=== PATIENT | male | born 1935 | race Caucasian/White ===

== ENCOUNTER → 2017-04-03 | Outpatient (CLI) | payer MEDICARE ==
[2017-04-03 12:55] LABS: CH 28.6; CHCM 31.3; HCT 37.7 % (39.0-53.0); HDW 2.29; Hypochromasia Slight; MCH 29.2 pg (25.0-35.0); MCHC 31.7 g/dL (31.0-37.0); Mean Platelet Volume 8.5; WBC 6.8 k/uL (3.8-10.6)
[2017-04-03 13:05] LABS: Anion Gap 14 mmol/L; Blood Urea Nitrogen 43 mg/dL (9-20); Carbon Dioxide 24 mmol/L (22-30); Chloride 107 mmol/L (98-107); Non-African American GFR(MDRD) 53 (>60 ml/min/1.73 sqM); Potassium 4.6 mmol/L (3.5-5.1); Sodium 145 mmol/L (137-145)
== END | disposition home or self-care (01) ==
LOC: LABPAT 11:51
PROVIDERS: ATTEND Internal Medicine Interventional Cardiology
DX: Z01.812 Encounter for preprocedural laboratory examination (principal); I73.9 Peripheral vascular disease, unspecified
CPT/HCPCS: 80051; 82565; 84520; 85027

== ENCOUNTER 2017-04-04 06:25 | Day surgery (SDC) | payer MEDICARE ==
[2017-04-03 10:47] VITALS: BMI 26.6
[~2017-04-04 06:25] MED LIST: ALPRAZolam 0.25 MG TAB PO PRN; ASPIRIN 325 MG TAB PO ONE; ATORVASTATIN 80 MG TAB PO ONE; NITROGLYCERIN SL TABS 0.4 MG TAB SUBLINGUAL PRN; SODIUM CHLORIDE 0.9% 1,000 ML in EMPTY BAG 1 BAG IV ONE
[2017-04-04 07:20] LABS: Glucose,Whole Blood 115 mg/dL (75-99)
[2017-04-04] MEDS: MIDAZOLAM 2 MG/2 ML VIAL IV ONE ×2 (11:50→11:54)
[2017-04-04] MEDS ORDERED: LIDOCAINE 2% INJ 20 MG/ML IV ONE (11:50)
[2017-04-04] MEDS ORDERED: SODIUM CHLORIDE 0.9% 1,000 ML IV ONE (11:51)
[2017-04-04] MEDS ORDERED: IODIXANOL 320 MG/ML 100 ML INTRAARTER ONE (12:15)
[2017-04-04] MEDS ORDERED: RX INFO: IV CONTRAST WAS GIVEN 1 EACH MISC MISCELLANE PRN (12:23)
[2017-04-04] MEDS ORDERED: SODIUM CHLORIDE 0.9% 1,000 ML IV SCH (12:30)
[2017-04-04 13:18] VITALS: RESP 16; TEMP 97.4
--- NOTE | 2017-04-04 13:19 | IR ---
EXAMINATION TYPE: IR angio abdominal w runoff DATE OF EXAM: 04/04/2017 CLINICAL HISTORY: Peripheral vascular disease TECHNIQUE: Fluoroscopy. COMPARISON: None. FINDINGS: Fluoroscopic guidance was provided during coronary angiogram and abdominal aortic angiogra m with lower extremity runoff procedure performed by Dr. Carrero. A total of 5.6 minutes of fluoroscopi c time was utilized during the procedure and multiple cine images are acquired. Please refer to proce dure note for further details as I was not present nor performed procedure. IMPRESSION: As Above.
[2017-04-04 16:18] VITALS: BP 147/65; PULSE 61
--- NOTE | 2017-04-04 22:43 | CC ---
DATE OF SERVICE: 04/04/2017 PERFORMING PHYSICIAN: Farrukh Carrero M.D., handle lathe operator. PROCEDURES PERFORMED: 1. Selective right and left coronary angiogram. 2. Left heart catheterization. INDICATION: This is a pleasant 82-year-old gentleman who is known to have peripheral arterial disease as well as significant history of smoking. He was experiencing intermittent episodes of chest discomfort consistent with angina. He was brought today to undergo a heart catheterization. APPROACH: Right common femoral artery. COMPLICATIONS: None. LEVEL OF SEDATION: Moderate with sedation length of 26 minutes. PROCEDURE DESCRIPTION: After obtaining informed consent, the patient was brought to the cardiac lab animal technician. The right common femoral artery was cannulated using micropuncture technique. The micropuncture wire passed easily. Then I placed a 6 Romanian sheath in the right common femoral artery. Subsequently I did selective right and left coronary angiogram using JR4 and JL4 catheters. After that I did left heart catheterization using a 6 Romanian pigtail catheter. The procedure was completed without any complication. SELECTIVE CORONARY ANGIOGRAM: 1. The right coronary artery is a medium- to large-caliber vessel and it is a dominant vessel. The RCA is calcified. In the proximal portion it seems to have mild disease only. In the mid portion it appears to have mild disease only as well. Distally it appeared to have a tubular lesion that seems to be in the range of 70% to 80%. It is involving the bifurcation of PDA and PLV branches. 2. The left main is calcified with mild disease only. It bifurcates into the left circumflex and left anterior descending artery. 3. The left circumflex is a medium-caliber vessel and it is a non-dominant vessel. The proximal left circumflex appeared to be angiographically normal and gives rise to a large OM branch which appeared to have mild disease only. The circumflex continues after that as a small-caliber vessel in the AV groove. 4. The LAD is calcified. The proximal LAD appeared to have mild disease only. The mid LAD appeared to have a lesion that seems to be in the range of 50% to 60%. The LAD distally appeared to be angiographically normal. HEMODYNAMICS: The left ventricular end-diastolic pressure was 8 mmHg. There was no significant gradient identified across the aortic valve. CONCLUSION: 1. Severe disease involving the distal right coronary artery. 2. Intermediate disease involving the proximal to mid LAD. POST-PROCEDURE MANAGEMENT: The patient will be scheduled to undergo a stent of the RCA and FFR of the LAD in a separate session in view of the low GFR and maximum contrast used during this procedure.
--- NOTE | 2017-04-04 22:53 | PCN ---
DATE OF PROCEDURE: 04/04/2017 PERFORMING PHYSICIAN: Farrukh Carrero M.D., college director. PROCEDURES PERFORMED: 1. Abdominal aortogram. 2. Bilateral lower extremity runoff. INDICATION: This is a pleasant 82-year-old gentleman who is known to have severe underlying PAD, where he underwent in the past angioplasty of bilateral SFA and stenting of the right iliac. He was experiencing severe bilateral lower extremity discomfort again, worse on the right side and consistent with claudication. He was brought today to undergo an angiogram for better clarification. APPROACH: Right common femoral artery. COMPLICATIONS: None. LEVEL OF SEDATION: Moderate with a sedation length total with heart catheterization of 26 minutes. PROCEDURE DESCRIPTION: After obtaining informed consent, the patient was brought to the cardiac candlemaking laborer. The right common femoral artery was cannulated using micropuncture technique. The micropuncture wire passed easily. Then I placed a 6 Czech sheath in the right common femoral artery. Subsequently and after I performed heart catheterization on this gentleman, I performed an aortogram and bilateral lower extremity runoff using a 6 Czech pigtail catheter which was initially placed at the level of the renal arteries. Then it was pulled into above the bifurcation of the aorta to right and left common iliac arteries. The procedure was completed without any complication. SELECTIVE PERIPHERAL ANGIOGRAM: 1. The aorta appeared to have mild disease only. It is calcified as well. 2. Common iliac arteries. The right common iliac artery stent appeared to be patent. The left common iliac artery appeared to have mild disease only. 3. Internal iliac arteries. The right and left internal iliac arteries are patent. 4. External iliac arteries. The right and left external iliac arteries are angiographically normal. 5. Common femoral arteries. The right and left common femoral arteries appear to have mild disease only. 6. SFA. The right SFA is stented, and in the mid portion there is severe in-stent restenosis. The left SFA appeared to have also 2 focal lesions that appeared to be in the range of 70%. 7. Popliteals. The right and left popliteals are angiographically normal. 8. Aygly-kgh-ngzt. There is 2-vessel runoff below the knee bilaterally with posterior tibia and peroneal. CONCLUSION: 1. Patent stent in the right common iliac artery. 2. Severe bilateral SFA disease. POST-PROCEDURE MANAGEMENT: The patient will be scheduled to undergo a GLASS SCULLION of the right and subsequently the left SFA in 2 separate sessions.
== END 2017-04-04 19:05 | disposition home or self-care (01) ==
LOC: CATHCVL 06:25 → 3OBS 12:17 → CATHCVL 19:05
PROVIDERS: ATTEND Internal Medicine Interventional Cardiology
DX: I70.213 Atherosclerosis of native arteries of extremities with intermittent claudication, bilateral legs (principal); I10 Essential (primary) hypertension; E78.5 Hyperlipidemia, unspecified; R06.09 Other forms of dyspnea; F17.290 Nicotine dependence, other tobacco product, uncomplicated; I65.23 Occlusion and stenosis of bilateral carotid arteries; T82.856A Stenosis of peripheral vascular stent, initial encounter; I25.10 Atherosclerotic heart disease of native coronary artery without angina pectoris; I25.84 Coronary atherosclerosis due to calcified coronary lesion; I70.0 Atherosclerosis of aorta; Y71.3 Surgical instruments, materials and cardiovascular devices (including sutures) associated with adverse incidents; Z79.84 Long term (current) use of oral hypoglycemic drugs; Z79.02 Long term (current) use of antithrombotics/antiplatelets; Z79.82 Long term (current) use of aspirin; Z79.899 Other long term (current) drug therapy
CPT/HCPCS: 93458; 75625; 75716; 99152; 99153; C1894; C1769 ×2; J2001; J2250; Q9967

== ENCOUNTER 2017-04-17 08:59 | Day surgery (SDC) | payer MEDICARE ==
[~2017-04-17 08:59] MED LIST changes: +ALPRAZolam 0.5 MG TAB PO PRN; -ASPIRIN 325 MG TAB PO ONE; +ASPIRIN 325 MG TAB PO STA; -ATORVASTATIN 80 MG TAB PO ONE; +ATORVASTATIN 80 MG TAB PO STA
[2017-04-17 09:25] LABS: Glucose,Whole Blood 121 mg/dL (75-99)
[2017-04-17] MEDS ORDERED: ASPIRIN 81 MG CHEW ONE (09:25)
[2017-04-17] MEDS: MIDAZOLAM 2 MG/2 ML VIAL IV ONE ×2 (10:09→10:34)
[2017-04-17] MEDS ORDERED: MIDAZOLAM 2 MG/2 ML VIAL ONE ×2 (10:17→11:04)
[2017-04-17] MEDS ORDERED: diphenhydrAMINE 50 MG/ML 1 ML VIAL ONE (10:17)
[2017-04-17] MEDS ORDERED: VERAPAMIL 2.5 MG/ML 2 ML AMP ONE (10:19)
[2017-04-17] MEDS ORDERED: LIDOCAINE 2% INJ 20 MG/ML SQ ONE (10:20)
[2017-04-17] MEDS ORDERED: HYDROmorphone 2 MG/ML 1 ML SYRINGE IV ONE (10:21)
[2017-04-17] MEDS ORDERED: HYDROmorphone 2 MG/ML 1 ML SYRINGE ONE (10:21)
[2017-04-17] MEDS ORDERED: VERAPAMIL SYRINGE (5 MG/10 ML) INTRAARTER ONE (10:23)
[2017-04-17] MEDS ORDERED: BIVALIRUDIN 250 MG in SODIUM CHLORIDE 0.9% 50 ML IV ONE (10:24)
[2017-04-17] MEDS ORDERED: BIVALIRUDIN BOLUS 250 MG/50 ML IV ONE (10:24)
[2017-04-17] MEDS: NITROGLYCERIN 1000MCG/10ML SYRINGE INTRAARTER ONE ×3 (10:37→11:24)
[2017-04-17] MEDS ORDERED: ADENOSINE 90 MG in SODIUM CHLORIDE 0.9% 60 ML IVP ONE (11:02)
[2017-04-17] MEDS ORDERED: MIDAZOLAM 2 MG/2 ML VIAL IV ONE (11:06)
[2017-04-17] MEDS ORDERED: CLOPIDOGREL 75 MG TAB ONE (11:08)
[2017-04-17] MEDS ORDERED: IOHEXOL 350 MG/ML 125ML BOTTLE INJ ONE (11:25)
[2017-04-17] MEDS ORDERED: CLOPIDOGREL 75 MG TAB PO ONE (11:25)
[2017-04-17] MEDS ORDERED: IOHEXOL 350 MG/ML 50ML BOTTLE INJ ONE (11:25)
[2017-04-17] MEDS ORDERED: ZOLPIDEM 5 MG TAB PO PRN (11:37)
[2017-04-17] MEDS ORDERED: ATROPINE SULFATE 0.1 MG/ML 10ML SYRINGE IV PRN (11:37)
[2017-04-17] MEDS ORDERED: RX INFO: IV CONTRAST WAS GIVEN 1 EACH MISC MISCELLANE PRN (11:37)
[2017-04-17] MEDS ORDERED: MAG HYDROX/AL HYDROX/SIMETH 30 ML CUP PO PRN (11:37)
[2017-04-17] MEDS ORDERED: NITROGLYCERIN SL TABS 0.4 MG TAB SUBLINGUAL PRN (11:37)
[2017-04-17] MEDS ORDERED: SODIUM CHLORIDE 0.9% 1,000 ML IV SCH (11:45)
--- NOTE | 2017-04-17 12:25 | CC ---
DATE OF SERVICE: 04/17/2017 PERFORMING PHYSICIAN: Farrukh Carrero MD, Tank Tender. PROCEDURE PERFORMED: 1. Successful stenting of the distal right coronary artery using 2.5 x 16 mm Promus Premier drug-eluting stent with good angiographic results. 2. Fractional flow reserve, FFR of the left anterior descending artery. 3. Successful stenting of the proximal left anterior descending artery using 3.0 x 16 mm Promus Premier drug-eluting stent with good angiographic results. INDICATION: This is a pleasant 82-year-old gentleman who was experiencing exertional dyspnea and exertional chest discomfort. He underwent a heart catheterization a couple of weeks ago and that showed severe disease involving the distal right coronary artery and intermediate disease involving the proximal LAD. He was brought today to undergo stenting of the RCA and FFR of the LAD. APPROACH: Right radial artery. COMPLICATIONS: None. LEVEL OF SEDATION: Moderate with a sedation length of 70 minutes. PROCEDURE DESCRIPTION: After obtaining an informed consent, the patient was brought to the Cardiac Claim Investigator. The right radial artery was cannulated using micropuncture technique. The micropuncture wire passed easily, then I placed 6 Austrian sheath in the right radial artery. Subsequently, I gave the patient 2 mg of verapamil IA and 3000 units of heparin IV. After that, I gave the patient 2 mg of verapamil IA, then anticoagulation was initiated using Angiomax. After that, I did take JR4 guiding catheter, and the RCA was engaged. It was wired using a whisper wire and I did advance the wire to the PLV branch of the RCA which was quite bigger than the PDA branch of the RCA. I did balloon angioplasty initially using 2.0 x 15 mm balloon, then I did stent the distal right coronary artery using 2.5 x 16 mm Promus Premier drug-eluting stent, where the stent was positioned under fluoroscopy guidance, then it was deployed under 12 atmospheres for 20 seconds. The following angiogram showed good angiographic results. FFR of the LAD: After zeroing the Doppler wire and equalizing between the Doppler wire and the guiding catheter, which was a JL3.5 guiding catheter, we did an FFR of the LAD using IV adenosine infusion. The FFR came in to be ischemic which was 0.77. At that point, I decided to stent the LAD. PCI of the LAD: I did balloon angioplasty of the proximal LAD using 2.5 x 15 mm balloon. Subsequently, I took 3.0 x 16 mm Promus Premier drug-eluting stent, where the stent was positioned under fluoroscopy guidance and it was deployed under 12 atmospheres for 20 seconds. The following angiogram showed that the mid part of the stent seems to be slightly under-opposed, not well opposed, so I decided to post-dilate, so I took 3.25 x 12 mm NC balloon and I did post dilatation of the stent where the balloon was inflated under 16 atmospheres for 30 seconds. The following angiogram showed excellent angiographic result without perforation and without dissection with excellent flow in the LAD. The procedure was completed without any complication. POSTPROCEDURE MANAGEMENT: 1. Dual antiplatelet therapy. 2. Risk factor modifications. 3. Follow up with the patient.
[2017-04-17 12:44] LABS: Glucose,Whole Blood 110 mg/dL (75-99)
[2017-04-17 14:48] VITALS: BMI 27.1
[2017-04-17] MEDS: LISINOPRIL 20 MG TAB PO SCH (21:05)
[2017-04-18 01:40] VITALS: RESP 18
[2017-04-18 06:14] LABS: Basophils % (A) 0 %; CH 29.4; CHCM 32.1; Eosinophils # (A) 0.1 k/uL (0-0.7); Eosinophils % (A) 2 %; HCT 35.7 % (39.0-53.0); HDW 2.25; HGB 11.5 gm/dL (13.0-17.5); Luc # (Auto) 0.11; Luc % (Auto) 2; Lymphocytes # (A) 1.3 k/uL (1.0-4.8); Lymphocytes % (A) 17 %; MCH 29.5 pg (25.0-35.0); MCHC 32.1 g/dL (31.0-37.0); MCV 91.8 fL (80.0-100.0); Mean Platelet Volume 9.1; Monocytes # (A) 0.4 k/uL (0-1.0); Monocytes % (A) 6 %; Neutrophils # (A) 5.4 k/uL (1.3-7.7); Neutrophils % (A) 74 %; RBC 3.89 m/uL (4.30-5.90); RDW 15.7 % (11.5-15.5); WBC 7.3 k/uL (3.8-10.6)
[2017-04-18 06:30] VITALS: TEMP 97.8
[2017-04-18 06:33] LABS: Glucose,Whole Blood 159 mg/dL (75-99)
[2017-04-18 06:35] LABS: Anion Gap 10 mmol/L; Blood Urea Nitrogen 30 mg/dL (9-20); Calcium 9.2 mg/dL (8.4-10.2); Carbon Dioxide 21 mmol/L (22-30); Chloride 111 mmol/L (98-107); Glucose 101 mg/dL (74-99); Non-African American GFR(MDRD) >60 (>60 ml/min/1.73 sqM); Potassium 4.5 mmol/L (3.5-5.1); Sodium 142 mmol/L (137-145)
[2017-04-18] MEDS: LISINOPRIL 20 MG TAB PO SCH (07:51)
[2017-04-18] MEDS ORDERED: ASPIRIN 81 MG CHEW PO SCH (09:00)
[2017-04-18] MEDS ORDERED: FUROSEMIDE 20 MG TAB PO SCH (09:00)
[2017-04-18] MEDS ORDERED: ATORVASTATIN 10 MG TAB PO SCH (09:00)
[2017-04-18] MEDS ORDERED: CLOPIDOGREL 75 MG TAB PO SCH (09:00)
[2017-04-18 09:46] VITALS: BP 105/53; PULSE 64
[2017-04-18] MEDS ORDERED: MULTIVITAMINS, THERA 1 EACH TAB PO SCH (12:00)
--- NOTE | 2017-04-19 07:02 | DS ---
DATE OF ADMISSION: 04/17/2017 DATE OF DISCHARGE: 04/18/2017 BRIEF HISTORY: This is a pleasant 82-year-old gentleman who was experiencing classical anginal symptoms. He underwent a heart catheterization and that showed severe disease involving the distal right coronary artery and intermediate disease involving the proximal to mid LAD. He was brought today where he underwent successful stenting of the distal right coronary artery with a good angiographic result. Besides that, he underwent fractional flow reserve of the LAD and that came in to be ischemic and the patient underwent successful stenting of the LAD with a good angiographic result and without any complication. The procedure was performed from the right radial artery and he does have good right radial pulse. The patient is going to be discharged home on dual antiplatelet therapy and I will follow up with the patient as an outpatient in the office.
[2017-04-22] MEDS ORDERED: ERGOCALCIFEROL 50,000 UNIT CAP PO SCH (12:00)
== END 2017-04-18 11:16 | disposition home or self-care (01) ==
LOC: CATHCVL 08:59 → 6SEL 14:55 → CATHCVL 04-18 11:16
PROVIDERS: ATTEND Internal Medicine Interventional Cardiology
DX: I25.10 Atherosclerotic heart disease of native coronary artery without angina pectoris (principal); I70.213 Atherosclerosis of native arteries of extremities with intermittent claudication, bilateral legs; I10 Essential (primary) hypertension; E78.5 Hyperlipidemia, unspecified; E11.9 Type 2 diabetes mellitus without complications; Z79.84 Long term (current) use of oral hypoglycemic drugs; Z79.02 Long term (current) use of antithrombotics/antiplatelets; Z79.82 Long term (current) use of aspirin; Z79.899 Other long term (current) drug therapy; F17.210 Nicotine dependence, cigarettes, uncomplicated
CPT/HCPCS: 93571; 80048; 85025; 99152; 99153 ×4; C9600 ×2; C1769 ×4; C1887 ×2; C1725 ×3; C1894 ×2; C1874; J2001; J2250; J1170; J0583; J0153; Q9967 ×2

== ENCOUNTER → 2017-05-19 | Outpatient (CLI) | payer MEDICARE ==
[2017-05-19 11:46] LABS: CH 29.5; CHCM 32.2; HCT 35.3 % (39.0-53.0); HGB 11.7 gm/dL (13.0-17.5); MCH 30.5 pg (25.0-35.0); MCV 92.2 fL (80.0-100.0); Mean Platelet Volume 8.5; RBC 3.83 m/uL (4.30-5.90); RDW 15.3 % (11.5-15.5); WBC 5.7 k/uL (3.8-10.6)
[2017-05-19 11:47] LABS: Anion Gap 12 mmol/L; Blood Urea Nitrogen 39 mg/dL (9-20); Carbon Dioxide 25 mmol/L (22-30); Chloride 107 mmol/L (98-107); Non-African American GFR(MDRD) 58 (>60 ml/min/1.73 sqM); Potassium 4.8 mmol/L (3.5-5.1); Sodium 144 mmol/L (137-145)
== END | disposition home or self-care (01) ==
LOC: LABPAT 11:03
PROVIDERS: ATTEND Internal Medicine Interventional Cardiology
DX: Z01.812 Encounter for preprocedural laboratory examination (principal); I73.9 Peripheral vascular disease, unspecified
CPT/HCPCS: 80051; 82565; 84520; 85027

== ENCOUNTER 2017-05-23 08:21 | Day surgery (SDC) | payer MEDICARE ==
[2017-05-17 11:17] VITALS: BMI 26.9
[~2017-05-23 08:21] MED LIST changes: -ATORVASTATIN 80 MG TAB PO STA; -NITROGLYCERIN SL TABS 0.4 MG TAB SUBLINGUAL PRN
[2017-05-23] MEDS ORDERED: ASPIRIN 81 MG CHEW ONE (08:31)
[2017-05-23 08:52] LABS: Glucose,Whole Blood 115 mg/dL (75-99)
[2017-05-23] MEDS ORDERED: MIDAZOLAM 2 MG/2 ML VIAL IV ONE (10:05)
[2017-05-23] MEDS ORDERED: LIDOCAINE 2% INJ 20 MG/ML SQ ONE (10:16)
[2017-05-23] MEDS ORDERED: HEPARIN SODIUM 1,000 UN/ML (10ML VL) IV ONE (10:18)
[2017-05-23] MEDS: HYDROmorphone 2 MG/ML 1 ML SYRINGE IV ONE ×2 (10:21→11:12)
[2017-05-23] MEDS: NITROGLYCERIN 1000MCG/10ML SYRINGE INTRAARTER ONE ×6 (11:10→12:17)
[2017-05-23] MEDS: niCARdipine Syringe (1,000 mcg/10 mL) INTRAARTER ONE ×3 (11:11→11:39)
[2017-05-23] MEDS ORDERED: SODIUM CHLORIDE 0.9% 1,000 ML IV SCH (13:00)
[2017-05-23] MEDS ORDERED: IODIXANOL 320 MG/ML 100 ML INTRAARTER ONE (13:14)
[2017-05-23] MEDS ORDERED: ATROPINE SULFATE 0.1 MG/ML 10ML SYRINGE ONE (18:07)
[2017-05-23] MEDS ORDERED: ATORVASTATIN 10 MG TAB PO SCH (21:00)
[2017-05-23] MEDS: LISINOPRIL 20 MG TAB PO SCH (21:18)
[2017-05-24 06:53] LABS: Basophils % (A) 0 %; CH 29.7; CHCM 32.3; Eosinophils # (A) 0.1 k/uL (0-0.7); Eosinophils % (A) 2 %; HCT 31.1 % (39.0-53.0); HDW 2.48; HGB 10.2 gm/dL (13.0-17.5); Luc # (Auto) 0.09; Luc % (Auto) 1; Lymphocytes # (A) 0.8 k/uL (1.0-4.8); Lymphocytes % (A) 13 %; MCH 30.1 pg (25.0-35.0); MCHC 32.7 g/dL (31.0-37.0); MCV 92.2 fL (80.0-100.0); Mean Platelet Volume 8.2; Monocytes # (A) 0.4 k/uL (0-1.0); Monocytes % (A) 7 %; Neutrophils # (A) 4.8 k/uL (1.3-7.7); Neutrophils % (A) 77 %; RBC 3.38 m/uL (4.30-5.90); RDW 15.2 % (11.5-15.5); WBC 6.2 k/uL (3.8-10.6); WBC (Perox) 6.52
[2017-05-24 07:04] LABS: Anion Gap 9 mmol/L; Blood Urea Nitrogen 24 mg/dL (9-20); Calcium 8.6 mg/dL (8.4-10.2); Carbon Dioxide 20 mmol/L (22-30); Chloride 113 mmol/L (98-107); Glucose 93 mg/dL (74-99); Non-African American GFR(MDRD) >60 (>60 ml/min/1.73 sqM); Potassium 4.1 mmol/L (3.5-5.1); Sodium 142 mmol/L (137-145)
[2017-05-24 08:28] VITALS: BP 125/44; PULSE 64; RESP 18; TEMP 99.2
[2017-05-24] MEDS: LISINOPRIL 20 MG TAB PO SCH (08:38)
--- NOTE | 2017-05-24 08:42 | MISC ---
DATE OF SERVICE: 05/23/[address] Healy; Mr. Velasquez Baugh underwent successful percutaneous peripheral intervention on the left femoral artery with a good angiographic result and without any complication. I want to thank you for allowing me to participate in his care and please do not hesitate to call with any question or concern. Sincerely, Farrukh TAYLOR
--- NOTE | 2017-05-24 08:50 | IR ---
EXAMINATION TYPE: IR stent intravas non coronary DATE OF EXAM: 05/23/2017 COMPARISON: NONE HISTORY: Peripheral vascular occlusive disease. Fluoroscopy was provided to the referring clinician. See dictated report from cardiology.
[2017-05-24] MEDS ORDERED: ASPIRIN 81 MG CHEW PO SCH (09:00)
[2017-05-24] MEDS ORDERED: CLOPIDOGREL 75 MG TAB PO SCH (09:00)
[2017-05-24] MEDS ORDERED: FUROSEMIDE 20 MG TAB PO SCH (09:00)
[2017-05-24] MEDS ORDERED: MULTIVITAMINS, THERA 1 EACH TAB PO SCH (09:00)
--- NOTE | 2017-05-24 09:29 | PCN ---
DATE OF SERVICE: 05/23/2017 PERCUTANEOUS PERIPHERAL INTERVENTION PERFORMING PHYSICIAN: Farrukh Carrero MD, datastage architect. PROCEDURE PERFORMED: 1. Selective left posterior tibial artery angiogram. 2. Selective left TPT angiogram. 3. Selective left popliteal angiogram. 4. Selective left SFA angiogram. 5. Selective right common iliac artery angiogram. 6. Selective right common femoral artery angiogram. 7. An atherectomy of the left tibioperoneal trunk using the CSI orbital atherectomy. 8. An atherectomy of the left popliteal using the CSI orbital atherectomy device. 9. An atherectomy of the distal and proximal left SFA using the CSI orbital atherectomy device. 10. Successful balloon angioplasty of the left posterior tibial artery. 11. Successful balloon angioplasty of the left tibioperoneal trunk. 12. Successful balloon angioplasty of the left popliteal. 13. Successful balloon angioplasty of the left SFA. 14. Successful stenting of the ostial left SFA using 7.0 x 40 mm Zilver PTX drug coated stent with a good angiographic result. INDICATION: This is a pleasant 82-year-old gentleman who I see for PAD who underwent in the past bilateral SFA and right iliac intervention. He started experiencing bilateral lower extremity discomfort related to intermittent claudication. He underwent a peripheral angiogram a few weeks ago and that showed severe right iliac disease and severe bilateral SFA disease. He was brought today to undergo intervention. APPROACH: Right common femoral artery. COMPLICATIONS: None. LEVEL OF SEDATION: Moderate with a sedation length of ( ) minutes. PROCEDURE DESCRIPTION: After obtaining an informed consent, the patient was brought to the cardiac laboratory inspector. The right common femoral artery was cannulated using micropuncture technique under ultrasound guidance. The micropuncture wire passed easily then I placed a 6-Omani 11 cm in the right common femoral artery. At that point, anticoagulation was initiated using heparin and the patient was given 8000 units of heparin IV. Subsequently I did select the SFA using a 5-Omani rim catheter with 0.035 advantage wire where the advantage wire was advanced to the left popliteal. Subsequently, I did exchange my 11 cm 6-Omani into 55 cm 6-Omani over the advantage wire. The tip of the sheath was positioned in the left common femoral artery. After that I did selective left SFA angiogram, selective left popliteal angiography and selective left below the knee angiogram. I did realize that there was a critical lesion involving the left tibioperoneal trunk and intermediate lesion involving the left posterior tibial artery so I decided to go after these 2 lesions to start with. So I did realize that there was a critical lesion involving the the tibioperoneal trunk and intermediate lesion involving the left posterior tibial artery. At that point, I decided to wire the left posterior tibial artery. I did wire the left posterior tibial artery using an 0.014 advantage wire where the wire was advanced distally. Subsequently, I did exchange my 0.014 wire into 0.014 FiberWire using an 0.014 Quick-Cross catheter. After that, I did atherectomy of the left posterior tibial and left tibioperoneal trunk using the My Visual Brief orbital atherectomy device. Subsequently, I did balloon angioplasty initially using 3.0 balloon of the left tibial peroneal trunk and subsequently using 3.5 AngioSculpt. The following angiogram showed decent angiographic results. There was a tight lesion in the left posterior tibial artery in the proximal portion so I decided to wire that as well. So I did advance 2.5 x 40 mm balloon and I did balloon angioplasty of that lesion where the balloon was inflated under its nominal pressure for 1 minute. The following angiogram showed good angiographic results. After that I did atherectomy of the left popliteal as well as left SFA in the distal and proximal portion. For the left SFA, I did balloon angioplasty using 5.0 semi-compliant balloon and subsequently 6.0 drug coated balloon. The following angiogram for the distal left SFA showed good angiographic results without perforation with a small non-flow limiting dissection, which I left alone. For the ostial left SFA, I did balloon angioplasty using 6.0 balloon where the balloon was inflated under its nominal pressure for 1 minute. The following angiogram showed flow limiting dissection involving the very proximal left SFA right after the bifurcation of the profunda. I decided to stent that segment. So I did deploy 7.0 x 40 mg Zilver PTX drug coated stent where the stent was positioned under fluoroscopy guidance and then it was deployed. I post-dilated the proximal edge of the stent using the 6 mm balloon. The following angiogram showed good angiographic results without perforation and without dissection. After that I did pull my long 55 cm 6-Omani sheath all the way to the right iliac just proximal to the right iliac stent and I did that using the 0.035 advantage wire with the dilator of the sheath. I did selective right common iliac artery angiogram, which showed the patency of the stent and at that point I decided not to intervene on the right iliac artery. Subsequently, I did exchange my 55 cm 6-Omani sheath to 11 cm 6-Omani sheath using the advantage wire then I did selective right common iliac artery angiogram before I finished the procedure. The procedure was completed without any complication. POSTPROCEDURE MANAGEMENT: 1. Dual antiplatelet therapy. 2. Risk factor modifications. 3. Follow up with the patient. CLAUDIA
--- NOTE | 2017-05-26 12:06 | DS ---
BRIEF HISTORY: This is a pleasant 82 year old gentleman who was admitted to the hospital yesterday and underwent successful percutaneous peripheral intervention on the left superficial femoral artery and left popliteal as well as left tibial peroneal shunt. On follow up with him today, he is doing good. He has palpable pulse in the left posterior tibial artery. The right groin which was the access site is soft and nontender and without any bruises. The patient is going to be discharged home on dual antiplatelet therapy and I will follow up with the patient as an outpatient in the office. CLAUDIA
[2017-05-27] MEDS ORDERED: ERGOCALCIFEROL 50,000 UNIT CAP PO SCH (12:00)
== END 2017-05-24 11:50 | disposition home or self-care (01) ==
LOC: CATHCVL 08:21 → 6SEL 12:44 → CATHCVL 05-24 11:50
PROVIDERS: ATTEND Internal Medicine Interventional Cardiology
DX: I70.213 Atherosclerosis of native arteries of extremities with intermittent claudication, bilateral legs (principal); I25.10 Atherosclerotic heart disease of native coronary artery without angina pectoris; I10 Essential (primary) hypertension; F17.290 Nicotine dependence, other tobacco product, uncomplicated; E78.5 Hyperlipidemia, unspecified; E11.9 Type 2 diabetes mellitus without complications; Z79.84 Long term (current) use of oral hypoglycemic drugs; Z79.02 Long term (current) use of antithrombotics/antiplatelets; Z79.82 Long term (current) use of aspirin; Z79.899 Other long term (current) drug therapy
CPT/HCPCS: 37227; 37229; 85347; 80048; 85025; 99152; 99153 ×9; C1894 ×2; C1714; C1769 ×6; C1725 ×4; C1887; C2623 ×2; C1874; J2001; J2250; J1170; Q9967; J1644 ×2

== ENCOUNTER → 2017-06-06 | Outpatient (CLI) | payer MEDICARE ==
[2017-06-06 11:35] LABS: Potassium 4.5 mmol/L (3.5-5.1); Total Bilirubin 0.5 mg/dL (0.2-1.3); Total Protein 7.6 g/dL (6.3-8.2)
== END | disposition home or self-care (01) ==
LOC: LABWHC1 10:37
PROVIDERS: ATTEND Internal Medicine
DX: E55.9 Vitamin D deficiency, unspecified (principal); I10 Essential (primary) hypertension; E88.09 Other disorders of plasma-protein metabolism, not elsewhere classified
CPT/HCPCS: 36415; 80053; 82306

== ENCOUNTER → 2017-06-11 | Outpatient (CLI) | payer MEDICARE ==
[2017-06-11 16:04] LABS: Iron 48 ug/dL (49-181)
[2017-06-11 16:13] LABS: % Iron Saturation 12.2 % (20-50); Total Iron Binding Capacity 393 ug/dL (261-462)
[2017-06-11 17:11] LABS: Vitamin B12 324 pg/mL
== END | disposition home or self-care (01) ==
LOC: LABWHC1 15:28
PROVIDERS: ATTEND Internal Medicine
DX: E55.9 Vitamin D deficiency, unspecified (principal); D64.9 Anemia, unspecified; L02.92 Furuncle, unspecified
CPT/HCPCS: 36415; 82306; 82607; 82728; 82746; 83540; 83550

== ENCOUNTER → 2017-07-13 | Outpatient (CLI) | payer MEDICARE ==
[2017-07-13 16:21] LABS: CH 31.9; HCT 33.3 % (39.0-53.0); HGB 10.7 gm/dL (13.0-17.5); MCH 31.3 pg (25.0-35.0); MCHC 32.1 g/dL (31.0-37.0); Mean Platelet Volume 8.8; RBC 3.42 m/uL (4.30-5.90); RDW 15.4 % (11.5-15.5); WBC 6.2 k/uL (3.8-10.6)
[2017-07-13 16:27] LABS: MCV 97.4 fL (80.0-100.0)
[2017-07-13 16:51] LABS: Anion Gap 11 mmol/L; Blood Urea Nitrogen 37 mg/dL (9-20); Carbon Dioxide 25 mmol/L (22-30); Chloride 107 mmol/L (98-107); Non-African American GFR(MDRD) 53 (>60 ml/min/1.73 sqM); Potassium 4.5 mmol/L (3.5-5.1); Sodium 143 mmol/L (137-145)
== END | disposition home or self-care (01) ==
LOC: LABPAT 15:43
PROVIDERS: ATTEND Internal Medicine Interventional Cardiology
DX: Z01.812 Encounter for preprocedural laboratory examination (principal); I73.9 Peripheral vascular disease, unspecified
CPT/HCPCS: 80051; 82565; 84520; 85027

== ENCOUNTER 2017-07-18 14:22 | Day surgery (SDC) | payer MEDICARE ==
[2017-07-13 14:53] VITALS: BMI 26.6
[~2017-07-18 14:22] MED LIST changes: -ALPRAZolam 0.5 MG TAB PO PRN
[2017-07-18 15:06] LABS: Glucose,Whole Blood 104 mg/dL (75-99)
[2017-07-18] MEDS ORDERED: SODIUM CHLORIDE 0.9% 1,000 ML IV ONE (15:12)
[2017-07-18] MEDS: MIDAZOLAM 2 MG/2 ML VIAL IVP ONE ×2 (16:53→17:04)
[2017-07-18] MEDS ORDERED: LIDOCAINE 2% INJ 20 MG/ML SQ ONE (16:56)
[2017-07-18] MEDS ORDERED: HEPARIN SODIUM 1,000 UN/ML (10ML VL) IV ONE (17:04)
[2017-07-18] MEDS ORDERED: HYDROmorphone 2 MG/ML 1 ML SYRINGE IVP ONE (17:18)
[2017-07-18] MEDS: niCARdipine Syringe (1,000 mcg/10 mL) INTRAARTER ONE ×2 (17:47→17:58)
[2017-07-18] MEDS ORDERED: NITROGLYCERIN 1000MCG/10ML SYRINGE INTRAARTER ONE (17:47)
[2017-07-18] MEDS ORDERED: CLOPIDOGREL 75 MG TAB PO ONE (17:52)
[2017-07-18] MEDS ORDERED: IODIXANOL 320 MG/ML 100 ML INTRAARTER ONE (18:07)
[2017-07-18] MEDS ORDERED: PROTAMINE SULFATE 10 MG/ML 5 ML VIAL IV ONE (18:24)
[2017-07-18] MEDS: SODIUM CHLORIDE 0.9% 1,000 ML IV SCH ×2 (20:09→20:13)
[2017-07-18] MEDS: FERROUS SULFATE 325 MG TAB PO SCH (20:15)
[2017-07-18] MEDS: LISINOPRIL 20 MG TAB PO SCH (20:15)
[2017-07-18 20:18] VITALS: RESP 18
--- NOTE | 2017-07-18 20:55 | PCN ---
PROCEDURE NOTE DATE OF SERVICE: July 18, 2017. PERFORMING PHYSICIAN: Farrukh Carrero MD, dedicated truck driver. PROCEDURE PERFORMED: 1. Selective right olygh-uij-qfaf angiogram. 2. Selective right popliteal angiogram. 3. Selective right SFA angiogram. 4. Selective left common femoral artery angiogram. 5. Atherectomy of right popliteal using the CSI orbital atherectomy device. 6. Successful stenting of the right popliteal using Zilver PTX stent with good angiographic results. 7. Successful balloon angioplasty of the right SFA with a good angiographic result as well. INDICATIONS: This is a pleasant 82-year-old gentleman who is known to have PAD with prior stenting of the right SFA was experiencing severe right leg discomfort. He underwent a peripheral angiogram which showed severe in-stent restenosis involving the right SFA stent as well as severe de Tereza disease involving the right popliteal. He was brought today to undergo an intervention on the right SFA and right popliteal. APPROACH: Left common femoral artery. COMPLICATION: None. LEVEL OF SEDATION: Moderate with sedation length of 81 minutes. PROCEDURE DESCRIPTION: After obtaining informed consent, the patient was brought to the cardiac laborer bituminous paving. The left common femoral artery was cannulated using micropuncture technique, the micropuncture wire passed easily. Then I placed off 11 cm 6-Slovenian sheath in the left common femoral artery. After that anticoagulation was initiated using heparin and the patient was given 10,000 units of heparin IV. Subsequently I did select the right SFA using a 5-Slovenian rim catheter with a 035 advantage wire. After that, I did exchange my 11 cm 6-Slovenian sheath into 70 cm 6-Slovenian sheath using the 035 advantage wire and the tip of the sheath was positioned in the right common femoral artery. Subsequently I did cross the right SFA and right popliteal disease using an 035 advantage wire and then I did exchange my 035 advantage wire into 014 ViperWire preparing for orbital atherectomy. I did atherectomy of the right popliteal using the orbital CSI device. Subsequently I did balloon angioplasty using 5-0 mm balloon with the following angiogram showed what seems to be possible dissection in that area. I decided to cover that with a stent so I did deploy 6.0 mm Zilver PTX stent where the stent was positioned under fluoroscopy guidance and deployed after that. I post dilated the stent using 5 mm balloon. The following angiogram showed good angiographic results. For the in-stent restenosis: I did balloon angioplasty initially using 6 mm regular balloon and then 6 mm AngioSculpt balloon. Following angiogram showed good angiographic results as well, without perforation and without dissection. The procedure was completed without any complication. After that, I did exchange my 70 cm 6-Slovenian sheath into 11 cm 6-Slovenian sheath using the Advantage wire. After that, I did selective left common femoral artery angiogram. The procedure was completed at that point. POSTPROCEDURE MANAGEMENT: 1. Dual anti-platelet therapy. 2. Risk factor modifications. 3. Follow up with the patient. MMODL / IJN: [id number] /
[2017-07-18] MEDS ORDERED: ATORVASTATIN 10 MG TAB PO SCH (21:00)
[2017-07-18 21:16] LABS: Glucose,Whole Blood 122 mg/dL (75-99)
--- NOTE | 2017-07-19 05:45 | IR ---
EXAMINATION TYPE: IR fire prevention captain femoral popliteal DATE OF EXAM: 07/18/2017 CLINICAL HISTORY: Peripheral vascular disease. TECHNIQUE: Fluoroscopy. COMPARISON: None. FINDINGS: Fluoroscopic guidance was provided during lower extremity angiogram procedure performed by Dr. Carrero. A total of 20.1 minutes of fluoroscopic time was utilized during the procedure and 0 spot images are acquired and saved to PACS. IMPRESSION: As Above.
[2017-07-19 07:03] LABS: Basophils % (A) 0 %; CH 31.1; CHCM 32.6; Eosinophils # (A) 0.1 k/uL (0-0.7); Eosinophils % (A) 1 %; HCT 31.1 % (39.0-53.0); HDW 2.49; HGB 10.4 gm/dL (13.0-17.5); Luc % (Auto) 1; Lymphocytes # (A) 0.8 k/uL (1.0-4.8); Lymphocytes % (A) 12 %; MCH 32.2 pg (25.0-35.0); MCHC 33.6 g/dL (31.0-37.0); MCV 95.9 fL (80.0-100.0); Mean Platelet Volume 8.7; Monocytes # (A) 0.6 k/uL (0-1.0); Monocytes % (A) 8 %; Neutrophils # (A) 5.3 k/uL (1.3-7.7); Neutrophils % (A) 77 %; RBC 3.24 m/uL (4.30-5.90); RDW 14.9 % (11.5-15.5); WBC 6.9 k/uL (3.8-10.6); WBC (Perox) 7.19
[2017-07-19 07:12] LABS: Anion Gap 10 mmol/L; Blood Urea Nitrogen 24 mg/dL (9-20); Calcium 8.8 mg/dL (8.4-10.2); Carbon Dioxide 22 mmol/L (22-30); Chloride 109 mmol/L (98-107); Glucose 88 mg/dL (74-99); Non-African American GFR(MDRD) >60 (>60 ml/min/1.73 sqM); Potassium 4.3 mmol/L (3.5-5.1); Sodium 141 mmol/L (137-145)
[2017-07-19 07:50] LABS: Glucose,Whole Blood 193 mg/dL (75-99)
[2017-07-19 08:11] VITALS: BP 141/65; PULSE 60; TEMP 97.2
[2017-07-19] MEDS: LISINOPRIL 20 MG TAB PO SCH (08:12)
[2017-07-19] MEDS: FERROUS SULFATE 325 MG TAB PO SCH (08:12)
--- NOTE | 2017-07-19 08:59 | DS ---
DISCHARGE SUMMARY DATE OF ADMISSION: 07/18/2017 DATE OF DISCHARGE: 07/19/2017 BRIEF HISTORY: This is a pleasant 82-year-old gentleman who was admitted to the hospital yesterday and underwent successful balloon angioplasty of the right superficial femoral artery with a good angiographic result and without any complication. The procedure was performed from the left groin. The procedure was performed without any complication. The patient is going to be discharged home on dual anti-platelet therapy and statin and I will follow up with the patient next week in the office. MMODL / IJN: [id number] /
[2017-07-19] MEDS ORDERED: CLOPIDOGREL 75 MG TAB PO SCH (09:00)
[2017-07-19] MEDS ORDERED: FUROSEMIDE 20 MG TAB PO SCH (09:00)
[2017-07-19] MEDS ORDERED: ASPIRIN 81 MG PO SCH (09:00)
[2017-07-19] MEDS ORDERED: MULTIVITAMINS, THERA 1 EACH TAB PO SCH (12:00)
== END 2017-07-19 11:03 | disposition home or self-care (01) ==
LOC: CATHCVL 14:22 → 6SEL 18:15 → CATHCVL 07-19 11:03
PROVIDERS: ATTEND Internal Medicine Interventional Cardiology
DX: I70.211 Atherosclerosis of native arteries of extremities with intermittent claudication, right leg (principal); T82.856A Stenosis of peripheral vascular stent, initial encounter; I65.21 Occlusion and stenosis of right carotid artery; I25.10 Atherosclerotic heart disease of native coronary artery without angina pectoris; I10 Essential (primary) hypertension; F17.290 Nicotine dependence, other tobacco product, uncomplicated; E78.5 Hyperlipidemia, unspecified; E11.9 Type 2 diabetes mellitus without complications; Z79.84 Long term (current) use of oral hypoglycemic drugs; Z79.02 Long term (current) use of antithrombotics/antiplatelets; Z79.82 Long term (current) use of aspirin; Z79.899 Other long term (current) drug therapy
CPT/HCPCS: 37227; 85347; 80048; 85025; 99152; 99153 ×4; C1894 ×2; C1714; C1769 ×6; C1725 ×3; C1887; C1760; C1874; J2001; J2250; J2720; J1170; Q9967; J1644

== ENCOUNTER → 2017-09-25 | Outpatient (CLI) | payer MEDICARE ==
[2017-09-25 09:52] LABS: CH 30.3; CHCM 31.1; HCT 34.8 % (39.0-53.0); HDW 2.25; HGB 10.9 gm/dL (13.0-17.5); Hypochromasia Slight; MCH 30.8 pg (25.0-35.0); MCHC 31.4 g/dL (31.0-37.0); Mean Platelet Volume 8.8; RBC 3.55 m/uL (4.30-5.90); RDW 14.2 % (11.5-15.5); WBC 6.8 k/uL (3.8-10.6)
[2017-09-25 10:29] LABS: Calcium 9.5 mg/dL (8.4-10.2); Potassium 4.8 mmol/L (3.5-5.1); Total Bilirubin 0.3 mg/dL (0.2-1.3); Total Protein 7.4 g/dL (6.3-8.2)
== END | disposition home or self-care (01) ==
LOC: LABWHC1 08:50
PROVIDERS: ATTEND Internal Medicine
DX: E11.9 Type 2 diabetes mellitus without complications (principal); D64.9 Anemia, unspecified
CPT/HCPCS: 36415; 80053; 83036; 85027

== ENCOUNTER → 2017-12-13 | Outpatient (CLI) | payer MEDICARE ==
[2017-12-13 17:11] LABS: HCT 31.4 % (39.0-53.0); Hypochromasia Slight; MCH 30.7 pg (25.0-35.0); MCHC 31.7 g/dL (31.0-37.0); MCV 96.9 fL (80.0-100.0); Mean Platelet Volume 8.3; Platelet Count 268 k/uL (150-450); RBC 3.24 m/uL (4.30-5.90); RDW 12.3 % (11.5-15.5)
[2017-12-13 18:03] LABS: Albumin 4.4 g/dL (3.5-5.0); Anion Gap 13 mmol/L; Blood Urea Nitrogen 37 mg/dL (9-20); Calcium 9.8 mg/dL (8.4-10.2); Carbon Dioxide 29 mmol/L (22-30); Chloride 104 mmol/L (98-107); Glucose 91 mg/dL (74-99); Phosphorus 4.3 mg/dL (2.5-4.5); Potassium 4.7 mmol/L (3.5-5.1); Sodium 146 mmol/L (137-145)
[2017-12-14 00:53] LABS: Iron Saturation 10.68 (15.00-50.00)
== END | disposition home or self-care (01) ==
LOC: LABWHC1 16:07
PROVIDERS: ATTEND Internal Medicine
DX: N18.3 Chronic kidney disease, stage 3 (moderate) (principal); D63.1 Anemia in chronic kidney disease
CPT/HCPCS: 36415; 80069; 82728; 83540; 83550; 85027

== ENCOUNTER → 2018-04-23 | Outpatient (CLI) | payer MEDICARE ==
[2018-04-23 11:32] LABS: HCT 30.9 % (39.0-53.0); HGB 9.5 gm/dL (13.0-17.5); Hypochromasia Marked; MCH 25.9 pg (25.0-35.0); MCHC 30.7 g/dL (31.0-37.0); MCV 84.1 fL (80.0-100.0); Mean Platelet Volume 8.8; Platelet Count 233 k/uL (150-450); RBC 3.67 m/uL (4.30-5.90); RDW 13.9 % (11.5-15.5); WBC 5.5 k/uL (3.8-10.6)
== END | disposition home or self-care (01) ==
LOC: LABPAT 10:43
PROVIDERS: ATTEND Internal Medicine Interventional Cardiology
DX: Z01.812 Encounter for preprocedural laboratory examination (principal); I73.9 Peripheral vascular disease, unspecified
CPT/HCPCS: 36415; 80051; 82565; 83036; 84520; 85027

== ENCOUNTER 2018-05-01 06:17 | Day surgery (SDC) | payer MEDICARE ==
[2018-04-25 10:47] VITALS: BMI 25.0
[2018-05-01] MEDS ORDERED: ASPIRIN 81 MG ONE (06:53)
[2018-05-01] MEDS ORDERED: SODIUM CHLORIDE 0.9% 1,000 ML IV ONE (09:40)
[2018-05-01] MEDS ORDERED: ASPIRIN 325 MG TAB PO ONE (10:37)
[2018-05-01] MEDS ORDERED: SODIUM CHLORIDE 0.9% 1,000 ML IV SCH (11:00)
--- NOTE | 2018-05-01 11:13 | IR ---
EXAMINATION TYPE: IR angio abdominal w runoff DATE OF EXAM: 05/01/2018 CLINICAL HISTORY: Peripheral vascular disease TECHNIQUE: Fluoroscopy. COMPARISON: None. FINDINGS: Fluoroscopic guidance was provided during abdominal angiogram with lower extremity runoff procedure performed by Dr. Carrero. A total of 1.5 minutes of fluoroscopic time was utilized during the procedure and four cine runs are acquired. Images acquired show access via right groin with subseque nt angiogram and runoff of the bilateral lower extremities. There is stent in the right superficial f emoral artery. Please refer to procedure note for further details as I was not present nor performed procedure. IMPRESSION: As Above.
[2018-05-01 11:39] VITALS: TEMP 98
--- NOTE | 2018-05-01 12:35 | LTR ---
May 01, 2018 Re: Velasquez Baugh. Dear Dr. Healy: Mr. Velasquez Baugh underwent an abdominal aortogram and bilateral lower extremities runoff and he was found to have severe disease involving the right femoral artery. He will be scheduled to undergo balloon angioplasty of the right femoral artery. I want to thank you for allowing me to participate in his care and please do not hesitate to call if you have any question or concern. Sincerely, MD NALINI Saunders / KARLOS: [id number] /
[2018-05-01 13:04] VITALS: RESP 16
--- NOTE | 2018-05-01 13:56 | AN ---
ANGIOGRAPHY REPORT DATE OF SERVICE: May 01, 2018 PERFORMING PHYSICIAN: Farrukh Carrero MD, smt technician. PROCEDURE PERFORMED: 1. An abdominal aortogram. 2. Bilateral lower extremities runoff. INDICATION: This is a pleasant 83-year-old gentleman who is in good functional status and who is known to have peripheral arterial disease and prior angioplasty of both SFA in the past was experiencing severe right leg intermittent claudication interfering with his daily activities. No evidence of critical limb ischemia with evidence of critical limb ischemia in term of resting pain. Because of that, an abdominal aortogram and bilateral lower extremity runoff was recommended. APPROACH: Right common femoral artery. COMPLICATION: None. LEVEL OF SEDATION: Moderate with sedation length of the 13 minutes. PROCEDURE DESCRIPTION: After obtaining an informed consent, the patient was brought to cardiac optical laboratory manager. The right common femoral artery was cannulated using micropuncture technique and a micropuncture wire passed easily and a 5-Latvian sheath in the right common femoral artery. After that, I did an abdominal aortogram and bilateral lower extremity runoff using 5-Latvian pigtail catheter which was initially placed at the level of the renal arteries and it was pulled back above the bifurcation of the aorta to right and left common iliac arteries. The procedure was completed without any complication. PERIPHERAL ANGIOGRAM: 1. The aorta is angiographically normal and seems to be calcified. 2. Common iliac arteries: The right common iliac artery is stented and the stent is patent and the left common iliac artery is angiographically normal. 3. Internal iliac arteries: The right and left internal iliac arteries are patent. 4. External iliac arteries: The right and left external iliac arteries are patent. 5. Profunda: The right and left profunda are patent. 6. The SFA: The right SFA is stented, a long segment. There is multiple area of disease up to about 90% in the midportion. The left SFA is stented as well with an area of disease in the proximal SFA appeared to be in the range of 60-70%, which seems to be in-stent as well. 7. Popliteal. The right and left popliteal appeared to have mild to moderate diffuse disease. 8. Below the knee: There are 2 vessel runoff below the knee bilaterally with PT and peroneal. CONCLUSION: 1. Patent stent in the right common iliac artery. 2. 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 3. Moderate to severe in-stent restenosis of the left SFA. 4. Two vessel runoff below the knee bilaterally with PT and peroneal. POSTPROCEDURE MANAGEMENT: 1. Maximize medical treatment at this point. 2. GLOBAL VP CREATIVE [employer] MARKETING of the right SFA as an outpatient. MMODL / IJN: [id number] /
[2018-05-01 16:08] VITALS: BP 141/72; PULSE 51
[2018-05-02 03:39] LABS: Glucose,Whole Blood 117 mg/dL (75-99)
== END 2018-05-01 16:15 | disposition home or self-care (01) ==
LOC: CATHCVL 06:17
PROVIDERS: ATTEND Internal Medicine Interventional Cardiology
DX: I70.234 Atherosclerosis of native arteries of right leg with ulceration of heel and midfoot (principal); I70.202 Unspecified atherosclerosis of native arteries of extremities, left leg; T82.856A Stenosis of peripheral vascular stent, initial encounter; E11.51 Type 2 diabetes mellitus with diabetic peripheral angiopathy without gangrene; E11.621 Type 2 diabetes mellitus with foot ulcer; L97.419 Non-pressure chronic ulcer of right heel and midfoot with unspecified severity; I25.10 Atherosclerotic heart disease of native coronary artery without angina pectoris; I77.9 Disorder of arteries and arterioles, unspecified; I10 Essential (primary) hypertension; E78.5 Hyperlipidemia, unspecified; F17.210 Nicotine dependence, cigarettes, uncomplicated; F17.290 Nicotine dependence, other tobacco product, uncomplicated; Z95.820 Peripheral vascular angioplasty status with implants and grafts; Z95.5 Presence of coronary angioplasty implant and graft; Z79.84 Long term (current) use of oral hypoglycemic drugs; Z79.02 Long term (current) use of antithrombotics/antiplatelets; Z79.82 Long term (current) use of aspirin; Z79.899 Other long term (current) drug therapy
CPT/HCPCS: 36200; 75625; 75716; C1894; C1769 ×4

== ENCOUNTER → 2018-05-27 | Outpatient (CLI) | payer MEDICARE ==
[2018-05-27 13:28] LABS: Anisocytosis Slight; HCT 29.9 % (39.0-53.0); HGB 9.3 gm/dL (13.0-17.5); Hypochromasia Marked; MCH 25.7 pg (25.0-35.0); MCHC 31.2 g/dL (31.0-37.0); MCV 82.3 fL (80.0-100.0); Mean Platelet Volume 8.2; Platelet Count 243 k/uL (150-450); RBC 3.63 m/uL (4.30-5.90); RDW 16.1 % (11.5-15.5)
[2018-05-27 13:54] LABS: Potassium 4.7 mmol/L (3.5-5.1)
== END | disposition home or self-care (01) ==
LOC: LABPAT 12:27
PROVIDERS: ATTEND Internal Medicine Interventional Cardiology
DX: Z01.812 Encounter for preprocedural laboratory examination (principal); I73.9 Peripheral vascular disease, unspecified
CPT/HCPCS: 36415; 80051; 82565; 84520; 85027

== ENCOUNTER → 2018-05-27 | Outpatient (CLI) | payer MEDICARE ==
[2018-05-27 19:40] LABS: Iron Saturation 13.6 (15.00-50.00)
== END | disposition home or self-care (01) ==
LOC: LABWHC1 12:30
PROVIDERS: ATTEND Internal Medicine
DX: D50.9 Iron deficiency anemia, unspecified (principal)
CPT/HCPCS: 36415; 82728; 83540; 83550

== ENCOUNTER 2018-05-29 10:21 | Day surgery (SDC) | payer MEDICARE ==
[2018-05-23 10:42] VITALS: BMI 25.8
[2018-05-29] MEDS ORDERED: SODIUM CHLORIDE 0.9% 1,000 ML in EMPTY BAG 1 BAG IV ONE (10:24)
[2018-05-29] MEDS ORDERED: ASPIRIN 81 MG ONE (11:22)
[2018-05-29 11:49] LABS: Glucose,Whole Blood 111 mg/dL (75-99)
[2018-05-29 12:24] LABS: Anisocytosis Slight; Basophils % (A) 0 %; Eosinophils # (A) 0.1 k/uL (0-0.7); Eosinophils % (A) 2 %; HCT 30.9 % (39.0-53.0); HGB 9.5 gm/dL (13.0-17.5); Hypochromasia Moderate; Lymphocytes % (A) 19 %; MCH 25.2 pg (25.0-35.0); MCHC 30.7 g/dL (31.0-37.0); Mean Platelet Volume 9.1; Monocytes # (A) 0.3 k/uL (0-1.0); Monocytes % (A) 7 %; Neutrophils # (A) 3.7 k/uL (1.3-7.7); Neutrophils % (A) 71 %; Platelet Count 211 k/uL (150-450); RBC 3.76 m/uL (4.30-5.90); RDW 17.4 % (11.5-15.5); WBC 5.3 k/uL (3.8-10.6)
[2018-05-29] MEDS: MIDAZOLAM 2 MG/2 ML VIAL IVP ONE ×2 (13:05→13:59)
[2018-05-29] MEDS ORDERED: LIDOCAINE 1% (PF) 10MG/ML VIAL SQ ONE ×2 (13:05→13:06)
[2018-05-29] MEDS: fentaNYL (PF) 50 MCG/ML 2 ML AMP IVP ONE ×2 (13:41→14:02)
[2018-05-29] MEDS ORDERED: IOPAMIDOL-250 100ML BTL INTRAARTER ONE (14:51)
[2018-05-29] MEDS ORDERED: IRON INFUSION IV SCH (15:00)
[2018-05-29] MEDS ORDERED: SODIUM CHLORIDE 0.9% 1,000 ML IV SCH (15:00)
[2018-05-29] MEDS ORDERED: CLOPIDOGREL 75 MG TAB PO ONE (15:02)
--- NOTE | 2018-05-29 15:45 | IR ---
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 Fluoroscopy was provided to the referring clinician. See dictated report from cardiology.
--- NOTE | 2018-05-29 16:32 | LTR ---
May 29, [address] Healy: Mr. Velasquez Baugh underwent successful balloon angioplasty of the right femoral artery with good angiographic results and without any complication. Thank you for allowing us to participate in his care and please do not hesitate to call if you have any question or concern. MMBRANDONL / IJN: [id number] /
--- NOTE | 2018-05-29 17:28 | AN ---
ANGIOGRAPHY REPORT DATE OF SERVICE: May 29, 2018 PERFORMING PHYSICIAN: Farrukh Carrero MD, manager risk management. PROCEDURE PERFORMED: 1. Selective right [id number] angiogram. 2. Selective right SFA and popliteal angiogram. 3. Balloon angioplasty of the right SFA and right popliteal using the AngioSculpt balloon. 4. Successful balloon angioplasty of the right SFA and right popliteal using 6 mm drug- coated balloon with good angiographic results. 5. An atherectomy of the right SFA and right popliteal as well. 6. Selective left common femoral artery angiogram. INDICATION: This is a pleasant 83-year-old gentleman with known history of peripheral arterial disease and prior angioplasty of the right and left lower extremities, was experiencing right leg intermittent claudication and underwent a peripheral angiogram which showed severe and critical in-stent restenosis of the right SFA. Because of that, he was brought today to undergo an intervention on the right SFA. APPROACH: Left common femoral artery. COMPLICATION: None. LEVEL OF SEDATION: Moderate sedation length of 1 hour and 48 minutes. PROCEDURE DESCRIPTION: After obtaining an informed consent, the patient was brought to the cardiac supervisor labor gang. The left common femoral artery was cannulated using micropuncture technique, the micropuncture wire passed easily then I placed initially an 11 cm 6-Uruguayan sheath in the left common femoral artery. After that I did select the right SFA using an 035 Glidewire with the backup support of 035 rim catheter. After that, I did exchange my my 6-Uruguayan 11 cm sheath into 70 cm 7-Uruguayan sheath using an Amplatzer wire. The tip of the sheath was positioned at the at the level of the right common femoral artery. After that I did wire the right SFA and right popliteal using a hydro XT wire. Then I did selective right [id number] angiogram, right SFA and popliteal angiogram as well. I did start anticoagulation using heparin. The patient was given 8000 units of heparin IV with continuous monitoring of the ACT throughout the procedure. Subsequently I did do an atherectomy of the right SFA and right popliteal using the TurboHawk device and I was able to extract significant amount of plaque from the artery. After that, I did balloon angioplasty of the right popliteal and right SFA using a 6 mm AngioSculpt balloon. After that, I did drug coated balloon where I did use 6 mm balloon, 6 mm x 150, 6 mm x 150, and 6 mm x 20 mm balloon. The following angiogram showed good angiographic results with reduction of stenosis from 80% to 0%. The procedure was completed without any complication. After that I did exchange my 70 cm 7-Uruguayan sheath into 11 cm 7-Uruguayan sheath using the Amplatzer wire. The procedure was completed without any complication. POSTPROCEDURE MANAGEMENT: 1. Dual anti-platelet therapy. 2. Risk factor modifications. 3. Follow up with the patient. MMSHELDON / MARANDAN: [id number] /
[2018-05-29 17:33] LABS: Glucose,Whole Blood 98 mg/dL (75-99)
[2018-05-29 20:38] LABS: Glucose,Whole Blood 122 mg/dL (75-99)
[2018-05-30 06:22] LABS: Anisocytosis Slight; Basophils % (A) 0 %; Eosinophils # (A) 0.1 k/uL (0-0.7); Eosinophils % (A) 2 %; HCT 30.8 % (39.0-53.0); HGB 9.6 gm/dL (13.0-17.5); Hypochromasia Marked; Lymphocytes # (A) 1.1 k/uL (1.0-4.8); Lymphocytes % (A) 14 %; MCH 26.2 pg (25.0-35.0); MCHC 31.3 g/dL (31.0-37.0); MCV 83.7 fL (80.0-100.0); Mean Platelet Volume 8.3; Monocytes # (A) 0.5 k/uL (0-1.0); Monocytes % (A) 6 %; Neutrophils # (A) 6.2 k/uL (1.3-7.7); Neutrophils % (A) 77 %; Platelet Count 220 k/uL (150-450); RBC 3.68 m/uL (4.30-5.90); RDW 17.6 % (11.5-15.5)
[2018-05-30 06:23] LABS: Glucose,Whole Blood 111 mg/dL (75-99)
[2018-05-30 06:54] LABS: Potassium 4.8 mmol/L (3.5-5.1)
[2018-05-30] MEDS ORDERED: FUROSEMIDE 20 MG TAB PO SCH (09:00)
[2018-05-30] MEDS ORDERED: LISINOPRIL 20 MG TAB PO SCH (09:00)
[2018-05-30] MEDS ORDERED: ASPIRIN 81 MG PO SCH (09:00)
[2018-05-30] MEDS ORDERED: ATORVASTATIN 10 MG TAB PO SCH (09:00)
[2018-05-30] MEDS ORDERED: MULTIVITAMINS, THERA 1 EACH TAB PO SCH (09:00)
[2018-05-30] MEDS ORDERED: CLOPIDOGREL 75 MG TAB PO SCH (09:00)
[2018-05-30 09:08] VITALS: BP 150/68; PULSE 68; RESP 18; TEMP 97.1
--- NOTE | 2018-05-30 09:27 | DS ---
DISCHARGE SUMMARY ADMISSION DATE: 05/29/2018 DISCHARGE DATE: 05/30/2018 BRIEF HISTORY: This is a pleasant 83-year-old gentleman who was experiencing right leg intermittent claudication and he underwent in the past successful angioplasty of the right superficial femoral artery. He underwent a peripheral angiogram a few weeks ago and that showed critical in-stent restenosis involving the right SFA. He was admitted to the hospital yesterday and underwent successful angioplasty of the right SFA using a drug coated balloon with good angiographic results and without any complication. The procedure was performed from the left groin which is soft and nontender and without any bruises. The patient is going to be discharged home on dual anti-platelet therapy and statin and I will follow up with the patient in the office in a week. MMBRANDONL / MARANDAN: [id number] /
== END 2018-05-30 09:24 | disposition home or self-care (01) ==
LOC: CATHCVL 10:21 → 6SEL 14:52 → CATHCVL 05-30 09:24
PROVIDERS: ATTEND Internal Medicine Interventional Cardiology
DX: T82.856A Stenosis of peripheral vascular stent, initial encounter (principal); I70.234 Atherosclerosis of native arteries of right leg with ulceration of heel and midfoot; I70.212 Atherosclerosis of native arteries of extremities with intermittent claudication, left leg; E11.621 Type 2 diabetes mellitus with foot ulcer; E11.51 Type 2 diabetes mellitus with diabetic peripheral angiopathy without gangrene; L97.419 Non-pressure chronic ulcer of right heel and midfoot with unspecified severity; I25.10 Atherosclerotic heart disease of native coronary artery without angina pectoris; I10 Essential (primary) hypertension; E78.5 Hyperlipidemia, unspecified; I77.9 Disorder of arteries and arterioles, unspecified; F17.290 Nicotine dependence, other tobacco product, uncomplicated; Z95.5 Presence of coronary angioplasty implant and graft; Z79.84 Long term (current) use of oral hypoglycemic drugs; Z79.02 Long term (current) use of antithrombotics/antiplatelets; Z79.82 Long term (current) use of aspirin; Z79.899 Other long term (current) drug therapy
CPT/HCPCS: 37225; 85347; 80048; 85025 ×2; C1894 ×2; C1769 ×3; C1725; C1887; C1714; C2623 ×2; J2250; J3010; J2001; J1644; Q9966

== ENCOUNTER → 2018-07-26 | Outpatient (CLI) | payer MEDICARE ==
[2018-07-26 12:10] LABS: Anisocytosis Slight; HCT 29.6 % (39.0-53.0); HGB 9.2 gm/dL (13.0-17.5); Hypochromasia Marked; MCH 26.8 pg (25.0-35.0); MCHC 31.1 g/dL (31.0-37.0); MCV 86.4 fL (80.0-100.0); Platelet Count 226 k/uL (150-450); RBC 3.43 m/uL (4.30-5.90); RDW 17.3 % (11.5-15.5); WBC 5.5 k/uL (3.8-10.6)
[2018-07-26 13:25] LABS: Albumin 4.2 g/dL (3.5-5.0); Calcium 9.1 mg/dL (8.4-10.2); Potassium 4.8 mmol/L (3.5-5.1); Total Bilirubin 0.3 mg/dL (0.2-1.3); Total Protein 7.3 g/dL (6.3-8.2)
[2018-07-26 20:01] LABS: Iron Saturation 6.55 (15.00-50.00)
== END | disposition home or self-care (01) ==
LOC: LABWHC1 11:21
PROVIDERS: ATTEND Internal Medicine
DX: E11.9 Type 2 diabetes mellitus without complications (principal); I10 Essential (primary) hypertension; D50.9 Iron deficiency anemia, unspecified
CPT/HCPCS: 36415; 80053; 82043; 82570; 82728; 83540; 83550; 85027

== ENCOUNTER → 2018-10-08 | Outpatient (CLI) | payer MEDICARE ==
[2018-10-08 18:55] LABS: Albumin 4.7 g/dL (3.80-4.90); Albumin/Globulin Ratio 1.88 (1.20-2.10); Anion Gap 9.5 mmol/L (4.00-12.00); Calcium 9.4 mg/dL (8.7-10.3); Carbon Dioxide 24.5 mmol/L (21.6-31.8); Globulin 2.5 g/dL (2.1-3.7); Potassium 4.6 mmol/L (3.5-5.5); Total Bilirubin 0.3 mg/dL (0.3-1.2); Total Protein 7.2 g/dL (6.2-8.2)
== END | disposition home or self-care (01) ==
LOC: LABWHC1 13:11
PROVIDERS: ATTEND Internal Medicine
DX: E11.9 Type 2 diabetes mellitus without complications (principal)
CPT/HCPCS: 36415; 80053; 83036

== ENCOUNTER → 2018-11-07 | Outpatient (CLI) | payer MEDICARE ==
[2018-11-07 14:02] LABS: Anisocytosis Slight; Basophils % (A) 0 %; Eosinophils # (A) 0.1 k/uL (0-0.7); Eosinophils % (A) 1 %; HCT 34.3 % (39.0-53.0); HGB 11.1 gm/dL (13.0-17.5); Hypochromasia Slight; Lymphocytes # (A) 1.1 k/uL (1.0-4.8); Lymphocytes % (A) 14 %; MCH 29.6 pg (25.0-35.0); MCHC 32.5 g/dL (31.0-37.0); MCV 91.2 fL (80.0-100.0); Mean Platelet Volume 8.3; Monocytes # (A) 0.4 k/uL (0-1.0); Monocytes % (A) 5 %; Neutrophils # (A) 6.4 k/uL (1.3-7.7); Neutrophils % (A) 79 %; Platelet Count 231 k/uL (150-450); RBC 3.76 m/uL (4.30-5.90); RDW 16.9 % (11.5-15.5); WBC 8.2 k/uL (3.8-10.6)
[2018-11-07 18:40] LABS: Iron Saturation 16.41 (15.00-50.00)
== END | disposition home or self-care (01) ==
LOC: LABWHC1 13:24
PROVIDERS: ATTEND Internal Medicine
DX: D50.9 Iron deficiency anemia, unspecified (principal)
CPT/HCPCS: 36415; 82728; 83540; 83550; 85025

== ENCOUNTER → 2019-02-04 | Outpatient (CLI) | payer MEDICARE ==
[2019-02-04 17:24] LABS: HCT 31.5 % (39.0-53.0); HGB 9.8 gm/dL (13.0-17.5); Hypochromasia Moderate; MCH 28.8 pg (25.0-35.0); MCHC 31.2 g/dL (31.0-37.0); MCV 92.4 fL (80.0-100.0); Mean Platelet Volume 8.6; Platelet Count 254 k/uL (150-450); RBC 3.41 m/uL (4.30-5.90); RDW 13.4 % (11.5-15.5); WBC 7.5 k/uL (3.8-10.6)
--- NOTE | 2019-02-04 17:25 | XR ---
EXAMINATION TYPE: XR chest 2V DATE OF EXAM: 02/04/2019 COMPARISON: 11/13/2012 HISTORY: Dyspnea TECHNIQUE: Frontal and lateral views of the chest are obtained. FINDINGS: Heart and mediastinum are normal. Lungs are clear. Diaphragm is normal. Bony thorax appear s intact. There is minor spurring in the thoracic spine. IMPRESSION: Normal chest. No change.
[2019-02-05 01:52] LABS: Albumin 4.8 g/dL (3.80-4.90); Anion Gap 11.5 mmol/L (4.00-12.00); Calcium 9.4 mg/dL (8.7-10.3); Carbon Dioxide 23.5 mmol/L (21.6-31.8); Globulin 2.4 g/dL (1.6-3.3); Potassium 4.3 mmol/L (3.5-5.5); Total Bilirubin 0.2 mg/dL (0.2-1.2); Total Protein 7.2 g/dL (6.2-8.2)
[2019-02-05 02:43] LABS: Iron Saturation 5.94 (15.00-50.00)
== END | disposition home or self-care (01) ==
LOC: LABWHC1 15:51
PROVIDERS: ATTEND Internal Medicine
DX: R06.00 Dyspnea, unspecified (principal); D50.9 Iron deficiency anemia, unspecified; I10 Essential (primary) hypertension
CPT/HCPCS: 36415; 71046; 80053; 82728; 83540; 83550; 85027

== ENCOUNTER → 2019-08-20 | Outpatient (CLI) | payer MEDICARE ==
[2019-08-21 01:49] LABS: Hemoglobin A1C 5.8 % (4.0-6.0)
== END | disposition home or self-care (01) ==
LOC: LABWHC1 15:49
PROVIDERS: ATTEND Internal Medicine
DX: E11.9 Type 2 diabetes mellitus without complications (principal)
CPT/HCPCS: 36415; 83036

== ENCOUNTER → 2019-09-24 | Outpatient (CLI) | payer MEDICARE ==
[2019-09-24 13:39] LABS: HCT 33.5 % (39.0-53.0); HGB 10.7 gm/dL (13.0-17.5); Hypochromasia Slight; MCH 33.1 pg (25.0-35.0); MCV 103.3 fL (80.0-100.0); Macrocytosis Slight; Mean Platelet Volume 8.4; Platelet Count 230 k/uL (150-450); RBC 3.24 m/uL (4.30-5.90); RDW 12.3 % (11.5-15.5); WBC 7.9 k/uL (3.8-10.6)
[2019-09-24 20:20] LABS: African American GFR (CKD) 44.9 (60.0-200.0); Albumin 4.6 g/dL (3.80-4.90); Globulin 2.3 g/dL (1.6-3.3); Non-African American GFR(CKD) 38.7 (60.0-200.0); Potassium 4.8 mmol/L (3.5-5.5); Total Bilirubin 0.3 mg/dL (0.2-1.2); Total Protein 6.9 g/dL (6.2-8.2)
== END | disposition home or self-care (01) ==
LOC: LABWHC1 12:51
PROVIDERS: ATTEND Internal Medicine
DX: I10 Essential (primary) hypertension (principal)
CPT/HCPCS: 36415; 80053; 85027

== ENCOUNTER 2019-11-21 17:55 | Inpatient (IN) | payer MEDICARE ==
--- NOTE | 2019-11-21 18:59 | ED ---
General Adult HPI - General Chief complaint: Recheck/Abnormal Lab/Rx Stated complaint: blood transfusion Time Seen by Provider: 11/21/19 18:26 Source: patient Mode of arrival: ambulatory Limitations: no limitations - History of Present Illness Initial comments: 84-year-old male patient with past medical history significant for renal failure, iron deficiency anemia presents to the emergency department today for evaluation of low hemoglobin. Patient had some blood work done by his physician yesterday, was called today and informed that his hemoglobin was 6.5. Patient states that he has been feeling more tired and weak than usual. States he does have shortness of breath which is not unusual for him. Patient denies any obvious signs of bleeding, hematochezia, melena, or hematemesis. Denies any hematuria. Patient does take a baby aspirin but denies any other use of anticoagulants or antiplatelet medications. Patient states he does have a hi story of low iron but has never had to have blood transfusion before. He denies any abdominal pain, nausea, or vomiting. Denies any dizziness. Patient denies any recent rash, fever, chills, chest pain, abdominal pain, nausea, vomiting, diarrhea, constipation, back pain, numbness, tingling, dysuria, urinary urgency, urinary frequency, headache, visual changes, or any other complaints. - Related Data Home Medications Medication Instructions Recorded Confirmed Atorvastatin [Lipitor] 10 mg PO DAILY 10/23/16 11/21/19 Multivitamins, Thera [Multivitamin 1 tab PO DAILY 10/23/16 11/21/19 (formulary)] Aspirin [Adult Low Dose Aspirin EC] 81 mg PO DAILY 11/30/16 11/21/19 Furosemide [Lasix] 20 mg PO DAILY 04/03/17 11/21/19 metFORMIN HCL [Glucophage] 500 mg PO DAILY 08/31/17 11/21/19 Lisinopril [Prinivil] 20 mg PO DAILY 04/25/18 11/21/19 Cilostazol [Pletal] 100 mg PO BID 11/21/19 11/21/19 Allergies Allergy/AdvReac Type Severity Reaction Status Date / Time No Known Allergies Allergy Verified 11/21/19 20:15 Review of Systems ROS Statement: Those systems with pertinent positive or pertinent negative responses have been documented in the HPI. ROS Other: All systems not noted in ROS Statement are negative. Past Medical History Past Medical History: Cancer, Diabetes Mellitus, Hypertension, Vascular Disorder Additional Past Medical History / Comment(s): Poor circulation demetrius Legs, Hx of Bladder Cancer. hx migraines, "low iron"-getting iron infusion x 3, hx bladder cancer History of Any Multi-Drug Resistant Organisms: None Reported Past Surgical History: Appendectomy, Heart Catheterization With Stent, Tonsillectomy Additional Past Surgical History / Comment(s): demetrius cataracts, left carotid end arterectomy, stents demetrius legs, aortogram 05/01/18, Past Anesthesia/Blood Transfusion Reactions: No Reported Reaction Additional Past Anesthesia/Blood Transfusion Reaction / Comment(s): no hx blood transfusion Date of Last Stent Placement:: 04/17/17 Past Psychological History: No Psychological Hx Reported Smoking Status: Current every day smoker Past Alcohol Use History: Rare Past Drug Use History: None Reported - Past Family History Mother Family Medical History: No Reported History Father Family Medical History: Diabetes Mellitus Sister(s) Family Medical History: Cancer General Exam Limitations: no limitations General appearance: alert, in no apparent distress, other (This is a well- developed, well-nourished elderly male patient in no acute distress. Vital signs upon presentation are temperature 97.5F, pulse 56, respirations 20, blood pressure 125/50, pulse ox 96% on room air) Eye exam: Present: normal appearance, PERRL, EOMI. Absent: scleral icterus, conjunctival injection, periorbital swelling ENT exam: Present: normal exam, normal oropharynx, mucous membranes moist Respiratory exam: Present: normal lung sounds bilaterally. Absent: respiratory distress, wheezes, rales, rhonchi, stridor Cardiovascular Exam: Present: regular rate, normal rhythm, normal heart sounds. Absent: systolic murmur, diastolic murmur, rubs, gallop, clicks GI/Abdominal exam: Present: soft, normal bowel sounds. Absent: distended, tenderness, guarding, rebound, rigid Rectal exam: Present: normal inspection, hemorrhoids Neurological exam: Present: alert, oriented X3, CN II-XII intact Psychiatric exam: Present: normal affect, normal mood Skin exam: Present: warm, dry, intact, normal color. Absent: rash Course Vital Signs 11/21/19 17:56 Temperature 97.5 F L Pulse Rate 56 L Respiratory 20 Rate Blood Pressure 125/50 O2 Sat by Pulse 96 Oximetry EKG Findings - EKG Comments: EKG Findings:: EKG obtained at 1917 shows sinus rhythm with premature supraventricular complexes. Incomplete right bundle branch block. Ventricular rate is 85,. Interval 1:30, QRS duration 96, QT 374, QTC 445. No evidence of ST elevation or depression. Medical Decision Making - Medical Decision Making 84-year-old male patient presents to the emergency department today for evaluation of low hemoglobin. Physical examination is relatively unremarkable. Patient is a pill pale without conjunctival. Labs reviewed and did reveal a hemoglobin of 6.4, hematocrit 19.9. BUN and creatinine are altered at 67 and 2.18, this does appear to be chronic for the patient. BUN is slightly worse than usual. Occult blood was positive. There is no hematochezia or melena noted. I did discuss signs and results with the patient. Given the positive occult blood and low hemoglobin will admit for further evaluation by GI specialty. We'll give one unit of packed red blood cells. He'll be admitted to Dr. Mcgrath. Patient is agreeable with this plan. - Lab Data Result diagrams: 11/21/19 18:44 11/21/19 18:44 Lab Results 11/21/19 11/21/19 11/21/19 Range/Units 18:44 18:44 18:44 WBC 6.9 (3.8-10.6) k/uL RBC 2.13 L (4.30-5.90) m/uL Hgb 6.4 L* (13.0-17.5) gm/dL Hct 19.9 L* (39.0-53.0) % MCV 93.4 (80.0-100.0) fL MCH 30.0 (25.0-35.0) pg MCHC 32.1 (31.0-37.0) g/dL RDW 13.0 (11.5-15.5) % Plt Count 251 (150-450) k/uL Neutrophils % 78 % Lymphocytes % 14 % Monocytes % 6 % Eosinophils % 1 % Basophils % 0 % Neutrophils # 5.3 (1.3-7.7) k/uL Lymphocytes # 0.9 L (1.0-4.8) k/uL Monocytes # 0.4 (0-1.0) k/uL Eosinophils # 0.1 (0-0.7) k/uL Basophils # 0.0 (0-0.2) k/uL Hypochromasia Moderate PT 10.4 (9.0-12.0) sec INR 1.0 (<1.2) APTT 22.0 (22.0-30.0) sec Sodium 142 (137-145) mmol/L Potassium 4.6 (3.5-5.1) mmol/L Chloride 110 H (98-107) mmol/L Carbon Dioxide 21 L (22-30) mmol/L Anion Gap 11 mmol/L BUN 67 H (9-20) mg/dL Creatinine 2.18 H (0.66-1.25) mg/dL Est GFR (CKD-EPI)AfAm 31 (>60 ml/min/1.73 sqM) Est GFR (CKD-EPI)NonAf 27 (>60 ml/min/1.73 sqM) Glucose 143 H (74-99) mg/dL Calcium 8.9 (8.4-10.2) mg/dL Total Bilirubin 0.2 (0.2-1.3) mg/dL AST 21 (17-59) U/L ALT 17 (4-49) U/L Alkaline Phosphatase 53 (38-126) U/L Total Protein 7.3 (6.3-8.2) g/dL Albumin 4.3 (3.5-5.0) g/dL Stool Occult Blood (Negative) Blood Type Blood Type Confirm Blood Type Recheck Bld Type Recheck Status Antibody Screen Crossmatch Spec Expiration Date 11/21/19 11/21/19 11/21/19 Range/Units 18:44 18:52 19:03 WBC (3.8-10.6) k/uL RBC (4.30-5.90) m/uL Hgb (13.0-17.5) gm/dL Hct (39.0-53.0) % MCV (80.0-100.0) fL MCH (25.0-35.0) pg MCHC (31.0-37.0) g/dL RDW (11.5-15.5) % Plt Count (150-450) k/uL Neutrophils % % Lymphocytes % % Monocytes % % Eosinophils % % Basophils % % Neutrophils # (1.3-7.7) k/uL Lymphocytes # (1.0-4.8) k/uL Monocytes # (0-1.0) k/uL Eosinophils # (0-0.7) k/uL Basophils # (0-0.2) k/uL Hypochromasia PT (9.0-12.0) sec INR (<1.2) APTT (22.0-30.0) sec Sodium (137-145) mmol/L Potassium (3.5-5.1) mmol/L Chloride (98-107) mmol/L Carbon Dioxide (22-30) mmol/L Anion Gap mmol/L BUN (9-20) mg/dL Creatinine (0.66-1.25) mg/dL Est GFR (CKD-EPI)AfAm (>60 ml/min/1.73 sqM) Est GFR (CKD-EPI)NonAf (>60 ml/min/1.73 sqM) Glucose (74-99) mg/dL Calcium (8.4-10.2) mg/dL Total Bilirubin (0.2-1.3) mg/dL AST (17-59) U/L ALT (4-49) U/L Alkaline Phosphatase (38-126) U/L Total Protein (6.3-8.2) g/dL Albumin (3.5-5.0) g/dL Stool Occult Blood Positive (Negative) Blood Type A Positive Blood Type Confirm A Positive Blood Type Recheck No Previous Record Bld Type Recheck Status CABO Indicated Antibody Screen NEGATIVE Crossmatch See Detail Spec Expiration Date 11/24/2019 - 2344 Disposition Clinical Impression: Anemia, GI bleed Disposition: ADMITTED IP TO THIS [facility] Condition: Serious Decision to Admit Reason: Admit from EC Decision Date: 11/21/19 Decision Time: 20:03
[2019-11-21 19:20] LABS: Albumin 4.3 g/dL (3.5-5.0); Calcium 8.9 mg/dL (8.4-10.2); Potassium 4.6 mmol/L (3.5-5.1); Total Bilirubin 0.2 mg/dL (0.2-1.3); Total Protein 7.3 g/dL (6.3-8.2)
[2019-11-21 19:21] LABS: Basophils % (A) 0 %; Eosinophils # (A) 0.1 k/uL (0-0.7); Eosinophils % (A) 1 %; Hypochromasia Moderate; Lymphocytes # (A) 0.9 k/uL (1.0-4.8); Lymphocytes % (A) 14 %; MCHC 32.1 g/dL (31.0-37.0); MCV 93.4 fL (80.0-100.0); Mean Platelet Volume 9.8; Monocytes # (A) 0.4 k/uL (0-1.0); Monocytes % (A) 6 %; Neutrophils # (A) 5.3 k/uL (1.3-7.7); Neutrophils % (A) 78 %; Platelet Count 251 k/uL (150-450); RBC 2.13 m/uL (4.30-5.90); WBC 6.9 k/uL (3.8-10.6)
[2019-11-21 19:23] LABS: Prothrombin Time 10.4 sec (9.0-12.0)
[2019-11-21 19:24] LABS: HCT 19.9 % (39.0-53.0); HGB 6.4 gm/dL (13.0-17.5)
[2019-11-21] MEDS ORDERED: ONDANSETRON 4 MG/2 ML VIAL IVP PRN (20:00)
[2019-11-21] MEDS ORDERED: NALOXONE 0.4 MG/ML 1 ML VIAL IV PRN (20:00)
[2019-11-21] MEDS ORDERED: ACETAMINOPHEN TAB 325 MG TAB PO PRN (20:00)
[2019-11-21] MEDS ORDERED: PANTOPRAZOLE 40 MG/10 ML VIAL IVP STA (20:02)
[2019-11-21] MEDS: PANTOPRAZOLE 40 MG/10 ML VIAL IVP SCH (22:00)
[2019-11-21 22:22] LABS: Glucose,Whole Blood 100 mg/dL (75-99)
[2019-11-22 06:22] LABS: Glucose,Whole Blood 98 mg/dL (75-99)
[2019-11-22 06:29] LABS: Basophils % (A) 0 %; Eosinophils # (A) 0.1 k/uL (0-0.7); Eosinophils % (A) 2 %; HCT 22.5 % (39.0-53.0); HGB 7.1 gm/dL (13.0-17.5); Hypochromasia Moderate; Lymphocytes % (A) 20 %; MCH 29.3 pg (25.0-35.0); MCHC 31.6 g/dL (31.0-37.0); MCV 92.9 fL (80.0-100.0); Monocytes # (A) 0.4 k/uL (0-1.0); Monocytes % (A) 7 %; Neutrophils # (A) 3.5 k/uL (1.3-7.7); Neutrophils % (A) 69 %; Platelet Count 223 k/uL (150-450); RBC 2.42 m/uL (4.30-5.90); RDW 14.3 % (11.5-15.5); WBC 5.1 k/uL (3.8-10.6)
[2019-11-22] MEDS: PANTOPRAZOLE 40 MG/10 ML VIAL IVP SCH ×2 (10:11→20:04)
[2019-11-22 11:47] LABS: Glucose,Whole Blood 103 mg/dL (75-99)
[2019-11-22] MEDS ORDERED: SODIUM FERRIC GLUCONAT-SUCROSE 125 MG in SODIUM CHLORIDE 0.9% 100 ML IVPB ONE (15:00)
[2019-11-22 16:51] LABS: Glucose,Whole Blood 141 mg/dL (75-99)
--- NOTE | 2019-11-22 17:31 | P.HPIM ---
History of Present Illness H&P Date: 11/22/19 Chief Complaint: Low hemoglobin, weakness This is an 84-year-old male patient of Dr. Healy with past medical history of hypertension, hyperlipidemia, diabetes mellitus type 2, coronary artery disease status post stent, left carotid endarterectomy, peripheral vascul ar disease with bilateral stents, bladder cancer, tobacco use and dependence using a pipe for 60 years. Patient gives history that he has followed with Dr. Irene in the past was undergoing iron infusions about every 4-5 months but lab work was stable and he did not require any recently. Patient was contacted by Dr. Eaton and told his hemoglobin was 6.5 and was told to come in the hospital for transfusion. Patient presented to [facility] emergency center and found to have a hemoglobin of 6.4, BUN 67 creatinine 2.18. Repeat hemoglobin is 7.1 after 1 unit of packed RBCs. Patient has had a previous EGD and colonoscopy with Dr. Up in 2017. Patient was admitted to the cardiac stepdown unit. He is anxious to be discharged home. Consult in place with Dr. Koo and Dr. Irene. Review of Systems Constitutional: Reports fatigue, Reports weakness, Denies chills, Denies fever, Denies poor appetite Eyes: denies blurred vision, denies pain Ears, nose, mouth and throat: Denies vertigo Cardiovascular: Denies chest pain, Denies dyspnea on exertion, Denies shortness of breath, Denies syncope Respiratory: Denies cough, Denies dyspnea, Denies excessive sputum, Denies hemoptysis, Denies home oxygen, Denies respiratory infections Gastrointestinal: Denies abdominal pain, Denies diarrhea, Denies loss of appetite, Denies nausea, Denies vomiting Genitourinary: Denies dysuria, Denies urinary frequency, Denies urinary retention Musculoskeletal: Denies myalgias Integumentary: Denies pruritus, Denies rash, Denies wounds Neurological: Denies change in mentation, Denies change in speech, Denies confusion, Denies numbness, Denies weakness Psychiatric: Denies anxiety, Denies depression Endocrine: Denies fatigue, Denies weight change Past Medical History Past Medical History: Cancer, Diabetes Mellitus, Hypertension, Vascular Disorder Additional Past Medical History / Comment(s): Poor circulation demetrius Legs, Hx of Bladder Cancer. hx migraines, "low iron"-getting iron infusion x 3, hx bladder cancer History of Any Multi-Drug Resistant Organisms: None Reported Past Surgical History: Appendectomy, Heart Catheterization With Stent, Tonsillectomy Additional Past Surgical History / Comment(s): demetrius cataracts, left carotid enda rterectomy, stents demetrius legs, aortogram 05/01/18, Past Anesthesia/Blood Transfusion Reactions: No Reported Reaction Additional Past Anesthesia/Blood Transfusion Reaction / Comment(s): no hx blood transfusion Date of Last Stent Placement:: 04/17/17 Past Psychological History: No Psychological Hx Reported Smoking Status: Current every day smoker Past Alcohol Use History: Rare Additional Past Alcohol Use History / Comment(s): smokes pipe for past 60 yrs. Patient denies any marijuana use, illicit drug use. He drinks alcohol very rarely. He lives at home with his . Patient is very independent. Past Drug Use History: None Reported Additional Drug Use History / Comment(s): . - Past Family History Mother Family Medical History: No Reported History Additional Family Medical History / Comment(s): Mother at age 92 from old age. Father Family Medical History: Diabetes Mellitus Additional Family Medical History / Comment(s): Father at age 60 from [place] locations from diabetes. Sister(s) Family Medical History: Cancer Additional Family Medical History / Comment(s): Patient has a total of 6 sisters. He denies any family members with anemia. Patient has 1 brother that has passed from alcohol related conditions. Patient has 2 sons and 1 daughter with no major medical problems. Medications and Allergies Home Medications Medication Instructions Recorded Confirmed Type Atorvastatin [Lipitor] 10 mg PO DAILY 10/23/16 11/21/19 History Multivitamins, Thera [Multivitamin 1 tab PO DAILY 10/23/16 11/21/19 History (formulary)] Aspirin [Adult Low Dose Aspirin EC] 81 mg PO DAILY 11/30/16 11/21/19 History Furosemide [Lasix] 20 mg PO DAILY 04/03/17 11/21/19 History metFORMIN HCL [Glucophage] 500 mg PO DAILY 08/31/17 11/21/19 History Lisinopril [Prinivil] 20 mg PO DAILY 04/25/18 11/21/19 History Cilostazol [Pletal] 100 mg PO BID 11/21/19 11/21/19 History Allergies Allergy/AdvReac Type Severity Reaction Status Date / Time No Known Allergies Allergy Verified 11/21/19 20:15 Physical Exam Vitals: Vital Signs Temp Pulse Pulse Resp BP BP Pulse Ox 11/22/19 09:30 98.5 F 79 16 148/66 100 11/22/19 03:15 97.8 F 70 16 118/53 100 11/22/19 00:10 98.3 F 78 18 107/53 99 11/21/19 23:10 98.4 F 79 18 137/65 100 11/21/19 22:02 98.1 F 80 20 137/59 100 11/21/19 21:32 98.1 F 83 20 128/58 100 11/21/19 21:22 98.4 F 82 16 129/61 100 11/21/19 20:47 98 F 61 17 130/55 98 11/21/19 17:56 97.5 F L 56 L 20 125/50 96 Intake and Output 11/21/19 11/22/19 11/22/19 22:59 06:59 14:59 Intake Total 0 550 Balance 0 550 Intake: Oral 240 Blood Product 0 310 Rc As-1 Unit 0 310 [id number] Other: Voiding Method Toilet Toilet # Voids 1 2 # Bowel Movements 1 Weight 71.668 kg 71.2 kg Gen: This is an 84-year-old male. Patient is sitting up in bed appears to be comfortable in no acute distress. HEENT: Head is atraumatic, normocephalic. Pupils equal, round. Sclerae is anicteric. NECK: Supple. No JVD. No lymphadenopathy. No thyromegaly. LUNGS: Clear to auscultation. No wheezes or rhonchi. No intercostal retractions. HEART: Regular rate and rhythm. No murmur. ABDOMEN: Soft. Bowel sounds are present. No masses. No tenderness. EXTREMITIES: No pedal edema. No calf tenderness. NEUROLOGICAL: Patient is awake, alert and oriented x3. Cranial nerves 2 through 12 are grossly intact. Results CBC & Chem 7: 11/22/19 05:59 11/21/19 18:44 Labs: Abnormal Lab Results - Last 24 Hours (Table) 11/21/19 11/21/19 11/21/19 Range/Units 18:44 18:44 18:44 RBC 2.13 L (4.30-5.90) m/uL Hgb 6.4 L* (13.0-17.5) gm/dL Hct 19.9 L* (39.0-53.0) % Lymphocytes # 0.9 L (1.0-4.8) k/uL Chloride 110 H (98-107) mmol/L Carbon Dioxide 21 L (22-30) mmol/L BUN 67 H (9-20) mg/dL Creatinine 2.18 H (0.66-1.25) mg/dL Glucose 143 H (74-99) mg/dL POC Glucose (mg/dL) (75-99) mg/dL Crossmatch See Detail 11/21/19 11/22/19 11/22/19 Range/Units 22:20 05:59 11:44 RBC 2.42 L (4.30-5.90) m/uL Hgb 7.1 L (13.0-17.5) gm/dL Hct 22.5 L (39.0-53.0) % Lymphocytes # (1.0-4.8) k/uL Chloride (98-107) mmol/L Carbon Dioxide (22-30) mmol/L BUN (9-20) mg/dL Creatinine (0.66-1.25) mg/dL Glucose (74-99) mg/dL POC Glucose (mg/dL) 100 H 103 H (75-99) mg/dL Crossmatch Thrombosis Risk Factor Assmnt - DVT/VTE Prophylaxis DVT/VTE Prophylaxis: Mechanical Prophylaxis ordered - Choose All That Apply Each Factor Represents 1 point: Medical pt on bed rest Each Risk Factor Represents 3 Points: Age 75 years or older Thrombosis Risk Factor Assessment Total Risk Factor Score: 4 Thrombosis Risk Factor Assessment Level: Moderate Risk Assessment and Plan Plan: 1. Acute on chronic symptomatic anemia with component of acute blood loss. Patient is status post transfusion 1 unit packed RBCs. Ferrlecit 1 dose will be ordered. Consult in place with GI and oncology. Patient has been resumed on a regular diet. Stool for occult blood was positive. 2. Severe symptomatic anemia. Transfusion completed. Repeat CBC. Pletal and aspirin on hold. 3. Acute kidney injury. Hold lisinopril, Lasix and metformin. Repeat BMP in the morning. Next field 4. Diabetes mellitus type 2. Hold metformin. NovoLog scale before meals and at bedtime. 5. Hypertension. Hold lisinopril and Lasix. Blood pressure is currently stable. 6. Hyperlipidemia. Continue atorvastatin 10 mg daily. 7. Peripheral vascular disease. Hold Pletal 100 mg twice daily due to possible acute blood loss. 8. History of bladder cancer, stable. 9. Tobacco use and dependence. 10. GI prophylaxis. Protonix 40 mg IV twice daily 11. DVT prophylaxis. SCDs and KISHAN huntley. Patient will be admitted to the hospital for a minimum of 2 night stay. Discharge plan: return home Impression and plan of care have been directed as dictated by the signing physician. Maritza Jett nurse practitioner acting as scribe for signing physician.
[2019-11-22] MEDS: INSULIN ASPART (NovoLOG) 100 UNIT/ML VIAL SQ SCH ×2 (19:10→20:31)
--- NOTE | 2019-11-22 19:28 | P.CONS ---
History of Present Illness - Reason for Consult Consult date: 11/22/19 Anemia Requesting physician: Malena Hernandez - Chief Complaint Low hemoglobin - History of Present Illness 7-year-old male with a medical history significant for hypertension, hyperlipidemia, peripheral vascular disease, coronary artery disease, diabetes mellitus, prior history of bladder cancer, tobacco abuse and chronic anemia presented to the hospital due to findings of anemia which was worsened on outpatient lab draw. The patient had labs performed which were significant for a hemoglobin of 6.5 and was told to present to the hospital for further evaluation. Patient does have known history of iron deficiency anemia and has required iron infusions in the past. Per his recollection the last iron infusion was sometime last year. He has been feeling somewhat weak and tired. He does however denies any signs or symptoms of GI bleeding. No blood in the stool, black tarry stool or change in bowel habits. No pain in the abdomen reported. The patient has undergone evaluation with EGD and colonoscopy for iron deficiency anemia in the past with evaluation in August 2017 significant for erosive gastritis and diverticulosis. Hemoglobin on presentation 6.4 down from baseline of approximately 9-10 and subsequently found to be 7.1 with normocytic indices. WBC 5.1, platelet count 223,000, creatinine 2.18, INR 1.0, total bilirubin 0.2, alkaline phosphatase 53, AST 21 and ALT 17. Stool testing with fecal occult blood test was positive. Review of Systems REVIEW OF SYSTEMS: CONSTITUTIONAL: Denies any fevers, chills, weight change but he does report fatigue and weakness. CARDIOVASCULAR: Denies any chest pain, palpitations high or low blood pressures RESPIRATORY: Denies any hemoptysis or cough but otherwise reporting some shortness of breath.. GENITOURINARY: No dysuria or hematuria. MUSCULOSKELETAL: No weakness reported. SKIN: Denies any new rashes or lesions, jaundice or pallor. PSYCHIATRIC: Denies any depression or anxiety. NEUROLOGY: Denies headache, denies any new focal deficits. EARS/NOSE/THROAT: No recent hearing change, congestion, nasal discharge or sore throat. EYES: No pain in eyes, discharge or change in vision. GASTROINTESTINAL: As per HPI. Past Medical History Past Medical History: Cancer, Diabetes Mellitus, Hypertension, Vascular Disorder Additional Past Medical History / Comment(s): Poor circulation demetrius Legs, Hx of Bladder Cancer. hx migraines, "low iron"-getting iron infusion x 3, hx bladder cancer History of Any Multi-Drug Resistant Organisms: None Reported Past Surgical History: Appendectomy, Heart Catheterization With Stent, Tonsillec justice Additional Past Surgical History / Comment(s): demetrius cataracts, left carotid endarterectomy, stents demetrius legs, aortogram 05/01/18, Past Anesthesia/Blood Transfusion Reactions: No Reported Reaction Additional Past Anesthesia/Blood Transfusion Reaction / Comm: no hx blood transfusion Date of Last Stent Placement:: 04/17/17 Past Psychological History: No Psychological Hx Reported Smoking Status: Current every day smoker Past Alcohol Use History: Rare Additional Past Alcohol Use History / Comment(s): smokes pipe for past 60 yrs Past Drug Use History: None Reported Additional Drug Use History / Comment(s): . - Past Family History Mother Family Medical History: No Reported History Father Family Medical History: Diabetes Mellitus Sister(s) Family Medical History: Cancer Medications and Allergies Home Medications Medication Instructions Recorded Confirmed Type Atorvastatin [Lipitor] 10 mg PO DAILY 10/23/16 11/21/19 History Multivitamins, Thera [Multivitamin 1 tab PO DAILY 10/23/16 11/21/19 History (formulary)] Aspirin [Adult Low Dose Aspirin EC] 81 mg PO DAILY 11/30/16 11/21/19 History Furosemide [Lasix] 20 mg PO DAILY 04/03/17 11/21/19 History metFORMIN HCL [Glucophage] 500 mg PO DAILY 08/31/17 11/21/19 History Lisinopril [Prinivil] 20 mg PO DAILY 04/25/18 11/21/19 History Cilostazol [Pletal] 100 mg PO BID 11/21/19 11/21/19 History Allergies Allergy/AdvReac Type Severity Reaction Status Date / Time No Known Allergies Allergy Verified 11/21/19 20:15 Physical Exam Vitals: Vital Signs Temp Pulse Pulse Resp BP BP Pulse Ox 11/22/19 09:30 98.5 F 79 16 148/66 100 11/22/19 03:15 97.8 F 70 16 118/53 100 11/22/19 00:10 98.3 F 78 18 107/53 99 11/21/19 23:10 98.4 F 79 18 137/65 100 11/21/19 22:02 98.1 F 80 20 137/59 100 11/21/19 21:32 98.1 F 83 20 128/58 100 11/21/19 21:22 98.4 F 82 16 129/61 100 11/21/19 20:47 98 F 61 17 130/55 98 11/21/19 17:56 97.5 F L 56 L 20 125/50 96 Intake and Output 11/21/19 11/22/19 11/22/19 22:59 06:59 14:59 Intake Total 0 550 Balance 0 550 Intake: Oral 240 Blood Product 0 310 Rc As-1 Unit 0 310 [id number] Other: Voiding Method Toilet Toilet # Voids 1 2 # Bowel Movements 1 Weight 71.668 kg 71.2 kg On physical examination, patient appears comfortable in no apparent distress. HEAD: Normocephalic, atraumatic. EYES: No scleral icterus. No conjunctival injection. MOUTH: No lesions, tongue midline. NECK: Trachea midline, no gross abnormalities. CHEST: Decreased air entry in all lung servin with no wheezing appreciated. HEART: Normal S2 appreciated with no murmurs appreciated. ABDOMEN: Soft, nontender to palpation. Bowel sounds are positive. No organomegaly. No guarding or rigidity. EXTREMITIES: No pedal edema. SKIN: No rashes, no jaundice. NEUROLOGIC: Alert and oriented x3. No focal deficits. Results CBC & Chem 7: 11/22/19 05:59 11/21/19 18:44 Labs: Abnormal Lab Results - Last 24 Hours (Table) 11/21/19 11/21/19 11/21/19 Range/Units 18:44 18:44 18:44 RBC 2.13 L (4.30-5.90) m/uL Hgb 6.4 L* (13.0-17.5) gm/dL Hct 19.9 L* (39.0-53.0) % Lymphocytes # 0.9 L (1.0-4.8) k/uL Chloride 110 H (98-107) mmol/L Carbon Dioxide 21 L (22-30) mmol/L BUN 67 H (9-20) mg/dL Creatinine 2.18 H (0.66-1.25) mg/dL Glucose 143 H (74-99) mg/dL POC Glucose (mg/dL) (75-99) mg/dL Crossmatch See Detail 11/21/19 11/22/19 11/22/19 Range/Units 22:20 05:59 11:44 RBC 2.42 L (4.30-5.90) m/uL Hgb 7.1 L (13.0-17.5) gm/dL Hct 22.5 L (39.0-53.0) % Lymphocytes # (1.0-4.8) k/uL Chloride (98-107) mmol/L Carbon Dioxide (22-30) mmol/L BUN (9-20) mg/dL Creatinine (0.66-1.25) mg/dL Glucose (74-99) mg/dL POC Glucose (mg/dL) 100 H 103 H (75-99) mg/dL Crossmatch Assessment and Plan (1) Normocytic normochromic anemia Narrative/Plan: 84-year-old male with multiple medical comorbidities who presented to the hospital for evaluation of outpatient laboratory draw significant for a hemoglobin of 6.5. Hemoglobin on presentation 6.4 with normocytic normochromic indices. He has had a history of iron deficiency anemia in the past requiring prior transfusions, reports that this was done early in 2019 and he has not required any confusions recently. He denies any signs or symptoms of GI bleeding with no hematochezia, hematemesis, coffee-ground emesis or melena reported. He had stool testing with fecal occult blood test which was positive on presentation. He has undergone EGD and colonoscopy for similar complaints in 2017 with findings of erosive gastritis and diverticulosis. Current Visit: Yes Status: Acute Code(s): D64.9 - ANEMIA, UNSPECIFIED SNOMED Code(s): 71967045 Plan: Supportive care Continue Protonix 40 mg twice daily Continue regular diet and nothing by mouth after midnight Plan for EGD tomorrow for further evaluation Hematology service consulted Iron studies, folate, vitamin B12, reticulocyte count and protein electrophoresis ordered Reports from prior endoscopic evaluation reviewed Thank you for allowing us to participate be in the care of the patient we will continue to follow
[2019-11-22 20:17] LABS: Glucose,Whole Blood 124 mg/dL (75-99)
[2019-11-23 04:52] VITALS: RESP 16
[2019-11-23 06:07] LABS: Glucose,Whole Blood 101 mg/dL (75-99)
[2019-11-23] MEDS: INSULIN ASPART (NovoLOG) 100 UNIT/ML VIAL SQ SCH ×2 (06:09→12:35)
[2019-11-23 06:35] LABS: HCT 23.4 % (39.0-53.0); HGB 7.3 gm/dL (13.0-17.5); Hypochromasia Marked; MCH 29.1 pg (25.0-35.0); MCHC 31.2 g/dL (31.0-37.0); MCV 93.2 fL (80.0-100.0); Mean Platelet Volume 8.9; Platelet Count 233 k/uL (150-450); RBC 2.51 m/uL (4.30-5.90); RDW 13.8 % (11.5-15.5); Reticulocyte % 2.3 % (0.5-2.0); WBC 6.1 k/uL (3.8-10.6)
[2019-11-23 06:42] LABS: African American GFR (CKD) 46 (>60 ml/min/1.73 sqM); Anion Gap 7 mmol/L; Blood Urea Nitrogen 45 mg/dL (9-20); Calcium 8.9 mg/dL (8.4-10.2); Carbon Dioxide 22 mmol/L (22-30); Chloride 114 mmol/L (98-107); Glucose 87 mg/dL (74-99); Non-African American GFR(CKD) 40 (>60 ml/min/1.73 sqM); Potassium 4.7 mmol/L (3.5-5.1); Sodium 143 mmol/L (137-145)
[2019-11-23] MEDS: PANTOPRAZOLE 40 MG/10 ML VIAL IVP SCH (08:14)
[2019-11-23] MEDS ORDERED: ATORVASTATIN 10 MG TAB PO SCH (09:00)
[2019-11-23] MEDS ORDERED: MULTIVITAMINS, THERA 1 EACH TAB PO SCH (09:00)
[2019-11-23] MEDS ORDERED: FUROSEMIDE 20 MG TAB PO SCH (09:00)
--- NOTE | 2019-11-23 11:08 | P.DS ---
Providers Date of admission: 11/21/19 20:25 Attending physician: Vicki Mcgrath Consults: 11/21/19 20:01 Consult Physician Routine Consulting Provider: Junaid Koo Consult Reason/Comments: GI Bleed Do you want consulting provider notified?: Yes 11/22/19 15:36 Consult Physician Routine Consulting Provider: Braydon Irene Consult Reason/Comments: chronic anemia Do you want consulting provider notified?: Yes Primary care physician: [facility] Course: This is 84 years old male with history of iron and efficiency anemia who presented to the hospital with low hemoglobin area patient was scheduled to follow-up with oncology and hematology outpatient but failed to follow-up and his hemoglobin was critically low at the time of the admission patient received blood transfusion and was evaluated by GI who recommended EGD during the hospital stay. A shunt felt stable on the day of the discharge recommendation was to discharge home and have patient's follow-up outpatient with GI specialist and also with rn documentation specialist. Blood in stool was negative and aspirin was continued for risk factors modification. Patient advised to follow-up with hematology oncology regarding continuation of aspirin and follow-up with primary care physician in one to 2 days. Patient was discharged in stable condition and plan of discharge was discussed with nursing staff at the bedside Patient Condition at Discharge: Serious Plan - Discharge Summary Discharge Rx Participant: Yes New Discharge Prescriptions: No Action Multivitamins, Thera [Multivitamin (formulary)] 1 tab PO DAILY Atorvastatin [Lipitor] 10 mg PO DAILY Aspirin [Adult Low Dose Aspirin EC] 81 mg PO DAILY Furosemide [Lasix] 20 mg PO DAILY metFORMIN HCL [Glucophage] 500 mg PO DAILY Lisinopril [Prinivil] 20 mg PO DAILY Cilostazol [Pletal] 100 mg PO BID Discharge Medication List Atorvastatin [Lipitor] 10 mg PO DAILY 10/23/16 [History] Multivitamins, Thera [Multivitamin (formulary)] 1 tab PO DAILY 10/23/16 [History] Aspirin [Adult Low Dose Aspirin EC] 81 mg PO DAILY 11/30/16 [History] Furosemide [Lasix] 20 mg PO DAILY 04/03/17 [History] metFORMIN HCL [Glucophage] 500 mg PO DAILY 08/31/17 [History] Lisinopril [Prinivil] 20 mg PO DAILY 04/25/18 [History] Cilostazol [Pletal] 100 mg PO BID 11/21/19 [History] Follow up Appointment(s)/Referral(s): Markie Healy MD [Primary Care Provider] - 1-2 days
[2019-11-23 12:34] LABS: Glucose,Whole Blood 103 mg/dL (75-99)
[2019-11-23] MEDS ORDERED: LIDOCAINE 1% INJ 10MG/ML (20 ML MDV) ONE (13:29)
[2019-11-23] MEDS ORDERED: PROPOFOL 10 MG/ML 20 ML VIAL IV ONE (13:29)
[2019-11-23] MEDS ORDERED: LACTATED RINGERS 1,000 ML IV ONE ×2 (13:31)
--- NOTE | 2019-11-23 13:51 | P.PCN ---
Date of Procedure: 11/23/19 Description of Procedure: BRIEF HISTORY: 7-year-old male with a medical history significant for hypertension, hyperlipidemia, peripheral vascular disease, coronary artery disease, diabetes mellitus, prior history of bladder cancer, tobacco abuse and chronic anemia presented to the hospital due to findings of anemia which was worsened on outpatient lab draw. The patient had labs performed which were significant for a hemoglobin of 6.5 and was told to present to the hospital for further evaluation. Patient does have known history of iron deficiency anemia and has required iron infusions in the past. Per his recollection the last iron infusion was sometime last year. He has been feeling somewhat weak and tired. He does however denies any signs or symptoms of GI bleeding. No blood in the stool, black tarry stool or change in bowel habits. No pain in the abdomen reported. The patient has undergone evaluation with EGD and colonoscopy for iron deficiency anemia in the past with evaluation in August 2017 significant for erosive gastritis and diverticulosis. Hemoglobin on presentation 6.4 down from baseline of approximately 9-10 and subsequently found to be 7.1 with normocytic indices. PROCEDURE PERFORMED: Esophagogastroduodenoscopy with biopsy. PREOPERATIVE DIAGNOSIS: Anemia. ESTIMATED BLOOD LOSS: Minimal. IV sedation per anesthesia. PROCEDURE: After informed consent was obtained, the patient was brought into the endoscopy unit. IV sedation was administered by Anesthesia under continuous monitoring. Initially the Olympus GIF-190 video endoscope was inserted into the mouth. Esophagus intubated without any difficulty. It was gradually advanced into the stomach and duodenum and carefully examined. The bulb and the second part of the duodenum appeared normal, except for some mild scattered erythema suggestive of mild duodenitis which was biopsied. The scope at this time was withdrawn to the stomach, adequately insufflated with air, and upon careful examination, mucosa of the antrum, body, cardia and the fundus appeared normal, except for some mild scattered erythema in the antrum and body suggestive of mild gastritis which was biopsied. The scope was then withdrawn into the esophagus. The GE junction was located at 42 cm from the incisors. The esophagus appeared normal. There were no erosions or ulcerations seen and the patient tolerated the procedure well. IMPRESSION: 1. Gastritis antrum and body, biopsied. 2. Mild Duodenitis, biopsied. RECOMMENDATIONS: The findings of this examination were discussed with the patient. Okay for regular diet. Would pathology from biopsies. Continue current medical management. Okay for discharge when otherwise medically stable.
[2019-11-23 14:19] VITALS: BP 135/59; PULSE 72; TEMP 98.2
--- NOTE | 2019-11-23 16:07 | CONS ---
CONSULTATION DATE OF SERVICE: November 23, 2019. REASON FOR CONSULTATION: Anemia. CHIEF COMPLAINT: Tired at weakness and weak. HISTORY OF PRESENT ILLNESS: The patient is a very pleasant 84 years old gentleman, well known to our practice. He has been under the care of Dr. Irene for iron deficiency anemia. The patient presented to his primary care physician because he has been feeling weak and tired and he had CBC done in the outpatient setting and was found to have a hemoglobin of 6.5, and so he was referred to the emergency department and ended up being admitted to the hospital. His hemoglobin in the ER was 6.4 g/dL. He received transfusion with 1 unit of packed red blood cells and his hemoglobin has improved and he was seen by Gastroenterology and the patient did have evaluation with EGD and colonoscopy for iron deficiency anemia in the past. In August of 2017, he was found to have erosive gastritis, at that time and diverticulosis and the plan was to repeat his EGD later today. As stated, he has been seeing Dr. Irene since March of 2019 and he did receive IV Feraheme in April. Two 2 doses of IV Feraheme in April of 2016. At that time, his hemoglobin improved after transfusion. At this point in time, the patient denies any melena, hematochezia, hematuria, hemoptysis, hematemesis or epistaxis. His appetite is fair. No recent weight loss, but as stated he is fatigue and tired, and he has exertional dyspnea, but this has improved after he received his blood transfusion. PAST MEDICAL HISTORY: His past medical history is significant for hypertension, hyperlipidemia, diabetes mellitus, coronary artery disease, cardiac stent placement, left carotid endarterectomy, peripheral vascular disease with bilateral stent placement, lower extremity, he had a history of bladder cancer in the past. FAMILY HISTORY: No pertinent family history findings in regard to hematologic or oncologic disorder other than his sister had cancer. SOCIAL HISTORY: He is a smoker. He started in 1998. No alcohol abuse or substance abuse. REVIEW OF SYSTEMS: As stated above in history of present illness. Otherwise negative. HOME MEDICATION: Include Glucophage 500 mg daily. Multivitamin once a day. Prinivil 20 mg daily. Lasix 20 mg daily. Pletal 100 mg b.i.d., aspirin 81 mg daily, Lipitor 10 mg daily. PHYSICAL EXAMINATION: He is alert, oriented x3. He does not appear to be in distress at this point in time. His vital signs are temperature 98.3, afebrile, pulse 77, respirations 16, blood pressure 145/57. HEENT: Normocephalic, atraumatic. No obvious scleral icterus. NECK: Supple. No jugular venous distention. CHEST equal expansion bilaterally. LUNGS: Scattered wheezes. HEART is regular rate and rhythm. ABDOMEN: Soft. No tenderness or organomegaly or masses. EXTREMITIES reveal trace edema. SKIN few bruises on upper extremities. MUSCULOSKELETAL: Moving all extremities appropriately. No percussion tenderness spine or sternum. LYMPHATICS: No peripherally enlarged cervical or supraclavicular nodes. LABORATORY DATA: WBC of 6.21, hemoglobin 7.3, hematocrit 23.4, platelets are 233. Sodium 143, potassium 4.7, chloride 114, CO2 is 22, BUN 45, creatinine 1.57. IMPRESSION: Worsening anemia, likely iron deficiency. However, there is no recent iron studies done. Also, the patient has renal dysfunction and this is likely contributing to his anemia as well. RECOMMENDATION: I agree with the EGD today in view of his history of erosive gastritis. If there is no active sign of bleeding, the patient wanted to go home. I believe it is all right from Hematology/Oncology standpoint, he may be discharged home. I highly recommend that he will follow up with Dr. Irene in 1 week upon discharge for further additional workup for his anemia and may be on parenteral iron supplement as well. The above was discussed in detail with the patient. I have answered all his questions to his satisfaction. Thank you very much for asking me to participate in the care of this nice gentleman. MMODL / IJN: [id number] /
[2019-11-23 16:41] LABS: Glucose,Whole Blood 89 mg/dL (75-99)
[2019-11-24 10:56] LABS: Protein, Total 5.7 g/dL (6.2-8.2)
[2019-11-24 11:11] LABS: % Iron Saturation 101.81 (15.00-50.00); Folate, Serum >24.0 ng/mL; Iron 337 ug/dL (65-175); Total Iron Binding Capacity 331 ug/dL (228-460)
[2019-11-25 12:47] LABS: Albumin 3.25 g/dL (3.80-4.90); Gamma Globulin 0.76 g/dL (0.70-1.50)
--- NOTE | 2019-12-01 06:38 | CDI ---
Documentation Clarification Form Date: 12/01/19 From: Estelle Olmos Phone: If you have a question about this query, please contact Kim Wong, Animal Hospital Clerk at [phone] between 8am and 5pm. Admit Date: 11/21/19 Discharge Date: 11/23/19 Patient Name: Velasquez Baugh Visit Number: [id number] ATTENTION: The Clinical Documentation Specialists (CDI) and [facility] Coding Staff appreciate your assistance in clarifying documentation. Please respond to the clarification below the line at the bottom and electronically sign. The CDI & [facility] Coding staff will review the response and follow-up if needed. Please note: Queries are made part of the Legal Health Record. If you have any questions, please contact the author of this message via ITS. Dear Dr. Malena Hernandez, Conflicting documentation has been found in the medical record: Per H&P (Dr Hernandez) - Acute on chronic symptomatic anemia with component of acute blood loss. Per Consult (Dr Dumont) - Worsening anemia, likely iron deficiency. Per DS (Dr Hernandez)- Blood in stool was negative. Stool Occult Blood - positive History/Risk Factors: DRAKE, DM, hyperlipidemia, CAD, HTN, smokes pipe Clinical Indicators: HGB-6.4, HCT 19.9 Treatment: EGD & I unit RBC's In your opinion, what is the most clinically appropriate diagnosis for this patient? Iron deficiency anemia Acute blood loss anemia Other explanation of clinical findings Unable to determine (no explanation for clinical findings) Acute on chronic symptomatic anemia with component of acute blood loss AND ANEMIA OF CHRONIC DISEASE. MTDD
--- NOTE | 2019-12-01 06:59 | CDI ---
Documentation Clarification Form Date: 12/01/19 From: Estelle Olmos Phone: If you have a question about this query, please contact Kim Wong, Candy Separator Hard at [phone] between 8am and 5pm. Admit Date: 11/21/19 Discharge Date: 11/23/19 Patient Name: Velasquez Baugh Visit Number: [id number] ATTENTION: The Clinical Documentation Specialists (CDI) and [facility] Coding Staff appreciate your assistance in clarifying documentation. Please respond to the clarification below the line at the bottom and electronically sign. The CDI & [facility] Coding staff will review the response and follow-up if needed. Please note: Queries are made part of the Legal Health Record. If you have any questions, please contact the author of this message via ITS. Dear Dr. Malena Hernandez, Renal failure was documented in the ED Note and renal dysfunction was documented in Dr Dumont consult. Per H&P - acute kidney injury, hold Lisinopril, Lasix and Meformin. Repeat BMP in the morning. History/Risk Factors: anemia, gastritis & duodentitis, DM, hyperlipidemia, CAD, HTN, smokes pipe Clinical Indicators: HGB 6.4 & HCT 19.9 BUN: 67, 45 Cr: 2.18, 1.57 GFR: 27, 40 Treatment: 1 unit of RBC's Consults: Hematology & GI IVF - Sodioum Ferric Gluconat-Sucrose 125 mg, Sodium Chloridide 0.9% 100 ml IVPB once Other- Protonix 40 mg IVP BID In order to capture the severity of condition, please clarify if the condition signifies: Acute renal failure, Please specify etiology (if known): Tubular Necrosis Acute kidney injury Acute on chronic renal failure CKD Stage 1 GFR >90 CKD Stage 2 GFR 60-89 CKD Stage 3 GFR 30-59 CKD Stage 4 GFR 15-29 CKD Stage 5 GFR <15 Chronic renal failure/Chronic Kidney disease (CKD) please stage (if known): CKD Stage 1 GFR >90 CKD Stage 2 GFR 60-89 CKD Stage 3 GFR 30-59 CKD Stage 4 GFR 15-29 CKD Stage 5 GFR <15 ESRD Other, please specify Unable to determine CKD 3 MTDD
--- NOTE | 2019-12-01 07:16 | CDI ---
Documentation Clarification Form Date: 12/01/19 From: Estelle Olmos Phone: If you have a question about this query, please contact Kim Wong, [employer] Man at [phone] between 8am and 5pm. Admit Date: 11/21/19 Discharge Date: 11/23/19 Patient Name: Velasquez Baugh Visit Number: [id number] ATTENTION: The Clinical Documentation Specialists (CDI) and [facility] Coding Staff appreciate your assistance in clarifying documentation. Please respond to the clarification below the line at the bottom and electronically sign. The CDI & [facility] Coding staff will review the response and follow-up if needed. Please note: Queries are made part of the Legal Health Record. If you have any questions, please contact the author of this message via ITS. Dear Dr. Malena Hernandez, No active GI bleed was seen but the patient but he had positive stool occult blood.is documented in the H&P.. Patient history/risk factors: Anemia, DM, hyperlipidemia, CAD, HTN, smokes pipe Clinical Indicators: Stool Occult Blood - positive EGD/colonoscopy performed and findings: gastritis antrum and body and mild duodenitis Labs: HGB-6.4, HCT 19.9 Vital Signs: T-97.5, P-56, R-20, BP-125/50, O2 Sat-96 Treatment: EGD & I unit RBC's Medication: Protonix Consults: GI & Hematology In your professional opinion, can you please clarify the underlying cause of GI bleed if known? Gastritis with bleeding Gastritis without bleeding Duodenitis with bleeding Duodenitis without bleeding Other, please specify Unable to determine GASTRITIS WITHOUT BLEEDING MTDD
== END 2019-11-23 18:53 | disposition home or self-care (01) | DRG 812 ==
LOC: EC 17:55 → 3SCARD 20:25
PROVIDERS: ADMIT Family Medicine; ATTEND Family Medicine
PROC: 30233N1 Transfusion of Nonautologous Red Blood Cells into Peripheral Vein, Percutaneous Approach (ICD-10-PCS; 2019-11-21)
PROC: 0DB78ZX Excision of Stomach, Pylorus, Via Natural or Artificial Opening Endoscopic, Diagnostic (ICD-10-PCS; principal; 2019-11-23 11:45)
PROC: 0DB98ZX Excision of Duodenum, Via Natural or Artificial Opening Endoscopic, Diagnostic (ICD-10-PCS; principal; 2019-11-23 11:45)
DX: D62 Acute posthemorrhagic anemia (principal); N17.9 Acute kidney failure, unspecified; E11.51 Type 2 diabetes mellitus with diabetic peripheral angiopathy without gangrene; E11.22 Type 2 diabetes mellitus with diabetic chronic kidney disease; D63.1 Anemia in chronic kidney disease; N18.3 Chronic kidney disease, stage 3 (moderate); K29.70 Gastritis, unspecified, without bleeding; K29.80 Duodenitis without bleeding; I12.9 Hypertensive chronic kidney disease with stage 1 through stage 4 chronic kidney disease, or unspecified chronic kidney disease; K57.90 Diverticulosis of intestine, part unspecified, without perforation or abscess without bleeding; E78.5 Hyperlipidemia, unspecified; I25.10 Atherosclerotic heart disease of native coronary artery without angina pectoris; F17.290 Nicotine dependence, other tobacco product, uncomplicated; Z71.6 Tobacco abuse counseling; Z79.02 Long term (current) use of antithrombotics/antiplatelets; Z79.82 Long term (current) use of aspirin; Z79.84 Long term (current) use of oral hypoglycemic drugs; Z79.899 Other long term (current) drug therapy; Z85.51 Personal history of malignant neoplasm of bladder; Z95.5 Presence of coronary angioplasty implant and graft; Z95.828 Presence of other vascular implants and grafts; Z86.79 Personal history of other diseases of the circulatory system; Z86.69 Personal history of other diseases of the nervous system and sense organs; Z98.890 Other specified postprocedural states; Z98.42 Cataract extraction status, left eye; Z98.41 Cataract extraction status, right eye; Z83.3 Family history of diabetes mellitus; Z80.9 Family history of malignant neoplasm, unspecified; Z81.1 Family history of alcohol abuse and dependence
CPT/HCPCS: 36415; 43239; 80048; 80053; 82272; 82607; 82728; 82746; 83036; 83540; 83550; 84165; 84466; 85025; 85027; 85045; 85610; 85730; 86850; 86900; 86901; 86920; 88305; 88342; 93005; 99285

== ENCOUNTER 2020-02-06 13:34 | Inpatient (IN) | payer MEDICARE ==
--- NOTE | 2020-02-06 14:19 | ED ---
General Adult HPI - General Chief complaint: Shortness of Breath Stated complaint: SOB Time Seen by Provider: 02/06/20 14:00 Source: patient, EMS, RN notes reviewed, old records reviewed Mode of arrival: EMS Limitations: no limitations - History of Present Illness Initial comments: 84-year-old male presents for evaluation of dyspnea. Patient has history of COPD, he is a current height smoker. He states he's had minimal cough with sputum which is baseline, unchanged. He's developed dyspnea over the past 48 hours. Denies fever. Denies sore throat. Denies chest pain. Denies lower extremity pain or swelling. No known contact with rotavirus. - Related Data Home Medications Medication Instructions Recorded Confirmed Atorvastatin [Lipitor] 10 mg PO DAILY 10/23/16 11/21/19 Multivitamins, Thera [Multivitamin 1 tab PO DAILY 10/23/16 11/21/19 (formulary)] Aspirin [Adult Low Dose Aspirin EC] 81 mg PO DAILY 11/30/16 11/21/19 Furosemide [Lasix] 20 mg PO DAILY 04/03/17 11/21/19 metFORMIN HCL [Glucophage] 500 mg PO DAILY 08/31/17 11/21/19 Lisinopril [Prinivil] 20 mg PO DAILY 04/25/18 11/21/19 Cilostazol [Pletal] 100 mg PO BID 11/21/19 11/21/19 Allergies Allergy/AdvReac Type Severity Reaction Status Date / Time No Known Allergies Allergy Verified 02/06/20 13:43 Review of Systems ROS Statement: Those systems with pertinent positive or pertinent negative responses have been documented in the HPI. ROS Other: All systems not noted in ROS Statement are negative. Past Medical History Past Medical History: Cancer, Diabetes Mellitus, Hypertension, Vascular Disorder Additional Past Medical History / Comment(s): Poor circulation demetrius Legs, Hx of Bladder Cancer. hx migraines, "low iron"-getting iron infusion x 3, hx bladder cancer History of Any Multi-Drug Resistant Organisms: None Reported Past Surgical History: Appendectomy, Heart Catheterization With Stent, Tonsillec justice Additional Past Surgical History / Comment(s): demetrius cataracts, left carotid endarterectomy, stents demetrius legs, aortogram 05/01/18, Past Anesthesia/Blood Transfusion Reactions: No Reported Reaction Additional Past Anesthesia/Blood Transfusion Reaction / Comment(s): no hx blood transfusion Date of Last Stent Placement:: 04/17/17 Past Psychological History: No Psychological Hx Reported Smoking Status: Current every day smoker Past Alcohol Use History: Rare Past Drug Use History: None Reported - Past Family History Mother Family Medical History: No Reported History Additional Family Medical History / Comment(s): Mother at age 92 from old age. Father Family Medical History: Diabetes Mellitus Additional Family Medical History / Comment(s): Father at age 60 from [place] locations from diabetes. Sister(s) Family Medical History: Cancer Additional Family Medical History / Comment(s): Patient has a total of 6 sisters. He denies any family members with anemia. Patient has 1 brother that has passed from alcohol related conditions. Patient has 2 sons and 1 daughter with no major medical problems. General Exam Limitations: no limitations General appearance: alert, in no apparent distress Head exam: Present: atraumatic, normocephalic Eye exam: Present: normal appearance, PERRL ENT exam: Present: normal exam Neck exam: Present: normal inspection Respiratory exam: Present: respiratory distress (Mild tachypnea), decreased breath sounds. Absent: wheezes Cardiovascular Exam: Present: normal rhythm, tachycardia GI/Abdominal exam: Present: soft, distended. Absent: tenderness, guarding Extremities exam: Present: normal inspection, normal capillary refill. Absent: pedal edema, calf tenderness Neurological exam: Present: alert, oriented X3, CN II-XII intact. Absent: motor sensory deficit Psychiatric exam: Present: normal affect, normal mood Skin exam: Present: warm, dry, intact. Absent: cyanosis, diaphoretic Course Vital Signs 02/06/20 02/06/20 13:35 15:43 Temperature 98.3 F 98.7 F Pulse Rate 103 H 90 Respiratory 30 H 18 Rate Blood Pressure 138/72 146/67 O2 Sat by Pulse 100 99 Oximetry EKG Findings - EKG Comments: EKG Findings:: EKG: Sinus tachycardia with PVC, incomplete right bundle, rate of 108, IL interval 1:30, QRS duration 94, QTC 458, no ST segment elevation. Medical Decision Making - Medical Decision Making 84-year-old male with progressive dyspnea over 2 days. No fever. No worsening cough. White blood cell count mildly elevated 11.7, hemoglobin 9.9, creatinine is 1.6 which is baseline for this patient. He has a large left pleural effusion on x-ray. He is treated with both Lasix and IV antibiotics. He will be admitted with pulmonology on consult. Discussed case with Dr. Reyes who will admit. - Lab Data Result diagrams: 02/06/20 15:01 02/06/20 15:01 Lab Results 02/06/20 02/06/20 02/06/20 Range/Units 14:39 15:01 15:01 WBC 11.7 H (3.8-10.6) k/uL RBC 3.31 L (4.30-5.90) m/uL Hgb 9.9 L (13.0-17.5) gm/dL Hct 31.7 L (39.0-53.0) % MCV 95.8 (80.0-100.0) fL MCH 30.0 (25.0-35.0) pg MCHC 31.3 (31.0-37.0) g/dL RDW 14.7 (11.5-15.5) % Plt Count 300 (150-450) k/uL Neutrophils % 90 % Lymphocytes % 5 % Monocytes % 5 % Eosinophils % 0 % Basophils % 0 % Neutrophils # 10.5 H (1.3-7.7) k/uL Lymphocytes # 0.6 L (1.0-4.8) k/uL Monocytes # 0.5 (0-1.0) k/uL Eosinophils # 0.0 (0-0.7) k/uL Basophils # 0.0 (0-0.2) k/uL PT 11.2 (9.0-12.0) sec INR 1.1 (<1.2) APTT 24.6 (22.0-30.0) sec Sodium (137-145) mmol/L Potassium (3.5-5.1) mmol/L Chloride (98-107) mmol/L Carbon Dioxide (22-30) mmol/L Anion Gap mmol/L BUN (9-20) mg/dL Creatinine (0.66-1.25) mg/dL Est GFR (CKD-EPI)AfAm (>60 ml/min/1.73 sqM) Est GFR (CKD-EPI)NonAf (>60 ml/min/1.73 sqM) Glucose (74-99) mg/dL Plasma Lactic Acid Oumar (0.7-2.0) mmol/L Calcium (8.4-10.2) mg/dL Magnesium (1.6-2.3) mg/dL Total Bilirubin (0.2-1.3) mg/dL AST (17-59) U/L ALT (4-49) U/L Alkaline Phosphatase (38-126) U/L Troponin I (0.000-0.034) ng/mL NT-Pro-B Natriuret Pep pg/mL Total Protein (6.3-8.2) g/dL Albumin (3.5-5.0) g/dL Influenza Type A RNA Not Detected (Not Detectd) Influenza Type B (PCR) Not Detected (Not Detectd) 02/06/20 02/06/20 02/06/20 Range/Units 15:01 15:01 15:01 WBC (3.8-10.6) k/uL RBC (4.30-5.90) m/uL Hgb (13.0-17.5) gm/dL Hct (39.0-53.0) % MCV (80.0-100.0) fL MCH (25.0-35.0) pg MCHC (31.0-37.0) g/dL RDW (11.5-15.5) % Plt Count (150-450) k/uL Neutrophils % % Lymphocytes % % Monocytes % % Eosinophils % % Basophils % % Neutrophils # (1.3-7.7) k/uL Lymphocytes # (1.0-4.8) k/uL Monocytes # (0-1.0) k/uL Eosinophils # (0-0.7) k/uL Basophils # (0-0.2) k/uL PT (9.0-12.0) sec INR (<1.2) APTT (22.0-30.0) sec Sodium 140 (137-145) mmol/L Potassium 5.0 (3.5-5.1) mmol/L Chloride 106 (98-107) mmol/L Carbon Dioxide 22 (22-30) mmol/L Anion Gap 12 mmol/L BUN 57 H (9-20) mg/dL Creatinine 1.60 H (0.66-1.25) mg/dL Est GFR (CKD-EPI)AfAm 45 (>60 ml/min/1.73 sqM) Est GFR (CKD-EPI)NonAf 39 (>60 ml/min/1.73 sqM) Glucose 132 H (74-99) mg/dL Plasma Lactic Acid Oumar 1.3 (0.7-2.0) mmol/L Calcium 9.1 (8.4-10.2) mg/dL Magnesium 2.5 H (1.6-2.3) mg/dL Total Bilirubin 0.3 (0.2-1.3) mg/dL AST 35 (17-59) U/L ALT 39 (4-49) U/L Alkaline Phosphatase 77 (38-126) U/L Troponin I <0.012 (0.000-0.034) ng/mL NT-Pro-B Natriuret Pep pg/mL Total Protein 7.3 (6.3-8.2) g/dL Albumin 3.6 (3.5-5.0) g/dL Influenza Type A RNA (Not Detectd) Influenza Type B (PCR) (Not Detectd) 02/06/20 Range/Units 15:01 WBC (3.8-10.6) k/uL RBC (4.30-5.90) m/uL Hgb (13.0-17.5) gm/dL Hct (39.0-53.0) % MCV (80.0-100.0) fL MCH (25.0-35.0) pg MCHC (31.0-37.0) g/dL RDW (11.5-15.5) % Plt Count (150-450) k/uL Neutrophils % % Lymphocytes % % Monocytes % % Eosinophils % % Basophils % % Neutrophils # (1.3-7.7) k/uL Lymphocytes # (1.0-4.8) k/uL Monocytes # (0-1.0) k/uL Eosinophils # (0-0.7) k/uL Basophils # (0-0.2) k/uL PT (9.0-12.0) sec INR (<1.2) APTT (22.0-30.0) sec Sodium (137-145) mmol/L Potassium (3.5-5.1) mmol/L Chloride (98-107) mmol/L Carbon Dioxide (22-30) mmol/L Anion Gap mmol/L BUN (9-20) mg/dL Creatinine (0.66-1.25) mg/dL Est GFR (CKD-EPI)AfAm (>60 ml/min/1.73 sqM) Est GFR (CKD-EPI)NonAf (>60 ml/min/1.73 sqM) Glucose (74-99) mg/dL Plasma Lactic Acid Oumar (0.7-2.0) mmol/L Calcium (8.4-10.2) mg/dL Magnesium (1.6-2.3) mg/dL Total Bilirubin (0.2-1.3) mg/dL AST (17-59) U/L ALT (4-49) U/L Alkaline Phosphatase (38-126) U/L Troponin I (0.000-0.034) ng/mL NT-Pro-B Natriuret Pep 179 pg/mL Total Protein (6.3-8.2) g/dL Albumin (3.5-5.0) g/dL Influenza Type A RNA (Not Detectd) Influenza Type B (PCR) (Not Detectd) Disposition Clinical Impression: Community acquired pneumonia, Pleural effusion Disposition: ADMITTED IP TO THIS [facility] Condition: Stable Is patient prescribed a controlled substance at d/c from ED?: No Referrals: Markie Healy MD [Primary Care Provider] - 1-2 days Time of Disposition: 16:07 Decision to Admit Reason: Admit from EC Decision Date: 02/06/20 Decision Time: 16:07
[2020-02-06] MEDS ORDERED: cefTRIAXone IN SWFI 1,000 MG/10 ML SYRINGE IVP STA (15:04)
[2020-02-06] MEDS ORDERED: AZITHROMYCIN 500 MG in SODIUM CHLORIDE 0.9% 250 ML IVPB STA (15:04)
[2020-02-06 15:20] LABS: Basophils % (A) 0 %; Eosinophils % (A) 0 %; HCT 31.7 % (39.0-53.0); HGB 9.9 gm/dL (13.0-17.5); Lymphocytes # (A) 0.6 k/uL (1.0-4.8); Lymphocytes % (A) 5 %; MCHC 31.3 g/dL (31.0-37.0); MCV 95.8 fL (80.0-100.0); Mean Platelet Volume 9.5; Monocytes # (A) 0.5 k/uL (0-1.0); Monocytes % (A) 5 %; Neutrophils # (A) 10.5 k/uL (1.3-7.7); Neutrophils % (A) 90 %; Platelet Count 300 k/uL (150-450); RBC 3.31 m/uL (4.30-5.90); RDW 14.7 % (11.5-15.5); WBC 11.7 k/uL (3.8-10.6)
[2020-02-06 15:31] LABS: Albumin 3.6 g/dL (3.5-5.0); Calcium 9.1 mg/dL (8.4-10.2); Magnesium 2.5 mg/dL (1.6-2.3); Total Bilirubin 0.3 mg/dL (0.2-1.3); Total Protein 7.3 g/dL (6.3-8.2)
--- NOTE | 2020-02-06 15:34 | XR ---
EXAMINATION TYPE: XR chest 2V DATE OF EXAM: 02/06/2020 COMPARISON: 02/04/2019 INDICATION: Difficulty breathing TECHNIQUE: Frontal and lateral views of the chest are obtained. FINDINGS: The heart size is indistinct. The pulmonary vasculature is normal. There is a moderate left pleural effusion. Some mild compressive atelectasis may be adjacent. No pneu mothorax is evident. IMPRESSION: 1. Moderate left pleural effusion.
[2020-02-06] MEDS ORDERED: FUROSEMIDE 10 MG/ML 4 ML VIAL IV STA (15:37)
[2020-02-06 15:43] LABS: INR 1.1 (<1.2); Partial Thromboplastin Time 24.6 sec (22.0-30.0); Prothrombin Time 11.2 sec (9.0-12.0)
[2020-02-06] MEDS ORDERED: PNEUMONIA PROTOCOL UTILIZED 1 EACH MISC PO PRN (16:04)
--- NOTE | 2020-02-06 17:51 | XR ---
EXAMINATION TYPE: XR chest 1V portable DATE OF EXAM: 02/06/2020 Comparison: 02/06/2020, earlier today Clinical History: 84-year-old male with pleural effusion Findings: Leftward margin obscured by adjacent pleural parenchymal opacity. There is a moderate left pleural ef fusion with adjacent left basilar opacity. Pulmonary vasculature within normal limits. Impression: Moderate left pleural effusion with adjacent atelectasis and/or consolidation. Effusion decreased fro m earlier today. No appreciable pneumothorax.
--- NOTE | 2020-02-06 19:06 | CT ---
EXAMINATION TYPE: CT chest wo con DATE OF EXAM: 02/06/2020 COMPARISON: Radiograph same day HISTORY: 84-year-old male Pleural effusion. Patient is status post thoracentesis today TECHNIQUE: Contiguous axial scanning of the chest without IV contrast. Coronal and sagittal reconstru ctions performed. CT DLP: 365.3 mGycm Automated exposure control for dose reduction was used. FINDINGS: Heart upper limits of normal in size without pericardial effusion. Extensive three-vessel coronary ar ilana calcifications are present. Mild atherosclerotic aortic calcifications with conventional arch vessel branching anatomy. Ectatic u pper descending thoracic aorta and 3.4 cm. Scattered nonenlarged mediastinal lymph nodes. A mildly enlarged lower right paratracheal lymph node measures 1.2 cm. There is no pneumothorax. Mild emphysematous changes scattered throughout. 1 cm right middle lobe pulmonary nodule, axial image 34 warrants follow-up. 3 mm left upper lobe pulmonary nodule, axial image 11. Residual [id number] left pleural effusion. There is patchy and confluent consolidation superio r segment left lower lobe and to lesser extent within the basilar left lower lobe. Groundglass infiltrate inferior lingula and some adjacent volume loss and consolidation inferior ling konstantin. A 2.9 x 1.6 cm area of actual calcification in the region of the gallbladder fossa. Mild diffuse thic kening of the left adrenal gland without discrete nodularity. 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 IMPRESSION: 1. SMALL TO MODERATE LEFT PLEURAL EFFUSION REMAINS. NO PNEUMOTHORAX. 2. PATCHY AND CONFLUENT AIRSPACE DISEASE SUPERIOR SEGMENT LEFT LOWER LOBE AND TO A LESSER EXTENT WITH IN THE BASILAR LEFT LOWER LOBE AND INFERIOR LINGULA. FINDINGS SUSPICIOUS FOR PNEUMONIA. 3. THREE MONTH FOLLOW-UP CT RECOMMENDED TO REASSESS A 1 CM RIGHT MIDDLE LOBE PULMONARY NODULE AND TO ALSO ASSESS FOR APPROPRIATE CLEARING FOLLOWING TREATMENT. 4. CAD WITH EXTENSIVE THREE-VESSEL CORONARY ARTERY CALCIFICATIONS.
[2020-02-06 19:43] LABS: Color,BF Pink
[2020-02-06 19:44] LABS: Appearance,BF Hazy
[2020-02-06 19:45] LABS: Nucleated Cells, Body Fluid 40 /uL; RBC, Body Fluid 2395 /uL
[2020-02-06 20:10] LABS: Mononuclear WBC,Body Fluid 30 %; Polynuclear WBC,Body Fluid 70 %; Total Cells Counted,Body Fluid 100
[2020-02-06] MEDS: ACETAMINOPHEN TAB 500 MG TAB PO PRN (22:19)
--- NOTE | 2020-02-06 22:36 | P.PCN ---
Date of Procedure: 02/06/20 Preoperative Diagnosis: left pleural effusion Postoperative Diagnosis: same Procedure(s) Performed: thoracentesis Anesthesia: local Surgeon: Beto Conway Estimated Blood Loss (ml): 0 Pathology: other Condition: stable Disposition: floor Operative Findings: OPERATIVE REPORT THORACENTESIS: PREOPERATIVE DIAGNOSIS: Left-sided pleural effusion. POSTOPERATIVE DIAGNOSIS: Left-sided pleural effusion. PROCEDURE DESCRIPTION: A time-out was completed verifying correct patient, procedure, site, positioning and implant (s) or special equipment if applicable. Ultrasound was not used and appropriate fluid pocket was identified and marked. Patient was positioned, prepped and draped in usual sterile fashion. Lidocaine was used to anesthetize the area. A thoracentesis catheter was introduced into the pleural space and fluid was removed. Blood loss was none. A chest x-ray was ordered to evaluate for pneumothorax. Total Fluid Removed: 1.5 liters Color of Fluid: Dark turbid yellowish pleural effusion. No complications. No pneumothorax on follow-up chest x-ray.
[2020-02-06 23:32] LABS: Total Protein, Body Fluid 4200 mg/dL
[2020-02-06 23:45] LABS: Glucose, BF Source Pleural Fluid; Glucose, Body Fluid 109 mg/dL; LDH, Body Fluid Source Pleural Fluid
[2020-02-07] MEDS ORDERED: PANTOPRAZOLE 40 MG TABLET PO SCH (07:30)
[2020-02-07 07:40] VITALS: RESP 16
[2020-02-07 07:58] LABS: Basophils % (A) 0 %; Eosinophils % (A) 0 %; HCT 28.2 % (39.0-53.0); HGB 8.9 gm/dL (13.0-17.5); Lymphocytes # (A) 0.7 k/uL (1.0-4.8); Lymphocytes % (A) 6 %; MCHC 31.4 g/dL (31.0-37.0); MCV 95.7 fL (80.0-100.0); Mean Platelet Volume 9.1; Monocytes # (A) 0.8 k/uL (0-1.0); Monocytes % (A) 7 %; Neutrophils # (A) 9.3 k/uL (1.3-7.7); Neutrophils % (A) 85 %; Platelet Count 285 k/uL (150-450); RBC 2.95 m/uL (4.30-5.90); RDW 14.7 % (11.5-15.5); WBC 10.9 k/uL (3.8-10.6)
[2020-02-07 08:06] LABS: Albumin 3.1 g/dL (3.5-5.0); Calcium 8.7 mg/dL (8.4-10.2); Potassium 4.4 mmol/L (3.5-5.1); Total Bilirubin 0.4 mg/dL (0.2-1.3); Total Protein 6.5 g/dL (6.3-8.2)
[2020-02-07] MEDS ORDERED: FUROSEMIDE 20 MG TAB PO SCH (09:00)
[2020-02-07] MEDS ORDERED: MULTIVITAMINS, THERA 1 EACH TAB PO SCH (09:00)
[2020-02-07] MEDS ORDERED: LISINOPRIL 20 MG TAB PO SCH (09:00)
[2020-02-07] MEDS ORDERED: ASPIRIN 81 MG PO SCH (09:00)
[2020-02-07] MEDS ORDERED: metFORMIN 500 MG TAB PO SCH (09:00)
[2020-02-07] MEDS ORDERED: AZITHROMYCIN 500 MG TAB PO SCH (09:00)
[2020-02-07] MEDS ORDERED: ATORVASTATIN 10 MG TAB PO SCH (09:00)
[2020-02-07] MEDS: ACETAMINOPHEN TAB 500 MG TAB PO PRN (10:53)
--- NOTE | 2020-02-07 11:21 | P.HPIM ---
History of Present Illness H&P Date: 02/07/20 Chief Complaint: Shortness of breath This is an 84-year-old male patient of Dr. Healy with past medical history of hypertension, hyperlipidemia, diabetes mellitus type 2, coronary artery disease status post stent, left carotid endarterectomy, peripheral vascular disease with bilateral stents, bladder cancer, chronic anemia, tobacco use and dependence using a pipe for 60 years. Patient complains of shortness of breath going on for couple of days. He denies any fever or chills. He denies any sick contacts. He denies any lower extremity edema. He denies sputum production. No abdominal pain. There was concern for dark brown or black stools. Patient presented afebrile, vital signs stable. EKG was a sinus tachycardia with PVCs, incomplete right bundle branch block, no ST elevation. W BC 11.7, hemoglobin 9.9, electrolytes within normal limits, BUN 57 creatinine 1.6, blood sugar 132. Influenza testing was negative and coronavirus in progress. Troponin negative. Lactic acid 1.3. ProBNP 179. Chest x-ray revealed moderate left pleural effusion. CAT scan of the chest showed small to moderate left pleural effusion remains. No pneumothorax. Patchy and confluent airspace disease superior segment left lower lobe into the lesser extent within the basilar left lower lobe and inferior lingula. Findings suspicious for pneumonia. Three-month follow-up recommended to assess the one centimeter right middle lobe pulmonary nodule. CAD with extensive 3 vessel coronary artery calcifications. Repeat chest x-ray shows moderate left pleural effusion with adjacent atelectasis and consolidation. Effusion decreased from earlier today. No appreciative pneumothorax. PT evaluation will be added as patient is concerned about weakness. He normally uses a cane for ambulation. Review of Systems Constitutional: Reports fatigue, Reports weakness, Denies chills, Denies fever, Denies poor appetite Eyes: denies blurred vision, denies pain Ears, nose, mouth and throat: Denies vertigo Cardiovascular: Denies chest pain, reports dyspnea on exertion, reports shortness of breath, Denies syncope Respiratory: Denies cough, reports dyspnea, Denies excessive sputum, Denies hemoptysis, Denies home oxygen, Denies respiratory infections Gastrointestinal: Denies abdominal pain, Denies diarrhea, Denies loss of appetite, Denies nausea, Denies vomiting Genitourinary: Denies dysuria, Denies urinary frequency, Denies urinary retention Musculoskeletal: Denies myalgias Integumentary: Denies pruritus, Denies rash, Denies wounds Neurological: Denies change in mentation, Denies change in speech, Denies confusion, Denies numbness, Denies weakness Psychiatric: Denies anxiety, Denies depression Endocrine: Denies fatigue, Denies weight change Past Medical History Past Medical History: Diabetes Mellitus, Hypertension, Vascular Disorder Additional Past Medical History / Comment(s): Coronary artery disease, carotid artery stenosis, previous cardiac catheterization and coronary stenting, peripheral vascular disease with lower extremity vascular stenting, , chronic iron deficiency anemia, hypertension, hyperlipidemia, diabetes mellitus type 2 History of Any Multi-Drug Resistant Organisms: None Reported Past Surgical History: Appendectomy, Heart Catheterization With Stent, Tonsillectomy Additional Past Surgical History / Comment(s): demetrius cataracts, left carotid endarterectomy, stents demetrius legs, aortogram 05/01/18, Past Anesthesia/Blood Transfusion Reactions: No Reported Reaction Additional Past Anesthesia/Blood Transfusion Reaction / Comment(s): no hx blood transfusion Date of Last Stent Placement:: 04/17/17 Past Psychological History: No Psychological Hx Reported Smoking Status: Current every day smoker Past Alcohol Use History: Rare Additional Past Alcohol Use History / Comment(s): smokes pipe for past 60 yrs. Patient denies any marijuana use, illicit drug use. He drinks alcohol very rarely. He lives at home with his . Patient is very independent. Past Drug Use History: None Reported Additional Drug Use History / Comment(s): . - Past Family History Mother Family Medical History: No Reported History Additional Family Medical History / Comment(s): Mother at age 92 from old age. Father Family Medical History: Diabetes Mellitus Additional Family Medical History / Comment(s): Father at age 60 from [place] locations from diabetes. Sister(s) Family Medical History: Cancer Additional Family Medical History / Comment(s): Patient has a total of 6 sisters. He denies any family members with anemia. Patient has 1 brother that has passed from alcohol related conditions. Patient has 2 sons and 1 daughter with no major medical problems. Medications and Allergies Home Medications Medication Instructions Recorded Confirmed Type Atorvastatin [Lipitor] 10 mg PO DAILY 10/23/16 02/06/20 History Multivitamins, Thera [Multivitamin 1 tab PO DAILY 10/23/16 02/06/20 History (formulary)] Aspirin [Adult Low Dose Aspirin EC] 81 mg PO DAILY 11/30/16 02/06/20 History Furosemide [Lasix] 20 mg PO DAILY 04/03/17 02/06/20 History metFORMIN HCL [Glucophage] 500 mg PO DAILY 08/31/17 02/06/20 History Lisinopril [Prinivil] 20 mg PO DAILY 04/25/18 02/06/20 History Acetaminophen [Tylenol] 500 mg PO Q4-6H PRN 02/06/20 02/06/20 History Allergies Allergy/AdvReac Type Severity Reaction Status Date / Time No Known Allergies Allergy Verified 02/06/20 16:26 Physical Exam Vitals: Vital Signs Temp Pulse Pulse Resp BP BP Pulse Ox 02/07/20 07:20 98.5 F 90 16 105/61 95 02/07/20 03:58 18 02/07/20 00:51 18 02/07/20 00:10 99.5 F 77 113/63 97 02/06/20 19:54 18 02/06/20 19:30 99.2 F 100 146/68 99 02/06/20 17:00 98.2 F 96 18 145/71 100 02/06/20 15:43 98.7 F 90 22 146/67 99 02/06/20 13:35 98.3 F 103 H 30 H 138/72 100 Intake and Output 02/06/20 02/07/20 02/07/20 22:59 06:59 14:59 Other: Voiding Method Toilet Toilet # Voids 1 1 # Bowel Movements 1 1 Weight 68.039 kg Gen: This is an 84-year-old male. Patient is sitting up in bed appears to be comfortable in no acute distress. HEENT: Head is atraumatic, normocephalic. Pupils equal, round. Sclerae is anicteric. NECK: Supple. No JVD. No lymphadenopathy. No thyromegaly. LUNGS: Diminished in the bases. No wheezes or rhonchi. No intercostal retractions. HEART: Regular rate and rhythm. No murmur. ABDOMEN: Soft. Bowel sounds are present. No masses. No tenderness. EXTREMITIES: No pedal edema. No calf tenderness. NEUROLOGICAL: Patient is awake, alert and oriented x3. Cranial nerves 2 through 12 are grossly intact. Results CBC & Chem 7: 02/07/20 07:34 02/07/20 07:34 Labs: Abnormal Lab Results - Last 24 Hours (Table) 02/06/20 02/06/20 02/07/20 Range/Units 15:01 15:01 07:34 WBC 11.7 H 10.9 H (3.8-10.6) k/uL RBC 3.31 L 2.95 L (4.30-5.90) m/uL Hgb 9.9 L 8.9 L (13.0-17.5) gm/dL Hct 31.7 L 28.2 L (39.0-53.0) % Neutrophils # 10.5 H 9.3 H (1.3-7.7) k/uL Lymphocytes # 0.6 L 0.7 L (1.0-4.8) k/uL Chloride (98-107) mmol/L BUN 57 H (9-20) mg/dL Creatinine 1.60 H (0.66-1.25) mg/dL Glucose 132 H (74-99) mg/dL Magnesium 2.5 H (1.6-2.3) mg/dL Albumin (3.5-5.0) g/dL 02/07/20 Range/Units 07:34 WBC (3.8-10.6) k/uL RBC (4.30-5.90) m/uL Hgb (13.0-17.5) gm/dL Hct (39.0-53.0) % Neutrophils # (1.3-7.7) k/uL Lymphocytes # (1.0-4.8) k/uL Chloride 108 H (98-107) mmol/L BUN 54 H (9-20) mg/dL Creatinine 1.46 H (0.66-1.25) mg/dL Glucose 132 H (74-99) mg/dL Magnesium (1.6-2.3) mg/dL Albumin 3.1 L (3.5-5.0) g/dL Microbiology - Last 24 Hours (Table) 02/06/20 17:08 Gram Stain - Preliminary Pleural Fluid Body Fluid Culture - Preliminary 02/06/20 17:08 Anaerobic Culture - Preliminary Pleural Fluid 02/06/20 17:08 Fungal Culture - Preliminary Pleural Fluid 02/06/20 17:08 Acid Fast Bacilli Culture - Preliminary Pleural Fluid Thrombosis Risk Factor Assmnt - DVT/VTE Prophylaxis DVT/VTE Prophylaxis: Mechanical Prophylaxis ordered - Choose All That Apply Each Risk Factor Represents 3 Points: Age 75 years or older Thrombosis Risk Factor Assessment Total Risk Factor Score: 3 Thrombosis Risk Factor Assessment Level: Moderate Risk Assessment and Plan Plan: 1. Difficulty breathing secondary to left-sided pleural effusion status post thoracentesis for 1.5 L and possible pneumonia, rule out COVID-19. Continue azithromycin and ceftriaxone. Consult with pulmonary medicine appreciated. Continue droplet isolation. Pleural fluid culture and cytology in progress. 2. Dark stools with drop in hemoglobin. Patient has chronic anemia. Await stool for occult blood. 3. Acute kidney injury with chronic kidney disease stage III. Repeat BMP in the morning. 4. Diabetes mellitus type 2. Metformin 500 mg daily and NovoLog scale before meals and at bedtime. 5. Hypertension continue lisinopril 20 mg daily, Lasix 20 mg daily. 6. Hyperlipidemia. Continue atorvastatin 10 mg daily. 7. Peripheral vascular disease. continue aspirin 81 mg daily, atorvastatin 10 mg daily 8. History of bladder cancer, stable. 9. Tobacco use and dependence. 10. GI prophylaxis. Protonix 40 mg daily 11. DVT prophylaxis. SCDs and KISHAN hose. Patient will be admitted to the hospital for a minimum of 2 night stay. Discharge plan: return home most likely. PT will be added. Impression and plan of care have been directed as dictated by the signing physician. Maritza Jett nurse practitioner acting as scribe for signing komali
[2020-02-07] MEDS: INSULIN ASPART (NovoLOG) 100 UNIT/ML VIAL SQ SCH ×2 (13:15→18:38)
--- NOTE | 2020-02-07 13:15 | P.CNPUL ---
History of Present Illness Consult date: 02/06/20 Reason for consult: pleural effusion History of present illness: 84-year-old male presents for evaluation of dyspnea. Patient has history of [place] PD, he is a current height smoker. He states he's had minimal cough with sputum which is baseline, unchanged. He's developed dyspnea over the past 48 hours. Denies fever. Denies sore throat. Denies chest pain. Denies lower extremity pain or swelling. The patient came into the emergency department. The patient was found to have a large left-sided pleural effusion. The white cell count was 11.7 with a hemoglobin of 9.9. The creatinine was at 1.6 and the patient has likely chronic kidney insufficiency with diminished GFR of around 39. The patient's influenza screen was negative for influenza A and B. ProBNP level is not elevated. Troponin was negative. The patient apparently was quite short of breath in the emergency department and he was using excessive muscle breathing. He did stabilize somewhat at a time of arrival to his floor and the patient is currently on 3 L of oxygen by nasal cannula with a pulse of 99%. The coagulation profile is within normal limits. The patient's primary care physician is Dr. Toledo. He does have history of hypertension and hyperlipidemia and diabetes mellitus type 2. He also has coronary artery disease and has undergone previous cardiac catheterization and stenting and the patient has undergone a previous left carotid endarterectomy. His noted. Vascular disease and has several stents in his lower extremities. His history also includes history of bladder cancer and previous history of smoking a pipe for on 60 years. He has history of chronic iron deficiency anemia requiring IV iron infusions through hematology oncology. Note that during his previous admission for generalized weakness, he had a hemoglobin of 7.1 and this was in November 2019 and the patient was given a unit of packed RBC. Review of Systems Constitutional: Reports fatigue, Reports weakness, Denies chills, Denies fever, Denies poor appetite Eyes: denies blurred vision, denies pain Ears, nose, mouth and throat: Denies vertigo Cardiovascular: Denies chest pain, Denies dyspnea on exertion, Denies shortness of breath, Denies syncope Respiratory: Denies cough, dyspnea, Denies excessive sputum, Denies hemoptysis, Denies home oxygen, Denies respiratory infections Gastrointestinal: Denies abdominal pain, Denies diarrhea, Denies loss of appetite, Denies nausea, Denies vomiting Genitourinary: Denies dysuria, Denies urinary frequency, Denies urinary retention Musculoskeletal: Denies myalgias Integumentary: Denies pruritus, Denies rash, Denies wounds Neurological: Denies change in mentation, Denies change in speech, Denies confusion, Denies numbness, Denies weakness Psychiatric: Denies anxiety, Denies depression Endocrine: Denies fatigue, Denies weight change Past Medical History Past Medical History: Cancer, Diabetes Mellitus, Hypertension, Vascular Disorder Additional Past Medical History / Comment(s): Coronary artery disease, carotid artery stenosis, previous cardiac catheterization and coronary stenting, peripheral vascular disease with lower extremity vascular stenting, bladder cancer, chronic iron deficiency anemia, hypertension, hyperlipidemia, diabetes mellitus type 2 History of Any Multi-Drug Resistant Organisms: None Reported Past Surgical History: Appendectomy, Heart Catheterization With Stent, Tonsillectomy Additional Past Surgical History / Comment(s): demetrius cataracts, left carotid endarterectomy, stents demetrius legs, aortogram 05/01/18, Past Anesthesia/Blood Transfusion Reactions: No Reported Reaction Additional Past Anesthesia/Blood Transfusion Reaction / Comment(s): no hx blood transfusion Date of Last Stent Placement:: 04/17/17 Past Psychological History: No Psychological Hx Reported Smoking Status: Current every day smoker Past Alcohol Use History: Rare Past Drug Use History: None Reported - Past Family History Mother Family Medical History: No Reported History Additional Family Medical History / Comment(s): Mother at age 92 from old age. Father Family Medical History: Diabetes Mellitus Additional Family Medical History / Comment(s): Father at age 60 from [place] locations from diabetes. Sister(s) Family Medical History: Cancer Additional Family Medical History / Comment(s): Patient has a total of 6 sisters. He denies any family members with anemia. Patient has 1 brother that has passed from alcohol related conditions. Patient has 2 sons and 1 daughter with no major medical problems. Medications and Allergies Home Medications Medication Instructions Recorded Confirmed Type Atorvastatin [Lipitor] 10 mg PO DAILY 10/23/16 02/06/20 History Multivitamins, Thera [Multivitamin 1 tab PO DAILY 10/23/16 02/06/20 History (formulary)] Aspirin [Adult Low Dose Aspirin EC] 81 mg PO DAILY 11/30/16 02/06/20 History Furosemide [Lasix] 20 mg PO DAILY 04/03/17 02/06/20 History metFORMIN HCL [Glucophage] 500 mg PO DAILY 08/31/17 02/06/20 History Lisinopril [Prinivil] 20 mg PO DAILY 04/25/18 02/06/20 History Acetaminophen [Tylenol] 500 mg PO Q4-6H PRN 02/06/20 02/06/20 History Allergies Allergy/AdvReac Type Severity Reaction Status Date / Time No Known Allergies Allergy Verified 02/06/20 16:26 Physical Exam Vitals: Vital Signs Temp Pulse Resp BP Pulse Ox 02/06/20 15:43 98.7 F 90 22 146/67 99 02/06/20 13:35 98.3 F 103 H 30 H 138/72 100 Intake and Output 02/06/20 02/06/20 02/06/20 06:59 14:59 22:59 Other: Weight 68.039 kg Gen: This is an 84-year-old male. Patient is sitting up in bed appears to be comfortable in no acute distress. HEENT: Head is atraumatic, normocephalic. Pupils equal, round. Sclerae is anicteric. NECK: Supple. No JVD. No lymphadenopathy. No thyromegaly. LUNGS: Clear to auscultation. No wheezes or rhonchi. No intercostal retractions. Diminished breath on the left lung base along with dullness to percussion HEART: Regular rate and rhythm. No murmur. ABDOMEN: Soft. Bowel sounds are present. No masses. No tenderness. EXTREMITIES: No pedal edema. No calf tenderness. NEUROLOGICAL: Patient is awake, alert and oriented x3. Cranial nerves 2 through 12 are grossly intact. Examination of the skin revealed no evidence of significant rashes, suspicious appearing nevi or other concerning lesions. Results - Laboratory Findings CBC and BMP: 02/06/20 15:01 02/06/20 15:01 PT/INR, D-dimer PT 11.2 sec (9.0-12.0) 02/06/20 15:01 INR 1.1 (<1.2) 02/06/20 15:01 Abnormal lab findings: Abnormal Labs 02/06/20 02/06/20 15:01 15:01 WBC 11.7 H RBC 3.31 L Hgb 9.9 L Hct 31.7 L Neutrophils # 10.5 H Lymphocytes # 0.6 L BUN 57 H Creatinine 1.60 H Glucose 132 H Magnesium 2.5 H - Diagnostic Findings Chest x-ray: image reviewed Assessment and Plan Plan: 1 left-sided pleural effusion likely of a new onset 2 shortness of breath secondary to above. The patient also has an underlying history of COPD with chronic [id number] smoking history 3 coronary artery disease with previous coronary intervention and stenting 4 peripheral vascular disease 5 carotid artery stenosis with a previous endarterectomy on the left 6 chronic kidney disease with a GFR of 39 consistent with chronic stage III kidney failure 7 chronic anemia of an iron deficiency type 8 history of bladder cancer 9 hypertension 10 hyperlipidemia 11 diabetes mellitus type 2 Plan Proceed with a diagnostic and therapeutic thoracentesis on the left CAT scan of the chest is to follow following the thoracentesis at the chest x- ray shows pleural effusion and volume loss in obviously malignancy the constellation Keep oxygen at 3 L Empiric antibiotic coverage We'll follow
--- NOTE | 2020-02-07 13:31 | P.PN ---
Subjective Progress Note Date: 02/07/20 Principal diagnosis: Shortness of breath secondary to left sided pleural effusion 84-year-old male presents for evaluation of dyspnea. Patient has history of COPD, he is a current height smoker. He states he's had minimal cough with sputum which is baseline, unchanged. He's developed dyspnea over the past 48 hours. Denies fever. Denies sore throat. Denies chest pain. Denies lower extremity pain or swelling. The patient came into the emergency department. The patient was found to have a large left-sided pleural effusion. The white cell count was 11.7 with a hemoglobin of 9.9. The creatinine was at 1.6 and the patient has likely chronic kidney insufficiency with diminished GFR of around 39. The patient's influenza screen was negative for influenza A and B. ProBNP level is not elevated. Troponin was negative. The patient apparently was quite short of breath in the emergency department and he was using excessive muscle breathing. He did stabilize somewhat at a time of arrival to his floor and the patient is currently on 3 L of oxygen by nasal cannula with a pulse of 99%. The coagulation profile is within normal limits. The patient's primary care p hysician is Dr. Toledo. He does have history of hypertension and hyperlipidemia and diabetes mellitus type 2. He also has coronary artery disease and has undergone previous cardiac catheterization and stenting and the patient has undergone a previous left carotid endarterectomy. His noted. Vascular disease and has several stents in his lower extremities. His history also includes history of bladder cancer and previous history of smoking a pipe for on 60 years. He has history of chronic iron deficiency anemia requiring IV iron infusions through hematology oncology. Note that during his previous admission for generalized weakness, he had a hemoglobin of 7.1 and this was in November 2019 and the patient was given a unit of packed RBC. The patient is seen today 02/07/2020 in follow-up on the regular medical floor. He is currently sitting up in bed. Awake and alert in no acute distress. He denies any worsening shortness of breath, cough or congestion. He is maintaining good O2 saturations in the 90s on 2 L/m per nasal cannula. Afebrile. Hemodynamically stable. He did undergo a left-sided thoracentesis yesterday with 2.5 L of exudative fluid removed. Total protein 4.2. LDH 320. Cultures and cytology pending. White count 10.9. Hemoglobin 8.9. Lymphocytes 0.7. Sodium 141. Potassium 4.1. Creatinine 1.46. He is continued on ceftriaxone and azithromycin. Objective - Vital Signs Vital signs: Vital Signs Temp 98 F 02/07/20 11:40 Pulse 73 02/07/20 11:40 Resp 16 02/07/20 11:40 BP 111/63 02/07/20 11:40 Pulse Ox 98 02/07/20 11:40 Intake & Output 02/06/20 02/07/20 02/07/20 18:59 06:59 18:59 Weight 68.039 kg 68.039 kg Other: Voiding Method Toilet # Voids 1 # Bowel Movements 1 - Exam Gen: This is a very pleasant 84-year-old male patient. 2 L/m per nasal cannula. Patient is sitting up in bed appears to be comfortable in no acute distress. HEENT: Head is atraumatic, normocephalic. Pupils equal, round. Sclerae is anicteric. NECK: Supple. No JVD. No lymphadenopathy. No thyromegaly. LUNGS: Clear to auscultation. No wheezes or rhonchi. No intercostal retractions. Diminished breath on the left lung base along with dullness to percussion HEART: Regular rate and rhythm. No murmur. ABDOMEN: Soft. Bowel sounds are present. No masses. No tenderness. EXTREMITIES: No pedal edema. No calf tenderness. NEUROLOGICAL: Patient is awake, alert and oriented x3. Cranial nerves 2 through 12 are grossly intact. Examination of the skin revealed no evidence of significant rashes, suspicious appearing nevi or other concerning lesions. - Labs CBC & Chem 7: 02/07/20 07:34 02/07/20 07:34 Labs: Abnormal Lab Results - Last 24 Hours (Table) 02/06/20 02/06/20 02/07/20 Range/Units 15:01 15:01 07:34 WBC 11.7 H 10.9 H (3.8-10.6) k/uL RBC 3.31 L 2.95 L (4.30-5.90) m/uL Hgb 9.9 L 8.9 L (13.0-17.5) gm/dL Hct 31.7 L 28.2 L (39.0-53.0) % Neutrophils # 10.5 H 9.3 H (1.3-7.7) k/uL Lymphocytes # 0.6 L 0.7 L (1.0-4.8) k/uL Chloride (98-107) mmol/L BUN 57 H (9-20) mg/dL Creatinine 1.60 H (0.66-1.25) mg/dL Glucose 132 H (74-99) mg/dL Magnesium 2.5 H (1.6-2.3) mg/dL Albumin (3.5-5.0) g/dL 02/07/20 Range/Units 07:34 WBC (3.8-10.6) k/uL RBC (4.30-5.90) m/uL Hgb (13.0-17.5) gm/dL Hct (39.0-53.0) % Neutrophils # (1.3-7.7) k/uL Lymphocytes # (1.0-4.8) k/uL Chloride 108 H (98-107) mmol/L BUN 54 H (9-20) mg/dL Creatinine 1.46 H (0.66-1.25) mg/dL Glucose 132 H (74-99) mg/dL Magnesium (1.6-2.3) mg/dL Albumin 3.1 L (3.5-5.0) g/dL Microbiology - Last 24 Hours (Table) 02/06/20 17:08 Gram Stain - Preliminary Pleural Fluid Body Fluid Culture - Preliminary 02/06/20 17:08 Anaerobic Culture - Preliminary Pleural Fluid 02/06/20 17:08 Fungal Culture - Preliminary Pleural Fluid 02/06/20 17:08 Acid Fast Bacilli Culture - Preliminary Pleural Fluid Assessment and Plan Assessment: 1 left-sided pleural effusion likely of a new onset 2 shortness of breath secondary to above. The patient also has an underlying history of COPD with chronic [id number] smoking history 3 coronary artery disease with previous coronary intervention and stenting 4 peripheral vascular disease 5 carotid artery stenosis with a previous endarterectomy on the left 6 chronic kidney disease with a GFR of 39 consistent with chronic stage III kidney failure 7 chronic anemia of an iron deficiency type 8 history of bladder cancer 9 hypertension 10 hyperlipidemia 11 diabetes mellitus type 2 Plan The patient was seen and evaluated by Dr. Conway Currently stable from the pulmonary standpoint Cleared for discharge Complete course of oral antibiotics Computed tomography scan of the chest reviewed Malignancy not ruled out Follow-up closely in the outpatient setting in our office Educated regarding the importance of complete smoking cessation I, the cosigning physician, performed a history & physical examination of the patient. Lungs sounds diminished in the left lung base. Maintaining good O2 saturations in the 90s on 2 L/m per nasal cannula. I discussed the assessment and plan of care with my nurse practitioner, Jacquie Lynch. I attest to the above note as dictated by her.
[2020-02-07 16:10] VITALS: BP 88/54; PULSE 93; TEMP 98.4
[2020-02-07 23:05] LABS: % Iron Saturation 6.88 (15.00-50.00)
[2020-02-08] MEDS ORDERED: LISINOPRIL 10 MG TAB PO SCH (09:00)
--- NOTE | 2020-02-11 10:44 | CDI ---
Documentation Clarification Form Date: 02/11/2020 10:04:31 AM From: Zee Bautista RN, CCDS Admit Date: 02/06/2020 04:04:00 PM Patient Name: Velasquez Baugh Visit Number: [id number] Discharge Date: 02/07/2020 07:22:00 PM ATTENTION: The Clinical Documentation Specialists (CDI) and [facility] Coding Staff appreciate your assistance in clarifying documentation. Please respond to the clarification below the line at the bottom and electronically sign. The CDI & [facility] [employer] Coding staff will review the response and follow-up if needed. Please note: Queries are made part of the Legal Health Record. If you have any questions, please contact the author of this message via ITS. Dr. Ed Reyes Possible Pneumonia was documented in your H&P on 02/06 and included in the discharge instruction packet. Please clarify if the pneumonia has been ruled in or ruled at the time of discharge. History/Risk Factors: COPD, Diabetes Mellitus, Hypertension Clinical Indicators: 84-year-old male with shortness of breath, cough, developed dyspnea. 02/05 @ 13:35 Vital signs: 138/72 103 30 98.3 100% 3/L 02/05 WBC/Left shift: 11.7 Cheat X-ray: 4/ moderate left pleural effusion, CXR 02/05@ 17:48 moderate left pleural effusion with adjacent atelectasis and or consolidation CT scan Chest: small to moderate left pleural effusion remains, No pneumothorax. Patchy and confluent airspace disease superior segment left lower lobe and to a lesser extent within the basilar left lower lobe and inferior lingual. Findings suspicious for pneumonia. Lung/Breathing assessments (02/06 per pulmonary assessment) clear to auscultation. No wheezes or rhonchi. No intercostal retractions. Diminished breath on the left lung base along with dullness to percussion. Treatment: 02/06 Left thoracentesis Monitor O2 sats keep oxygen at 3/L Rocephin 1 gm I"V Q 24 hrs Zithromycin 500 mg IV once than 500 mg PO Daily Lasix 40 IV x1 than 20 mg PO Daily In order to capture the severity of condition, please clarify if the condition signifies and you are treating for: Pneumonia ruled in (specify type if known) Pneumonia ruled out Other, please specify Unable to determine (Last Revision: February 2018) LEFT LOWER LOBE PNEUMONIA WITH PARAPNEUMONIC EFFUSION MTDD
--- NOTE | 2020-02-19 11:37 | CDI ---
Documentation Clarification Form Date: 02/19/2020 11:16:53 AM From: Janel Betts Phone: If you have a question about this query, please contact Kim Wong Clinical Training Specialist at [phone] between 8am and 5pm. Admit Date: 02/06/2020 04:04:00 PM Patient Name: Velasquez Baugh Visit Number: [id number] Discharge Date: 02/07/2020 07:22:00 PM ATTENTION: The Clinical Documentation Specialists (CDI) and [facility] Coding Staff appreciate your assistance in clarifying documentation. Please respond to the clarification below the line at the bottom and electronically sign. The CDI & [facility] Coding staff will review the response and follow-up if needed. Please note: Queries are made part of the Legal Health Record. If you have any questions, please contact the author of this message via ITS. Dr. Ed Reyes Patient's path report from thoracentesis iis documenting LEFT PLEURAL FLUID THORACENTESIS: Metastatic pulmonary adenocarcinoma moderately differentiated in a background of reactive mesothelial cells and scattered mixed inflammatory cell. Consistent with adenocarcinoma of pulmonary origin. Please clarify malignancy, acuity, site, laterality, behavior Patient history/risk factors: pneumonia, pleural effusions, COPD smoker SOB labored breathing Clinical Indicators: Positive path report Vital Signs: 98.3 F, 103 bpm 30 138/72 100% NC3 Treatment: thoracentesis In your professional opinion, can you please specify the acuity, laterality and neoplastic behavior, if known? Acuity Current Malignancy Personal History of Malignancy Other, please specify ____ Unable to determine Laterality Right Left Bilateral Other, please specify ____ Unable to determine Behavior Malignant, primary site Malignant, secondary site Benign In situ Of uncertain behavior Other, please specify Unable to determine metastatic left pulmonary adenocarcinoma with left malignant effusion. MTDD
== END 2020-02-07 19:22 | disposition home or self-care (01) | DRG 180 ==
LOC: EC 13:34 → 4SSUR 16:04
PROVIDERS: ADMIT Internal Medicine; ATTEND Internal Medicine
PROC: 0W9B3ZZ Drainage of Left Pleural Cavity, Percutaneous Approach (ICD-10-PCS; principal; 2020-02-06)
DX: C34.90 Malignant neoplasm of unspecified part of unspecified bronchus or lung (principal); J18.9 Pneumonia, unspecified organism; J96.11 Chronic respiratory failure with hypoxia; J98.11 Atelectasis; J44.0 Chronic obstructive pulmonary disease with (acute) lower respiratory infection; N17.9 Acute kidney failure, unspecified; J91.0 Malignant pleural effusion; I65.29 Occlusion and stenosis of unspecified carotid artery; D50.9 Iron deficiency anemia, unspecified; E11.22 Type 2 diabetes mellitus with diabetic chronic kidney disease; E11.51 Type 2 diabetes mellitus with diabetic peripheral angiopathy without gangrene; E78.5 Hyperlipidemia, unspecified; F17.210 Nicotine dependence, cigarettes, uncomplicated; I12.9 Hypertensive chronic kidney disease with stage 1 through stage 4 chronic kidney disease, or unspecified chronic kidney disease; I25.10 Atherosclerotic heart disease of native coronary artery without angina pectoris; I45.10 Unspecified right bundle-branch block; Z20.828 Contact with and (suspected) exposure to other viral communicable diseases; N18.3 Chronic kidney disease, stage 3 (moderate); Z79.82 Long term (current) use of aspirin; Z03.89 Encounter for observation for other suspected diseases and conditions ruled out; Z79.84 Long term (current) use of oral hypoglycemic drugs; Z79.899 Other long term (current) drug therapy; Z83.3 Family history of diabetes mellitus; Z85.51 Personal history of malignant neoplasm of bladder; Z95.5 Presence of coronary angioplasty implant and graft
CPT/HCPCS: 36415; 71045; 71046; 71250; 80053; 82272; 82945; 83540; 83550; 83605; 83615; 83735; 83880; 84157; 84484; 85025; 85610; 85730; 87040; 87070; 87075; 87102; 87116; 87205; 87206; 87252; 87496; 87498; 87502; 87529; 87634; 87635; 87798; 88108; 88305; 88341; 88342; 89050; 93005; 96365; 96375; 99285

== ENCOUNTER 2020-02-09 11:05 | Inpatient (IN) | payer MEDICARE ==
[2020-02-09 11:40] LABS: Glucose,Whole Blood 111 mg/dL (75-99)
[2020-02-09 12:01] LABS: Basophils % (A) 0 %; Eosinophils % (A) 0 %; HCT 24.4 % (39.0-53.0); HGB 7.8 gm/dL (13.0-17.5); Hypochromasia Slight; Lymphocytes # (A) 0.6 k/uL (1.0-4.8); Lymphocytes % (A) 4 %; MCH 30.1 pg (25.0-35.0); MCHC 31.9 g/dL (31.0-37.0); MCV 94.3 fL (80.0-100.0); Mean Platelet Volume 9.6; Monocytes # (A) 0.8 k/uL (0-1.0); Monocytes % (A) 6 %; Neutrophils # (A) 12.4 k/uL (1.3-7.7); Neutrophils % (A) 88 %; Platelet Count 294 k/uL (150-450); RBC 2.59 m/uL (4.30-5.90); RDW 14.7 % (11.5-15.5)
[2020-02-09 12:05] LABS: INR 1.1 (<1.2); Partial Thromboplastin Time 22.8 sec (22.0-30.0); Prothrombin Time 11.7 sec (9.0-12.0)
[2020-02-09 12:13] LABS: Calcium 8.8 mg/dL (8.4-10.2); Potassium 5.4 mmol/L (3.5-5.1); Total Bilirubin 0.2 mg/dL (0.2-1.3); Total Protein 6.3 g/dL (6.3-8.2)
[2020-02-09 12:16] LABS: Creatine Kinase 74 U/L (55-170)
--- NOTE | 2020-02-09 12:27 | CT ---
EXAMINATION TYPE: CT brain wo con DATE OF EXAM: 02/09/2020 COMPARISON: None HISTORY: 84-year-old male with suspected CVA TECHNIQUE: Examination was done in axial plane without intravenous contrast. Coronal and sagittal r econstructions performed. CT DLP: None provided Automated exposure control for dose reduction was used. FINDINGS: Mild generalized supratentorial volume loss. There is cortical hypodensity within the left parieto-oc cipital junction and posterior left parietal lobe, axial image 38 and 44. No evidence for acute intracranial hemorrhage, mass, mass effect, midline shift, or extra-axial fluid collection. There is mild prominence to the ventricular system secondary to central cerebral volume loss. Moderate mucosal thickening left ethmoid air cells. Mastoid air cells are well pneumatized. IMPRESSION: 1. At least a couple areas of focal cortical hypodensity left parietooccipital junction and posterior left parietal lobe compatible with acute infarcts. Given the degree of hypodensity, suspect greater than 6 hours in duration. Clinically correlate. 2. No midline shift or acute intracranial hemorrhage.
[2020-02-09 12:29] LABS: Creatine Kinase MB 2.6 ng/mL (0.0-2.4); Troponin I <0.012 ng/mL (0.000-0.034)
--- NOTE | 2020-02-09 13:00 | XR ---
EXAMINATION TYPE: XR chest 2V DATE OF EXAM: 02/09/2020 COMPARISON: 02/06/2020 HISTORY: 84-year-old male neurologic deficits, suspected acute stroke TECHNIQUE: AP and lateral views FINDINGS: Heart mildly enlarged. Increasing moderate to large left pleural effusion with underlying opacity. Ri ght lung and pleural space appear clear. IMPRESSION: Increasing moderate to large left pleural effusion with adjacent atelectasis and/or consolidation.
--- NOTE | 2020-02-09 13:15 | CT ---
EXAMINATION TYPE: CT angio head neck DATE OF EXAM: 02/09/2020 COMPARISON: Correlation CT brain same date HISTORY: 84-year-old male Neuro deficit, acute, stroke suspected TECHNIQUE: Contiguous axial scanning of the head and neck performed with IV Contrast, patient inje cted with 65 ml mL of Isovue 370. Coronal/sagittal MIP reconstructions performed. 3-D reconstructions generated on a dedicated workstation. CT DLP: 1606.1 mGycm Automated exposure control for dose reduction was used. FINDINGS: Neck: Extensive consolidation and pleural effusion left hemithorax. Underlying thyroid nodules measuring up to 1.5 cm on the right kidney further evaluated with thyroid ultrasound. [id number] atherosclerotic arch calcifications with conventional branching anatomy. Scattered m oar-ac-adiwbepc apical scarring calcifications throughout. There appears to be a severe stenosis at the origin of the right vertebral artery. The vessel reconst itutes at the C5-C6 level. Remainder of the bilateral vertebral arteries appear patent. Moderate atherosclerotic plaque at the right carotid bulb. Mild, less than 40% narrowing proximal rig ht carotid bulb. Otherwise, the remainder of the right common and internal carotid arteries are paten t. Moderate to severe atherosclerotic calcifications left carotid bifurcation with a moderate to severe atherosclerotic narrowing at the carotid bulb with just under 70% stenosis. The remainder of the left internal carotid artery appears patent. Brain: There are vertebral and basilar arteries are patent. Remainder of the posterior circulation appears p atent. There is variable mild to moderate atelectatic narrowing within the bilateral carotid siphons, more s o on the left. Some skull base artifacts cause some limitation in assessment, particularly along the clinoid segment of the left ICA, referred to axial image 226 of series 6071. The supraclinoid portion of the left ICA appears to opacify appropriately. No aneurysmal change is identified. IMPRESSION: BRAIN: 1. MILD TO MODERATE ATHEROSCLEROTIC NARROWING THROUGHOUT THE BILATERAL CAROTID SIPHONS, MORE SO ON TH E LEFT. 2. THE LEFT CLINOID SEGMENT IN PARTICULAR HAS SOME ARTIFACT THROUGH IT LIMITING ASSESSMENT FOR FOCAL OCCLUSION. THE SUPRACLINOID PORTION OF THE LEFT ICA OPACIFIES APPROPRIATELY ARGUING AGAINST FOCAL THR OMBUS. FURTHER CLINICAL CORRELATION RECOMMENDED. CONSIDER ADDITIONAL EVALUATION WITH MRA IF INDICATED . 2. OTHERWISE, NO LARGE VESSEL INTRACRANIAL ARTERIAL OCCLUSION OR ANEURYSMAL CHANGES SEEN. NECK: 1. MODERATE TO SEVERE ATHEROSCLEROTIC NARROWING LEFT CAROTID BULB WITH JUST UNDER 70% STENOSIS. 2. SUBTOTAL OCCLUSION VERSUS COMPLETE OCCLUSION AND RECONSTITUTION OF THE V2 SEGMENT RIGHT VERTEBRAL ARTERY AT THE C5-C6 LEVEL. 3. INCREASING MODERATE LEFT PLEURAL EFFUSION AND UNDERLYING CONSOLIDATION. 4. THYROID NODULES MEASURING UP TO 1.5 CM CAN BE FURTHER EVALUATED WITH NONEMERGENT FOLLOW-UP THYROID ULTRASOUND.
--- NOTE | 2020-02-09 13:27 | ED ---
Neuro HPI - General Chief Complaint: Neuro Symptoms/Deficit Stated Complaint: neuro deficit Time Seen by Provider: 02/09/20 11:12 Source: patient Mode of arrival: EMS Limitations: no limitations - History of Present Illness Is the patient presenting with stroke symptoms?: Yes Initial Comments: The patient is an 84-year-old male with past medical history of hypertension and hyperlipidemia who presents to the emergency room with reported weakness of his right upper extremity. Patient reports that his symptoms started around 5 PM last night. He lives alone. States that he went to bed hoping that his symptoms would go away. He woke this morning and his son came to visit. His son noted that he was weak in his right upper Jevity called EMS. EMS stated that his symptoms improved during transfer. 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 They denied any speech difficulties or lower extremity weakness. The patient denies a previous history of CVA. The patient is otherwise a poor historian and cannot provide much medical history. Review his chart demonstrates that he was recently admitted for GI bleed. No history of stroke identified. There are no alleviating, precipitating or modifying factors - Related Data Home Medications: Home Medications Medication Instructions Recorded Confirmed Multivitamins, Thera [Multivitamin 1 tab PO DAILY 10/23/16 02/09/20 (formulary)] Furosemide [Lasix] 20 mg PO BID 04/03/17 02/09/20 metFORMIN HCL [Glucophage] 500 mg PO DAILY 08/31/17 02/09/20 Acetaminophen [Tylenol] 500 mg PO Q4H PRN 02/06/20 02/09/20 Previous Rx's Medication Instructions Recorded Atorvastatin [Lipitor] 40 mg PO DAILY tab 02/13/20 INSULIN ASPART (NovoLOG) [NovoLOG 0 unit SQ ACHS vial 02/13/20 (formulary)] Sennosides-Docusate Sodium 2 each PO DAILY tab 02/13/20 [Senokot-S] Allergies/Adverse Reactions: Allergies Allergy/AdvReac Type Severity Reaction Status Date / Time No Known Allergies Allergy Verified 02/09/20 11:51 Review of Systems ROS Statement: Those systems with pertinent positive or pertinent negative responses have been documented in the HPI. ROS Other: All systems not noted in ROS Statement are negative. General Exam Limitations: no limitations General appearance: alert, in no apparent distress Head exam: Present: atraumatic, normocephalic, normal inspection Eye exam: Present: normal appearance, PERRL, EOMI. Absent: scleral icterus, conjunctival injection, periorbital swelling ENT exam: Present: normal exam, mucous membranes moist Respiratory exam: Present: normal lung sounds bilaterally. Absent: respiratory distress, wheezes, rales, rhonchi, stridor Cardiovascular Exam: Present: regular rate, normal rhythm, normal heart sounds. Absent: systolic murmur, diastolic murmur, rubs, gallop, clicks GI/Abdominal exam: Present: soft, normal bowel sounds. Absent: distended, tenderness, guarding, rebound, rigid Neurological exam: Present: alert, oriented X3, other (right upper extremity drift initially which worsens to significant strength loss. LUE and Bilateral lower extremities continue to have 5/5 muscle strength. No facial droop. No difficulties with speech) Psychiatric exam: Present: normal affect, normal mood Stroke MDM - Lab Data Result diagrams: 02/14/20 05:32 02/14/20 05:32 Lab Results 02/09/20 02/09/20 02/09/20 Range/Units 11:32 11:32 11:32 WBC 14.0 H (3.8-10.6) k/uL RBC 2.59 L (4.30-5.90) m/uL Hgb 7.8 L (13.0-17.5) gm/dL Hct 24.4 L (39.0-53.0) % MCV 94.3 (80.0-100.0) fL MCH 30.1 (25.0-35.0) pg MCHC 31.9 (31.0-37.0) g/dL RDW 14.7 (11.5-15.5) % Plt Count 294 (150-450) k/uL Neutrophils % 88 % Lymphocytes % 4 % Monocytes % 6 % Eosinophils % 0 % Basophils % 0 % Neutrophils # 12.4 H (1.3-7.7) k/uL Lymphocytes # 0.6 L (1.0-4.8) k/uL Monocytes # 0.8 (0-1.0) k/uL Eosinophils # 0.0 (0-0.7) k/uL Basophils # 0.0 (0-0.2) k/uL Hypochromasia Slight PT (9.0-12.0) sec INR (<1.2) APTT (22.0-30.0) sec Sodium 140 (137-145) mmol/L Potassium 5.4 H (3.5-5.1) mmol/L Chloride 108 H (98-107) mmol/L Carbon Dioxide 23 (22-30) mmol/L Anion Gap 9 mmol/L BUN 77 H (9-20) mg/dL Creatinine 1.88 H (0.66-1.25) mg/dL Est GFR (CKD-EPI)AfAm 37 (>60 ml/min/1.73 sqM) Est GFR (CKD-EPI)NonAf 32 (>60 ml/min/1.73 sqM) Glucose 138 H (74-99) mg/dL POC Glucose (mg/dL) (75-99) mg/dL POC Glu [employer] ID Estimated Ave Glu mg/dL Hemoglobin A1c (4.0-6.0) % Calcium 8.8 (8.4-10.2) mg/dL Total Bilirubin 0.2 (0.2-1.3) mg/dL AST 33 (17-59) U/L ALT 45 (4-49) U/L Alkaline Phosphatase 68 (38-126) U/L Total Creatine Kinase 74 (55-170) U/L CK-MB (CK-2) 2.6 H (0.0-2.4) ng/mL CK-MB (CK-2) Rel Index 3.5 Troponin I <0.012 (0.000-0.034) ng/mL Total Protein 6.3 (6.3-8.2) g/dL Albumin 3.0 L (3.5-5.0) g/dL Triglycerides (<150) mg/dL Cholesterol (<200) mg/dL LDL Cholesterol, Calc (0-99) mg/dL HDL Cholesterol (40-60) mg/dL 02/09/20 02/09/20 02/09/20 Range/Units 11:32 11:32 11:32 WBC (3.8-10.6) k/uL RBC (4.30-5.90) m/uL Hgb (13.0-17.5) gm/dL Hct (39.0-53.0) % MCV (80.0-100.0) fL MCH (25.0-35.0) pg MCHC (31.0-37.0) g/dL RDW (11.5-15.5) % Plt Count (150-450) k/uL Neutrophils % % Lymphocytes % % Monocytes % % Eosinophils % % Basophils % % Neutrophils # (1.3-7.7) k/uL Lymphocytes # (1.0-4.8) k/uL Monocytes # (0-1.0) k/uL Eosinophils # (0-0.7) k/uL Basophils # (0-0.2) k/uL Hypochromasia PT 11.7 (9.0-12.0) sec INR 1.1 (<1.2) APTT 22.8 (22.0-30.0) sec Sodium (137-145) mmol/L Potassium (3.5-5.1) mmol/L Chloride (98-107) mmol/L Carbon Dioxide (22-30) mmol/L Anion Gap mmol/L BUN (9-20) mg/dL Creatinine (0.66-1.25) mg/dL Est GFR (CKD-EPI)AfAm (>60 ml/min/1.73 sqM) Est GFR (CKD-EPI)NonAf (>60 ml/min/1.73 sqM) Glucose (74-99) mg/dL POC Glucose (mg/dL) (75-99) mg/dL POC Glu [employer] ID Estimated [address] Glu mg/dL 128 Hemoglobin A1c 6.1 H (4.0-6.0) % Calcium (8.4-10.2) mg/dL Total Bilirubin (0.2-1.3) mg/dL AST (17-59) U/L ALT (4-49) U/L Alkaline Phosphatase (38-126) U/L Total Creatine Kinase (55-170) U/L CK-MB (CK-2) (0.0-2.4) ng/mL CK-MB (CK-2) Rel Index Troponin I (0.000-0.034) ng/mL Total Protein (6.3-8.2) g/dL Albumin (3.5-5.0) g/dL Triglycerides 106 (<150) mg/dL Cholesterol 100 (<200) mg/dL LDL Cholesterol, Calc 52 (0-99) mg/dL HDL Cholesterol 27 L (40-60) mg/dL 02/09/20 Range/Units 11:39 WBC (3.8-10.6) k/uL RBC (4.30-5.90) m/uL Hgb (13.0-17.5) gm/dL Hct (39.0-53.0) % MCV (80.0-100.0) fL MCH (25.0-35.0) pg MCHC (31.0-37.0) g/dL RDW (11.5-15.5) % Plt Count (150-450) k/uL Neutrophils % % Lymphocytes % % Monocytes % % Eosinophils % % Basophils % % Neutrophils # (1.3-7.7) k/uL Lymphocytes # (1.0-4.8) k/uL Monocytes # (0-1.0) k/uL Eosinophils # (0-0.7) k/uL Basophils # (0-0.2) k/uL Hypochromasia PT (9.0-12.0) sec INR (<1.2) APTT (22.0-30.0) sec Sodium (137-145) mmol/L Potassium (3.5-5.1) mmol/L Chloride (98-107) mmol/L Carbon Dioxide (22-30) mmol/L Anion Gap mmol/L BUN (9-20) mg/dL Creatinine (0.66-1.25) mg/dL Est GFR (CKD-EPI)AfAm (>60 ml/min/1.73 sqM) Est GFR (CKD-EPI)NonAf (>60 ml/min/1.73 sqM) Glucose (74-99) mg/dL POC Glucose (mg/dL) 111 H (75-99) mg/dL POC Glu Gran[employer]isher ID Shelley [address] Glu mg/dL Hemoglobin A1c (4.0-6.0) % Calcium (8.4-10.2) mg/dL Total Bilirubin (0.2-1.3) mg/dL AST (17-59) U/L ALT (4-49) U/L Alkaline Phosphatase (38-126) U/L Total Creatine Kinase (55-170) U/L CK-MB (CK-2) (0.0-2.4) ng/mL CK-MB (CK-2) Rel Index Troponin I (0.000-0.034) ng/mL Total Protein (6.3-8.2) g/dL Albumin (3.5-5.0) g/dL Triglycerides (<150) mg/dL Cholesterol (<200) mg/dL LDL Cholesterol, Calc (0-99) mg/dL HDL Cholesterol (40-60) mg/dL - Medical Decision Making Upon arrival the patient was placed into room 1. A thorough history and physical exam was performed. NIH is performed by the nurse and they did give him a 1 for some drift in his right upper extremity. I evaluated the patient shortly afterwards and I did note that the patient had significant weakness in the right upper extremity and therefore provided the patient with a score of 3. Because the symptoms are within the past 24 hours I did activate a code stroke. I discussed the case with Dr. Bell at 1150. He does review the CT of the patient's brain which she does demonstrate signs of possible subacute infarct. He does recommend CTAs. The patient is sent back for CT angios of his head once we do have his kidney function.Lab studies demonstrated white blood count of 14. Potassium 5.4. Creatinine elevated at 1.8. Patient does look like he has chronic kidney disease. Troponin is negative. CT of the patient's brain demonstrates a few areas of focal cortical hypodensity left parietal-occipital junction and posterior left parietal lobe compatible with acute infarcts given the degree of hypodensity suspect greater than 6 hours in duration. No midline shift or acute intracranial hemorrhage chest x-ray demonstrates increasing moderate to large left pleural effusion with adjacent atelectasis and/or consolidation. CT angiography demonstrates mild to moderate atherosclerotic narrowing throughout the bilateral carotids siphons. The left clinoid segment in particular has some artifact through is limiting assessment for focal occlusion the supraclinoid portion of the left ICA opacifies appropriately. Otherwise no large vessel intracranial arterial occlusion or aneurysmal changes. Moderate to severe at this chronic narrowing of the left carotid bulb which is under 70% stenosis. Subtotal occlusion versus complete occlusion and reconsti tution of the V2 segment right vertebral artery at the C5-C6 level. I discussed the results once again with Dr. Bell at 1211. If the patient is outside of the TPA window he will not be given TPA. The patient was given a full dose aspirin. He'll be admitted to the floor. Discussed case with Dr. Schneider who accepted admission for the patient. I will consult neurology. Patient wasn't transferre d to the floor in stable condition 02/09/20 11:17 EKG demonstrates a sinus rhythm with short MD interval. Rate of 96. MD interval 108. QRS 94. QTC of 437. No acute ST segment elevations or depre ssions concerning for ischemic changes Past Medical History Past Medical History: Cancer, Diabetes Mellitus, Hypertension, Vascular Disorder Additional Past Medical History / Comment(s): Coronary artery disease, carotid artery stenosis, previous cardiac catheterization and coronary stenting, peripheral vascular disease with lower extremity vascular stenting, bladder cancer, chronic iron deficiency anemia, hypertension, hyperlipidemia, diabetes mellitus type 2 History of Any Multi-Drug Resistant Organisms: None Reported Past Surgical History: Appendectomy, Heart Catheterization With Stent, Tonsillectomy Additional Past Surgical History / Comment(s): demetrius cataracts, left carotid endarterectomy, stents demetrius legs, aortogram 05/01/18, Past Anesthesia/Blood Transfusion Reactions: No Reported Reaction Additional Past Anesthesia/Blood Transfusion Reaction / Comment(s): no hx blood transfusion Date of Last Stent Placement:: 04/17/17 Past Psychological History: No Psychological Hx Reported Smoking Status: Current every day smoker Past Alcohol Use History: Rare Past Drug Use History: None Reported - Past Family History Mother Family Medical History: No Reported History Additional Family Medical History / Comment(s): Mother at age 92 from old age. Father Family Medical History: Diabetes Mellitus Additional Family Medical History / Comment(s): Father at age 60 from [place] locations from diabetes. Sister(s) Family Medical History: Cancer Additional Family Medical History / Comment(s): Patient has a total of 6 sisters. He denies any family members with anemia. Patient has 1 brother that has passed from alcohol related conditions. Patient has 2 sons and 1 daughter with no major medical problems. Course Vital Signs 02/09/20 02/09/20 02/09/20 11:11 11:19 11:34 Temperature 99 F Pulse Rate 93 92 Respiratory 18 18 Rate Blood Pressure 125/51 107/54 O2 Sat by Pulse 95 100 Oximetry 02/09/20 02/09/20 02/09/20 12:31 13:31 14:31 Temperature Pulse Rate 85 90 89 Respiratory 18 18 18 Rate Blood Pressure 106/55 110/73 118/57 O2 Sat by Pulse 100 94 L 94 L Oximetry Critical Care Time Critical Care Time: Yes (30 minutes) Disposition Clinical Impression: Cerebrovascular accident (CVA), Right arm weakness, Normocytic normochromic anemia Disposition: ADMITTED IP TO THIS HOSP Condition: Good Is patient prescribed a controlled substance at d/c from ED?: No Decision to Admit Reason: Admit from EC Decision Date: 02/09/20 Decision Time: 14:30
[2020-02-09] MEDS ORDERED: ASPIRIN 325 MG TAB PO STA (14:45)
[2020-02-09] MEDS ORDERED: NALOXONE 0.4 MG/ML 1 ML VIAL IV PRN (14:47)
[2020-02-09 16:51] LABS: Glucose,Whole Blood 71 mg/dL (75-99)
[2020-02-09] MEDS: ATORVASTATIN 40 MG TAB PO SCH (17:45)
[2020-02-09 20:31] LABS: Glucose,Whole Blood 165 mg/dL (75-99)
[2020-02-09] MEDS ORDERED: CLOPIDOGREL 75 MG TAB PO STA (21:45)
--- NOTE | 2020-02-09 21:49 | P.CNNES ---
History of Present Illness Consult date: 02/09/20 Requesting physician: Lili Gresham Reason for Consult: Acute CVA History of Present Illness: Patient is a 84-year-old male with history of hypertension, hyperlipidemia came to the hospital today at 11:05 AM with weakness of his right upper extremity. Symptoms started around 5 PM last night. He went to bed hoping symptoms will go away. He woke up this morning and his son came to visit. His son noted that he was weak in the right upper extremity. He called EMS. EMS noted that his symptoms right upper extremity improved during transfer. No speech difficulties or lower extremity weakness. No previous history of CVA. When he arrived to the ER, his NIH stroke scale was 1. Patient underwent CT head showed at least a couple areas of focal cortical hypodensity left parieto-occipital junction and posterior left parietal and compatible with acute infarcts. Given the degree of hypodensity, suspect greater than 6 hours in duration. No midline shift. Chest x-ray showed increasing moderate to large left pleural effusion with adjacent atelectasis and/or consolidation. EKG showed sinus rhythm with short SC. Incomplete right bundle-branch block. CTA of head showed [id number] atherosclerotic narrowing throughout the bilateral carotid siphons more so on the left. The left clinoid segment in part icular has some artifact throughout, limiting assessment for focal occlusion. The supraclinoid portion of the left ICA opacifies appropriately arguing against focal thrombus. Further clinical correlation recommended. Consider MRA if indicated. Otherwise no large vessel intracranial arterial occlusion or aneurysmal changes were seen. CTA of the neck showed moderate to severe atherosclerotic narrowing left carotid bulb with just under 70% stenosis. Subtotal occlusion vs complete occlusion and reconstitution of the V2 segment right vertebral artery at the C5 6 level. Increasing moderate left pleural effusion and underlying consolidation. According to the ED report, the case was discussed with vascular neurology Dr. Moncada, who felt patient was not a candidate for TPA. Patient was given aspirin and admitted. Patient's blood test shows WBC 14.0 hemoglobin 7.8 platelets 294. PT/PTT n ormal. Sodium 140 potassium 5.4, BUN 77, creatinine 1.88. Hemoglobin A1c 5.6 on 11/20/2019. B12 358. Folate normal. Liver panel normal. Coronavirus PCR negative on 02/06/2020. Influenza screen negative. Patient does take aspirin 81 mg daily and Lipitor 10 mg daily. Also on metformin, lisinopril and Lasix. Patient has history of diabetes, hypertension, smoked cigarettes about a pack per day for 30-40 years, quit 5 years ago. Review of Systems Patient states he is short of breath, but denies any chest pain, cough or fever. All other review of systems unremarkable. Past Medical History Past Medical History: Cancer, Diabetes Mellitus, Hypertension, Vascular Disorder Additional Past Medical History / Comment(s): Coronary artery disease, carotid artery stenosis, previous cardiac catheterization and coronary stenting, peripheral vascular disease with lower extremity vascular stenting, bladder cancer, chronic iron deficiency anemia, hypertension, hyperlipidemia, diabetes mellitus type 2 History of Any Multi-Drug Resistant Organisms: None Reported Past Surgical History: Appendectomy, Heart Catheterization With Stent, Tonsillectomy Additional Past Surgical History / Comment(s): demetrius cataracts, left carotid endarterectomy, stents demetrius legs, aortogram 05/01/18, Past Anesthesia/Blood Transfusion Reactions: No Reported Reaction Additional Past Anesthesia/Blood Transfusion Reaction / Comment(s): no hx blood transfusion Date of Last Stent Placement:: 04/17/17 Past Psychological History: No Psychological Hx Reported Smoking Status: Current every day smoker Past Alcohol Use History: Rare Past Drug Use History: None Reported - Past Family History Mother Family Medical History: No Reported History Additional Family Medical History / Comment(s): Mother at age 92 from old age. Father Family Medical History: Diabetes Mellitus Additional Family Medical History / Comment(s): Father at age 60 from [place] locations from diabetes. Sister(s) Family Medical History: Cancer Additional Family Medical History / Comment(s): Patient has a total of 6 sisters. He denies any family members with anemia. Patient has 1 brother that has passed from alcohol related conditions. Patient has 2 sons and 1 daughter with no major medical problems. Medications and Allergies Home Medications Medication Instructions Recorded Confirmed Type Atorvastatin [Lipitor] 10 mg PO DAILY 10/23/16 02/09/20 History Multivitamins, Thera [Multivitamin 1 tab PO DAILY 10/23/16 02/09/20 History (formulary)] Aspirin [Adult Low Dose Aspirin EC] 81 mg PO DAILY 11/30/16 02/09/20 History Furosemide [Lasix] 20 mg PO BID 04/03/17 02/09/20 History metFORMIN HCL [Glucophage] 500 mg PO DAILY 08/31/17 02/09/20 History Lisinopril [Prinivil] 20 mg PO DAILY 04/25/18 02/09/20 History Acetaminophen [Tylenol] 500 mg PO Q4H PRN 02/06/20 02/09/20 History Allergies Allergy/AdvReac Type Severity Reaction Status Date / Time No Known Allergies Allergy Verified 02/09/20 11:51 Physical Examination - Vital Signs Vital Signs: Vital Signs Temp Pulse Pulse Resp BP BP Pulse Ox 02/09/20 17:00 72 116/56 97 02/09/20 16:33 98.7 F 89 18 130/61 91 L 02/09/20 14:31 89 18 118/57 94 L 02/09/20 13:31 90 18 110/73 94 L 02/09/20 12:31 85 18 106/55 100 02/09/20 11:34 92 18 107/54 100 02/09/20 11:19 93 18 95 02/09/20 11:11 99 F 125/51 Intake and Output 02/09/20 02/09/20 02/09/20 06:59 14:59 22:59 Intake Total 240 Output Total 150 Balance 90 Intake: Oral 240 Output: Urine 150 Other: Weight 72.575 kg 72.575 kg On examination patient is an elderly male, in no acute distress. He is laying comfortably in the bed. His speech is very mildly dysarthric but no aphasia. Patient can name and repeat well. He knows his name. Patient knows that it is February and the year is and that he is in [facility]. He could not tell name of the building he is in. Patient has very slow mentation, and prolonged latency to answer questions. On cranial exam showed pupils are round and reactive to light. Visual servin are full on confrontation with no neglect. Face is symmetric, and tongue protrudes the midline. On muscle strength testing patient is moderately weak in the right upper limb. The strength is normal in the left upper limb as well as bilateral lower limbs. Sensations to touch is equal with no neglect on double simultaneous stimulation. Patient could not be checked for ataxia in the right upper limb. No ataxia in the left upper limb. Tone is decreased in the right arm. Bulk of muscles normal. No obvious bruit, S1 and S2 audible. Peripheral pulses present Results - Laboratory Findings CBC and BMP: 02/09/20 11:32 02/09/20 11:32 Abnormal Lab Findings: Abnormal Labs 02/09/20 02/09/20 02/09/20 11:32 11:32 11:32 WBC 14.0 H RBC 2.59 L Hgb 7.8 L Hct 24.4 L Neutrophils # 12.4 H Lymphocytes # 0.6 L Potassium 5.4 H Chloride 108 H BUN 77 H Creatinine 1.88 H Glucose 138 H POC Glucose (mg/dL) CK-MB (CK-2) 2.6 H Albumin 3.0 L 02/09/20 02/09/20 11:39 16:49 WBC RBC Hgb Hct Neutrophils # Lymphocytes # Potassium Chloride BUN Creatinine Glucose POC Glucose (mg/dL) 111 H 71 L CK-MB (CK-2) Albumin Assessment and Plan Assessment: * Acute ischemic CVA, somewhat in watershed territory between the left MCA/OWEN, MCA/MANAGER [employer] RELATIONS. 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 * Anemia * Acute on chronic renal insufficiency. Plan: * Patient to be started on dual antiplatelet medication. * We will check 2-D echo to rule out any embolic source. * MRI and MRA of the brain. * Patient has probable symptomatic left ICA stenosis. Suggest vascular surgical consultation. * Fasting a.m. lipid panel in a.m. Hemoglobin A1c. * PT, OT. * DVT prophylaxis.
[2020-02-09] MEDS: FAMOTIDINE 20 MG TAB PO SCH (23:20)
[2020-02-10 02:31] LABS: Cholesterol 100 mg/dL (<200); HDL Cholesterol 27 mg/dL (40-60); LDL Cholesterol,Calculated 52 mg/dL (0-99); Triglycerides 106 mg/dL (<150)
[2020-02-10 03:50] LABS: Hemoglobin A1C 6.1 % (4.0-6.0)
[2020-02-10 06:00] LABS: Glucose,Whole Blood 75 mg/dL (75-99)
--- NOTE | 2020-02-10 08:43 | ECHOF ---
Referral Reason:Acute CVA MEASUREMENTS -------- HEIGHT: 170.2 cm WEIGHT: 74.4 kg BP: 114/57 IVSd: 1.1 cm (0.6 - 1.1) LVIDd: 3.3 cm (3.9 - 5.3) LVPWd: 1.3 cm (0.6 - 1.1) IVSs: 1.4 cm LVIDs: 2.1 cm LVPWs: 1.5 cm Ao Diam: 3.3 cm (2.0 - 3.7) AV Cusp: 1.5 cm (1.5 - 2.6) LA Diam: 3.0 cm (2.7 - 3.8) MV EXCURSION: 17.007 mm (> 18.000) MV EF SLOPE: 52 mm/s (70 - 150) EPSS: 0.6 cm MV E Jeff: 0.46 m/s MV DecT: 191 ms MV A Jeff: 1.03 m/s MV E/A Ratio: 0.45 RAP: 5.00 mmHg RVSP: 12.51 mmHg FINDINGS -------- Sinus rhythm. Resting tachycardia (HR>100bpm). This was a technically difficult study with suboptimal views. The left ventricular size is normal. There is mild concentric left ventricular hypertrophy. Overa ll left ventricular systolic function is normal with, an EF between 55 - 60 %. The RV was not well visualized. The left atrium was not well visualized. The right atrium was not well visualized. Lumason used The aortic valve was not well visualized. The mitral valve leaflets are mildly thickened. There is trace mitral regurgitation. The tricuspid valve appears structurally normal. Trace tricuspid regurgitation present. Right tyra tricular systolic pressure is normal at < 35 mmHg. There is no pulmonic regurgitation present. The aortic root size is normal. IVC Not well visulized. There is no pericardial effusion. CONCLUSIONS -------- 1. There is mild concentric left ventricular hypertrophy. 2. Overall left ventricular systolic function is normal with, an EF between 55 - 60 %. 3. Lumason used 4. The mitral valve leaflets are mildly thickened. 5. There is trace mitral regurgitation. 6. Trace tricuspid regurgitation present. MACHINE STAPLER: Mariana Martinez RDCS
--- NOTE | 2020-02-10 09:05 | US ---
EXAMINATION TYPE: US carotid duplex BILAT DATE OF EXAM: 02/10/2020 COMPARISON: NONE CLINICAL HISTORY: 84-year-old male CVA TECHNIQUE: Carotid duplex ultrasound examination. Indirect Doppler criteria was utilized. FINDINGS: Grades 1 Thru 6 Home Teacher notes: Exam limitations due to patient moving. EXAM MEASUREMENTS: RIGHT: Peak Systolic Velocity (PSV) cm/sec ----- Right CCA: 50.7 ----- Right ICA: 159.4 ----- Right ECA: 143.6 ICA/CCA ratio: 3.1 RIGHT: End Diastole cm/sec ----- Right CCA: 0 ----- Right ICA: 53.0 ----- Right ECA: 23.4 LEFT: Peak Systolic Velocity (PSV) cm/sec ----- Left CCA: 54.8 ----- Left ICA: 59.2 ----- Left ECA: 194.9 ICA/CCA ratio: 1.1 LEFT: End Diastole cm/sec ----- Left CCA: 13.1 ----- Left ICA: 15.3 ----- Left ECA: 27.6 VERTEBRALS (direction of flow): Right Vertebral: Antegrade Left Vertebral: Antegrade Rhythm: Normal No significant stenosis seen IMPRESSION: Measurements suggest a moderate (50-69%) stenosis of the proximal right ICA. Criteria for Assigning % of Stenosis / Diameter reduction (Estimation based on the indirect measurements of the internal carotid artery velocities (ICA PSV). 1. Normal (no stenosis)=ICA PSV < 125 cm/s: ratio < 2.0: ICA EDV<40 cm/s. 2. Less than 50% stenosis=ICA PSV < 125 cm/s: ratio < 2.0: ICA EDV<40 cm/s. 3. 50 to 69% stenosis=ICA PSV of 125 to 230 cm/s: ration 2.0 ? 4.0: ICA EDV 40-100 cm/s. 4. Greater than 70% stenosis to near occlusion= ICA PSV > 230 cm/s: ratio > 4.0: ICA EDV > 100 cm/s. 5. Near occlusion= ICA PSV velocities may be low or undetectable: variable ratio and ICA EDV. 6. Total occlusion=unable to detect flow.
[2020-02-10] MEDS: FAMOTIDINE 20 MG TAB PO SCH ×2 (09:09→21:31)
[2020-02-10] MEDS: ATORVASTATIN 40 MG TAB PO SCH (09:09)
[2020-02-10 10:51] LABS: Glucose,Whole Blood 194 mg/dL (75-99)
[2020-02-10] MEDS ORDERED: CLOPIDOGREL 75 MG TAB PO SCH (11:45)
[2020-02-10] MEDS: SENNOSIDES-DOCUSATE SODIUM 1 EACH TAB PO SCH (12:25)
[2020-02-10] MEDS: ACETAMINOPHEN TAB 325 MG TAB PO PRN ×2 (12:25→18:16)
[2020-02-10] MEDS: ASPIRIN 81 MG PO SCH (12:25)
[2020-02-10] MEDS: INSULIN ASPART (NovoLOG) 100 UNIT/ML VIAL SQ SCH ×3 (12:26→21:31)
--- NOTE | 2020-02-10 12:53 | P.HPIM ---
History of Present Illness H&P Date: 02/10/20 Chief Complaint: Right upper extremity weakness This is an 84-year-old male patient of Dr. Healy with past medical history of hypertension, hyperlipidemia, diabetes mellitus type 2, coronary artery disease status post stent, left carotid endarterectomy, peripheral vascular disease with bilateral stents, bladder cancer, chronic anemia, tobacco use and dependence using a pipe for 60 years. Patient was recently hospitalized on February 05 for left-sided pleural effusion status post thoracentesis for 1.5 L of fluid by Dr. Conway. Patient was also started on home oxygen for chronic hypoxic respiratory failure. Patient had sudden onset of right upper extremity weakness that it started on the evening of February 07. He went to to bed hoping that the symptoms would go away but woke in the morning and his son was over to visit. Patient's son noted that he had the right upper extremity weakness and called EMS. Patient did have some improvement of his symptoms during transport. He did not have any speech difficulties and no lower extremity weakness. Patient came into [facility] emergency center for evaluation. WBC 14.0 hemoglobin 7.8 platelets 294. PT/PTT normal. Sodium 140 potassium 5.4, BUN 77, creatinine 1.88. Hemoglobin A1c 5.6 on 11/20/2019. B12 358. Folate normal. Liver panel normal. Coronavirus PCR negative on 02/06/2020. I nfluenza screen negative. Triglycerides 106, cholesterol 100, LDL 52, HDL 27. His initial NIH stroke scale was 1. EKG was a sinus rhythm with incomplete right bundle branch block. According to the ED report, the case was discussed with vascular neurology Dr. Moncada, who felt patient was not a candidate for TPA. Patient was given aspirin and admitted to the cardiac stepdown unit and consults requested with neurology and vascular surgery. CAT scan of the brain that revealed couple areas of focal cortical hypodensity left parietal occipital junction and posterior left parietal compatible with acute infarcts. No midline shift. Chest x-ray showed increasing moderate to large pleural effusion on the left with adjacent atelectasis and/or consolidation. CTA of the head revealed [id number] atherosclerotic narrowing throughout the bilateral carotid siphons more so on the left. The left clinoid segment in particular has some artifact throughout, limiting assessment for focal occlusion. The supraclinoid portion of the left ICA opacifies appropriately arguing against focal thrombus. Further clinical correlation recommended. Consider MRA if indicated. Otherwise no large vessel intracranial arterial occlusion or aneurysmal changes were seen. CTA of the neck showed moderate to severe atherosclerotic narrowing left carotid bulb with just under 70% stenosis. Subtotal occlusion vs complete occlusion and reconstitution of the V2 segment right vertebral artery at the C5 6 level. Echocardiogram reveals EF of 55-60%, trace mitral regurgitation, trace tricuspid regurgitation. Carotid ultrasound reveals moderate 50-69% stenosis of the proximal right ICA. Review of Systems Constitutional: Reports weakness, Denies anorexia, Denies chills, Denies fatigue, Denies fever, Denies lethargy, Denies malaise, Denies weight loss Eyes: denies blurred vision, denies pain, denies loss of vision Ears, nose, mouth and throat: Denies dysphagia, Denies headache, Denies nasal congestion, Denies nasal discharge, Denies sore throat, Denies vertigo Cardiovascular: Reports irregular heart beat, Denies chest pain, Denies decreased exercise tolerance, Denies dyspnea on exertion, Denies edema, Denies leg edema, Denies shortness of breath, Denies syncope Respiratory: Denies cough, Denies cough with sputum, Denies dyspnea, Denies hemoptysis, Denies home oxygen, Denies respiratory infections Gastrointestinal: Denies abdominal pain, Denies diarrhea, Denies loss of appetite, Denies nausea, Denies vomiting Genitourinary: Denies dysuria, Denies urinary retention Musculoskeletal: Reports muscle weakness, Denies frequent falls, Denies gait d ysfunction, Denies myalgias Integumentary: Denies pruritus, Denies rash, Denies wounds Neurological: Reports weakness, Denies change in mentation, Denies change in speech, Denies confusion, Denies gait dysfunction, Denies numbness, Denies paresthesias, Denies vertigo Psychiatric: Denies anxiety, Denies depression Endocrine: Denies fatigue, Denies weight change Past Medical History Past Medical History: Cancer, Diabetes Mellitus, Hypertension, Vascular Disorder Additional Past Medical History / Comment(s): Coronary artery disease, carotid artery stenosis, previous cardiac catheterization and coronary stenting, peripheral vascular disease with lower extremity vascular stenting, bladder cancer, chronic iron deficiency anemia, hypertension, hyperlipidemia, diabetes mellitus type 2 History of Any Multi-Drug Resistant Organisms: None Reported Past Surgical History: Appendectomy, Heart Catheterization With Stent, Tonsillectomy Additional Past Surgical History / Comment(s): demetrius cataracts, left carotid endarterectomy, stents demetrius legs, aortogram 05/01/18, Past Anesthesia/Blood Transfusion Reactions: No Reported Reaction Additional Past Anesthesia/Blood Transfusion Reaction / Comment(s): no hx blood transfusion Date of Last Stent Placement:: 04/17/17 Past Psychological History: No Psychological Hx Reported Smoking Status: Current every day smoker Past Alcohol Use History: Rare Additional Past Alcohol Use History / Comment(s): smokes pipe for past 60 yrs. Patient denies any marijuana use, illicit drug use. He drinks alcohol very rarely. He lives at home with his . Patient is very independent. Past Drug Use History: None Reported - Past Family History Mother Family Medical History: No Reported History Additional Family Medical History / Comment(s): Mother at age 92 from old age. Father Family Medical History: Diabetes Mellitus Additional Family Medical History / Comment(s): Father at age 60 from complications from diabetes. Sister(s) Family Medical History: Cancer Additional Family Medical History / Comment(s): Patient has a total of 6 sisters. He denies any family members with anemia. Patient has 1 brother that has passed from alcohol related conditions. Patient has 2 sons and 1 daughter with no major medical problems. Medications and Allergies Home Medications Medication Instructions Recorded Confirmed Type Atorvastatin [Lipitor] 10 mg PO DAILY 10/23/16 02/09/20 History Multivitamins, Thera [Multivitamin 1 tab PO DAILY 10/23/16 02/09/20 History (formulary)] Aspirin [Adult Low Dose Aspirin EC] 81 mg PO DAILY 11/30/16 02/09/20 History Furosemide [Lasix] 20 mg PO BID 04/03/17 02/09/20 History metFORMIN HCL [Glucophage] 500 mg PO DAILY 08/31/17 02/09/20 History Lisinopril [Prinivil] 20 mg PO DAILY 04/25/18 02/09/20 History Acetaminophen [Tylenol] 500 mg PO Q4H PRN 02/06/20 02/09/20 History Allergies Allergy/AdvReac Type Severity Reaction Status Date / Time No Known Allergies Allergy Verified 02/09/20 11:51 Physical Exam Vitals: Vital Signs Temp Pulse Pulse Resp BP BP Pulse Ox 02/10/20 03:22 97.9 F 84 18 114/54 97 02/10/20 00:00 97.6 F 86 16 110/53 97 02/09/20 20:00 98.1 F 78 18 116/56 96 02/09/20 17:00 72 116/56 97 02/09/20 16:33 98.7 F 89 18 130/61 91 L 02/09/20 14:31 89 18 118/57 94 L 02/09/20 13:31 90 18 110/73 94 L 02/09/20 12:31 85 18 106/55 100 02/09/20 11:34 92 18 107/54 100 02/09/20 11:19 93 18 95 02/09/20 11:11 99 F 125/51 Intake and Output 02/09/20 02/10/20 02/10/20 22:59 06:59 14:59 Intake Total 240 Output Total 150 300 Balance 90 -300 Intake: Oral 240 Output: Urine 150 300 Other: # Voids 1 Weight 72.575 kg 74.5 kg Gen: This is an 84-year-old male. Patient is sitting up in bed appears to be comfortable in no acute distress. HEENT: Head is atraumatic, normocephalic. Pupils equal, round. Sclerae is anicteric. NECK: Supple. No JVD. No lymphadenopathy. No thyromegaly. No carotid bruit. LUNGS: Diminished in the bases. No wheezes or rhonchi. No intercostal retractions. HEART: Regular rate and rhythm. No murmur. ABDOMEN: Soft. Bowel sounds are present. No masses. No tenderness. EXTREMITIES: No pedal edema. No calf tenderness. NEUROLOGICAL: Patient is awake, alert and oriented x3. Cranial nerves 2 through 12 are grossly intact. No aphasia. Weakness in the right upper extremity 1/5. Bilateral lower extremity strength 5/5. Tongue deviation to the right. Results CBC & Chem 7: 02/09/20 11:32 02/09/20 11:32 Labs: Abnormal Lab Results - Last 24 Hours (Table) 02/09/20 02/09/20 02/09/20 Range/Units 11:32 11:32 11:32 WBC 14.0 H (3.8-10.6) k/uL RBC 2.59 L (4.30-5.90) m/uL Hgb 7.8 L (13.0-17.5) gm/dL Hct 24.4 L (39.0-53.0) % Neutrophils # 12.4 H (1.3-7.7) k/uL Lymphocytes # 0.6 L (1.0-4.8) k/uL Potassium 5.4 H (3.5-5.1) mmol/L Chloride 108 H (98-107) mmol/L BUN 77 H (9-20) mg/dL Creatinine 1.88 H (0.66-1.25) mg/dL Glucose 138 H (74-99) mg/dL POC Glucose (mg/dL) (75-99) mg/dL Hemoglobin A1c (4.0-6.0) % CK-MB (CK-2) 2.6 H (0.0-2.4) ng/mL Albumin 3.0 L (3.5-5.0) g/dL HDL Cholesterol (40-60) mg/dL 02/09/20 02/09/20 02/09/20 Range/Units 11:32 11:32 11:39 WBC (3.8-10.6) k/uL RBC (4.30-5.90) m/uL Hgb (13.0-17.5) gm/dL Hct (39.0-53.0) % Neutrophils # (1.3-7.7) k/uL Lymphocytes # (1.0-4.8) k/uL Potassium (3.5-5.1) mmol/L Chloride (98-107) mmol/L BUN (9-20) mg/dL Creatinine (0.66-1.25) mg/dL Glucose (74-99) mg/dL POC Glucose (mg/dL) 111 H (75-99) mg/dL Hemoglobin A1c 6.1 H (4.0-6.0) % CK-MB (CK-2) (0.0-2.4) ng/mL Albumin (3.5-5.0) g/dL HDL Cholesterol 27 L (40-60) mg/dL 02/09/20 02/09/20 Range/Units 16:49 20:30 WBC (3.8-10.6) k/uL RBC (4.30-5.90) m/uL Hgb (13.0-17.5) gm/dL Hct (39.0-53.0) % Neutrophils # (1.3-7.7) k/uL Lymphocytes # (1.0-4.8) k/uL Potassium (3.5-5.1) mmol/L Chloride (98-107) mmol/L BUN (9-20) mg/dL Creatinine (0.66-1.25) mg/dL Glucose (74-99) mg/dL POC Glucose (mg/dL) 71 L 165 H (75-99) mg/dL Hemoglobin A1c (4.0-6.0) % CK-MB (CK-2) (0.0-2.4) ng/mL Albumin (3.5-5.0) g/dL HDL Cholesterol (40-60) mg/dL Thrombosis Risk Factor Assmnt - DVT/VTE Prophylaxis DVT/VTE Prophylaxis: Pharmacologic Prophylaxis ordered - Choose All That Apply Any of the Below Risk Factors Present?: Yes Other Risk Factors: Yes Each Risk Factor Represents 2 Points: Malignancy Each Risk Factor Represents 3 Points: Age 75 years or older Other congenital or acquired thrombophilia - If yes, enter type in comment: No Each Risk Factor Represents 5 Points: Stroke (< 1 month) Thrombosis Risk Factor Assessment Total Risk Factor Score: 10 Thrombosis Risk Factor Assessment Level: High Risk Assessment and Plan Plan: 1. Acute ischemic stroke left MCA/OWEN and MCA [employer]. Consult with neurology appreciated. MRI and MRA of the brain, PT OT. Atorvastatin 40 mg daily. Pat ient started on Plavix 75 mg daily and aspirin 81 mg daily. 2. Left internal carotid artery stenosis just under 70%--CTA and ultrasound and consistent. Consult with vascular surgery. 3. 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 4. Left-sided pleural effusion recurrence status post thoracentesis for 1.5 L on February 05. 5. Acute kidney injury with chronic kidney disease stage III. 6. Dark stools with drop in hemoglobin. Patient has chronic anemia. Stool for occult blood from February 06 is positive. Patient had EGD in November. Plan to start dual antiplatelet medicine. Patient may require iron infusion. 7. Diabetes mellitus type 2. Hemoglobin A1c 6.1. Hold Metformin 500 mg daily and start NovoLog scale before meals and at bedtime. 8. Hypertension. Hold lisinopril 20 mg daily, Lasix 20 mg daily. 9. Hyperlipidemia. Continue atorvastatin 40 mg daily. 10. Peripheral vascular disease. Continue atorvastatin. 11. History of bladder cancer, stable. 12. Tobacco use and dependence. 13. GI prophylaxis. Pepcid daily 14. DVT prophylaxis. Patient will be admitted to the hospital for a minimum of 2 night stay. Discharge plan: return home most likely. PT and OT will be added. Impression and plan of care have been directed as dictated by the signing physician. Maritza Jett nurse practitioner acting as scribe for signing physician.
--- NOTE | 2020-02-10 13:07 | US ---
EXAMINATION TYPE: US chest DATE OF EXAM: 02/10/2020 COMPARISON: x-ray 02/09/2020 CLINICAL HISTORY: pleural effusion. Very difficult and limited exam due to patient's inability to sit up in bed. Had help from aide and still could not get patient off of his back. TECHNIQUE: Targeted ultrasound of the posterior lower bilateral hemithoraces EXAM MEASUREMENTS: Left Pleural Effusion pocket size: 13.4 cm Left skin surface to fluid distance: 2.9 cm Left side marked for possible thoracentesis outside the dept. Pulmonologists are able to review the images in the patient?s EMR. IMPRESSIONS: As above
--- NOTE | 2020-02-10 13:31 | P.PN ---
Subjective Progress Note Date: 02/10/20 Patient is laying comfortably in the bed. He complains of pain, but not able to tell exactly where the pain is. He states it is "here", although he is pointing in front in the air. Sometimes he states it's and abdomen, then pelvis, then chest, then left arm, not exactly clear, although somewhere on the left side. States his right arm is better. Objective - Vital Signs Vital signs: Vital Signs Temp 98.2 F 02/10/20 08:00 Pulse 102 H 02/10/20 08:00 Resp 20 02/10/20 08:00 BP 139/63 02/10/20 08:00 Pulse Ox 96 02/10/20 08:00 Intake & Output 02/09/20 02/10/20 02/10/20 18:59 06:59 18:59 Intake Total 240 Output Total 150 300 Balance 90 -300 Weight 72.575 kg 74.5 kg Intake: Oral 240 Output: Urine 150 300 Other: # Voids 1 - Exam On examination patient is an elderly male, laying comfortably in the bed. Speech and language functions appears clear. No aphasia. Cranial nerves are normal. Visual servin are full. Face is symmetric. Patient is right arm weakness. Deltoid is 3+, biceps 4-, user support analyst is very weak. Strength appears normal in the legs. Sensations are equal with no neglect. - Labs CBC & Chem 7: 02/09/20 11:32 02/09/20 11:32 Labs: Abnormal Lab Results - Last 24 Hours (Table) 02/09/20 02/09/20 02/09/20 Range/Units 11:32 11:32 16:49 POC Glucose (mg/dL) 71 L (75-99) mg/dL Hemoglobin A1c 6.1 H (4.0-6.0) % HDL Cholesterol 27 L (40-60) mg/dL 02/09/20 02/10/20 Range/Units 20:30 10:47 POC Glucose (mg/dL) 165 H 194 H (75-99) mg/dL Hemoglobin A1c (4.0-6.0) % HDL Cholesterol (40-60) mg/dL Assessment and Plan Assessment: * Acute ischemic CVA, somewhat in watershed territory between the left MCA/OWEN, MCA/[employer]. 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 * Anemia * History of recent occult blood positive in the stools. * Acute on chronic renal insufficiency. Plan: * Continue dual antiplatelet medication, Plavix 75 mg and aspirin 81 mg. Closely watch for any GI bleed. Patient has history of positive occult blood in the stools, and is in a minute. If any signs of bleed, stop Plavix. * 2-D echo showed mild concentric LVH, EF 55-60% mitral valve leaflets are mildly thickened. Trace MR. No obvious embolic source. * Await MRI and MRA of the brain. * Patient underwent carotid Doppler, which reported as 50-69% stenosis of the proximal right ICA. Point to note is the CTA showed slightly less than 70% stenosis in the left ICA siphon. I spoke to the radiologist, who states that CTA is a better study and should be more relied on. The can technician did see some blockage on the left side but did not appear significant on the ultrasound. The radiologist stated that there was no significant stenosis of the right ICA. * Patient has probable symptomatic left ICA stenosis. Await vascular surgical consultation official report. Patient may need a cerebral angiogram * Fasting a.m. lipid panel showed cholesterol 100, LDL 52, HDL 27 and triglycerides 106. Hemoglobin A1c 6.1. * PT, OT. * Patient on Pepcid 20 mg twice a day for gastric ulcer prophylaxis. * DVT prophylaxis. * Discussed with internal medicine and vascular surgery.
--- NOTE | 2020-02-10 14:16 | P.GSCN ---
History of Present Illness Consult date: 02/10/20 Reason for Consult: Left moderate to severe ICA stenosis, acute CVA History of present illness: This is a new vascular surgical consult for left ICA stenosis, with acute CVA. The patient is a 84-year-old male with history of hypertension, hyperlipidemia, diabetes, chronic anemia, pleural effusion, GI bleed, every day smoker, and peripheral arterial disease who had symptoms of acute right upper extremity weakness that started 2 days ago, with no prior history of a CVA. The patient states Sunday night he went to bed with some right upper extremity weakness, thought that it would get better in the morning. Patient however had increased right upper extremity weakness and called EMS. The patient denied any right lower extremity weakness, left-sided weakness, visual changes, or slurred speech. Today he still is experiencing right upper extremity weakness, continues to deny any right lower extremity weakness, left-sided weakness, difficulty swallowing, change in vision, or slurred speech. He does complain of chest discomfort, was recently admitted for a pleural effusion with recent Ct demonstrating a left pleural effusion. CT brain impression showed a couple areas of focal cortical hypodensity left parietal occipital junction and posterior left parietal lobe compatible with acute infarct. Given the degree of hypodensity, suspect greater than 6 hours in duration. No midline shift or acute intracranial hemorrhage. CT angiogram brain with mild to moderate arthrosclerotic narrowing throughout the bilateral carotid siphons more in the left, no large vessel intracranial arterial occlusion or aneurysmal changes seen. CT of neck shows moderate to severe arthrosclerotic narrowing of the left carotid bulb with just under 70% stenosis. Subtotal occlusion versus complete occlusion and reconstitution of the V2 segment right vertebral artery at the C5- C6 level, increasing moderate left pleural effusion and underlying consolidation. Thyroid nodules measuring up to 1.5 cm. Bilateral carotid ultrasound completed today showing right ICA velocity 159.4 with the ratio of 3.1, left ICA 59.2, ratio 1.1, with an overall impression suggesting a moderate 50-69% stenosis of the proximal right ICA. Neurology ordered an MRI and MRA, which have not been completed. Review of Systems A 10 point review of systems completed and all pertinent positives and negatives stated in the HPI. Past Medical History Past Medical History: Cancer, Diabetes Mellitus, Hypertension, Vascular Disorder Additional Past Medical History / Comment(s): Coronary artery disease, carotid artery stenosis, previous cardiac catheterization and coronary stenting, peripheral vascular disease with lower extremity vascular stenting, bladder cancer, chronic iron deficiency anemia, hypertension, hyperlipidemia, diabetes mellitus type 2 History of Any Multi-Drug Resistant Organisms: None Reported Past Surgical History: Appendectomy, Heart Catheterization With Stent, Tonsillectomy Additional Past Surgical History / Comment(s): demetrius cataracts, left carotid endarterectomy, stents demetrius legs, aortogram 05/01/18, Past Anesthesia/Blood Transfusion Reactions: No Reported Reaction Additional Past Anesthesia/Blood Transfusion Reaction / Comm: no hx blood transfusion Date of Last Stent Placement:: 04/17/17 Past Psychological History: No Psychological Hx Reported Smoking Status: Current every day smoker Past Alcohol Use History: Rare Additional Past Alcohol Use History / Comment(s): smokes pipe for past 60 yrs. Patient denies any marijuana use, illicit drug use. He drinks alcohol very rarely. He lives at home with his . Patient is very independent. Past Drug Use History: None Reported - Past Family History Mother Family Medical History: No Reported History Additional Family Medical History / Comment(s): Mother at age 92 from old age. Father Family Medical History: Diabetes Mellitus Additional Family Medical History / Comment(s): Father at age 60 from complications from diabetes. Sister(s) Family Medical History: Cancer Additional Family Medical History / Comment(s): Patient has a total of 6 sisters. He denies any family members with anemia. Patient has 1 brother that has passed from alcohol related conditions. Patient has 2 sons and 1 daughter with no major medical problems. Medications and Allergies Home Medications Medication Instructions Recorded Confirmed Type Atorvastatin [Lipitor] 10 mg PO DAILY 10/23/16 02/09/20 History Multivitamins, Thera [Multivitamin 1 tab PO DAILY 10/23/16 02/09/20 History (formulary)] Aspirin [Adult Low Dose Aspirin EC] 81 mg PO DAILY 11/30/16 02/09/20 History Furosemide [Lasix] 20 mg PO BID 04/03/17 02/09/20 History metFORMIN HCL [Glucophage] 500 mg PO DAILY 08/31/17 02/09/20 History Lisinopril [Prinivil] 20 mg PO DAILY 04/25/18 02/09/20 History Acetaminophen [Tylenol] 500 mg PO Q4H PRN 02/06/20 02/09/20 History Allergies Allergy/AdvReac Type Severity Reaction Status Date / Time No Known Allergies Allergy Verified 02/09/20 11:51 Surgical - Exam Vital Signs Temp BP 99 F 125/51 02/09/20 11:11 02/09/20 11:11 General appearance: The patient is alert, oriented, in no acute distress. HET: Head is normocephalic and atraumatic. Pupils are equal and reactive. Neck: Supple without lymphadenopathy. Trachea midline. No audible carotid bruit bilaterally. Heart: S1 S2. Regular rate and rhythm. Lungs: Diminished, No crackles or wheezes are heard. Extremities: Normal skin color and turgor. No cyanosis, rash, ulceration, clubbing, or edema. Radial and pedal pulses are 2/4 bilaterally. Neurological: Flaccid right upper extremity, strength 2/5, unable to grasp hand. Left upper extremity strength 5/5, bilateral lower extremity strength 5/5. Patient answers questions appropriately, however slow to respond. Facial symmetry, tongue midline, fluent speech. Results - Labs 02/09/20 11:32 02/09/20 11:32 Abnormal Lab Results - Last 24 Hours (Table) 02/09/20 02/09/20 02/09/20 Range/Units 11:32 11:32 11:32 WBC 14.0 H (3.8-10.6) k/uL RBC 2.59 L (4.30-5.90) m/uL Hgb 7.8 L (13.0-17.5) gm/dL Hct 24.4 L (39.0-53.0) % Neutrophils # 12.4 H (1.3-7.7) k/uL Lymphocytes # 0.6 L (1.0-4.8) k/uL Potassium 5.4 H (3.5-5.1) mmol/L Chloride 108 H (98-107) mmol/L BUN 77 H (9-20) mg/dL Creatinine 1.88 H (0.66-1.25) mg/dL Glucose 138 H (74-99) mg/dL POC Glucose (mg/dL) (75-99) mg/dL Hemoglobin A1c (4.0-6.0) % CK-MB (CK-2) 2.6 H (0.0-2.4) ng/mL Albumin 3.0 L (3.5-5.0) g/dL HDL Cholesterol (40-60) mg/dL 02/09/20 02/09/20 02/09/20 Range/Units 11:32 11:32 11:39 WBC (3.8-10.6) k/uL RBC (4.30-5.90) m/uL Hgb (13.0-17.5) gm/dL Hct (39.0-53.0) % Neutrophils # (1.3-7.7) k/uL Lymphocytes # (1.0-4.8) k/uL Potassium (3.5-5.1) mmol/L Chloride (98-107) mmol/L BUN (9-20) mg/dL Creatinine (0.66-1.25) mg/dL Glucose (74-99) mg/dL POC Glucose (mg/dL) 111 H (75-99) mg/dL Hemoglobin A1c 6.1 H (4.0-6.0) % CK-MB (CK-2) (0.0-2.4) ng/mL Albumin (3.5-5.0) g/dL HDL Cholesterol 27 L (40-60) mg/dL 02/09/20 02/09/20 Range/Units 16:49 20:30 WBC (3.8-10.6) k/uL RBC (4.30-5.90) m/uL Hgb (13.0-17.5) gm/dL Hct (39.0-53.0) % Neutrophils # (1.3-7.7) k/uL Lymphocytes # (1.0-4.8) k/uL Potassium (3.5-5.1) mmol/L Chloride (98-107) mmol/L BUN (9-20) mg/dL Creatinine (0.66-1.25) mg/dL Glucose (74-99) mg/dL POC Glucose (mg/dL) 71 L 165 H (75-99) mg/dL Hemoglobin A1c (4.0-6.0) % CK-MB (CK-2) (0.0-2.4) ng/mL Albumin (3.5-5.0) g/dL HDL Cholesterol (40-60) mg/dL Diabetes panel 02/09/20 02/09/20 02/09/20 Range/Units 11:32 11:32 11:32 Sodium 140 (137-145) mmol/L Potassium 5.4 H (3.5-5.1) mmol/L Chloride 108 H (98-107) mmol/L Carbon Dioxide 23 (22-30) mmol/L BUN 77 H (9-20) mg/dL Creatinine 1.88 H (0.66-1.25) mg/dL Glucose 138 H (74-99) mg/dL Hemoglobin A1c 6.1 H (4.0-6.0) % Calcium 8.8 (8.4-10.2) mg/dL AST 33 (17-59) U/L ALT 45 (4-49) U/L Alkaline Phosphatase 68 (38-126) U/L Total Protein 6.3 (6.3-8.2) g/dL Albumin 3.0 L (3.5-5.0) g/dL Triglycerides 106 (<150) mg/dL HDL Cholesterol 27 L (40-60) mg/dL Calcium panel 02/09/20 Range/Units 11:32 Calcium 8.8 (8.4-10.2) mg/dL Albumin 3.0 L (3.5-5.0) g/dL Pituitary panel 02/09/20 Range/Units 11:32 Sodium 140 (137-145) mmol/L Potassium 5.4 H (3.5-5.1) mmol/L Chloride 108 H (98-107) mmol/L Carbon Dioxide 23 (22-30) mmol/L BUN 77 H (9-20) mg/dL Creatinine 1.88 H (0.66-1.25) mg/dL Glucose 138 H (74-99) mg/dL Calcium 8.8 (8.4-10.2) mg/dL Adrenal panel 02/09/20 Range/Units 11:32 Sodium 140 (137-145) mmol/L Potassium 5.4 H (3.5-5.1) mmol/L Chloride 108 H (98-107) mmol/L Carbon Dioxide 23 (22-30) mmol/L BUN 77 H (9-20) mg/dL Creatinine 1.88 H (0.66-1.25) mg/dL Glucose 138 H (74-99) mg/dL Calcium 8.8 (8.4-10.2) mg/dL Total Bilirubin 0.2 (0.2-1.3) mg/dL AST 33 (17-59) U/L ALT 45 (4-49) U/L Alkaline Phosphatase 68 (38-126) U/L Total Protein 6.3 (6.3-8.2) g/dL Albumin 3.0 L (3.5-5.0) g/dL Assessment and Plan Assessment: 1. Left internal carotid stenosis just under 70% discordant between carotid ultrasound suggesting moderate 50-69% stenosis of the proximal right ICA 2. Acute ischemic stroke left MCA/OWEN and MCA [employer]. 3. 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 Recurrent Left-sided pleural effusion 5. Chronic anemia 6. Hypertension 7. Type 2 diabetes mellitus 8. Hyperlipidemia 9. Peripheral vascular disease 10. Tobacco dependence Plan: CT angiogram and carotid ultrasound with discordant findings, will likely need cerebral angiogram. Acute ischemic stroke, neurology on consult and started Plavix 75 mg and aspirin 81 mg daily. MRI and MRA of the brain ordered. Recurrent left-sided pleural effusion, pulmonology consulted. Continue with atorvastain 40 mg daily. Recommend tobacco cessation. Further recommendations to follow based on findings on MRI/MRA of the brain. Thank you for this consultation and allowing us to take part in the plan of care of this patient during his hospital stay. The above dictated assessment and findings were discussed with Dr. Cabezas. The impression and plan of care have been directed as dictated.
--- NOTE | 2020-02-10 15:23 | MR ---
EXAMINATION TYPE: MR brain wo con DATE OF EXAM: 02/10/2020 3:13 PM COMPARISON: NONE HISTORY: Acute CVA FINDINGS: The ventricles, basal cisterns and sulci overlying the cerebral convexities are moderately enlarged. There is evidence of mild periventricular white matter ischemic demyelination. Remote deep white matter insults are also noted. On diffusion weighted imaging there are numerous focal areas of increased signal noted within the lef t frontal, parietal, parietal occipital and temporal regions compatible with acute ischemic embolic p rocess. No evidence for right-sided effusion abnormality. There is no evidence for midline shift or mass effect. Acute intracranial hemorrhage or extra-axial collection is not evident. The paranasal sinuses and mastoid air cells are well-aerated. IMPRESSION: On diffusion weighted imaging there are numerous focal areas of increased signal noted within the lef t frontal, parietal, parietal occipital and temporal regions compatible with acute ischemic embolic p rocess.
--- NOTE | 2020-02-10 15:26 | MR ---
EXAMINATION TYPE: MR angio head wo con DATE OF EXAM: 02/10/2020 3:14 PM COMPARISON: NONE HISTORY: Acute CVA symptoms Three-dimensional [id number] intracranial MRA was performed with multiple intensity projection im ages submitted and source data reviewed at the workstation. The vertebrobasilar system as well as intracranial portions of the internal carotid arteries and thei r major tributaries are patent. There is high-grade stenosis noted to involve the intracranial portio n of the left ICA at its cavernous component. I do not see evidence for sizable aneurysm or vascular malformation. IMPRESSION: There is high-grade stenosis noted to involve the intracranial portion of the left ICA at its caverno us component.
--- NOTE | 2020-02-10 16:35 | P.CNPUL ---
History of Present Illness Consult date: 02/10/20 Chief complaint: Right-sided weakness, left pleural effusion History of present illness: 84-year-old white male patient of Dr. Mcgrath, who was recently seen by us in consultation during his previous admission on 02/06/2020 for shortness of breath and new onset of left-sided pleural effusion. Medical history includes COPD with chronic [id number] smoking history, CAD with previous intervention and stenting, peripheral vascular disease, carotid artery stenosis with previous left endarterectomy, right kidney disease stage III at baseline, chronic anemia, history of bladder cancer, hypertension, hyperlipidemia, diabetes mellitus type 2. Patient underwent left sided thoracentesis by Dr. Conway on 02/06/2020 with removal of 1.5 L of dark yellowish pleural effusion, and pleural fluid analysis revealed exudative fluid, pleural fluid cytology is still pending, blood fluid cultures were negative. Patient was discharged home on all 02/06. On 02/09/2020 patient had acute onset of right upper extremity weakness at 1105, his symptoms started around 5 PM on 02/08/2020. Brain CT without contrast showed at least a couple areas of focal cortical hypodensity in the left parieto-occipital junction and posterior left parietal lobe compatible with acute infarcts, and it was suspected that the duration was greater than 6 hours judging by the degree of hypodensity. No midline shift or acute intracranial hemorrhage was noted. Echocardiogram showed preserved EF of 55-60% trace mitral regurg and trace tricuspid regurg. Carotid Doppler ultrasound showed a moderate 50-69% stenosis of the proximal right ICA. From pulmonary perspective patient denies any worsening dyspnea, chest x-ray showed increasing moderate to large left pleural effusion with adjacent atelectasis and/or consolidation. And we were consulted in regards to left-sided pleural effusion. Ultrasound the chest was completed showing 13.4 cm fluid pocket on the left, but clinically patient appears to be in no acute respiratory distress, he is currently on 4 L of oxygen with a pulse ox of 96-100%. Review of Systems All systems: negative Constitutional: Denies chills, Denies fever Eyes: denies blurred vision, denies pain Ears, nose, mouth and throat: Denies headache, Denies sore throat Cardiovascular: Denies chest pain, Denies shortness of breath Respiratory: Denies cough Gastrointestinal: Denies abdominal pain, Denies diarrhea, Denies nausea, Denies vomiting Musculoskeletal: Denies myalgias Integumentary: Denies pruritus, Denies rash Neurological: Denies numbness, Denies weakness Psychiatric: Denies anxiety, Denies depression Endocrine: Denies fatigue, Denies weight change Past Medical History Past Medical History: Cancer, Diabetes Mellitus, Hypertension, Vascular Disorder Additional Past Medical History / Comment(s): Coronary artery disease, carotid artery stenosis, previous cardiac catheterization and coronary stenting, peripheral vascular disease with lower extremity vascular stenting, bladder cancer, chronic iron deficiency anemia, hypertension, hyperlipidemia, diabetes mellitus type 2 History of Any Multi-Drug Resistant Organisms: None Reported Past Surgical History: Appendectomy, Heart Catheterization With Stent, Tonsillectomy Additional Past Surgical History / Comment(s): demetrius cataracts, left carotid endarterectomy, stents demetrius legs, aortogram 05/01/18, Past Anesthesia/Blood Transfusion Reactions: No Reported Reaction Additional Past Anesthesia/Blood Transfusion Reaction / Comment(s): no hx blood transfusion Date of Last Stent Placement:: 04/17/17 Past Psychological History: No Psychological Hx Reported Smoking Status: Current every day smoker Past Alcohol Use History: Rare Additional Past Alcohol Use History / Comment(s): smokes pipe for past 60 yrs. Patient denies any marijuana use, illicit drug use. He drinks alcohol very rarely. He lives at home with his . Patient is very independent. Past Drug Use History: None Reported - Past Family History Mother Family Medical History: No Reported History Additional Family Medical History / Comment(s): Mother at age 92 from old age. Father Family Medical History: Diabetes Mellitus Additional Family Medical History / Comment(s): Father at age 60 from complications from diabetes. Sister(s) Family Medical History: Cancer Additional Family Medical History / Comment(s): Patient has a total of 6 sisters. He denies any family members with anemia. Patient has 1 brother that has passed from alcohol related conditions. Patient has 2 sons and 1 daughter with no major medical problems. Medications and Allergies Home Medications Medication Instructions Recorded Confirmed Type Atorvastatin [Lipitor] 10 mg PO DAILY 10/23/16 02/09/20 History Multivitamins, Thera [Multivitamin 1 tab PO DAILY 10/23/16 02/09/20 History (formulary)] Aspirin [Adult Low Dose Aspirin EC] 81 mg PO DAILY 11/30/16 02/09/20 History Furosemide [Lasix] 20 mg PO BID 04/03/17 02/09/20 History metFORMIN HCL [Glucophage] 500 mg PO DAILY 08/31/17 02/09/20 History Lisinopril [Prinivil] 20 mg PO DAILY 04/25/18 02/09/20 History Acetaminophen [Tylenol] 500 mg PO Q4H PRN 02/06/20 02/09/20 History Allergies Allergy/AdvReac Type Severity Reaction Status Date / Time No Known Allergies Allergy Verified 02/09/20 11:51 Physical Exam Vitals: Vital Signs Temp Pulse Pulse Resp BP BP Pulse Ox 02/10/20 12:00 99 20 112/57 100 02/10/20 08:00 98.2 F 102 H 20 139/63 96 02/10/20 03:22 97.9 F 84 18 114/54 97 02/10/20 00:00 97.6 F 86 16 110/53 97 02/09/20 20:00 98.1 F 78 18 116/56 96 02/09/20 17:00 72 116/56 97 02/09/20 16:33 98.7 F 89 18 130/61 91 L Intake and Output 02/10/20 02/10/20 02/10/20 06:59 14:59 22:59 Output Total 300 Balance -300 Output: Urine 300 Other: # Voids 1 3 Weight 74.5 kg 74.5 kg GENERAL EXAM: Alert, pleasant, 84-year-old white male, alert and oriented 3, currently on 4 L of oxygen with a pulse ox of 96-100%, with right upper ex tremity weakness, no obvious facial asymmetry, no garbled speech, comfortable in no apparent distress. HEAD: Normocephalic/atraumatic. EYES: Normal reaction of pupils, equal size. Conjunctiva pink, sclera white. NOSE: Clear with pink turbinates. THROAT: No erythema or exudates. NECK: No masses, no JVD, no thyroid enlargement, no adenopathy. CHEST: No chest wall deformity. Symmetrical expansion. LUNGS: with no crackles, wheeze, rhonchi or dullness. Diminished breath sounds at the left base CVS: Regular rate and rhythm, normal S1 and S2, no gallops, no murmurs, no rubs ABDOMEN: Soft, nontender. No hepatosplenomegaly, normal bowel sounds, no guarding or rigidity. EXTREMITIES: No clubbing, no edema, no cyanosis, 2+ pulses and upper and lower extremities. MUSCULOSKELETAL: Muscle strength and tone normal. SPINE: No scoliosis or deformity SKIN: No rashes CENTRAL NERVOUS SYSTEM: Alert and oriented -3. Right upper arm weakness PSYCHIATRIC: Alert and oriented -3. Appropriate affect. Intact judgment and insight. Results - Laboratory Findings CBC and BMP: 02/09/20 11:32 02/09/20 11:32 PT/INR, D-dimer PT 11.7 sec (9.0-12.0) 02/09/20 11:32 INR 1.1 (<1.2) 02/09/20 11:32 Abnormal lab findings: Abnormal Labs 02/09/20 02/09/20 02/09/20 11:32 11:32 11:32 WBC 14.0 H RBC 2.59 L Hgb 7.8 L Hct 24.4 L Neutrophils # 12.4 H Lymphocytes # 0.6 L Potassium 5.4 H Chloride 108 H BUN 77 H Creatinine 1.88 H Glucose 138 H POC Glucose (mg/dL) Hemoglobin A1c CK-MB (CK-2) 2.6 H Albumin 3.0 L HDL Cholesterol 02/09/20 02/09/20 02/09/20 11:32 11:32 11:39 WBC RBC Hgb Hct Neutrophils # Lymphocytes # Potassium Chloride BUN Creatinine Glucose POC Glucose (mg/dL) 111 H Hemoglobin A1c 6.1 H CK-MB (CK-2) Albumin HDL Cholesterol 27 L 02/09/20 02/09/20 02/10/20 16:49 20:30 10:47 WBC RBC Hgb Hct Neutrophils # Lymphocytes # Potassium Chloride BUN Creatinine Glucose POC Glucose (mg/dL) 71 L 165 H 194 H Hemoglobin A1c CK-MB (CK-2) Albumin HDL Cholesterol - Diagnostic Findings Chest x-ray: report reviewed, image reviewed Additional studies: Ultrasound of the left chest, echocardiogram, brain CT, carotid Doppler ultrasound Assessment and Plan Plan: Assessment: #1. Moderately sized left pleural effusion, with a recent history of left-sided thoracentesis on 02/06/2020 with removal of 1.5 L of pleural fluid cytology is pending, cultures are negative thus far, and fluid was exudative in nature #2. Acute ischemic CVA on 02/09/2020, and patient presented with right upper extremity weakness, initial brain CT showed areas of focal cortical hypodensity in the left parietal occipital junction and posterior left parietal lobe compatible with acute infarct. Brain MRI showed numerous focal areas of increased signal within the left frontal, parietal, parietal occipital and temp oral regions compatible with acute ischemic embolic process #3. Left ICA stenosis of 50-69% #4. Chronic anemia, with recent history of a blood positive in stools #5. History of COPD #6. History of tobacco dependence, currently in remission, carries [id number] smoking history #7. Coronary artery disease with previous history of coronary intervention and stenting #8. Peripheral vascular disease #9. Carotid artery stenosis with previous history of endarterectomy on the left #10. History of chronic kidney disease stage III at baseline #11. History of bladder cancer #12. Hypertension #13. Hyperlipidemia #14. Diabetes mellitus type 2 Plan: Continue management of acute ischemic CVA per neurology. Patient appears to be in no acute distress from pulmonary perspective, chest x-ray and ultrasound have been reviewed, patient was seen and examined and evaluated by Dr. Schneider. We will proceed with the left-sided thoracentesis tomorrow. Fluid cytology from previous left-sided thoracentesis done on 02/06/2020 has been exudative in nature, rule out infection versus malignant process. Cultures have been negative, patient has been afebrile. Obtain consent for left-sided thoracentesis tomorrow. I performed a history & physical examination of the patient and discussed their management with my nurse practitioner, Christine Landry. I reviewed the nurse practitioner's note and agree with the documented findings and plan of care. Lung sounds are positive for diminished breath sounds. The findings and the impression was discussed with the patient. I attest to the documentation by the nurse practitioner. Time with Patient: Greater than 30
[2020-02-10 17:13] LABS: Glucose,Whole Blood 175 mg/dL (75-99)
[2020-02-10 20:01] LABS: Glucose,Whole Blood 301 mg/dL (75-99)
[2020-02-11 00:29] LABS: Basophils % (A) 0 %; Eosinophils # (A) 0.1 k/uL (0-0.7); Eosinophils % (A) 1 %; Hypochromasia Slight; Lymphocytes # (A) 0.9 k/uL (1.0-4.8); Lymphocytes % (A) 5 %; MCH 30.3 pg (25.0-35.0); MCHC 31.9 g/dL (31.0-37.0); MCV 94.8 fL (80.0-100.0); Mean Platelet Volume 9.1; Monocytes # (A) 1.2 k/uL (0-1.0); Monocytes % (A) 7 %; Neutrophils # (A) 14.7 k/uL (1.3-7.7); Neutrophils % (A) 86 %; Platelet Count 278 k/uL (150-450); RBC 2.11 m/uL (4.30-5.90); WBC 17.1 k/uL (3.8-10.6)
[2020-02-11 00:54] LABS: HGB 6.4 gm/dL (13.0-17.5)
[2020-02-11 05:39] LABS: Calcium 8.8 mg/dL (8.4-10.2); Potassium 5.8 mmol/L (3.5-5.1)
[2020-02-11 06:11] LABS: Glucose,Whole Blood 137 mg/dL (75-99)
[2020-02-11] MEDS: INSULIN ASPART (NovoLOG) 100 UNIT/ML VIAL SQ SCH ×3 (06:18→17:23)
[2020-02-11] MEDS: ATORVASTATIN 40 MG TAB PO SCH (08:03)
[2020-02-11] MEDS: SENNOSIDES-DOCUSATE SODIUM 1 EACH TAB PO SCH (08:03)
[2020-02-11] MEDS: FAMOTIDINE 20 MG TAB PO SCH (08:04)
[2020-02-11] MEDS: ASPIRIN 81 MG PO SCH (08:04)
[2020-02-11] MEDS: MULTIVITAMINS, THERA 1 EACH TAB PO SCH (08:04)
[2020-02-11] MEDS: SODIUM CHLORIDE 0.9% 1,000 ML IV SCH (10:51)
[2020-02-11 11:05] LABS: Appearance,Urine Cloudy (Clear); Bacteria,Urine Rare /hpf; Bilirubin,Urine Negative (Negative); Blood,Urine Moderate (Negative); Color,Urine Yellow; Glucose,Urine (UA) Negative (Negative); Hyaline Casts,Urine 38 /lpf (0-2); Ketones,Urine Negative (Negative); Leukocyte Esterase,Urine Trace (Negative); Mucus,Urine Rare /hpf; Nitrite,Urine Negative (Negative); Protein,Urine Trace (Negative); RBC,Urine 19 /hpf (0-5); Specific Gravity,Urine 1.025 (1.001-1.035); Squamous Epithelial Cell,Urine <1 /hpf (0-4); Urobilinogen,Urine <2.0 mg/dL (<2.0); WBC,Urine 5 /hpf (0-5)
--- NOTE | 2020-02-11 11:25 | XR ---
EXAMINATION TYPE: XR chest 1V portable DATE OF EXAM: 02/11/2020 HISTORY: Status post thoracentesis COMPARISON: 02/09/2020 TECHNIQUE: Single view of the chest is submitted. FINDINGS: No evidence for left-sided pneumothorax. Improved aeration left lower lobe although persistent opacit y persists. The heart is stable. Hilar and mediastinal structures are within normal limits. Degenerative changes are seen of the dorsal spine. IMPRESSION: 1. No evidence for pneumothorax.
[2020-02-11 11:30] LABS: Glucose,Whole Blood 174 mg/dL (75-99)
--- NOTE | 2020-02-11 12:45 | PCN ---
PROCEDURE NOTE OPERATIVE REPORT: Left-sided thoracentesis. PREOPERATIVE DIAGNOSIS: Left pleural effusion. POSTOPERATIVE DIAGNOSIS: Left hemothorax. PROCEDURE: The patient was placed in a sitting upright position, the area below the left scapula was prepared in a sterile fashion and drapes were applied. At the level of the 8th intercostal space and tip of the scapula, the area was locally anesthetized with lidocaine and that it is 2 mL of 1% lidocaine. Then, a 26-gauge needle was inserted at the same site, advanced into the pleural space until fluid was obtained, and clearly the fluid was grossly bloody. Then a small tiny incision was made, and a standard thoracentesis catheter and needle were inserted at the same site into the pleural space, and I was able to drain just over 800 mL of grossly bloody pleural effusion from the left pleural space. Fluid was sent for different diagnostic studies. Procedure was well tolerated, and postoperative chest x-ray showed significant expansion and improvement in the left-sided pleural effusion. MMODL / IJN: [id number] /
--- NOTE | 2020-02-11 12:58 | P.PN ---
Subjective Progress Note Date: 02/11/20 The patient was seen and examined lying in bed with 2L oxygen per NC. He does not appear to be in any acute distress. The patient continues to have right sided weakness. He denies any changes through the night. Continues to report some chest discomfort. Patient has left pleural effusion, thoracentesis ordered for today. Patient had a drop in hemoglobin to 6.5, 1 unit of RBCs ordered. Objective - Vital Signs Vital signs: Vital Signs Temp 97.6 F 02/11/20 08:00 Pulse 63 02/11/20 08:00 Resp 20 02/11/20 08:00 BP 119/63 02/11/20 08:00 Pulse Ox 95 02/11/20 08:00 Intake & Output 02/10/20 02/11/20 02/11/20 18:59 06:59 18:59 Intake Total 240 0 310 Output Total 125 Balance 240 -125 310 Weight 74.5 kg 75.4 kg Intake: Oral 240 Blood Product 0 310 Rc As-1 Unit 0 310 [id number] Output: Urine 125 Other: Voiding Method Urinal Urinal # Voids 3 3 - Exam General appearance: The patient is alert, seems somewhat confused,in no acute distress. HET: Head is normocephalic and atraumatic. Neck: Supple without lymphadenopathy. Trachea midline. Heart: S1 S2. Regular rate and rhythm. Lungs: Diminished bilaterally. No crackles or wheezes are heard. Abdomen: Soft, nontender, nondistended with bowel sounds. No peritoneal signs. No palpable organomegaly or masses. Extremities: Normal skin color and turgor. No cyanosis, rash, ulceration, clubbing, or edema. Neurological: Alert, somewhat confused. Speech is fluent. Right upper extremity weakness. - Labs CBC & Chem 7: 02/11/20 00:12 02/11/20 05:02 Labs: Abnormal Lab Results - Last 24 Hours (Table) 02/10/20 02/10/20 02/10/20 Range/Units 10:47 16:52 20:00 WBC (3.8-10.6) k/uL RBC (4.30-5.90) m/uL Hgb (13.0-17.5) gm/dL Hct (39.0-53.0) % Neutrophils # (1.3-7.7) k/uL Lymphocytes # (1.0-4.8) k/uL Monocytes # (0-1.0) k/uL Potassium (3.5-5.1) mmol/L Chloride (98-107) mmol/L Carbon Dioxide (22-30) mmol/L BUN (9-20) mg/dL Creatinine (0.66-1.25) mg/dL Glucose (74-99) mg/dL POC Glucose (mg/dL) 194 H 175 H 301 H (75-99) mg/dL Crossmatch 02/11/20 02/11/20 02/11/20 Range/Units 00:12 01:57 05:02 WBC 17.1 H (3.8-10.6) k/uL RBC 2.11 L (4.30-5.90) m/uL Hgb 6.4 L* (13.0-17.5) gm/dL Hct 20.0 L (39.0-53.0) % Neutrophils # 14.7 H (1.3-7.7) k/uL Lymphocytes # 0.9 L (1.0-4.8) k/uL Monocytes # 1.2 H (0-1.0) k/uL Potassium 5.8 H (3.5-5.1) mmol/L Chloride 110 H (98-107) mmol/L Carbon Dioxide 17 L (22-30) mmol/L BUN 91 H (9-20) mg/dL Creatinine 2.41 H (0.66-1.25) mg/dL Glucose 131 H (74-99) mg/dL POC Glucose (mg/dL) (75-99) mg/dL Crossmatch See Detail 02/11/20 Range/Units 06:10 WBC (3.8-10.6) k/uL RBC (4.30-5.90) m/uL Hgb (13.0-17.5) gm/dL Hct (39.0-53.0) % Neutrophils # (1.3-7.7) k/uL Lymphocytes # (1.0-4.8) k/uL Monocytes # (0-1.0) k/uL Potassium (3.5-5.1) mmol/L Chloride (98-107) mmol/L Carbon Dioxide (22-30) mmol/L BUN (9-20) mg/dL Creatinine (0.66-1.25) mg/dL Glucose (74-99) mg/dL POC Glucose (mg/dL) 137 H (75-99) mg/dL Crossmatch Assessment and Plan Assessment: 1. Left internal carotid stenosis just under 70% discordant between carotid ultrasound suggesting moderate 50-69% stenosis of the proximal right ICA 2. Acute ischemic stroke left MCA/OWEN and MCA [employer]. 3. 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 Recurrent Left-sided pleural effusion 5. Chronic anemia 6. Hypertension 7. Type 2 diabetes mellitus 8. Hyperlipidemia 9. Peripheral vascular disease 10. Tobacco dependence Plan: At this time it is likely that the patient would not tolerate any vascular surgical interventions. Continue with medical management. Continue with recommendations per neurology. Patient to follow-up with Dr. Cabezas after discharge. Further recommendations to follow. The above dictated assessment and findings were discussed with Dr. Cabezas. The impression and plan of care have been directed as dictated.
[2020-02-11 13:07] LABS: HCT 24.2 % (39.0-53.0); HGB 7.5 gm/dL (13.0-17.5); Hypochromasia Moderate; MCH 29.4 pg (25.0-35.0); MCV 94.9 fL (80.0-100.0); Mean Platelet Volume 9.6; Platelet Count 270 k/uL (150-450); RBC 2.55 m/uL (4.30-5.90); RDW 15.9 % (11.5-15.5); WBC 22.7 k/uL (3.8-10.6)
--- NOTE | 2020-02-11 13:40 | P.PN ---
Subjective Progress Note Date: 02/11/20 This is an 84-year-old male patient of Dr. Healy with past medical history of hypertension, hyperlipidemia, diabetes mellitus type 2, coronary artery disease status post stent, left carotid endarterectomy, peripheral vascular disease with bilateral stents, bladder cancer, chronic anemia, tobacco use and dependence using a pipe for 60 years. Patient was recently hospitalized on February 05 for left-sided pleural effusion status post thoracentesis for 1.5 L of fluid by Dr. Conway. Patient was also started on home oxygen for chronic hypoxic respiratory failure. Patient had sudden onset of right upper extremity weakness that it started on the evening of February 07. He went to to bed hoping th at the symptoms would go away but woke in the morning and his son was over to visit. Patient's son noted that he had the right upper extremity weakness and called EMS. Patient did have some improvement of his symptoms during transport. He did not have any speech difficulties and no lower extremity weakness. Patient came into [facility] emergency center for evaluation. WBC 14.0 hemoglobin 7.8 platelets 294. PT/PTT normal. Sodium 140 potassium 5.4, BUN 77, creatinine 1.88. Hemoglobin A1c 5.6 on 11/20/2019. B12 358. Folate normal. Liver panel normal. Coronavirus PCR negative on 02/06/2020. Influenza screen negative. Triglycerides 106, cholesterol 100, LDL 52, HDL 27. His initial NIH stroke scale was 1. EKG was a sinus rhythm with incomplete right bundle branch block. According to the ED report, the case was discussed with vascular neurology Dr. Moncada, who felt patient was not a candidate for TPA. Patient was given aspirin and admitted to the cardiac stepdown unit and consults requested with neurology and vascular surgery. CAT scan of the brain that revealed couple areas of focal cortical hypodensity left parietal occipital junction and posterior left parietal compatible with acute infarcts. No midline shift. Chest x-ray showed increasing moderate to large pleural effusion on the left with adjacent atelectasis and/or consol idation. CTA of the head revealed [id number] atherosclerotic narrowing throughout the bilateral carotid siphons more so on the left. The left clinoid segment in particular has some artifact throughout, limiting assessment for focal occlusion. The supraclinoid portion of the left ICA opacifies appropriately arguing against focal thrombus. Further clinical correlation recommended. Consider MRA if indicated. Otherwise no large vessel intracranial arterial occ lusion or aneurysmal changes were seen. CTA of the neck showed moderate to severe atherosclerotic narrowing left carotid bulb with just under 70% stenosis. Subtotal occlusion vs complete occlusion and reconstitution of the V2 segment right vertebral artery at the C5 6 level. Echocardiogram reveals EF of 55-60%, trace mitral regurgitation, trace tricuspid regurgitation. Carotid ultrasound reveals moderate 50-69% stenosis of the proximal right ICA. 01/10: MRA of the head revealed high-grade stenosis involving the intracranial portion of the left ICA at its cavernous component. MRI of the brain revealed numerous focal areas of increased signal noted within the left frontal, parietal lobe, parietal occipital and temporal regions compatible with acute ischemic e mbolic process. Case was discussed yesterday with neurology and vascular surgery. Patient was started on baby aspirin and Plavix. Due to history of gastritis/esophagitis, Pepcid increased to twice daily. Patient was seen by Dr. Cabezas. At this time no clear for surgical intervention is planned and patient will follow-up with Dr. Cabezas as an outpatient. Ultrasound of the chest revealed a left pleural effusion pocket size 13.4 cm and marked for possible thoracentesis. Dr. Hall performed thoracentesis today with removal of 1.1 L of bloody fluid. 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 GI consult has been added and Plavix and aspirin discontinued. Patient also had an increase in white count to 17.1, BUN 91, creatinine 2.41, potassium 5.8. Consult will be added for Dr. Machuca for acute kidney injury. UA and culture added. Patient has been incontinent of urine. Patient is noted to have increasing weakness to the right lower extremity. Discharge plan is to [facility] or [facility]. Objective - Vital Signs Vital signs: Vital Signs Temp 97.6 F 02/11/20 08:00 Pulse 63 02/11/20 08:00 Resp 20 02/11/20 08:00 BP 119/63 02/11/20 08:00 Pulse Ox 95 02/11/20 08:00 Intake & Output 02/10/20 02/11/20 02/11/20 18:59 06:59 18:59 Intake Total 240 0 310 Output Total 125 Balance 240 -125 310 Weight 74.5 kg 75.4 kg Intake: Oral 240 Blood Product 0 310 Rc As-1 Unit 0 310 [id number] Output: Urine 125 Other: Voiding Method Urinal Urinal # Voids 3 3 - Exam Review of Systems Constitutional: Reports weakness, Denies anorexia, Denies chills, Denies fatigue, Denies fever, Denies lethargy, Denies malaise, Denies weight loss Eyes: denies blurred vision, denies pain, denies loss of vision Ears, nose, mouth and throat: Denies dysphagia, Denies headache, Denies nasal congestion, Denies nasal discharge, Denies sore throat, Denies vertigo Cardiovascular: Reports irregular heart beat, Denies chest pain, Denies decreased exercise tolerance, Denies dyspnea on exertion, Denies edema, Denies leg edema, Denies shortness of breath, Denies syncope Respiratory: Denies cough, Denies cough with sputum, Denies dyspnea, Denies hemoptysis, Denies home oxygen, Denies respiratory infections Gastrointestinal: Denies abdominal pain, Denies diarrhea, Denies loss of appetite, Denies nausea, Denies vomiting, reports rectal bleeding Genitourinary: Denies dysuria, Denies urinary retention Musculoskeletal: Reports muscle weakness, Denies frequent falls, Denies gait dysfunction, Denies myalgias Integumentary: Denies pruritus, Denies rash, Denies wounds Neurological: Reports weakness right upper and lower extremities, Denies change in mentation, Denies change in speech, Denies confusion, Denies gait dysfunction, Denies numbness, Denies paresthesias, Denies vertigo Psychiatric: Denies anxiety, Denies depression Endocrine: Denies fatigue, Denies weight change Physical Examination Gen: This is an 84-year-old male. Patient is sitting up in bed appears to be comfortable in no acute distress. HEENT: Head is atraumatic, normocephalic. Pupils equal, round. Sclerae is anicteric. NECK: Supple. No JVD. No lymphadenopathy. No thyromegaly. No carotid bruit. LUNGS: Diminished in the bases. No wheezes or rhonchi. No intercostal retractions. HEART: Regular rate and rhythm. No murmur. ABDOMEN: Soft. Bowel sounds are present. No masses. No tenderness. EXTREMITIES: No pedal edema. No calf tenderness. NEUROLOGICAL: Patient is awake, alert and oriented x3. Cranial nerves 2 through 12 are grossly intact. No aphasia. Weakness in the right upper extremity 1/5. Right lower extremity strength 1/5. - Labs CBC & Chem 7: 02/11/20 12:50 02/11/20 05:02 Labs: Abnormal Lab Results - Last 24 Hours (Table) 02/10/20 02/10/20 02/10/20 Range/Units 10:47 16:52 20:00 WBC (3.8-10.6) k/uL RBC (4.30-5.90) m/uL Hgb (13.0-17.5) gm/dL Hct (39.0-53.0) % Neutrophils # (1.3-7.7) k/uL Lymphocytes # (1.0-4.8) k/uL Monocytes # (0-1.0) k/uL Potassium (3.5-5.1) mmol/L Chloride (98-107) mmol/L Carbon Dioxide (22-30) mmol/L BUN (9-20) mg/dL Creatinine (0.66-1.25) mg/dL Glucose (74-99) mg/dL POC Glucose (mg/dL) 194 H 175 H 301 H (75-99) mg/dL Crossmatch 02/11/20 02/11/20 02/11/20 Range/Units 00:12 01:57 05:02 WBC 17.1 H (3.8-10.6) k/uL RBC 2.11 L (4.30-5.90) m/uL Hgb 6.4 L* (13.0-17.5) gm/dL Hct 20.0 L (39.0-53.0) % Neutrophils # 14.7 H (1.3-7.7) k/uL Lymphocytes # 0.9 L (1.0-4.8) k/uL Monocytes # 1.2 H (0-1.0) k/uL Potassium 5.8 H (3.5-5.1) mmol/L Chloride 110 H (98-107) mmol/L Carbon Dioxide 17 L (22-30) mmol/L BUN 91 H (9-20) mg/dL Creatinine 2.41 H (0.66-1.25) mg/dL Glucose 131 H (74-99) mg/dL POC Glucose (mg/dL) (75-99) mg/dL Crossmatch See Detail 02/11/20 Range/Units 06:10 WBC (3.8-10.6) k/uL RBC (4.30-5.90) m/uL Hgb (13.0-17.5) gm/dL Hct (39.0-53.0) % Neutrophils # (1.3-7.7) k/uL Lymphocytes # (1.0-4.8) k/uL Monocytes # (0-1.0) k/uL Potassium (3.5-5.1) mmol/L Chloride (98-107) mmol/L Carbon Dioxide (22-30) mmol/L BUN (9-20) mg/dL Creatinine (0.66-1.25) mg/dL Glucose (74-99) mg/dL POC Glucose (mg/dL) 137 H (75-99) mg/dL Crossmatch Assessment and Plan Plan: 1. Acute ischemic stroke left MCA/OWEN and MCA [employer]AD [employer]ER. Consult with neurology appreciated. MRI and MRA of the brain as above. Continue PT OT. Atorvastatin 40 mg daily. Plavix and aspirin placed on hold. 2. Left internal carotid artery stenosis just under 70%--CTA and ultrasound and consistent. Consult with vascular surgery. 3. 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 4. Left-sided pleural effusion recurrence status post thoracentesis for 1.5 L on February 05. Consult with Dr. Hall appreciated. Status post thoracentesis with bloody return.. 5. Acute kidney injury with chronic kidney disease stage III. Start IV fluids at 75 mL per hour. Consult with Dr. Machuca. 6. Rectal bleeding with acute blood loss anemia from GI source and also thoracentesis. Patient has chronic anemia as well. Stool for occult blood from February 06 is positive. Patient had EGD in November. Hold Plavix and aspirin. Transfuse 1 unit of packed RBCs and monitor hemoglobin every 6 hours. Consult with GI. 7. Diabetes mellitus type 2. Hemoglobin A1c 6.1. Hold Metformin 500 mg daily and start NovoLog scale before meals and at bedtime. 8. Hypertension. Hold lisinopril 20 mg daily, Lasix 20 mg daily. 9. Hyperlipidemia. Continue atorvastatin 40 mg daily. 10. Peripheral vascular disease. Continue atorvastatin. 11. History of bladder cancer, stable. 12. Tobacco use and dependence. 13. GI prophylaxis. Pepcid daily 14. DVT prophylaxis. Discharge plan: [facility] or [facility]. Impression and plan of care have been directed as dictated by the signing physician. Maritza Jett nurse practitioner acting as scribe for signing physician.
--- NOTE | 2020-02-11 13:49 | P.PN ---
Subjective Progress Note Date: 02/11/20 Principal diagnosis: Right-sided weakness, left pleural effusion 84-year-old white male patient of Dr. Mcgrath, who was recently seen by us in consultation during his previous admission on 02/06/2020 for shortness of breath and new onset of left-sided pleural effusion. Medical history includes COPD with chronic [id number] smoking history, CAD with previous intervention and st enting, peripheral vascular disease, carotid artery stenosis with previous left endarterectomy, right kidney disease stage III at baseline, chronic anemia, history of bladder cancer, hypertension, hyperlipidemia, diabetes mellitus type 2. Patient underwent left sided thoracentesis by Dr. Conway on 02/06/2020 with removal of 1.5 L of dark yellowish pleural effusion, and pleural fluid analysis revealed exudative fluid, pleural fluid cytology is still pending, blood fluid cultures were negative. Patient was discharged home on all 02/07/2020. On 02/09/2020 patient had acute onset of right upper extremity weakness at 1105, his symptoms started around 5 PM on 02/08/2020. Brain CT without contrast showed at least a couple areas of focal cortical hypodensity in the left parieto-occipital junction and posterior left parietal lobe compatible with acute infarcts, and it was suspected that the duration was greater than 6 hours judging by the degree of hypodensity. No midline shift or acute intracranial hemorrhage was noted. Echocardiogram showed preserved EF of 55-60% trace mitral regurg and trace tricuspid regurg. Carotid Doppler ultrasound showed a moderate 50-69% stenosis of the proximal right ICA. From pulmonary perspective patient denies any worsening dyspnea, chest x-ray showed increasing moderate to large left pleural effusion with adjacent atelectasis and/or consolidation. And we were consulted in regards to left-sided pleural effusion. Ultrasound the chest was completed showing 13.4 cm fluid pocket on the left, but clinically patient appears to be in no acute respiratory distress, he is currently on 4 L of oxygen with a pulse ox of 96-100%. On 02/11/2020 the patient was seen and examined at his bedside and follow up with Dr. Hall. The patient's right upper extremity remains flaccid and a MRI of the brain was completed yesterday which showed numerous focal areas of increase in signal noted within the left frontal, parietal, parietal occipital and temporal regions compatible with acute ischemic embolic process. He also underwent a MRA of the head which demonstrated a high-grade stenosis noted to involve the intracranial portion of the left ICA at its cavernous component. Currently denies any complaints of pain or shortness of breath, his oxygen saturations are 96% on 2 L nasal cannula. An ultrasound of his chest was completed yesterday which demonstrated a large left pleural effusion pocket measuring 13.4 cm. Due to this large left pleural effusion Dr. Hall performed a left sided thoracentesis today with just over 800 mL of grossly bloody pleural effusion drained. Objective - Vital Signs Vital signs: Vital Signs Temp 97.6 F 02/11/20 08:00 Pulse 103 H 02/11/20 12:20 Resp 20 02/11/20 12:20 BP 116/56 02/11/20 12:20 Pulse Ox 96 02/11/20 12:20 Intake & Output 02/10/20 02/11/20 02/11/20 18:59 06:59 18:59 Intake Total 240 0 310 Output Total 125 Balance 240 -125 310 Weight 74.5 kg 75.4 kg Intake: Oral 240 Blood Product 0 310 Rc As-1 Unit 0 310 [id number] Output: Urine 125 Other: Voiding Method Urinal Urinal # Voids 3 3 - Constitutional Constitutional Comment(s): An 84-year-old gentleman who is alert, oriented 3. Oxygen saturations are 95% on 2 L nasal cannula. Right upper extremity is flaccid. No obvious facial asymmetry. General appearance: Present: cooperative, no acute distress - EENT Eyes: Present: PERRLA, normal appearance. Absent: scleral icterus ENT: Present: hearing grossly normal. Absent: thrush - Neck Details: Neck is supple. Neck: Absent: lymphadenopathy, stridor - Respiratory Details: Lung sounds are diminished to his left lower lobe. No wheezes, rhonchi or crackles. Respirations are symmetrical and nonlabored. - Cardiovascular Details: Regular rhythm and rate. S1 and S2 present, negative for S3, gallop or murmur. Remote telemetry showing normal sinus rhythm heart rate 78. - Gastrointestinal Gastrointestinal Comment(s): Abdomen is soft, nontender and nondistended. Active bowel sounds present all 4 abdominal quadrants. No guarding or rigidity. General gastrointestinal: Absent: organomegaly - Integumentary Integumentary Comment(s): Skin is warm and dry. No clubbing or cyanosis is present. Integumentary: Absent: rash - Neurologic Neurologic Comment(s): Right upper extremity weakness. - Musculoskeletal Musculoskeletal: Present: right sided weakness (Right upper extremity) - Psychiatric Psychiatric: Present: A&O x's 3, intact judgment & insight - Allied health notes Allied health notes reviewed: nursing - Labs CBC & Chem 7: 02/11/20 12:50 02/11/20 05:02 Labs: Abnormal Lab Results - Last 24 Hours (Table) 02/10/20 02/10/20 02/11/20 Range/Units 16:52 20:00 00:12 WBC 17.1 H (3.8-10.6) k/uL RBC 2.11 L (4.30-5.90) m/uL Hgb 6.4 L* (13.0-17.5) gm/dL Hct 20.0 L (39.0-53.0) % RDW (11.5-15.5) % Neutrophils # 14.7 H (1.3-7.7) k/uL Lymphocytes # 0.9 L (1.0-4.8) k/uL Monocytes # 1.2 H (0-1.0) k/uL Potassium (3.5-5.1) mmol/L Chloride (98-107) mmol/L Carbon Dioxide (22-30) mmol/L BUN (9-20) mg/dL Creatinine (0.66-1.25) mg/dL Glucose (74-99) mg/dL POC Glucose (mg/dL) 175 H 301 H (75-99) mg/dL Urine Protein (Negative) Urine Blood (Negative) Ur Leukocyte Esterase (Negative) Urine RBC (0-5) /hpf Urine Bacteria (None) /hpf Hyaline Casts (0-2) /lpf Urine Mucus (None) /hpf Crossmatch 02/11/20 02/11/20 02/11/20 Range/Units 01:57 05:02 06:10 WBC (3.8-10.6) k/uL RBC (4.30-5.90) m/uL Hgb (13.0-17.5) gm/dL Hct (39.0-53.0) % RDW (11.5-15.5) % Neutrophils # (1.3-7.7) k/uL Lymphocytes # (1.0-4.8) k/uL Monocytes # (0-1.0) k/uL Potassium 5.8 H (3.5-5.1) mmol/L Chloride 110 H (98-107) mmol/L Carbon Dioxide 17 L (22-30) mmol/L BUN 91 H (9-20) mg/dL Creatinine 2.41 H (0.66-1.25) mg/dL Glucose 131 H (74-99) mg/dL POC Glucose (mg/dL) 137 H (75-99) mg/dL Urine Protein (Negative) Urine Blood (Negative) Ur Leukocyte Esterase (Negative) Urine RBC (0-5) /hpf Urine Bacteria (None) /hpf Hyaline Casts (0-2) /lpf Urine Mucus (None) /hpf Crossmatch See Detail 02/11/20 02/11/20 02/11/20 Range/Units 10:09 11:29 12:50 WBC 22.7 H (3.8-10.6) k/uL RBC 2.55 L (4.30-5.90) m/uL Hgb 7.5 L (13.0-17.5) gm/dL Hct 24.2 L (39.0-53.0) % RDW 15.9 H (11.5-15.5) % Neutrophils # (1.3-7.7) k/uL Lymphocytes # (1.0-4.8) k/uL Monocytes # (0-1.0) k/uL Potassium (3.5-5.1) mmol/L Chloride (98-107) mmol/L Carbon Dioxide (22-30) mmol/L BUN (9-20) mg/dL Creatinine (0.66-1.25) mg/dL Glucose (74-99) mg/dL POC Glucose (mg/dL) 174 H (75-99) mg/dL Urine Protein Trace H (Negative) Urine Blood Moderate H (Negative) Ur Leukocyte Esterase Trace H (Negative) Urine RBC 19 H (0-5) /hpf Urine Bacteria Rare H (None) /hpf Hyaline Casts 38 H (0-2) /lpf Urine Mucus Rare H (None) /hpf Crossmatch Assessment and Plan Assessment: 1. Moderately sized left pleural effusion, with a recent history of left-sided thoracentesis on 02/06/2020 with removal of 1.5 L of pleural fluid cytology is pending, cultures are negative thus far, and fluid was exudative in nature 2. Acute ischemic CVA on 02/09/2020, and patient presented with right upper extremity weakness, initial brain CT showed areas of focal cortical hypodensity in the left parietal occipital junction and posterior left parietal lobe compatible with acute infarct. Brain MRI showed numerous focal areas of increased signal within the left frontal, parietal, parietal occipital and temporal regions compatible with acute ischemic embolic process 3. Left ICA stenosis of 50-69% 4. Chronic anemia, with recent history of a blood positive in stools 5. History of COPD 6. History of tobacco dependence, currently in remission, carries [id number] smoking history 7. Coronary artery disease with previous history of coronary intervention and stenting 8. Peripheral vascular disease 9. Carotid artery stenosis with previous history of endarterectomy on the left 10. History of chronic kidney disease stage III at baseline 11. History of bladder cancer 12. Hypertension 13. Hyperlipidemia 14. Diabetes mellitus type 2 Plan: 1. The patient was seen and examined at his bedside on the cardiac stepdown unit with Dr. Hall. 2. Send pleural fluid for cytology, cell count with differential, culture, LDH, protein and glucose. Pleural fluid from 02/09/2020 remains pending as well. 3. Transfuse 1 unit of PRBCs today for hemoglobin of 6.4. 4. Repeat CBC and BMP in the morning 02/12/2020. 5. Chest x-ray in the a.m., reevaluate pleural effusion. 6. Wean oxygen as tolerated to maintain oxygen saturations greater than or equal to 92%. 7. Neurology recommendations per Dr. Alonzo 8. More recommendations to follow based on patient's clinical course. The patient was seen and examined with Dr. Hall, the plan and assessment were discussed. Time with Patient: Greater than 30
[2020-02-11 14:50] LABS: Color,BF Red
[2020-02-11 14:51] LABS: Appearance,BF Bloody; Nucleated Cells, Body Fluid 2000 /uL; RBC, Body Fluid 695500 /uL
[2020-02-11 14:52] LABS: Mononuclear WBC,Body Fluid 4 %; Polynuclear WBC,Body Fluid 96 %; Total Cells Counted,Body Fluid 100
[2020-02-11 16:40] LABS: Total Protein, Body Fluid 4900 mg/dL
[2020-02-11 16:41] LABS: Glucose, BF Source Pleural Fluid; Glucose, Body Fluid 37 mg/dL; LDH, Body Fluid Source Pleural Fluid
[2020-02-11 16:59] LABS: Glucose,Whole Blood 113 mg/dL (75-99)
--- NOTE | 2020-02-11 17:14 | P.CONS ---
History of Present Illness - Reason for Consult Consult date: 02/11/20 Anemia, dark stools Requesting physician: Vicki Mcgrath - Chief Complaint Right-sided weakness - History of Present Illness 84-year-old male with multiple medical comorbidities including COPD, coronary artery disease, peripheral vascular disease, diabetes mellitus, chronic kidney disease, chronic anemia, history of bladder cancer, hypertension, hyperlipidemia and prior pleural effusion who presents to the hospital with findings of right- sided weakness currently being treated for a CVA. The patient has a long- standing history of chronic anemia which is been evaluated in the past with EGD and colonoscopy in 12/2016 significant for gastritis, diverticulosis and hemor rhoids. Patient had EGD repeated on 11/23/2019 again significant only for gastritis. Patient is on home iron therapy. I'll current presentation he is being treated for symptoms of right-sided weakness and CVA. Patient also had a left pleural effusion which was treated with thoracentesis with 800 mL of bloody fluid removed. There was concern over possible bloody bowel movement yesterday after the patient was started on Plavix and aspirin for his CVA. Normal bowel movement this morning however the patient had a dark bowel movement this afternoon. Patient's hemoglobin 6.4 today for which he receive transfusion. Review of Systems ROS unobtainable: due to mental status Past Medical History Past Medical History: Cancer, Diabetes Mellitus, Hypertension, Vascular Disorder Additional Past Medical History / Comment(s): Coronary artery disease, carotid artery stenosis, previous cardiac catheterization and coronary stenting, peripheral vascular disease with lower extremity vascular stenting, bladder cancer, chronic iron deficiency anemia, hypertension, hyperlipidemia, diabetes mellitus type 2 History of Any Multi-Drug Resistant Organisms: None Reported Past Surgical History: Appendectomy, Heart Catheterization With Stent, Tonsi llectomy Additional Past Surgical History / Comment(s): demetrius cataracts, left carotid endarterectomy, stents demetrius legs, aortogram 05/01/18, Past Anesthesia/Blood Transfusion Reactions: No Reported Reaction Additional Past Anesthesia/Blood Transfusion Reaction / Comm: no hx blood transfusion Date of Last Stent Placement:: 04/17/17 Past Psychological History: No Psychological Hx Reported Smoking Status: Current every day smoker Past Alcohol Use History: Rare Additional Past Alcohol Use History / Comment(s): smokes pipe for past 60 yrs. Patient denies any marijuana use, illicit drug use. He drinks alcohol very rarely. He lives at home with his . Patient is very independent. Past Drug Use History: None Reported - Past Family History Mother Family Medical History: No Reported History Additional Family Medical History / Comment(s): Mother at age 92 from old age. Father Family Medical History: Diabetes Mellitus Additional Family Medical History / Comment(s): Father at age 60 from complications from diabetes. Sister(s) Family Medical History: Cancer Additional Family Medical History / Comment(s): Patient has a total of 6 sisters. He denies any family members with anemia. Patient has 1 brother that has passed from alcohol related conditions. Patient has 2 sons and 1 daughter with no major medical problems. Medications and Allergies Home Medications Medication Instructions Recorded Confirmed Type Atorvastatin [Lipitor] 10 mg PO DAILY 10/23/16 02/09/20 History Multivitamins, Thera [Multivitamin 1 tab PO DAILY 10/23/16 02/09/20 History (formulary)] Aspirin [Adult Low Dose Aspirin EC] 81 mg PO DAILY 11/30/16 02/09/20 History Furosemide [Lasix] 20 mg PO BID 04/03/17 02/09/20 History metFORMIN HCL [Glucophage] 500 mg PO DAILY 08/31/17 02/09/20 History Lisinopril [Prinivil] 20 mg PO DAILY 04/25/18 02/09/20 History Acetaminophen [Tylenol] 500 mg PO Q4H PRN 02/06/20 02/09/20 History Allergies Allergy/AdvReac Type Severity Reaction Status Date / Time No Known Allergies Allergy Verified 02/09/20 11:51 Physical Exam Vitals: Vital Signs Temp Pulse Pulse Resp BP BP Pulse Ox 02/11/20 15:35 98.6 F 100 20 135/61 94 L 02/11/20 12:20 103 H 20 116/56 96 02/11/20 12:00 103 H 02/11/20 08:00 97.6 F 100 20 119/63 95 02/11/20 07:54 97.6 F 63 20 119/63 02/11/20 05:52 98.1 F 70 18 103/58 95 02/11/20 05:22 98.1 F 96 19 94/51 96 02/11/20 05:12 98.1 F 72 18 99/57 93 L 02/11/20 04:00 97.4 F L 65 17 94/50 92 L 02/11/20 00:00 98.4 F 100 20 97/52 100 02/10/20 20:00 97.9 F 72 20 116/53 95 Intake and Output 02/11/20 02/11/20 02/11/20 06:59 14:59 22:59 Intake Total 0 310 Balance 0 310 Intake: Blood Product 0 310 Rc As-1 Unit 0 310 [id number] Other: Voiding Method Urinal Indwelling Catheter Indwelling Catheter # Voids 3 Weight 75.4 kg On physical examination, patient appears comfortable in no apparent distress. HEAD: Normocephalic, atraumatic. EYES: No scleral icterus. No conjunctival injection. MOUTH: No lesions, tongue midline. NECK: Trachea midline, no gross abnormalities. CHEST: Decreased air entry in all lung servin. HEART: S1-S2 appreciated. ABDOMEN: Soft, obese. Bowel sounds are positive. No organomegaly. No guarding or rigidity. EXTREMITIES: No pedal edema. SKIN: No rashes, no jaundice. NEUROLOGIC: Alert and interactive, patient has right-sided weakness in the upper and lower extremities. Results CBC & Chem 7: 02/11/20 12:50 02/11/20 05:02 Labs: Abnormal Lab Results - Last 24 Hours (Table) 02/10/20 02/10/20 02/11/20 Range/Units 16:52 20:00 00:12 WBC 17.1 H (3.8-10.6) k/uL RBC 2.11 L (4.30-5.90) m/uL Hgb 6.4 L* (13.0-17.5) gm/dL Hct 20.0 L (39.0-53.0) % RDW (11.5-15.5) % Neutrophils # 14.7 H (1.3-7.7) k/uL Lymphocytes # 0.9 L (1.0-4.8) k/uL Monocytes # 1.2 H (0-1.0) k/uL Potassium (3.5-5.1) mmol/L Chloride (98-107) mmol/L Carbon Dioxide (22-30) mmol/L BUN (9-20) mg/dL Creatinine (0.66-1.25) mg/dL Glucose (74-99) mg/dL POC Glucose (mg/dL) 175 H 301 H (75-99) mg/dL Urine Protein (Negative) Urine Blood (Negative) Ur Leukocyte Esterase (Negative) Urine RBC (0-5) /hpf Urine Bacteria (None) /hpf Hyaline Casts (0-2) /lpf Urine Mucus (None) /hpf Crossmatch 02/11/20 02/11/20 02/11/20 Range/Units 01:57 05:02 06:10 WBC (3.8-10.6) k/uL RBC (4.30-5.90) m/uL Hgb (13.0-17.5) gm/dL Hct (39.0-53.0) % RDW (11.5-15.5) % Neutrophils # (1.3-7.7) k/uL Lymphocytes # (1.0-4.8) k/uL Monocytes # (0-1.0) k/uL Potassium 5.8 H (3.5-5.1) mmol/L Chloride 110 H (98-107) mmol/L Carbon Dioxide 17 L (22-30) mmol/L BUN 91 H (9-20) mg/dL Creatinine 2.41 H (0.66-1.25) mg/dL Glucose 131 H (74-99) mg/dL POC Glucose (mg/dL) 137 H (75-99) mg/dL Urine Protein (Negative) Urine Blood (Negative) Ur Leukocyte Esterase (Negative) Urine RBC (0-5) /hpf Urine Bacteria (None) /hpf Hyaline Casts (0-2) /lpf Urine Mucus (None) /hpf Crossmatch See Detail 02/11/20 02/11/20 02/11/20 Range/Units 10:09 11:29 12:50 WBC 22.7 H (3.8-10.6) k/uL RBC 2.55 L (4.30-5.90) m/uL Hgb 7.5 L (13.0-17.5) gm/dL Hct 24.2 L (39.0-53.0) % RDW 15.9 H (11.5-15.5) % Neutrophils # (1.3-7.7) k/uL Lymphocytes # (1.0-4.8) k/uL Monocytes # (0-1.0) k/uL Potassium (3.5-5.1) mmol/L Chloride (98-107) mmol/L Carbon Dioxide (22-30) mmol/L BUN (9-20) mg/dL Creatinine (0.66-1.25) mg/dL Glucose (74-99) mg/dL POC Glucose (mg/dL) 174 H (75-99) mg/dL Urine Protein Trace H (Negative) Urine Blood Moderate H (Negative) Ur Leukocyte Esterase Trace H (Negative) Urine RBC 19 H (0-5) /hpf Urine Bacteria Rare H (None) /hpf Hyaline Casts 38 H (0-2) /lpf Urine Mucus Rare H (None) /hpf Crossmatch 02/11/20 Range/Units 16:58 WBC (3.8-10.6) k/uL RBC (4.30-5.90) m/uL Hgb (13.0-17.5) gm/dL Hct (39.0-53.0) % RDW (11.5-15.5) % Neutrophils # (1.3-7.7) k/uL Lymphocytes # (1.0-4.8) k/uL Monocytes # (0-1.0) k/uL Potassium (3.5-5.1) mmol/L Chloride (98-107) mmol/L Carbon Dioxide (22-30) mmol/L BUN (9-20) mg/dL Creatinine (0.66-1.25) mg/dL Glucose (74-99) mg/dL POC Glucose (mg/dL) 113 H (75-99) mg/dL Urine Protein (Negative) Urine Blood (Negative) Ur Leukocyte Esterase (Negative) Urine RBC (0-5) /hpf Urine Bacteria (None) /hpf Hyaline Casts (0-2) /lpf Urine Mucus (None) /hpf Crossmatch Microbiology - Last 24 Hours (Table) 02/11/20 10:53 Body Fluid Culture - Preliminary Pleural Fluid 02/11/20 10:53 Acid Fast Bacilli Culture - Preliminary Pleural Fluid 02/11/20 10:53 Fungal Culture - Preliminary Pleural Fluid Assessment and Plan (1) Normocytic normochromic anemia Narrative/Plan: 84-year-old male with multiple medical comorbidities including chronic normocytic normochromic anemia likely multifactorial secondary to anemia of chronic disease, nutritional deficiencies, cannot rule out a component of bleeding from small bowel angiodysplasias. On current admission patient was found to have a pleural effusion which was described as grossly bloody. Bowel movements have also been noted to be dark. Current Visit: Yes Status: Acute Code(s): D64.9 - ANEMIA, UNSPECIFIED SNOMED Code(s): 07421474 (2) Cerebrovascular accident (CVA) Current Visit: Yes Status: Acute Code(s): I63.9 - CEREBRAL INFARCTION, UNSPECIFIED SNOMED Code(s): 569044559 Plan: Supportive care Okay for diet as tolerated Continue famotidine twice a day Continue to monitor hemoglobin and hematocrit and transfuse as needed Reports from prior endoscopic investigations reviewed No plan for endoscopic evaluation on current admission, patient remains extremely high risk for sedation given multiple comorbidities and recent CVA Continue to hold anticoagulation/antiplatelet agents given concern for possible bleeding from GI tract and from pleural effusion Thank you for allowing us to participate in the care of the patient
--- NOTE | 2020-02-11 17:41 | P.PN ---
Subjective Progress Note Date: 02/11/20 Patient is laying comfortably in the bed. Continues to have weakness of the right side. Offers no new complaints. Objective - Vital Signs Vital signs: Vital Signs Temp 98.6 F 02/11/20 15:35 Pulse 100 02/11/20 15:35 Resp 20 02/11/20 15:35 BP 135/61 02/11/20 15:35 Pulse Ox 94 L 02/11/20 15:35 Intake & Output 02/10/20 02/11/20 02/11/20 18:59 06:59 18:59 Intake Total 240 0 310 Output Total 125 Balance 240 -125 310 Weight 74.5 kg 75.4 kg Intake: Oral 240 Blood Product 0 310 Rc As-1 Unit 0 310 [id number] Output: Urine 125 Other: Voiding Method Urinal Indwelling Catheter # Voids 3 3 - Exam On examination patient is an elderly male, laying comfortably in the bed. Speech and language functions appears clear. No aphasia. Cranial nerves are normal. Patient has right facial weakness, central type. Patient's right arm appears worse. Right leg appears normal. - Labs CBC & Chem 7: 02/11/20 12:50 02/11/20 05:02 Labs: Abnormal Lab Results - Last 24 Hours (Table) 02/10/20 02/11/20 02/11/20 Range/Units 20:00 00:12 01:57 WBC 17.1 H (3.8-10.6) k/uL RBC 2.11 L (4.30-5.90) m/uL Hgb 6.4 L* (13.0-17.5) gm/dL Hct 20.0 L (39.0-53.0) % RDW (11.5-15.5) % Neutrophils # 14.7 H (1.3-7.7) k/uL Lymphocytes # 0.9 L (1.0-4.8) k/uL Monocytes # 1.2 H (0-1.0) k/uL Potassium (3.5-5.1) mmol/L Chloride (98-107) mmol/L Carbon Dioxide (22-30) mmol/L BUN (9-20) mg/dL Creatinine (0.66-1.25) mg/dL Glucose (74-99) mg/dL POC Glucose (mg/dL) 301 H (75-99) mg/dL Urine Protein (Negative) Urine Blood (Negative) Ur Leukocyte Esterase (Negative) Urine RBC (0-5) /hpf Urine Bacteria (None) /hpf Hyaline Casts (0-2) /lpf Urine Mucus (None) /hpf Crossmatch See Detail 02/11/20 02/11/20 02/11/20 Range/Units 05:02 06:10 10:09 WBC (3.8-10.6) k/uL RBC (4.30-5.90) m/uL Hgb (13.0-17.5) gm/dL Hct (39.0-53.0) % RDW (11.5-15.5) % Neutrophils # (1.3-7.7) k/uL Lymphocytes # (1.0-4.8) k/uL Monocytes # (0-1.0) k/uL Potassium 5.8 H (3.5-5.1) mmol/L Chloride 110 H (98-107) mmol/L Carbon Dioxide 17 L (22-30) mmol/L BUN 91 H (9-20) mg/dL Creatinine 2.41 H (0.66-1.25) mg/dL Glucose 131 H (74-99) mg/dL POC Glucose (mg/dL) 137 H (75-99) mg/dL Urine Protein Trace H (Negative) Urine Blood Moderate H (Negative) Ur Leukocyte Esterase Trace H (Negative) Urine RBC 19 H (0-5) /hpf Urine Bacteria Rare H (None) /hpf Hyaline Casts 38 H (0-2) /lpf Urine Mucus Rare H (None) /hpf Crossmatch 02/11/20 02/11/20 02/11/20 Range/Units 11:29 12:50 16:58 WBC 22.7 H (3.8-10.6) k/uL RBC 2.55 L (4.30-5.90) m/uL Hgb 7.5 L (13.0-17.5) gm/dL Hct 24.2 L (39.0-53.0) % RDW 15.9 H (11.5-15.5) % Neutrophils # (1.3-7.7) k/uL Lymphocytes # (1.0-4.8) k/uL Monocytes # (0-1.0) k/uL Potassium (3.5-5.1) mmol/L Chloride (98-107) mmol/L Carbon Dioxide (22-30) mmol/L BUN (9-20) mg/dL Creatinine (0.66-1.25) mg/dL Glucose (74-99) mg/dL POC Glucose (mg/dL) 174 H 113 H (75-99) mg/dL Urine Protein (Negative) Urine Blood (Negative) Ur Leukocyte Esterase (Negative) Urine RBC (0-5) /hpf Urine Bacteria (None) /hpf Hyaline Casts (0-2) /lpf Urine Mucus (None) /hpf Crossmatch Microbiology - Last 24 Hours (Table) 02/11/20 10:53 Body Fluid Culture - Preliminary Pleural Fluid 02/11/20 10:53 Acid Fast Bacilli Culture - Preliminary Pleural Fluid 02/11/20 10:53 Fungal Culture - Preliminary Pleural Fluid Assessment and Plan Assessment: * Acute watershed ischemic CVA, due to severe left ICA stenosis. * Left ICA stenosis, involving the intracranial portion of the left ICA at its cavernous segment per MRA. 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 * Anemia * Encephalopathy, likely toxic metabolic, and perhaps related to CVA. * History of recent occult blood positive in the stools. * Acute on chronic renal insufficiency. * Hemorrhagic pleural effusion. Plan: * Patient has developed hemorrhagic left pleural effusion and possible GI bleed. Antiplatelet medications have been held. Anemia has got worse. GI also has seen the patient, recommending to hold off antiplatelet medication. * 2-D echo showed mild concentric LVH, EF 55-60% mitral valve leaflets are mildly thickened. Trace MR. No obvious embolic source. * MRI brain confirmed acute ischemic stroke in the watershed distribution in the left cerebral hemisphere, mainly between MCA/OWEN, MCA/[employer]. * MRA of the brain revealed high-grade stenosis noted to involve the intracranial portion of the left ICA at its cavernous component. * Suggest follow-up with vascular surgery. Uncertain if the left ICA stenosis can be treated with CEA. Otherwise consider left ICA stenting, if technically possible. * Fasting a.m. lipid panel showed cholesterol 100, LDL 52, HDL 27 and triglycerides 106. Hemoglobin A1c 6.1. * PT, OT. * Patient on Pepcid 20 mg twice a day for gastric ulcer prophylaxis. * DVT prophylaxis. * Discussed with internal medicine and vascular surgery.
[2020-02-11 19:39] LABS: Anisocytosis Slight; HCT 22.1 % (39.0-53.0); HGB 7.1 gm/dL (13.0-17.5); Hypochromasia Slight; MCH 30.1 pg (25.0-35.0); MCHC 32.3 g/dL (31.0-37.0); MCV 93.4 fL (80.0-100.0); Mean Platelet Volume 9.5; Platelet Count 240 k/uL (150-450); RBC 2.37 m/uL (4.30-5.90); RDW 16.3 % (11.5-15.5); WBC 20.7 k/uL (3.8-10.6)
[2020-02-11 21:31] LABS: Glucose,Whole Blood 94 mg/dL (75-99)
[2020-02-12] MEDS: INSULIN ASPART (NovoLOG) 100 UNIT/ML VIAL SQ SCH ×5 (02:32→20:34)
[2020-02-12] MEDS: FAMOTIDINE 20 MG TAB PO SCH ×2 (02:32→16:38)
[2020-02-12] MEDS: SODIUM CHLORIDE 0.9% 1,000 ML IV SCH ×2 (05:08→17:45)
[2020-02-12 06:33] LABS: Glucose,Whole Blood 151 mg/dL (75-99)
[2020-02-12 07:10] LABS: Calcium 8.3 mg/dL (8.4-10.2)
[2020-02-12 07:13] LABS: Anisocytosis Slight; Hypochromasia Slight; MCH 29.2 pg (25.0-35.0); MCHC 31.3 g/dL (31.0-37.0); MCV 93.3 fL (80.0-100.0); Mean Platelet Volume 9.6; Platelet Count 247 k/uL (150-450); RBC 2.12 m/uL (4.30-5.90); RDW 16.3 % (11.5-15.5); WBC 16.5 k/uL (3.8-10.6)
[2020-02-12 07:17] LABS: HCT 19.8 % (39.0-53.0); HGB 6.2 gm/dL (13.0-17.5)
--- NOTE | 2020-02-12 08:51 | XR ---
EXAMINATION TYPE: XR chest 1V portable DATE OF EXAM: 02/12/2020 COMPARISON: 2019 INDICATION: Left-sided pleural effusion TECHNIQUE: Single frontal view of the chest is obtained. FINDINGS: The heart size is moderately prominent. The pulmonary vasculature is normal. There is a moderate left pleural effusion. There is increasing opacification over the last aerated le ft upper lobe. Some pleural fluid may surround the pleural margin. Note is made of chronic rotator cuff tears bilateral shoulders. IMPRESSION: 1. Worsening moderate left pleural effusion.
--- NOTE | 2020-02-12 11:17 | P.PN ---
Subjective Progress Note Date: 02/12/20 The patient was seen and examined lying in bed with 2L oxygen per NC. He does not appear to be in any acute distress. He remains on a clear liquid diet, is more awake and alert today. Patient denies any shortness of breath or chest pain at this time. Denies any increased focal deficits. The patient continues to have right sided weakness. He denies any changes through the night. Patient has left pleural effusion, patient underwent thoracentesis yesterday and found to have left hemothorax with 800 mL of grossly bloody fluid removed. The patient's hemoglobin had dropped yesterday to 6.4 and received 1 unit PRBC. Hemoglobin improved to 7.5 mg, and then again dropped this morning to 6.2. The patient was also noted to have a Cabezas catheter with pink/red tinged urine in the catheter tube. Objective - Vital Signs Vital signs: Vital Signs Temp 97.8 F 02/12/20 04:00 Pulse 98 02/12/20 04:00 Resp 18 02/12/20 04:00 BP 127/78 02/12/20 04:00 Pulse Ox 95 02/12/20 04:00 Intake & Output 02/11/20 02/12/20 02/12/20 18:59 06:59 18:59 Intake Total 310 Output Total 500 1000 0 Balance -190 -1000 0 Weight 75 kg Intake: Blood Product 310 Rc As-1 Unit 310 [id number] Output: Urine 500 1000 0 Other: Voiding Method Indwelling Catheter Indwelling Catheter - Exam General appearance: The patient is alert, no acute distress. HET: Head is normocephalic and atraumatic. Neck: Supple without lymphadenopathy. Trachea midline. Heart: S1 S2. Regular rate and rhythm. Lungs: Diminished bilaterally. No crackles or wheezes are heard. Abdomen: Soft, nontender, nondistended with bowel sounds. No peritoneal signs. No palpable organomegaly or masses. Extremities: Normal skin color and turgor. No cyanosis, rash, ulceration, clubbing, or edema. Neurological: Alert. Speech is fluent. Right upper extremity flaccid and weak. Right lower extremity with mild to moderate weakness. - Labs CBC & Chem 7: 02/12/20 05:37 02/12/20 05:37 Labs: Abnormal Lab Results - Last 24 Hours (Table) 02/11/20 02/11/20 02/11/20 Range/Units 01:57 10:09 11:29 WBC (3.8-10.6) k/uL RBC (4.30-5.90) m/uL Hgb (13.0-17.5) gm/dL Hct (39.0-53.0) % RDW (11.5-15.5) % Chloride (98-107) mmol/L Carbon Dioxide (22-30) mmol/L BUN (9-20) mg/dL Creatinine (0.66-1.25) mg/dL Glucose (74-99) mg/dL POC Glucose (mg/dL) 174 H (75-99) mg/dL Calcium (8.4-10.2) mg/dL Urine Protein Trace H (Negative) Urine Blood Moderate H (Negative) Ur Leukocyte Esterase Trace H (Negative) Urine RBC 19 H (0-5) /hpf Urine Bacteria Rare H (None) /hpf Hyaline Casts 38 H (0-2) /lpf Urine Mucus Rare H (None) /hpf Crossmatch See Detail 02/11/20 02/11/20 02/11/20 Range/Units 12:50 16:58 18:48 WBC 22.7 H 20.7 H (3.8-10.6) k/uL RBC 2.55 L 2.37 L (4.30-5.90) m/uL Hgb 7.5 L 7.1 L (13.0-17.5) gm/dL Hct 24.2 L 22.1 L (39.0-53.0) % RDW 15.9 H 16.3 H (11.5-15.5) % Chloride (98-107) mmol/L Carbon Dioxide (22-30) mmol/L BUN (9-20) mg/dL Creatinine (0.66-1.25) mg/dL Glucose (74-99) mg/dL POC Glucose (mg/dL) 113 H (75-99) mg/dL Calcium (8.4-10.2) mg/dL Urine Protein (Negative) Urine Blood (Negative) Ur Leukocyte Esterase (Negative) Urine RBC (0-5) /hpf Urine Bacteria (None) /hpf Hyaline Casts (0-2) /lpf Urine Mucus (None) /hpf Crossmatch 02/12/20 02/12/20 02/12/20 Range/Units 05:37 05:37 06:23 WBC 16.5 H (3.8-10.6) k/uL RBC 2.12 L (4.30-5.90) m/uL Hgb 6.2 L* (13.0-17.5) gm/dL Hct 19.8 L* (39.0-53.0) % RDW 16.3 H (11.5-15.5) % Chloride 115 H (98-107) mmol/L Carbon Dioxide 20 L (22-30) mmol/L BUN 91 H (9-20) mg/dL Creatinine 1.94 H (0.66-1.25) mg/dL Glucose 131 H (74-99) mg/dL POC Glucose (mg/dL) 151 H (75-99) mg/dL Calcium 8.3 L (8.4-10.2) mg/dL Urine Protein (Negative) Urine Blood (Negative) Ur Leukocyte Esterase (Negative) Urine RBC (0-5) /hpf Urine Bacteria (None) /hpf Hyaline Casts (0-2) /lpf Urine Mucus (None) /hpf Crossmatch Microbiology - Last 24 Hours (Table) 02/11/20 10:53 Gram Stain - Preliminary Pleural Fluid Body Fluid Culture - Preliminary 02/11/20 10:53 Acid Fast Bacilli Smear - Final Pleural Fluid Acid Fast Bacilli Culture - Preliminary 02/11/20 10:53 Fungal Culture - Preliminary Pleural Fluid Assessment and Plan Assessment: 1. Left internal carotid stenosis just under 70% discordant between carotid ultrasound suggesting moderate 50-69% stenosis of the proximal right ICA 2. Acute ischemic stroke left MCA/OWEN and MCA [employer]ER. 3. 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 Recurrent Left-sided pleural effusion, status post thoracentesis for 800 mL of bloody fluid 5. Chronic iron deficiency anemia 6. Hypertension 7. Type 2 diabetes mellitus 8. Hyperlipidemia 9. Peripheral vascular disease 10. Tobacco dependence Plan: At this time it is likely that the patient would not tolerate any vascular surgical interventions. Continue with medical management. Continue with recommendations per neurology. Patient to follow-up with Dr. Cabezas after discharge. Further recommendations to follow. The above dictated assessment and findings were discussed with Dr. Cabezas. The impression and plan of care have been directed as dictated.
[2020-02-12] MEDS ORDERED: SODIUM FERRIC GLUCONAT-SUCROSE 125 MG in SODIUM CHLORIDE 0.9% 100 ML IVPB SCH (12:00)
[2020-02-12 12:20] LABS: Glucose,Whole Blood 148 mg/dL (75-99)
--- NOTE | 2020-02-12 13:24 | P.PN ---
Subjective Progress Note Date: 02/12/20 Principal diagnosis: Right-sided weakness, acute CVA, left pleural effusion, anemia 84-year-old white male patient of Dr. Mcgrath, who was recently seen by us in consultation during his previous admission on 02/06/2020 for shortness of breath and new onset of left-sided pleural effusion. Medical history includes COPD with chronic [id number] smoking history, CAD with previous intervention and stenting, peripheral vascular disease, carotid artery stenosis with previous left endarterectomy, right kidney disease stage III at baseline, chronic anemia, history of bladder cancer, hypertension, hyperlipidemia, diabetes mellitus type 2. Patient underwent left sided thoracentesis by Dr. Conway on 02/06/2020 with removal of 1.5 L of dark yellowish pleural effusion, and pleural fluid analysis revealed exudative fluid, pleural fluid cytology is still pending, blood fluid cultures were negative. Patient was discharged home on all 02/07/2020. On 02/09/2020 patient had acute onset of right upper extremity weakness at 1105, his symptoms started around 5 PM on 02/08/2020. Brain CT without contrast showed at least a couple areas of focal cortical hypodensity in the left parieto-occipital junction and posterior left parietal lobe compatible with acute infarcts, and it was suspected that the duration was greater than 6 hours judging by the degree of hypodensity. No midline shift or acute intracranial hemorrhage was noted. Echocardiogram showed preserved EF of 55-60% trace mitral regurg and trace tricuspid regurg. Carotid Doppler ultrasound showed a moderate 50-69% stenosis of the proximal right ICA. From pulmonary perspective patient denies any worsening dyspnea, chest x-ray showed increasing moderate to large left pleural effusion with adjacent atelectasis and/or consolidation. And we were consulted in regards to left-sided pleural effusion. Ultrasound the chest was completed showing 13.4 cm fluid pocket on the left, but clinically patient appears to be in no acute respiratory distress, he is currently on 4 L of oxygen with a pulse ox of 96-100%. On 02/12/2020 patient seen in follow-up on selective care unit, yesterday he underwent left-sided thoracentesis by Dr. Schneider with removal of 800 mL of grossly bloody fluid. The fluid was sent for analysis, cytology and cultures, cytology is pending, pleural fluid analysis showed exudative fluid, and pleural fluid Frantz stain showed no organisms, a is afebrile, he received 2 units of packed red blood cells yesterday, and today his hemoglobin is 6.2, patient in addition to hemothorax also was having bowel movements the day before yesterday with blood in them. Plavix and aspirin have been placed on hold. GI service is following. Today he is seen resting in bed, he is on 2 L of oxygen and the pulse ox 98%, does not seem to be in any acute distress, still has right-sided weakness, neurology is following, his been afebrile. Respirations are nonlabored, lung sounds reveal diminished breath sounds on the left, today's chest x-ray shows worsening moderate left pleural effusion, the possibility of reaccumulation of bloody pleural effusion. Objective - Vital Signs Vital signs: Vital Signs Temp 98.1 F 02/12/20 12:30 Pulse 103 H 02/12/20 12:30 Resp 20 02/12/20 12:30 BP 142/66 02/12/20 12:30 Pulse Ox 100 02/12/20 12:30 Intake & Output 02/11/20 02/12/20 02/12/20 18:59 06:59 18:59 Intake Total 310 100 Output Total 500 1000 750 Balance -190 -1000 -650 Weight 75 kg Intake: Oral 100 Blood Product 310 0 Rc As-1 Unit 0 [id number] Rc As-1 Unit 310 [id number] Output: Urine 500 1000 750 Other: Voiding Method Indwelling Catheter Indwelling Catheter Indwelling Catheter - Exam GENERAL EXAM: Alert, pleasant, 84-year-old white male, alert and oriented 3, currently on 2 L of oxygen with a pulse ox of 100%, with right upper extremity weakness, no obvious facial asymmetry, no garbled speech, comfortable in no apparent distress. HEAD: Normocephalic/atraumatic. EYES: Normal reaction of pupils, equal size. Conjunctiva pink, sclera white. NOSE: Clear with pink turbinates. THROAT: No erythema or exudates. NECK: No masses, no JVD, no thyroid enlargement, no adenopathy. CHEST: No chest wall deformity. Symmetrical expansion. LUNGS: with no crackles, wheeze, rhonchi or dullness. Diminished breath sounds at the left base CVS: Regular rate and rhythm, normal S1 and S2, no gallops, no murmurs, no rubs ABDOMEN: Soft, nontender. No hepatosplenomegaly, normal bowel sounds, no guarding or rigidity. EXTREMITIES: No clubbing, no edema, no cyanosis, 2+ pulses and upper and lower extremities. MUSCULOSKELETAL: Muscle strength and tone normal. SPINE: No scoliosis or deformity SKIN: No rashes CENTRAL NERVOUS SYSTEM: Alert and oriented -3. Right upper arm weakness PSYCHIATRIC: Alert and oriented -3. Appropriate affect. Intact judgment and insight. - Labs CBC & Chem 7: 02/12/20 05:37 02/12/20 05:37 Labs: Abnormal Lab Results - Last 24 Hours (Table) 02/11/20 02/11/20 02/11/20 Range/Units 01:57 16:58 18:48 WBC 20.7 H (3.8-10.6) k/uL RBC 2.37 L (4.30-5.90) m/uL Hgb 7.1 L (13.0-17.5) gm/dL Hct 22.1 L (39.0-53.0) % RDW 16.3 H (11.5-15.5) % Chloride (98-107) mmol/L Carbon Dioxide (22-30) mmol/L BUN (9-20) mg/dL Creatinine (0.66-1.25) mg/dL Glucose (74-99) mg/dL POC Glucose (mg/dL) 113 H (75-99) mg/dL Calcium (8.4-10.2) mg/dL Crossmatch See Detail 02/12/20 02/12/20 02/12/20 Range/Units 05:37 05:37 06:23 WBC 16.5 H (3.8-10.6) k/uL RBC 2.12 L (4.30-5.90) m/uL Hgb 6.2 L* (13.0-17.5) gm/dL Hct 19.8 L* (39.0-53.0) % RDW 16.3 H (11.5-15.5) % Chloride 115 H (98-107) mmol/L Carbon Dioxide 20 L (22-30) mmol/L BUN 91 H (9-20) mg/dL Creatinine 1.94 H (0.66-1.25) mg/dL Glucose 131 H (74-99) mg/dL POC Glucose (mg/dL) 151 H (75-99) mg/dL Calcium 8.3 L (8.4-10.2) mg/dL Crossmatch 02/12/20 Range/Units 12:07 WBC (3.8-10.6) k/uL RBC (4.30-5.90) m/uL Hgb (13.0-17.5) gm/dL Hct (39.0-53.0) % RDW (11.5-15.5) % Chloride (98-107) mmol/L Carbon Dioxide (22-30) mmol/L BUN (9-20) mg/dL Creatinine (0.66-1.25) mg/dL Glucose (74-99) mg/dL POC Glucose (mg/dL) 148 H (75-99) mg/dL Calcium (8.4-10.2) mg/dL Crossmatch Microbiology - Last 24 Hours (Table) 02/11/20 10:53 Gram Stain - Preliminary Pleural Fluid Body Fluid Culture - Preliminary 02/11/20 10:53 Acid Fast Bacilli Smear - Final Pleural Fluid Acid Fast Bacilli Culture - Preliminary 02/11/20 10:53 Fungal Culture - Preliminary Pleural Fluid Assessment and Plan Plan: Assessment: #1. Acute anemia multifactorial, likely related to possibility of GI bleeding, and left-sided hemothorax, status post left-sided thoracentesis with evacuation of 800 mL of grossly bloody fluid on all 02/11/2020 #2. Moderately sized left pleural effusion, with a recent history of left-sided thoracentesis on 02/06/2020 with removal of 1.5 L of pleural fluid cytology is pending, cultures are negative thus far, and fluid was exudative in nature. Patient underwent left-sided thoracentesis on 02/11/[address] Schneider would removal of 800 mL of grossly bloody fluid, which was exudative in nature cytolog y is pending, blood cultures are negative #3. Acute ischemic CVA on 02/09/2020, and patient presented with right upper extremity weakness, initial brain CT showed areas of focal cortical hypodensity in the left parietal occipital junction and posterior left parietal lobe compatible with acute infarct. Brain MRI showed numerous focal areas of increased signal within the left frontal, parietal, parietal occipital and temporal regions compatible with acute ischemic embolic process #4. Left ICA stenosis of 50-69% #5. Chronic anemia, with recent history of a blood positive in stools #6. History of COPD #7. History of tobacco dependence, currently in remission, carries [id number] smoking history #8. Coronary artery disease with previous history of coronary intervention and stenting #9. Peripheral vascular disease #10. Carotid artery stenosis with previous history of endarterectomy on the left #11. History of chronic kidney disease stage III at baseline #12. History of bladder cancer #13. Hypertension #14. Hyperlipidemia #15. Diabetes mellitus type 2 Plan: Repeat chest x-ray has been reviewed showing reaccumulation of left pneumothorax, will consult interventional radiology for placement of pigtail chest tube for evacuation of bloody effusion. Patient will be transfused with 2 units of packed red blood cells, Plavix and aspirin remain on hold, follow-up chest x-ray tomorrow we'll continue to follow I performed a history & physical examination of the patient and discussed their management with my nurse practitioner, Christine Landry. I reviewed the nurse practitioner's note and agree with the documented findings and plan of care. Lung sounds are positive for diminished breath sounds. The findings and the impression was discussed with the patient. I attest to the documentation by the nurse practitioner. Time with Patient: Less than 30
--- NOTE | 2020-02-12 14:23 | P.PN ---
Subjective Progress Note Date: 02/12/20 This is an 84-year-old male patient of Dr. Healy with past medical history of hypertension, hyperlipidemia, diabetes mellitus type 2, coronary artery disease status post stent, left carotid endarterectomy, peripheral vascular disease with bilateral stents, bladder cancer, chronic anemia, tobacco use and dependence using a pipe for 60 years. Patient was recently hospitalized on February 05 for left-sided pleural effusion status post thoracentesis for 1.5 L of fluid by Dr. Conway. Patient was also started on home oxygen for chronic hypoxic respiratory failure. Patient had sudden onset of right upper extremity weakness that it started on the evening of February 07. He went to to bed hoping th at the symptoms would go away but woke in the morning and his son was over to visit. Patient's son noted that he had the right upper extremity weakness and called EMS. Patient did have some improvement of his symptoms during transport. He did not have any speech difficulties and no lower extremity weakness. Patient came into [facility] emergency center for evaluation. WBC 14.0 hemoglobin 7.8 platelets 294. PT/PTT normal. Sodium 140 potassium 5.4, BUN 77, creatinine 1.88. Hemoglobin A1c 5.6 on 11/20/2019. B12 358. Folate normal. Liver panel normal. Coronavirus PCR negative on 02/06/2020. Influenza screen negative. Triglycerides 106, cholesterol 100, LDL 52, HDL 27. His initial NIH stroke scale was 1. EKG was a sinus rhythm with incomplete right bundle branch block. According to the ED report, the case was discussed with vascular neurology Dr. Moncada, who felt patient was not a candidate for TPA. Patient was given aspirin and admitted to the cardiac stepdown unit and consults requested with neurology and vascular surgery. CAT scan of the brain that revealed couple areas of focal cortical hypodensity left parietal occipital junction and posterior left parietal compatible with acute infarcts. No midline shift. Chest x-ray showed increasing moderate to large pleural effusion on the left with adjacent atelectasis and/or consol idation. CTA of the head revealed [id number] atherosclerotic narrowing throughout the bilateral carotid siphons more so on the left. The left clinoid segment in particular has some artifact throughout, limiting assessment for focal occlusion. The supraclinoid portion of the left ICA opacifies appropriately arguing against focal thrombus. Further clinical correlation recommended. Consider MRA if indicated. Otherwise no large vessel intracranial arterial occ lusion or aneurysmal changes were seen. CTA of the neck showed moderate to severe atherosclerotic narrowing left carotid bulb with just under 70% stenosis. Subtotal occlusion vs complete occlusion and reconstitution of the V2 segment right vertebral artery at the C5 6 level. Echocardiogram reveals EF of 55-60%, trace mitral regurgitation, trace tricuspid regurgitation. Carotid ultrasound reveals moderate 50-69% stenosis of the proximal right ICA. 02/10: MRA of the head revealed high-grade stenosis involving the intracranial portion of the left ICA at its cavernous component. MRI of the brain revealed numerous focal areas of increased signal noted within the left frontal, parietal lobe, parietal occipital and temporal regions compatible with acute ischemic e mbolic process. Case was discussed yesterday with neurology and vascular surgery. Patient was started on baby aspirin and Plavix. Due to history of gastritis/esophagitis, Pepcid increased to twice daily. Patient was seen by Dr. Cabezas. At this time no clear for surgical intervention is planned and patient will follow-up with Dr. Cabezas as an outpatient. Ultrasound of the chest revealed a left pleural effusion pocket size 13.4 cm and marked for possible thoracentesis. Dr. Hall performed thoracentesis today with removal of 1.1 L of bloody fluid. registry np, patient had bloody stools and found to have a drop in hemoglobin to 6.4 and was transfused 1 unit packed RBCs. GI consult has been added and Plavix and aspirin discontinued. Patient also had an increase in white count to 17.1, BUN 91, creatinine 2.41, potassium 5.8. Consult will be added for Dr. Machuca for acute kidney injury. UA and culture added. Patient has been incontinent of urine. Patient is noted to have increasing weakness to the right lower extremity. Discharge plan is to [facility] or [facility]. 02/11: Patient is afebrile, heart rate 98, blood pressure 127/78, pulse ox 95% on 2 L nasal cannula. Repeat hemoglobin this morning is 6.2. One unit of packed RBCs ordered for today. Reviewed iron studies from last admission. Patient will be started on Ferrlecit daily for 2 doses. WBC 16.5, platelet count 247. Sodium 145, potassium 5.0, chloride 115, CO2 20, BUN 91 and creatinine 1.94. Blood sugar running between 94 and 151. Repeat chest x-ray reveals worsening moderate left pleural effusion with concern for reaccumulation of bloody pleural effusion. Patient is scheduled today for pigtail catheter with interventional radiology. Patient is also had some blood in his Cabezas catheter which seems to be clearing. He has underlying history of bladder cancer. Patient states that he is eating okay and denies any difficulty with swallowing. Patient did have a bowel movement yesterday afternoon which did not show any blood. Repeat chest x-rays been ordered for the morning. Discussed CODE STATUS with family and patient has been made no CODE STATUS. Objective - Vital Signs Vital signs: Vital Signs Temp 97.8 F 02/12/20 04:00 Pulse 98 02/12/20 04:00 Resp 18 02/12/20 04:00 BP 127/78 02/12/20 04:00 Pulse Ox 95 02/12/20 04:00 Intake & Output 02/11/20 02/12/20 02/12/20 18:59 06:59 18:59 Intake Total 310 Output Total 500 1000 0 Balance -190 -1000 0 Weight 75 kg Intake: Blood Product 310 Rc As-1 Unit 310 [id number] Output: Urine 500 1000 0 Other: Voiding Method Indwelling Catheter Indwelling Catheter - Exam Review of Systems Constitutional: Reports weakness, Denies anorexia, Denies chills, Denies fatigue, Denies fever, Denies lethargy, Denies malaise, Denies weight loss Eyes: denies blurred vision, denies pain, denies loss of vision Ears, nose, mouth and throat: Denies dysphagia, Denies headache, Denies nasal congestion, Denies nasal discharge, Denies sore throat, Denies vertigo Cardiovascular: Reports irregular heart beat, Denies chest pain, Denies decreased exercise tolerance, Denies dyspnea on exertion, Denies edema, Denies leg edema, Denies shortness of breath, Denies syncope Respiratory: Denies cough, Denies cough with sputum, Denies dyspnea, Denies hemoptysis, Denies home oxygen, Denies respiratory infections Gastrointestinal: Denies abdominal pain, Denies diarrhea, Denies loss of appetite, Denies nausea, Denies vomiting, reports rectal bleeding Genitourinary: Denies dysuria, Denies urinary retention, reports hematuria Musculoskeletal: Reports muscle weakness, Denies frequent falls, Denies gait dysfunction, Denies myalgias Integumentary: Denies pruritus, Denies rash, Denies wounds Neurological: Reports weakness right upper and lower extremities, Denies change in mentation, Denies change in speech, Denies confusion, Denies gait dysfunction, Denies numbness, Denies paresthesias, Denies vertigo Psychiatric: Denies anxiety, Denies depression Endocrine: Denies fatigue, Denies weight change Physical Examination Gen: This is an 84-year-old male. Patient is sitting up in bed appears to be comfortable in no acute distress. HEENT: Head is atraumatic, normocephalic. Pupils equal, round. Sclerae is anicteric. NECK: Supple. No JVD. No lymphadenopathy. No thyromegaly. No carotid bruit. LUNGS: Diminished in the bases. No wheezes or rhonchi. No intercostal retractions. HEART: Regular rate and rhythm. No murmur. ABDOMEN: Soft. Bowel sounds are present. No masses. No tenderness. EXTREMITIES: No pedal edema. No calf tenderness. NEUROLOGICAL: Patient is awake, alert and oriented x3. Cranial nerves 2 through 12 are grossly intact. No aphasia. Weakness in the right upper extremity 0/5. Right lower extremity strength 2/5. - Labs CBC & Chem 7: 02/12/20 05:37 02/12/20 05:37 Labs: Abnormal Lab Results - Last 24 Hours (Table) 02/11/20 02/11/20 02/11/20 Range/Units 01:57 10:09 11:29 WBC (3.8-10.6) k/uL RBC (4.30-5.90) m/uL Hgb (13.0-17.5) gm/dL Hct (39.0-53.0) % RDW (11.5-15.5) % Chloride (98-107) mmol/L Carbon Dioxide (22-30) mmol/L BUN (9-20) mg/dL Creatinine (0.66-1.25) mg/dL Glucose (74-99) mg/dL POC Glucose (mg/dL) 174 H (75-99) mg/dL Calcium (8.4-10.2) mg/dL Urine Protein Trace H (Negative) Urine Blood Moderate H (Negative) Ur Leukocyte Esterase Trace H (Negative) Urine RBC 19 H (0-5) /hpf Urine Bacteria Rare H (None) /hpf Hyaline Casts 38 H (0-2) /lpf Urine Mucus Rare H (None) /hpf Crossmatch See Detail 02/11/20 02/11/20 02/11/20 Range/Units 12:50 16:58 18:48 WBC 22.7 H 20.7 H (3.8-10.6) k/uL RBC 2.55 L 2.37 L (4.30-5.90) m/uL Hgb 7.5 L 7.1 L (13.0-17.5) gm/dL Hct 24.2 L 22.1 L (39.0-53.0) % RDW 15.9 H 16.3 H (11.5-15.5) % Chloride (98-107) mmol/L Carbon Dioxide (22-30) mmol/L BUN (9-20) mg/dL Creatinine (0.66-1.25) mg/dL Glucose (74-99) mg/dL POC Glucose (mg/dL) 113 H (75-99) mg/dL Calcium (8.4-10.2) mg/dL Urine Protein (Negative) Urine Blood (Negative) Ur Leukocyte Esterase (Negative) Urine RBC (0-5) /hpf Urine Bacteria (None) /hpf Hyaline Casts (0-2) /lpf Urine Mucus (None) /hpf Crossmatch 02/12/20 02/12/20 02/12/20 Range/Units 05:37 05:37 06:23 WBC 16.5 H (3.8-10.6) k/uL RBC 2.12 L (4.30-5.90) m/uL Hgb 6.2 L* (13.0-17.5) gm/dL Hct 19.8 L* (39.0-53.0) % RDW 16.3 H (11.5-15.5) % Chloride 115 H (98-107) mmol/L Carbon Dioxide 20 L (22-30) mmol/L BUN 91 H (9-20) mg/dL Creatinine 1.94 H (0.66-1.25) mg/dL Glucose 131 H (74-99) mg/dL POC Glucose (mg/dL) 151 H (75-99) mg/dL Calcium 8.3 L (8.4-10.2) mg/dL Urine Protein (Negative) Urine Blood (Negative) Ur Leukocyte Esterase (Negative) Urine RBC (0-5) /hpf Urine Bacteria (None) /hpf Hyaline Casts (0-2) /lpf Urine Mucus (None) /hpf Crossmatch Microbiology - Last 24 Hours (Table) 02/11/20 10:53 Gram Stain - Preliminary Pleural Fluid Body Fluid Culture - Preliminary 02/11/20 10:53 Acid Fast Bacilli Smear - Final Pleural Fluid Acid Fast Bacilli Culture - Preliminary 02/11/20 10:53 Fungal Culture - Preliminary Pleural Fluid Assessment and Plan Plan: 1. Acute ischemic stroke left MCA/OWEN and MCA APPLICATION TESTER. Consult with neurology appreciated. MRI and MRA of the brain as above. Continue PT OT. Atorvastatin 40 mg daily. Plavix and aspirin placed on hold. 2. Left internal carotid artery stenosis just under 70%--CTA and ultrasound and consistent. Consult with vascular surgery. No plan for any surgical int ervention at this time. Patient will follow-up as an outpatient. 3. 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 4. Left-sided pleural effusion recurrence status post thoracentesis for 1.5 L on February 05. Consult with Dr. Hall appreciated. Status post thoracentesis with bloody return.. 5. Left-sided hemothorax status post thoracentesis with removal of 800 ML's of grossly bloody fluid. Pigtail catheter to be placed today with interventional radiology. 6 Acute kidney injury with chronic kidney disease stage III. Start IV fluids at 75 mL per hour. Consult with Dr. Machuca. 7. Rectal bleeding with acute blood loss anemia from GI source and also hemothorax contributing to blood loss. Patient has chronic anemia as well. Stool for occult blood from February 06 is positive. Patient had EGD in November. Hold Plavix and aspirin. Transfuse 2 unit of packed RBCs and monitor hemoglobin every 6 hours. Consult with GI. Ferrlecit daily 2 doses. 8. Diabetes mellitus type 2. Hemoglobin A1c 6.1. Hold Metformin 500 mg daily and start NovoLog scale before meals and at bedtime. 9. Hypertension. Hold lisinopril 20 mg daily, Lasix 20 mg daily. 10. Hyperlipidemia. Continue atorvastatin 40 mg daily. 11. Peripheral vascular disease. Continue atorvastatin. 12. History of bladder cancer, stable. 13. Tobacco use and dependence. 14. GI prophylaxis. Pepcid daily 15. DVT prophylaxis. CODE STATUS: No code Discharge plan: [facility] or [facility]. Impression and plan of care have been directed as dictated by the signing physician. Maritza Jett nurse practitioner acting as scribe for signing physician.
--- NOTE | 2020-02-12 15:02 | P.PN ---
Subjective Progress Note Date: 02/12/20 Patient is laying comfortably in the bed. Continues to have weakness of the right side. Offers no new complaints. Denies headache. Objective - Vital Signs Vital signs: Vital Signs Temp 97.6 F 02/12/20 13:00 Pulse 99 02/12/20 13:40 Resp 18 02/12/20 13:40 BP 111/68 02/12/20 13:40 Pulse Ox 98 02/12/20 13:40 Intake & Output 02/11/20 02/12/20 02/12/20 18:59 06:59 18:59 Intake Total 310 100 Output Total 500 1000 750 Balance -190 -1000 -650 Weight 75 kg Intake: Oral 100 Blood Product 310 0 Rc As-1 Unit 0 [id number] Rc As-1 Unit 310 [id number] Output: Urine 500 1000 750 Other: Voiding Method Indwelling Catheter Indwelling Catheter Indwelling Catheter - Exam On examination patient is an elderly male, laying comfortably in the bed. Patient able to name, repeat and follows some commands. Patient slightly confused, appears mildly short of breath. Mildly encephalopathic. Right arm is completely weak. Right leg appears normal. Patient has right facial weakness. Patient also having slight dysphagia and some receptive aphasia. - Labs CBC & Chem 7: 02/12/20 05:37 02/12/20 05:37 Labs: Abnormal Lab Results - Last 24 Hours (Table) 02/11/20 02/11/20 02/11/20 Range/Units 01:57 16:58 18:48 WBC 20.7 H (3.8-10.6) k/uL RBC 2.37 L (4.30-5.90) m/uL Hgb 7.1 L (13.0-17.5) gm/dL Hct 22.1 L (39.0-53.0) % RDW 16.3 H (11.5-15.5) % Chloride (98-107) mmol/L Carbon Dioxide (22-30) mmol/L BUN (9-20) mg/dL Creatinine (0.66-1.25) mg/dL Glucose (74-99) mg/dL POC Glucose (mg/dL) 113 H (75-99) mg/dL Calcium (8.4-10.2) mg/dL Crossmatch See Detail 02/12/20 02/12/20 02/12/20 Range/Units 05:37 05:37 06:23 WBC 16.5 H (3.8-10.6) k/uL RBC 2.12 L (4.30-5.90) m/uL Hgb 6.2 L* (13.0-17.5) gm/dL Hct 19.8 L* (39.0-53.0) % RDW 16.3 H (11.5-15.5) % Chloride 115 H (98-107) mmol/L Carbon Dioxide 20 L (22-30) mmol/L BUN 91 H (9-20) mg/dL Creatinine 1.94 H (0.66-1.25) mg/dL Glucose 131 H (74-99) mg/dL POC Glucose (mg/dL) 151 H (75-99) mg/dL Calcium 8.3 L (8.4-10.2) mg/dL Crossmatch 02/12/20 Range/Units 12:07 WBC (3.8-10.6) k/uL RBC (4.30-5.90) m/uL Hgb (13.0-17.5) gm/dL Hct (39.0-53.0) % RDW (11.5-15.5) % Chloride (98-107) mmol/L Carbon Dioxide (22-30) mmol/L BUN (9-20) mg/dL Creatinine (0.66-1.25) mg/dL Glucose (74-99) mg/dL POC Glucose (mg/dL) 148 H (75-99) mg/dL Calcium (8.4-10.2) mg/dL Crossmatch Microbiology - Last 24 Hours (Table) 02/11/20 10:53 Gram Stain - Preliminary Pleural Fluid Body Fluid Culture - Preliminary 02/11/20 10:53 Acid Fast Bacilli Smear - Final Pleural Fluid Acid Fast Bacilli Culture - Preliminary 02/11/20 10:53 Fungal Culture - Preliminary Pleural Fluid Assessment and Plan Assessment: * Acute watershed ischemic CVA, due to severe left ICA stenosis. * Left ICA stenosis, involving the intracranial portion of the left ICA at its cavernous segment per MRA. 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 * Anemia * Encephalopathy, likely toxic metabolic, and perhaps related to CVA. * History of recent occult blood positive in the stools. * Acute on chronic renal insufficiency. * Hemorrhagic pleural effusion. Plan: * Patient has developed hemorrhagic left pleural effusion and possible GI bleed. Antiplatelet medications have been held. Anemia has got worse. GI also has seen the patient, recommending to hold off antiplatelet medication. * 2-D echo showed mild concentric LVH, EF 55-60% mitral valve leaflets are mildly thickened. Trace MR. No obvious embolic source. * MRI brain confirmed acute ischemic stroke in the watershed distribution in the left cerebral hemisphere, mainly between MCA/OWEN, MCA/SPREAD CUTTER. * MRA of the brain revealed high-grade stenosis noted to involve the intracranial portion of the left ICA at its cavernous component. * Suggest follow-up with vascular surgery. Uncertain if the left ICA stenosis can be treated with CEA. Otherwise consider left ICA stenting, if technically possible. * Patient's anemia has got worse. Hemoglobin 6.2. Off antiplatelets. * Fasting a.m. lipid panel showed cholesterol 100, LDL 52, HDL 27 and triglycerides 106. Hemoglobin A1c 6.1. * PT, OT. * Patient on Pepcid 20 mg twice a day for gastric ulcer prophylaxis. * DVT prophylaxis.
[2020-02-12] MEDS: ATORVASTATIN 40 MG TAB PO SCH (16:07)
[2020-02-12] MEDS: MULTIVITAMINS, THERA 1 EACH TAB PO SCH (16:07)
[2020-02-12] MEDS: SENNOSIDES-DOCUSATE SODIUM 1 EACH TAB PO SCH (16:07)
--- NOTE | 2020-02-12 17:10 | CONS ---
CONSULTATION REASON FOR CONSULT: Renal failure. HISTORY OF PRESENT ILLNESS: Patient is an 84-year-old male who was admitted to the hospital initially on 02/09/2020 with complaints of right arm weakness. Patient also has a history for coronary artery disease, hypertension, type 2 diabetes, history of pleural effusion, status post left thoracentesis. Patient had a CT angiogram on admission which showed about 70% stenosis in the left carotid bulb. Some occlusion was noted in the vertebral arteries as well. Patient's creatinine was 1.8 on initial admission. It peaked to 2.4 and now it is back down to 1.9. Review of previous labs shows serum creatinine of 1.6 in February and as low as 1.3 in January of 2020. Hemoglobin was only 6.2 g/dL today. Patient has an indwelling Cabezas catheter; urine output noted to be about 650 mL. Home medications included MARA inhibitors. No NSAIDs noted. Blood pressure is currently on the lower side, with systolic as low as 91 mmHg noted today and on 02/11/2020. PAST MEDICAL HISTORY: Diabetes, hypertension, hyperlipidemia, coronary artery disease, carotid stenosis, peripheral vascular disease, history of bladder cancer, anemia. PAST SURGICAL HISTORY: Cardiac catheterization, coronary stent placement, tonsillectomy, cataract surgery, left carotid endarterectomy, previous aortograms. SOCIAL HISTORY: Patient is a current daily smoker. No history of drug abuse or alcohol abuse. MEDICATIONS: Medications prior to admission included Lipitor, Glucophage, Lasix, aspirin, Prinivil, Tylenol. ALLERGIES: NONE. REVIEW OF SYSTEMS: As per HPI. Other systems negative. PHYSICAL EXAMINATION: Patient is comfortable, awake, not in any acute distress. Blood pressure is 111/68, heart rate 101 per minute. Patient is afebrile. EXAMINATION OF THE HEART: S1 and S2. EXAMINATION OF LUNGS: Bilateral breath sounds are heard. ABDOMEN: Soft, non-tender. Examination of lower extremities shows no significant edema. 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 LABS: Sodium 145, potassium 5.0, chloride 115. CO2 is 20, BUN 91, creatinine 1.94, hemoglobin 6.2 g/dL, white cell count 16.5, platelet count 247,000. UA shows trace protein, moderate blood, WBCs 5. ASSESSMENT: 1. Acute kidney injury associated with hypotension, hypoperfusion, use of MARA inhibitors prior to admission. Patient also had IV contrast on 02/09/2020 and definitely a component of contrast nephropathy is also contributing to his acute kidney injury. Renal function is slightly better than yesterday. Patient has an indwelling Cabezas catheter, which we will continue. Blood pressure remains on the lower side, but renal function is improving and patient is currently not on any anti-hypertensive medications. 2. Anemia. No active bleeding noted. Iron saturation 6% on 02/07/2020. Patient is maintained on IV iron. 3. Right arm weakness secondary to acute cerebrovascular accident. Neurology is on consult. 4. Left pleural effusion, status post thoracentesis. 5. Left hemothorax, currently with chest tube. This developed after the thoracentesis. PLAN: May continue with the IV fluids for now. Check labs in a.m. Avoid hypotension. Avoid nephrotoxic medications. Check ultrasound of the kidneys if not done recently. It does appear that the patient had one in 2017 which was unremarkable. Thank you for this consultation. Will continue to follow the patient with you during his hospitalization. MMODL / IJN: [id number] /
[2020-02-12 17:33] LABS: Glucose,Whole Blood 139 mg/dL (75-99)
[2020-02-12] MEDS: PANTOPRAZOLE 40 MG/10 ML VIAL IVP SCH ×2 (17:45→20:16)
[2020-02-12] MEDS: SODIUM FERRIC GLUCONAT-SUCROSE 125 MG in SODIUM CHLORIDE 0.9% 100 ML IVPB SCH (20:03)
--- NOTE | 2020-02-12 20:08 | P.PN ---
Subjective Progress Note Date: 02/12/20 Principal diagnosis: Chronic Anemia No signs or symptoms of GI bleeding today. Tolerating diet. No abdominal pain. Objective - Vital Signs Vital signs: Vital Signs Temp 98.1 F 02/12/20 17:59 Pulse 95 02/12/20 17:59 Resp 16 02/12/20 17:59 BP 160/68 02/12/20 17:59 Pulse Ox 95 02/12/20 17:59 Intake & Output 02/12/20 02/12/20 02/13/20 06:59 18:59 06:59 Intake Total 590 Output Total 1000 860 Balance -1000 -270 Weight 75 kg Intake: Oral 280 Blood Product 310 Rc As-1 Unit 0 [id number] Rc As-1 Unit 310 [id number] Output: Chest Tube Drainage 110 Pleural Catheter Left 110 Posterior Chest Urine 1000 750 Other: Voiding Method Indwelling Catheter Indwelling Catheter # Bowel Movements 2 - Exam On physical examination, patient appears comfortable in no apparent distress. HEAD: Normocephalic, atraumatic. EYES: No scleral icterus. No conjunctival injection. MOUTH: No lesions, tongue midline. NECK: Trachea midline, no gross abnormalities. ABDOMEN: Soft, obese. Bowel sounds are positive. No organomegaly. No guarding or rigidity. EXTREMITIES: No pedal edema. SKIN: No rashes, no jaundice. NEUROLOGIC: Alert and oriented with right-sided weakness noted. - Labs CBC & Chem 7: 02/12/20 05:37 02/12/20 05:37 Labs: Abnormal Lab Results - Last 24 Hours (Table) 02/11/20 02/12/20 02/12/20 Range/Units 01:57 05:37 05:37 WBC 16.5 H (3.8-10.6) k/uL RBC 2.12 L (4.30-5.90) m/uL Hgb 6.2 L* (13.0-17.5) gm/dL Hct 19.8 L* (39.0-53.0) % RDW 16.3 H (11.5-15.5) % Chloride 115 H (98-107) mmol/L Carbon Dioxide 20 L (22-30) mmol/L BUN 91 H (9-20) mg/dL Creatinine 1.94 H (0.66-1.25) mg/dL Glucose 131 H (74-99) mg/dL POC Glucose (mg/dL) (75-99) mg/dL Calcium 8.3 L (8.4-10.2) mg/dL Crossmatch See Detail 02/12/20 02/12/20 02/12/20 Range/Units 06:23 12:07 17:29 WBC (3.8-10.6) k/uL RBC (4.30-5.90) m/uL Hgb (13.0-17.5) gm/dL Hct (39.0-53.0) % RDW (11.5-15.5) % Chloride (98-107) mmol/L Carbon Dioxide (22-30) mmol/L BUN (9-20) mg/dL Creatinine (0.66-1.25) mg/dL Glucose (74-99) mg/dL POC Glucose (mg/dL) 151 H 148 H 139 H (75-99) mg/dL Calcium (8.4-10.2) mg/dL Crossmatch Microbiology - Last 24 Hours (Table) 02/11/20 10:53 Gram Stain - Preliminary Pleural Fluid Body Fluid Culture - Preliminary 02/11/20 10:53 Acid Fast Bacilli Smear - Final Pleural Fluid Acid Fast Bacilli Culture - Preliminary Assessment and Plan (1) Normocytic normochromic anemia Narrative/Plan: 84-year-old male with multiple medical comorbidities including chronic normocytic normochromic anemia likely multifactorial secondary to anemia of chronic disease, nutritional deficiencies, cannot rule out a component of bleeding from small bowel angiodysplasias. On current admission patient was found to have a pleural effusion which was described as grossly bloody. Current Visit: Yes Status: Acute Code(s): D64.9 - ANEMIA, UNSPECIFIED SNOMED Code(s): 61179846 (2) Cerebrovascular accident (CVA) Current Visit: Yes Status: Acute Code(s): I63.9 - CEREBRAL INFARCTION, UNSPECIFIED SNOMED Code(s): 393720634 Plan: Supportive care Okay for diet as tolerated Protonix twice a day Continue to monitor hemoglobin and hematocrit and transfuse as needed Reports from prior endoscopic investigations reviewed No plan for endoscopic evaluation on current admission, patient remains extremely high risk for sedation given multiple comorbidities and recent CVA Continue to hold anticoagulation/antiplatelet agents given concern for possible bleeding from GI tract and from pleural effusion Thank you for allowing us to participate in the care of the patient
[2020-02-12 20:34] LABS: Glucose,Whole Blood 128 mg/dL (75-99)
[2020-02-12 21:54] LABS: Anisocytosis Slight; HCT 28.9 % (39.0-53.0); Hypochromasia Slight; MCH 29.4 pg (25.0-35.0); MCHC 32.4 g/dL (31.0-37.0); MCV 90.8 fL (80.0-100.0); Mean Platelet Volume 8.9; Platelet Count 214 k/uL (150-450); Poikilocytosis Slight; RBC 3.19 m/uL (4.30-5.90); RDW 16.2 % (11.5-15.5); WBC 17.9 k/uL (3.8-10.6)
[2020-02-12 21:56] LABS: HGB 9.4 gm/dL (13.0-17.5)
[2020-02-12] MEDS: ACETAMINOPHEN TAB 325 MG TAB PO PRN (23:13)
[2020-02-13] MEDS: SODIUM CHLORIDE 0.9% 1,000 ML IV SCH (04:44)
[2020-02-13] MEDS: INSULIN ASPART (NovoLOG) 100 UNIT/ML VIAL SQ SCH ×4 (06:28→20:42)
[2020-02-13 06:32] LABS: Glucose,Whole Blood 127 mg/dL (75-99)
--- NOTE | 2020-02-13 08:14 | XR ---
EXAMINATION TYPE: XR chest 1V portable DATE OF EXAM: 02/13/2020 CLINICAL HISTORY: Difficulty breathing and chest tube progress study. TECHNIQUE: Single AP portable upright view of the chest is obtained. COMPARISON: Chest x-ray from one day earlier and older studies. CT chest one week ago. FINDINGS: New left basilar pigtail pleural drainage catheter. Background chronic emphysematous mason e with persistent diffuse left lung opacity. No mediastinal shift. Cardiac silhouette size stable and mildly enlarged. Multilevel spurring in thoracic spine redemonstrated. Persistent silhouetting left hemidiaphragm and heart border. IMPRESSION: New left basilar pigtail pleural drainage catheter. 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
[2020-02-13 09:31] LABS: Calcium 8.7 mg/dL (8.4-10.2); Potassium 4.7 mmol/L (3.5-5.1)
[2020-02-13] MEDS: SENNOSIDES-DOCUSATE SODIUM 1 EACH TAB PO SCH (09:38)
[2020-02-13] MEDS: ATORVASTATIN 40 MG TAB PO SCH (09:38)
[2020-02-13] MEDS: PANTOPRAZOLE 40 MG/10 ML VIAL IVP SCH ×2 (09:38→20:45)
[2020-02-13] MEDS: MULTIVITAMINS, THERA 1 EACH TAB PO SCH (09:38)
[2020-02-13] MEDS: ACETAMINOPHEN TAB 325 MG TAB PO PRN (10:12)
[2020-02-13] MEDS ORDERED: DEXTROSE 5% IN WATER 1,000 ML IV ONE (10:18)
[2020-02-13 10:23] LABS: Anisocytosis Slight; HCT 29.9 % (39.0-53.0); HGB 9.9 gm/dL (13.0-17.5); Hypochromasia Slight; MCH 29.8 pg (25.0-35.0); MCV 90.4 fL (80.0-100.0); Mean Platelet Volume 9.4; Platelet Count 230 k/uL (150-450); Poikilocytosis Moderate; RBC 3.31 m/uL (4.30-5.90); RDW 16.7 % (11.5-15.5); WBC 17.6 k/uL (3.8-10.6)
--- NOTE | 2020-02-13 10:23 | CT ---
EXAMINATION TYPE: CT chest tube insertion DATE OF EXAM: 02/12/2020 COMPARISON: 02/12/2020 HISTORY: chest tube insertion for hemothorax CT DLP: 625 mGycm The procedure is discussed with the patient, the risks, complications, benefits and alternatives, wer e discussed and any questions were answered. Informed consent was obtained. The patient is placed p domingo on the CT table, prepped and draped in the usual sterile fashion. Utilizing a 22-gauge Chiba needle access into left pleural space was achieved. There is conversion to an O.035 system. Placement O.035 guidewire and serial dilation 8 Vincentian with placement of an 8 Fren ch drainage catheter. Repeat imaging demonstrated ideal placement of a pigtail catheter. All element s of maximal barrier and sterile technique were utilized. The patient remained stable throughout the procedure with no immediate postprocedural complication. IMPRESSION: 1. Successful CT guided left chest tube insertion
--- NOTE | 2020-02-13 11:25 | P.PN ---
Subjective Progress Note Date: 02/13/20 Principal diagnosis: Chronic Anemia No signs or symptoms of GI bleeding today. Patient had chest tube placed. Tolerating diet. No abdominal pain, nausea or vomiting. Objective - Vital Signs Vital signs: Vital Signs Temp 97.7 F 02/13/20 08:00 Pulse 118 H 02/13/20 08:00 Resp 22 02/13/20 08:00 BP 131/71 02/13/20 08:00 Pulse Ox 100 02/13/20 08:00 Intake & Output 02/12/20 02/13/20 02/13/20 18:59 06:59 18:59 Intake Total 590 660 180 Output Total 860 1340 600 Balance -270 -680 -420 Weight 77 kg Intake: Oral 280 350 180 Blood Product 310 310 Rc As-1 Unit 0 310 [id number] Rc As-1 Unit 310 [id number] Output: Chest Tube Drainage 110 390 Pleural Catheter Left 110 390 Posterior Chest Urine 750 950 600 Other: Voiding Method Indwelling Catheter Indwelling Catheter # Bowel Movements 2 - Exam On physical examination, patient appears comfortable in no apparent distress. HEAD: Normocephalic, atraumatic. EYES: No scleral icterus. No conjunctival injection. MOUTH: No lesions, tongue midline. NECK: Trachea midline, no gross abnormalities. ABDOMEN: Soft, obese. Bowel sounds are positive. No organomegaly. No guarding or rigidity. EXTREMITIES: No pedal edema. SKIN: No rashes, no jaundice. NEUROLOGIC: Alert and oriented with right-sided weakness noted. - Labs CBC & Chem 7: 02/13/20 09:00 02/13/20 09:00 Labs: Abnormal Lab Results - Last 24 Hours (Table) 02/11/20 02/12/20 02/12/20 Range/Units 01:57 12:07 17:29 WBC (3.8-10.6) k/uL RBC (4.30-5.90) m/uL Hgb (13.0-17.5) gm/dL Hct (39.0-53.0) % RDW (11.5-15.5) % Sodium (137-145) mmol/L Chloride (98-107) mmol/L BUN (9-20) mg/dL Creatinine (0.66-1.25) mg/dL Glucose (74-99) mg/dL POC Glucose (mg/dL) 148 H 139 H (75-99) mg/dL Crossmatch See Detail 02/12/20 02/12/20 02/13/20 Range/Units 20:33 21:35 06:02 WBC 17.9 H (3.8-10.6) k/uL RBC 3.19 L (4.30-5.90) m/uL Hgb 9.4 L D (13.0-17.5) gm/dL Hct 28.9 L (39.0-53.0) % RDW 16.2 H (11.5-15.5) % Sodium (137-145) mmol/L Chloride (98-107) mmol/L BUN (9-20) mg/dL Creatinine (0.66-1.25) mg/dL Glucose (74-99) mg/dL POC Glucose (mg/dL) 128 H 127 H (75-99) mg/dL Crossmatch 02/13/20 02/13/20 Range/Units 09:00 09:00 WBC 17.6 H (3.8-10.6) k/uL RBC 3.31 L (4.30-5.90) m/uL Hgb 9.9 L (13.0-17.5) gm/dL Hct 29.9 L (39.0-53.0) % RDW 16.7 H (11.5-15.5) % Sodium 150 H (137-145) mmol/L Chloride 121 H (98-107) mmol/L BUN 64 H (9-20) mg/dL Creatinine 1.37 H (0.66-1.25) mg/dL Glucose 176 H (74-99) mg/dL POC Glucose (mg/dL) (75-99) mg/dL Crossmatch Microbiology - Last 24 Hours (Table) 02/11/20 10:53 Gram Stain - Preliminary Pleural Fluid Body Fluid Culture - Preliminary Assessment and Plan (1) Normocytic normochromic anemia Narrative/Plan: 84-year-old male with multiple medical comorbidities including chronic normocyt ic normochromic anemia likely multifactorial secondary to anemia of chronic disease, nutritional deficiencies, cannot rule out a component of bleeding from small bowel angiodysplasias. On current admission patient was found to have a pleural effusion which was described as grossly bloody, currently with chest tube placed. Current Visit: Yes Status: Acute Code(s): D64.9 - ANEMIA, UNSPECIFIED SNOMED Code(s): 56610110 (2) Cerebrovascular accident (CVA) Current Visit: Yes Status: Acute Code(s): I63.9 - CEREBRAL INFARCTION, UNSPECIFIED SNOMED Code(s): 651781556 Plan: Supportive care Okay for diet as tolerated Protonix twice a day Continue to monitor hemoglobin and hematocrit and transfuse as needed Reports from prior endoscopic investigations reviewed No plan for endoscopic evaluation on current admission, patient remains extremel y high risk for sedation given multiple comorbidities and recent CVA Continue to hold anticoagulation/antiplatelet agents given concern for possible bleeding from GI tract and from pleural effusion Thank you for allowing us to participate in the care of the patient
--- NOTE | 2020-02-13 11:31 | P.PN ---
Subjective Progress Note Date: 02/13/20 Principal diagnosis: Right-sided weakness, acute CVA, left pleural effusion, anemia 84-year-old white male patient of Dr. Mcgrath, who was recently seen by us in consultation during his previous admission on 02/06/2020 for shortness of breath and new onset of left-sided pleural effusion. Medical history includes COPD with chronic [id number] smoking history, CAD with previous intervention and stenting, peripheral vascular disease, carotid artery stenosis with previous left endarterectomy, right kidney disease stage III at baseline, chronic anemia, history of bladder cancer, hypertension, hyperlipidemia, diabetes mellitus type 2. Patient underwent left sided thoracentesis by Dr. Conway on 02/06/2020 with removal of 1.5 L of dark yellowish pleural effusion, and pleural fluid analysis revealed exudative fluid, pleural fluid cytology is still pending, blood fluid cultures were negative. Patient was discharged home on all 02/07/2020. On 02/09/2020 patient had acute onset of right upper extremity weakness at 1105, his symptoms started around 5 PM on 02/08/2020. Brain CT without contrast showed at least a couple areas of focal cortical hypodensity in the left parieto-occipital junction and posterior left parietal lobe compatible with acute infarcts, and it was suspected that the duration was greater than 6 hours judging by the degree of hypodensity. No midline shift or acute intracranial hemorrhage was noted. Echocardiogram showed preserved EF of 55-60% trace mitral regurg and trace tricuspid regurg. Carotid Doppler ultrasound showed a moderate 50-69% stenosis of the proximal right ICA. From pulmonary perspective patient denies any worsening dyspnea, chest x-ray showed increasing moderate to large left pleural effusion with adjacent atelectasis and/or consolidation. And we were consulted in regards to left-sided pleural effusion. Ultrasound the chest was completed showing 13.4 cm fluid pocket on the left, but clinically patient appears to be in no acute respiratory distress, he is currently on 4 L of oxygen with a pulse ox of 96-100%. On 02/12/2020 patient seen in follow-up on selective care unit, yesterday he underwent left-sided thoracentesis by Dr. Schneider with removal of 800 mL of grossly bloody fluid. The fluid was sent for analysis, cytology and cultures, cytology is pending, pleural fluid analysis showed exudative fluid, and pleural fluid Frantz stain showed no organisms, a is afebrile, he received 2 units of packed red blood cells yesterday, and today his hemoglobin is 6.2, patient in addition to hemothorax also was having bowel movements the day before yesterday with blood in them. Plavix and aspirin have been placed on hold. GI service is following. Today he is seen resting in bed, he is on 2 L of oxygen and the pulse ox 98%, does not seem to be in any acute distress, still has right-sided weakness, neurology is following, his been afebrile. Respirations are nonlabored, lung sounds reveal diminished breath sounds on the left, today's chest x-ray shows worsening moderate left pleural effusion, the possibility of reaccumulation of bloody pleural effusion. On 02/13/2020 the patient was seen in follow-up with Dr. Hall. He is sitting up in bed and appears to be comfortable. Remains afebrile. Heart rate 80s to low 100s. Blood pressure stable. Oxygen saturation 100% on 3 L nasal cannula. Left-sided pigtail catheter present with approximate 300 mL of thick bloody drainage in the last 24 hours. Left pleural fluid Gram stain preliminarily negative, cultures pending. Cytology from thoracentesis demonstrates bloody pleural fluid with occasional atypical epithelioid cells similar to those seen in prior left thoracentesis diagnosed as metastatic pulmonary adenocarcinoma. Chest x-ray this morning demonstrates mild cardiomegaly, chronic emphysematous changes with persistent diffuse left lung edema, probable persistent small left basilar pleural fluid collection. White blood cell count 17.6, hemoglobin 9.9 after 2 units packed red blood cells transfused yesterday, sodium 150, BUN 64, creatinine 1.37. Objective - Vital Signs Vital signs: Vital Signs Temp 97.7 F 02/13/20 08:00 Pulse 118 H 02/13/20 08:00 Resp 22 02/13/20 08:00 BP 131/71 02/13/20 08:00 Pulse Ox 100 02/13/20 08:00 Intake & Output 02/12/20 02/13/20 02/13/20 18:59 06:59 18:59 Intake Total 590 660 180 Output Total 860 1340 600 Balance -270 -680 -420 Weight 77 kg Intake: Oral 280 350 180 Blood Product 310 310 Rc As-1 Unit 0 310 [id number] Rc As-1 Unit 310 [id number] Output: Chest Tube Drainage 110 390 Pleural Catheter Left 110 390 Posterior Chest Urine 750 950 600 Other: Voiding Method Indwelling Catheter Indwelling Catheter # Bowel Movements 2 - Constitutional Constitutional Comment(s): Sitting up in bed, appears comfortable General appearance: Present: cooperative, no acute distress - Respiratory Details: Lungs sounds diminished in the left base. Respirations even, nonlabored. Currently on 3 L nasal cannula with oxygen saturation 100%. Left pleural pigtail catheter present to waterseal, 300 mL thick bloody drainage in the last 24 hours. - Cardiovascular Details: S1, S2 present. Regular rate and rhythm, sinus rhythm on telemetry. Palpable peripheral pulses bilaterally. No edema present. No calf pain or tenderness noted. - Gastrointestinal Gastrointestinal Comment(s): Abdomen soft, nontender, nondistended. No organomegaly present. Bowel sounds present 4 quadrants. Tolerating diet. - Genitourinary Genitourinary Comment(s): Cabezas present draining clear, yellow urine. - Integumentary Integumentary Comment(s): Skin is warm and dry with good perfusion. - Neurologic Neurologic: Present: CNII-XII intact - Musculoskeletal Musculoskeletal: Present: strength equal bilaterally - Psychiatric Psychiatric: Present: A&O x's 3, appropriate affect, intact judgment & insight - Allied health notes Allied health notes reviewed: nursing - Labs CBC & Chem 7: 02/13/20 09:00 02/13/20 09:00 Labs: Abnormal Lab Results - Last 24 Hours (Table) 02/11/20 02/12/20 02/12/20 Range/Units 01:57 12:07 17:29 WBC (3.8-10.6) k/uL RBC (4.30-5.90) m/uL Hgb (13.0-17.5) gm/dL Hct (39.0-53.0) % RDW (11.5-15.5) % Sodium (137-145) mmol/L Chloride (98-107) mmol/L BUN (9-20) mg/dL Creatinine (0.66-1.25) mg/dL Glucose (74-99) mg/dL POC Glucose (mg/dL) 148 H 139 H (75-99) mg/dL Crossmatch See Detail 02/12/20 02/12/20 02/13/20 Range/Units 20:33 21:35 06:02 WBC 17.9 H (3.8-10.6) k/uL RBC 3.19 L (4.30-5.90) m/uL Hgb 9.4 L D (13.0-17.5) gm/dL Hct 28.9 L (39.0-53.0) % RDW 16.2 H (11.5-15.5) % Sodium (137-145) mmol/L Chloride (98-107) mmol/L BUN (9-20) mg/dL Creatinine (0.66-1.25) mg/dL Glucose (74-99) mg/dL POC Glucose (mg/dL) 128 H 127 H (75-99) mg/dL Crossmatch 02/13/20 02/13/20 Range/Units 09:00 09:00 WBC 17.6 H (3.8-10.6) k/uL RBC 3.31 L (4.30-5.90) m/uL Hgb 9.9 L (13.0-17.5) gm/dL Hct 29.9 L (39.0-53.0) % RDW 16.7 H (11.5-15.5) % Sodium 150 H (137-145) mmol/L Chloride 121 H (98-107) mmol/L BUN 64 H (9-20) mg/dL Creatinine 1.37 H (0.66-1.25) mg/dL Glucose 176 H (74-99) mg/dL POC Glucose (mg/dL) (75-99) mg/dL Crossmatch Microbiology - Last 24 Hours (Table) 02/11/20 10:53 Gram Stain - Preliminary Pleural Fluid Body Fluid Culture - Preliminary - Imaging and Cardiology Chest x-ray: report reviewed, image reviewed Assessment and Plan Assessment: #1. Acute anemia multifactorial, likely related to possibility of GI bleeding, and left-sided hemothorax, status post left-sided thoracentesis with evacuation of 800 mL of grossly bloody fluid on all 02/11/2020 #2. Moderately sized left pleural effusion, with a recent history of left-sided thoracentesis on 02/06/2020 with removal of 1.5 L of pleural fluid cytology is pending, cultures are negative thus far, and fluid was exudative in nature. Patient underwent left-sided thoracentesis on 02/11/[address] Schneider would removal of 800 mL of grossly bloody fluid, which was exudative in nature cytology is pending, blood cultures are negative #3. Acute ischemic CVA on 02/09/2020, and patient presented with right upper extremity weakness, initial brain CT showed areas of focal cortical hypodensity in the left parietal occipital junction and posterior left parietal lobe compatible with acute infarct. Brain MRI showed numerous focal areas of increased signal within the left frontal, parietal, parietal occipital and temporal regions compatible with acute ischemic embolic process #4. Left ICA stenosis of 50-69% #5. Chronic anemia, with recent history of a blood positive in stools, status post extra blood cell transfusion #6. History of COPD #7. History of tobacco dependence, currently in remission, carries [id number] smoking history #8. Coronary artery disease with previous history of coronary intervention and stenting #9. Peripheral vascular disease #10. Carotid artery stenosis with previous history of endarterectomy on the lef t #11. History of chronic kidney disease stage III at baseline #12. History of bladder cancer #13. Hypertension #14. Hyperlipidemia #15. Diabetes mellitus type 2 Plan: Chest tube placed to continuous wall suction. We'll repeat chest x-ray in the morning. 0.9 normal saline discontinued, patient paced on D5W Medical management of other comorbidities per primary service, nephrology, neurology, GI Will continue to follow I, the cosigning physician, performed a history & physical examination of the patient. Lungs sounds are diminished in the left lung base. Maintaining good O2 saturations 95-100% on 3 L nasal cannula. I discussed the assessment and plan of care with my nurse practitioner, Mariana Barnes. I attest to the above note as dictated by her. Time with Patient: Greater than 30
[2020-02-13 11:51] LABS: Glucose,Whole Blood 253 mg/dL (75-99)
--- NOTE | 2020-02-13 12:42 | P.PN ---
Subjective Progress Note Date: 02/13/20 Patient seen and examined sitting up in the recliner, speech therapy was working with patient. The patient denied any shortness of breath or chest pain. Denying any blood in the stool or nausea and vomiting. States he is feeling overall better. Patient had a chest tube placed yesterday for left pleural effusion with hemothorax. He denies any acute changes through the night. Objective - Vital Signs Vital signs: Vital Signs Temp 97.7 F 02/13/20 08:00 Pulse 118 H 02/13/20 08:00 Resp 22 02/13/20 08:00 BP 131/71 02/13/20 08:00 Pulse Ox 100 02/13/20 08:00 Intake & Output 02/12/20 02/13/20 02/13/20 18:59 06:59 18:59 Intake Total 590 660 180 Output Total 860 1340 600 Balance -270 -680 -420 Weight 77 kg Intake: Oral 280 350 180 Blood Product 310 310 Rc As-1 Unit 0 310 [id number] Rc As-1 Unit 310 [id number] Output: Chest Tube Drainage 110 390 Pleural Catheter Left 110 390 Posterior Chest Urine 750 950 600 Other: Voiding Method Indwelling Catheter Indwelling Catheter # Bowel Movements 2 - Exam General appearance: The patient is alert, no acute distress. HET: Head is normocephalic and atraumatic. Neck: Supple without lymphadenopathy. Trachea midline. Heart: S1 S2. Regular rate and rhythm. Lungs: Diminished bilaterally. No crackles or wheezes are heard. Chest: Left-sided chest tube with dependent bloody drainage. Abdomen: Soft, nontender, nondistended with bowel sounds. No peritoneal signs. No palpable organomegaly or masses. Extremities: Normal skin color and turgor. No cyanosis, rash, ulceration, clubbing, or edema. Neurological: Alert. Speech is fluent. Right upper extremity flaccid and weak. Right lower extremity with mild to moderate weakness. - Labs CBC & Chem 7: 02/13/20 09:00 02/13/20 09:00 Labs: Abnormal Lab Results - Last 24 Hours (Table) 02/11/20 02/12/20 02/12/20 Range/Units 01:57 17:29 20:33 WBC (3.8-10.6) k/uL RBC (4.30-5.90) m/uL Hgb (13.0-17.5) gm/dL Hct (39.0-53.0) % RDW (11.5-15.5) % Sodium (137-145) mmol/L Chloride (98-107) mmol/L BUN (9-20) mg/dL Creatinine (0.66-1.25) mg/dL Glucose (74-99) mg/dL POC Glucose (mg/dL) 139 H 128 H (75-99) mg/dL Crossmatch See Detail 02/12/20 02/13/20 02/13/20 Range/Units 21:35 06:02 09:00 WBC 17.9 H (3.8-10.6) k/uL RBC 3.19 L (4.30-5.90) m/uL Hgb 9.4 L D (13.0-17.5) gm/dL Hct 28.9 L (39.0-53.0) % RDW 16.2 H (11.5-15.5) % Sodium 150 H (137-145) mmol/L Chloride 121 H (98-107) mmol/L BUN 64 H (9-20) mg/dL Creatinine 1.37 H (0.66-1.25) mg/dL Glucose 176 H (74-99) mg/dL POC Glucose (mg/dL) 127 H (75-99) mg/dL Crossmatch 02/13/20 02/13/20 Range/Units 09:00 11:50 WBC 17.6 H (3.8-10.6) k/uL RBC 3.31 L (4.30-5.90) m/uL Hgb 9.9 L (13.0-17.5) gm/dL Hct 29.9 L (39.0-53.0) % RDW 16.7 H (11.5-15.5) % Sodium (137-145) mmol/L Chloride (98-107) mmol/L BUN (9-20) mg/dL Creatinine (0.66-1.25) mg/dL Glucose (74-99) mg/dL POC Glucose (mg/dL) 253 H (75-99) mg/dL Crossmatch Microbiology - Last 24 Hours (Table) 02/11/20 10:53 Gram Stain - Preliminary Pleural Fluid Body Fluid Culture - Preliminary Assessment and Plan Assessment: 1. Left internal carotid stenosis just under 70% discordant between carotid ultrasound suggesting moderate 50-69% stenosis of the proximal right ICA 2. Acute ischemic stroke left MCA/OWEN and MCA NARCOTICS AND VICE DETECTIVE. 3. 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 Recurrent Left-sided pleural effusion, status post thoracentesis/chest tube placement 5. Chronic iron deficiency anemia 6. Hypertension 7. Type 2 diabetes mellitus 8. Hyperlipidemia 9. Peripheral vascular disease 10. Tobacco dependence Plan: At this time it is likely that the patient would not tolerate any vascular surgical interventions. Continue with medical management. Continue with recommendations per neurology. Patient to follow-up with Dr. Cabezas after discharge. Further recommendations to follow. We will sign off at this time. If you have any further needs please do not hesitate to contact us. The above dictated assessment and findings were discussed with Dr. Cabezas. The impression and plan of care have been directed as dictated.
[2020-02-13] MEDS: METOPROLOL TARTRATE 12.5 MG TAB PO SCH ×3 (12:48→21:08)
--- NOTE | 2020-02-13 13:32 | P.PN ---
Subjective Progress Note Date: 02/13/20 This is an 84-year-old male patient of Dr. Healy with past medical history of hypertension, hyperlipidemia, diabetes mellitus type 2, coronary artery disease status post stent, left carotid endarterectomy, peripheral vascular disease with bilateral stents, bladder cancer, chronic anemia, tobacco use and dependence using a pipe for 60 years. Patient was recently hospitalized on February 05 for left-sided pleural effusion status post thoracentesis for 1.5 L of fluid by Dr. Conway. Patient was also started on home oxygen for chronic hypoxic respiratory failure. Patient had sudden onset of right upper extremity weakness that it started on the evening of February 07. He went to to bed hoping th at the symptoms would go away but woke in the morning and his son was over to visit. Patient's son noted that he had the right upper extremity weakness and called EMS. Patient did have some improvement of his symptoms during transport. He did not have any speech difficulties and no lower extremity weakness. Patient came into [facility] emergency center for evaluation. WBC 14.0 hemoglobin 7.8 platelets 294. PT/PTT normal. Sodium 140 potassium 5.4, BUN 77, creatinine 1.88. Hemoglobin A1c 5.6 on 11/20/2019. B12 358. Folate normal. Liver panel normal. Coronavirus PCR negative on 02/06/2020. Influenza screen negative. Triglycerides 106, cholesterol 100, LDL 52, HDL 27. His initial NIH stroke scale was 1. EKG was a sinus rhythm with incomplete right bundle branch block. According to the ED report, the case was discussed with vascular neurology Dr. Moncada, who felt patient was not a candidate for TPA. Patient was given aspirin and admitted to the cardiac stepdown unit and consults requested with neurology and vascular surgery. CAT scan of the brain that revealed couple areas of focal cortical hypodensity left parietal occipital junction and posterior left parietal compatible with acute infarcts. No midline shift. Chest x-ray showed increasing moderate to large pleural effusion on the left with adjacent atelectasis and/or consol idation. CTA of the head revealed [id number] atherosclerotic narrowing throughout the bilateral carotid siphons more so on the left. The left clinoid segment in particular has some artifact throughout, limiting assessment for focal occlusion. The supraclinoid portion of the left ICA opacifies appropriately arguing against focal thrombus. Further clinical correlation recommended. Consider MRA if indicated. Otherwise no large vessel intracranial arterial occ lusion or aneurysmal changes were seen. CTA of the neck showed moderate to severe atherosclerotic narrowing left carotid bulb with just under 70% stenosis. Subtotal occlusion vs complete occlusion and reconstitution of the V2 segment right vertebral artery at the C5 6 level. Echocardiogram reveals EF of 55-60%, trace mitral regurgitation, trace tricuspid regurgitation. Carotid ultrasound reveals moderate 50-69% stenosis of the proximal right ICA. 02/10: MRA of the head revealed high-grade stenosis involving the intracranial portion of the left ICA at its cavernous component. MRI of the brain revealed numerous focal areas of increased signal noted within the left frontal, parietal lobe, parietal occipital and temporal regions compatible with acute ischemic e mbolic process. Case was discussed yesterday with neurology and vascular surgery. Patient was started on baby aspirin and Plavix. Due to history of gastritis/esophagitis, Pepcid increased to twice daily. Patient was seen by Dr. Cabezas. At this time no clear for surgical intervention is planned and patient will follow-up with Dr. Cabezas as an outpatient. Ultrasound of the chest revealed a left pleural effusion pocket size 13.4 cm and marked for possible thoracentesis. Dr. Hall performed thoracentesis today with removal of 1.1 L of bloody fluid. 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 GI consult has been added and Plavix and aspirin discontinued. Patient also had an increase in white count to 17.1, BUN 91, creatinine 2.41, potassium 5.8. Consult will be added for Dr. Machuca for acute kidney injury. UA and culture added. Patient has been incontinent of urine. Patient is noted to have increasing weakness to the right lower extremity. Discharge plan is to [facility] or [facility]. 02/11: Patient is afebrile, heart rate 98, blood pressure 127/78, pulse ox 95% on 2 L nasal cannula. Repeat hemoglobin this morning is 6.2. One unit of packed RBCs ordered for today. Reviewed iron studies from last admission. Patient will be started on Ferrlecit daily for 2 doses. WBC 16.5, platelet count 247. Sodium 145, potassium 5.0, chloride 115, CO2 20, BUN 91 and creatinine 1.94. Blood sugar running between 94 and 151. Repeat chest x-ray reveals worsening moderate left pleural effusion with concern for reaccumulation of bloody pleural effusion. Patient is scheduled today for pigtail catheter with interventional radiology. Patient is also had some blood in his Cabezas catheter which seems to be clearing. He has underlying history of bladder cancer. Patient states that he is eating okay and denies any difficulty with swallowing. Patient did have a bowel movement yesterday afternoon which did not show any blood. Repeat chest x-rays been ordered for the morning. Discussed CODE STATUS with family and patient has been made no CODE STATUS. 02/12: Patient has been afebrile, heart rate 118, blood pressure 131/71, pulse ox 100% on 3 L nasal cannula. Repeat chest x-ray reveals new left basilar pigtail pleural drainage catheter. Background mild cardiomegaly and chronic emphysematous change with persistent diffuse left lung infiltrate and/or edema along the probable persistent small left basilar pleural fluid collection. Pleural fluid cytology reveals metastatic pulmonary and no carcinoma. Consult with Dr. Irene added. Patient has been seen by Dr. Machuca for acute kidney injury secondary to hypotension and hypoperfusion, MARA inhibitor and IV contrast with plan to continue IV fluids, avoid hypotension and nephrotoxic agents, ultrasound of the kidneys was ordered. Cabezas remains in place and hematuria has cleared. GI is following and have no plan for any endoscopy on this visit. Repeat blood work reveals WBC 17.6, hemoglobin 9.9, platelet count 230. Sodium 150, potassium 4.7, chloride 121, CO2 22, BUN 64 and creatinine 1.37. Blood sugars running between 127 and 253. Patient's IV fluids have been transitioned to D5w. Second dose of Ferrlecit scheduled for today. Patient is status post transfusion of 3 units of packed RBCs total. Anticipate probable discharge to [facility] on Sunday. Patient is followed by PT, OT and speech therapy. He is currently on full liquid diet, honey thick liquids with aspiration precautions. Objective - Vital Signs Vital signs: Vital Signs Temp 97.7 F 02/13/20 08:00 Pulse 99 02/13/20 12:00 Resp 20 02/13/20 12:00 BP 160/70 02/13/20 12:00 Pulse Ox 100 02/13/20 12:00 Intake & Output 02/12/20 02/13/20 02/13/20 18:59 06:59 18:59 Intake Total 590 660 180 Output Total 869 7190 600 Balance -543 -169 -420 Weight 77 kg Intake: Oral 280 350 180 Blood Product 310 310 Rc As-1 Unit 0 310 [id number] Rc As-1 Unit 310 [id number] Output: Chest Tube Drainage 110 390 Pleural Catheter Left 110 390 Posterior Chest Urine 750 950 600 Other: Voiding Method Indwelling Catheter Indwelling Catheter # Bowel Movements 2 - Exam Review of Systems Constitutional: Reports weakness, Denies anorexia, Denies chills, Denies fatigue, Denies fever, Denies lethargy, Denies malaise, Denies weight loss Eyes: denies blurred vision, denies pain, denies loss of vision Ears, nose, mouth and throat: Denies dysphagia, Denies headache, Denies nasal congestion, Denies nasal discharge, Denies sore throat, Denies vertigo Cardiovascular: Reports irregular heart beat, Denies chest pain, Denies decreased exercise tolerance, Denies dyspnea on exertion, Denies edema, Denies leg edema, Denies shortness of breath, Denies syncope Respiratory: Denies cough, Denies cough with sputum, Denies dyspnea, Denies hemoptysis, Denies home oxygen, Denies respiratory infections Gastrointestinal: Denies abdominal pain, Denies diarrhea, Denies loss of appetite, Denies nausea, Denies vomiting, reports rectal bleeding Genitourinary: Denies dysuria, Denies urinary retention, reports hematuria Musculoskeletal: Reports muscle weakness, Denies frequent falls, Denies gait dysfunction, Denies myalgias Integumentary: Denies pruritus, Denies rash, Denies wounds Neurological: Reports weakness right upper and lower extremities, Denies change in mentation, Denies change in speech, Denies confusion, Denies gait dysfunction, Denies numbness, Denies paresthesias, Denies vertigo Psychiatric: Denies anxiety, Denies depression Endocrine: Denies fatigue, Denies weight change Physical Examination Gen: This is an 84-year-old male. Patient is resting in bed appears to be comfortable in no acute distress. HEENT: Head is atraumatic, normocephalic. Pupils equal, round. Sclerae is anicteric. NECK: Supple. No JVD. No lymphadenopathy. No thyromegaly. No carotid bruit. LUNGS: Diminished in the bases. No wheezes or rhonchi. No intercostal retractions. HEART: Regular rate and rhythm. No murmur. ABDOMEN: Soft. Bowel sounds are present. No masses. No tenderness. Cabezas catheter with clear zack urine EXTREMITIES: No pedal edema. No calf tenderness. NEUROLOGICAL: Patient is awake, alert and oriented to person and place, confused. Weakness in the right upper extremity 0/5. Right lower extremity strength 3/5. - Labs CBC & Chem 7: 02/13/20 09:00 02/13/20 09:00 Labs: Abnormal Lab Results - Last 24 Hours (Table) 02/11/20 02/12/20 02/12/20 Range/Units 01:57 17:29 20:33 WBC (3.8-10.6) k/uL RBC (4.30-5.90) m/uL Hgb (13.0-17.5) gm/dL Hct (39.0-53.0) % RDW (11.5-15.5) % Sodium (137-145) mmol/L Chloride (98-107) mmol/L BUN (9-20) mg/dL Creatinine (0.66-1.25) mg/dL Glucose (74-99) mg/dL POC Glucose (mg/dL) 139 H 128 H (75-99) mg/dL Crossmatch See Detail 02/12/20 02/13/20 02/13/20 Range/Units 21:35 06:02 09:00 WBC 17.9 H (3.8-10.6) k/uL RBC 3.19 L (4.30-5.90) m/uL Hgb 9.4 L D (13.0-17.5) gm/dL Hct 28.9 L (39.0-53.0) % RDW 16.2 H (11.5-15.5) % Sodium 150 H (137-145) mmol/L Chloride 121 H (98-107) mmol/L BUN 64 H (9-20) mg/dL Creatinine 1.37 H (0.66-1.25) mg/dL Glucose 176 H (74-99) mg/dL POC Glucose (mg/dL) 127 H (75-99) mg/dL Crossmatch 02/13/20 02/13/20 Range/Units 09:00 11:50 WBC 17.6 H (3.8-10.6) k/uL RBC 3.31 L (4.30-5.90) m/uL Hgb 9.9 L (13.0-17.5) gm/dL Hct 29.9 L (39.0-53.0) % RDW 16.7 H (11.5-15.5) % Sodium (137-145) mmol/L Chloride (98-107) mmol/L BUN (9-20) mg/dL Creatinine (0.66-1.25) mg/dL Glucose (74-99) mg/dL POC Glucose (mg/dL) 253 H (75-99) mg/dL Crossmatch Microbiology - Last 24 Hours (Table) 02/11/20 10:53 Gram Stain - Preliminary Pleural Fluid Body Fluid Culture - Preliminary Assessment and Plan Plan: 1. Acute ischemic stroke left MCA/OWEN and MCA EMR TRAINER. Consult with neurology appreciated. MRI and MRA of the brain as above. Continue PT OT. Atorvastatin 40 mg daily. Plavix and aspirin placed on hold. 2. Left internal carotid artery stenosis. Consult with vascular surgery. No plan for any surgical intervention at this time. Patient will follow-up as an outpatient. 3. 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 4. Left-sided pleural effusion recurrence status post thoracentesis for 1.5 L on February 05. Consult with Dr. Hall appreciated. Status post thoracentesis with bloody return. 5. Left-sided hemothorax status post thoracentesis with removal of 800 ML's of grossly bloody fluid. Pigtail catheter to be placed today with interventional radiology. Pathology consistent with metastatic adenocarcinoma. Consult with Dr. Irene 6. Acute kidney injury with chronic kidney disease stage III. Consult with Dr. Machuca appreciated. Avoid hypotension and nephrotoxic agents. 7. Rectal bleeding with acute blood loss anemia from GI source and also hemoth orax contributing to blood loss. Patient has chronic anemia as well. Stool for occult blood from February 06 is positive. Patient had EGD in November. Hold Plavix and aspirin. Consult with GI appreciated. Patient has been transfused total of 3 units packed RBC. Ferrlecit daily 2 doses. 8. Hypernatremia. Patient started on IV fluids of D5W 75 mL per hour. 9. Diabetes mellitus type 2. Hemoglobin A1c 6.1. Hold Metformin 500 mg daily and start NovoLog scale before meals and at bedtime. 10. Hypertension. Hold lisinopril 20 mg daily, Lasix 20 mg daily. 11. Hyperlipidemia. Continue atorvastatin 40 mg daily. 12. Peripheral vascular disease. Continue atorvastatin. 13. History of bladder cancer, stable. 14. Tobacco use and dependence. 15. GI prophylaxis. Protonix IV push twice daily. 15. DVT prophylaxis. SCDs and KISHAN huntley. CODE STATUS: No code Discharge plan: [facility] or [facility] on Sunday. Impression and plan of care have been directed as dictated by the signing physician. Maritza Jett nurse practitioner acting as scribe for signing physician.
[2020-02-13 15:02] VITALS: BMI 26.6
--- NOTE | 2020-02-13 15:10 | P.PN ---
Subjective Progress Note Date: 02/13/20 Patient is laying comfortably in the bed. Continues to have weakness of the right side. Offers no new complaints. Denies headache. Objective - Vital Signs Vital signs: Vital Signs Temp 97.7 F 02/13/20 08:00 Pulse 99 02/13/20 12:00 Resp 20 02/13/20 12:00 BP 160/70 02/13/20 12:00 Pulse Ox 100 02/13/20 12:00 Intake & Output 02/12/20 02/13/20 02/13/20 18:59 06:59 18:59 Intake Total 590 660 480 Output Total 860 1340 600 Balance -270 -680 -120 Weight 77 kg Intake: Oral 280 350 480 Blood Product 310 310 Rc As-1 Unit 0 310 [id number] Rc As-1 Unit 310 [id number] Output: Chest Tube Drainage 110 390 Pleural Catheter Left 110 390 Posterior Chest Urine 750 950 600 Other: Voiding Method Indwelling Catheter Indwelling Catheter Indwelling Catheter # Bowel Movements 2 - Exam On examination patient is an elderly male, laying comfortably in the bed. Patient able to name, repeat and follows some commands. Patient slightly confused, appears mildly short of breath. Mildly encephalopathic. Right arm is completely flaccid, right facial weakness noted. Right leg appears normal. On visual field testing, patient has right visual field neglect. - Labs CBC & Chem 7: 02/13/20 09:00 02/13/20 09:00 Labs: Abnormal Lab Results - Last 24 Hours (Table) 02/11/20 02/12/20 02/12/20 Range/Units 01:57 17:29 20:33 WBC (3.8-10.6) k/uL RBC (4.30-5.90) m/uL Hgb (13.0-17.5) gm/dL Hct (39.0-53.0) % RDW (11.5-15.5) % Sodium (137-145) mmol/L Chloride (98-107) mmol/L BUN (9-20) mg/dL Creatinine (0.66-1.25) mg/dL Glucose (74-99) mg/dL POC Glucose (mg/dL) 139 H 128 H (75-99) mg/dL Crossmatch See Detail 02/12/20 02/13/20 02/13/20 Range/Units 21:35 06:02 09:00 WBC 17.9 H (3.8-10.6) k/uL RBC 3.19 L (4.30-5.90) m/uL Hgb 9.4 L D (13.0-17.5) gm/dL Hct 28.9 L (39.0-53.0) % RDW 16.2 H (11.5-15.5) % Sodium 150 H (137-145) mmol/L Chloride 121 H (98-107) mmol/L BUN 64 H (9-20) mg/dL Creatinine 1.37 H (0.66-1.25) mg/dL Glucose 176 H (74-99) mg/dL POC Glucose (mg/dL) 127 H (75-99) mg/dL Crossmatch 02/13/20 02/13/20 Range/Units 09:00 11:50 WBC 17.6 H (3.8-10.6) k/uL RBC 3.31 L (4.30-5.90) m/uL Hgb 9.9 L (13.0-17.5) gm/dL Hct 29.9 L (39.0-53.0) % RDW 16.7 H (11.5-15.5) % Sodium (137-145) mmol/L Chloride (98-107) mmol/L BUN (9-20) mg/dL Creatinine (0.66-1.25) mg/dL Glucose (74-99) mg/dL POC Glucose (mg/dL) 253 H (75-99) mg/dL Crossmatch Microbiology - Last 24 Hours (Table) 02/11/20 10:53 Gram Stain - Preliminary Pleural Fluid Body Fluid Culture - Preliminary Assessment and Plan Assessment: * Acute watershed ischemic CVA, due to severe left ICA stenosis. * Left ICA stenosis, involving the intracranial portion of the left ICA at its cavernous segment per MRA. 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 * Anemia * Encephalopathy, likely toxic metabolic, and perhaps related to CVA. * History of recent occult blood positive in the stools. Acute anemia. * Acute on chronic renal insufficiency. * Hemorrhagic pleural effusion. Plan: * Patient has acute ischemic stroke due to watershed ischemia involving the left hemispheric region. Unfortunately patient has developed hemorrhagic pleural effusion, and GI bleed. Patient is off antiplatelets and anticoagulants. Resume aspirin 81 mg when medically possible. * Patient's renal functions has improved with BUN 64 down from 91, and creatinine 1.37 down from 1.94. * 2-D echo showed mild concentric LVH, EF 55-60% mitral valve leaflets are mildly thickened. Trace MR. No obvious embolic source. * MRI brain confirmed acute ischemic stroke in the watershed distribution in the left cerebral hemisphere, mainly between MCA/OWEN, MCA/DIGITAL FORENSIC ANALYST. * MRA of the brain revealed high-grade stenosis noted to involve the intracrani al portion of the left ICA at its cavernous component. * Consider left ICA stenting, if possible. However after stenting, if done, patient still would not be able to receive antiplatelets medications because of all the hemorrhagic complications * Hemoglobin is 9.9 after transfusion. * Fasting a.m. lipid panel showed cholesterol 100, LDL 52, HDL 27 and triglycerides 106. Hemoglobin A1c 6.1. * PT, OT. * Patient on Pepcid 20 mg twice a day for gastric ulcer prophylaxis. * DVT prophylaxis. * Neurology coverage not available on the weekend.
--- NOTE | 2020-02-13 16:44 | PN ---
PROGRESS NOTE Patient is seen for followup for acute kidney injury. Renal function has been improving. Patient denies any significant complaints today. Patient is maintained on IV fluids. He has had good urine output, currently with an indwelling Cabezas catheter; 24-hour urine output 2.2 L. PHYSICAL EXAMINATION: On examination today, blood pressure 160/70, heart rate 89 per minute. Patient is afebrile. EXAMINATION OF THE HEART: S1 and S2. EXAMINATION OF LUNGS: Decreased breath sounds at bases. ABDOMEN: Soft, non-tender. Examination of lower extremities shows no significant edema. 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 LABS: Sodium 150, potassium 4.7, chloride 121, BUN 64, creatinine 1.37, hemoglobin 9.9 g/dL. ASSESSMENT: 1. Acute kidney injury associated with hypotension, hypoperfusion, possible component of contrast nephropathy and use of MARA inhibitors prior to admission, currently improving. Patient has a Cabezas catheter with good urine output. No antihypertensive medications on board. Blood pressure was on the lower side. 2. Anemia with severe iron deficiencies, status post IV iron. 3. Left pleural effusion, status post thoracentesis earlier, now with left hemothorax, currently with chest tube. 4. Right arm weakness secondary to acute cerebrovascular accident; being followed by Neurology. PLAN: Continue IV fluids in the form of D5W. Repeat labs in a.m. Continue to avoid nephrotoxic medications. MMODL / IJN: [id number] /
[2020-02-13 17:00] LABS: Glucose,Whole Blood 134 mg/dL (75-99)
--- NOTE | 2020-02-13 17:50 | P.CONS ---
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 Irene for anemia, iron deficiency component and given iron. He was last seen in office on 01/15/20 and at that time his creatinine was noted to be increased and he was referred to nephrology. He originally presented to [facility] on February 05 for left sided pleural effusion and underwent thoracentesis with 1.5L of fluid removed (Dr. Conway)He was sent home, although requiring oxygen for acute on chronic hypoxia. After discharge he noted RUE weakness subsequently called EMS the next morning. Taken to emergency CT without contrast revealed couple areas of focal cortical hypodensity left parietal occipital junction and posterior left parietal compatible with acute infarcts. No midline shift. Chest x-ray showed increasing moderate to large pleural effusion on the left with adjacent atelectasis and/or consolidation. CTA of the head revealed [id number] atherosclerotic narrowing throughout the bilateral carotid siphons more so on the left. The left clinoid segment in particular has some artifact throughout, limiting assessment for focal occlusion. The supraclinoid portion of the left ICA opacifies appropriately arguing against focal thrombus. Further clinical correlation recommended. Consider MRA if indicated. Otherwise no large vessel intracranial arterial occlusion or aneurysmal changes were seen. CTA of the neck showed moderate to severe atherosclerotic narrowing left carotid bulb with just under 70% stenosis. Subtotal occlusion vs complete occlusion and reconstitution of the V2 segment right vertebral artery at the C5 6 level. Known history of HLD, HTN, DM2, CAD, with stent, Left carotid endarectomy, PVD, LE stents, Bladder cancer, Iron deficiency anemia, chronic anemia secondary to chronic disease, tobacco dependence. Pathology from Left Pleura - Thoracentesis on 02/09/2020 = Positive for possible for moderately differentiated adenocarcinoma pulmonary primary. Second thoracentesis on 02/11/20 consistent with same. Therefore, a new diagnosis of what appears to be a metastatic adenocarcinoma of the lung, probable LLL although difficult to identify at this time, oncology has been consulted. His performance status is is moderate, there is Right hemiplegia. Review of Systems A 14 point review of systems assessed and completed and all negative except HPI Past Medical History Past Medical History: Cancer, Diabetes Mellitus, Hypertension, Vascular Disorder Additional Past Medical History / Comment(s): Coronary artery disease, carotid artery stenosis, previous cardiac catheterization and coronary stenting, peripheral vascular disease with lower extremity vascular stenting, bladder cancer, chronic iron deficiency anemia, hypertension, hyperlipidemia, diabetes mellitus type 2 History of Any Multi-Drug Resistant Organisms: None Reported Past Surgical History: Appendectomy, Heart Catheterization With Stent, Tonsillectomy Additional Past Surgical History / Comment(s): demetrius cataracts, left carotid endarterectomy, stents demetrius legs, aortogram 05/01/18, Past Anesthesia/Blood Transfusion Reactions: No Reported Reaction Additional Past Anesthesia/Blood Transfusion Reaction / Comm: no hx blood transfusion Date of Last Stent Placement:: 04/17/17 Past Psychological History: No Psychological Hx Reported Smoking Status: Current every day smoker Past Alcohol Use History: Rare Additional Past Alcohol Use History / Comment(s): smokes pipe for past 60 yrs. Patient denies any marijuana use, illicit drug use. He drinks alcohol very rarely. He lives at home with his . Patient is very independent. Past Drug Use History: None Reported - Past Family History Mother Family Medical History: No Reported History Additional Family Medical History / Comment(s): Mother at age 92 from old age. Father Family Medical History: Diabetes Mellitus Additional Family Medical History / Comment(s): Father at age 60 from complications from diabetes. Sister(s) Family Medical History: Cancer Additional Family Medical History / Comment(s): Patient has a total of 6 sisters. He denies any family members with anemia. Patient has 1 brother that has passed from alcohol related conditions. Patient has 2 sons and 1 daughter with no major medical problems. Medications and Allergies Home Medications Medication Instructions Recorded Confirmed Type Multivitamins, Thera [Multivitamin 1 tab PO DAILY 10/23/16 02/09/20 History (formulary)] Furosemide [Lasix] 20 mg PO BID 04/03/17 02/09/20 History metFORMIN HCL [Glucophage] 500 mg PO DAILY 08/31/17 02/09/20 History Acetaminophen [Tylenol] 500 mg PO Q4H PRN 02/06/20 02/09/20 History Atorvastatin [Lipitor] 40 mg PO DAILY tab 02/13/20 Rx INSULIN ASPART (NovoLOG) [NovoLOG 0 unit SQ ACHS vial 02/13/20 Rx (formulary)] Sennosides-Docusate Sodium 2 each PO DAILY tab 02/13/20 Rx [Senokot-S] Allergies Allergy/AdvReac Type Severity Reaction Status Date / Time No Known Allergies Allergy Verified 02/09/20 11:51 Physical Exam Vitals: Vital Signs Temp Pulse Pulse Resp BP BP Pulse Ox 02/13/20 12:00 99 20 160/70 100 02/13/20 08:00 97.7 F 118 H 22 131/71 100 02/13/20 04:00 97.6 F 87 18 142/66 95 02/13/20 00:00 98.2 F 86 18 148/65 99 02/12/20 20:36 97.9 F 86 16 138/63 100 02/12/20 20:00 97.9 F 86 18 138/63 100 02/12/20 17:59 98.1 F 95 16 160/68 95 02/12/20 17:29 98.8 F 92 16 138/62 99 02/12/20 17:19 97.7 F 91 16 139/63 99 02/12/20 14:50 97.8 F 101 H 101 H 18 137/63 137/63 100 02/12/20 14:00 98.1 F 100 18 120/60 97 Intake and Output 02/12/20 02/13/20 02/13/20 22:59 06:59 14:59 Intake Total 800 350 180 Output Total 720 620 600 Balance 80 -270 -420 Intake: Oral 180 350 180 Blood Product 620 Rc As-1 Unit 310 [id number] Rc As-1 Unit 310 [id number] Output: Chest Tube Drainage 170 220 Pleural Catheter Left 170 220 Posterior Chest Urine 550 400 600 Other: Voiding Method Indwelling Catheter Indwelling Catheter # Bowel Movements 2 Weight 77 kg Gen: Alert and oriented, NAD Head: NCAT Neck: Supple Right sided daniel plegia CV: Irr, Irr Lungs: LLL diminshed, mild increased effort Abdomen: S, ND Ext: Mild inc RLE Mood: Calm Neuro Consistent with CVA as above Results CBC & Chem 7: 02/13/20 09:00 02/13/20 09:00 Labs: Abnormal Lab Results - Last 24 Hours (Table) 02/11/20 02/12/20 02/12/20 Range/Units 01:57 17:29 20:33 WBC (3.8-10.6) k/uL RBC (4.30-5.90) m/uL Hgb (13.0-17.5) gm/dL Hct (39.0-53.0) % RDW (11.5-15.5) % Sodium (137-145) mmol/L Chloride (98-107) mmol/L BUN (9-20) mg/dL Creatinine (0.66-1.25) mg/dL Glucose (74-99) mg/dL POC Glucose (mg/dL) 139 H 128 H (75-99) mg/dL Crossmatch See Detail 02/12/20 02/13/20 02/13/20 Range/Units 21:35 06:02 09:00 WBC 17.9 H (3.8-10.6) k/uL RBC 3.19 L (4.30-5.90) m/uL Hgb 9.4 L D (13.0-17.5) gm/dL Hct 28.9 L (39.0-53.0) % RDW 16.2 H (11.5-15.5) % Sodium 150 H (137-145) mmol/L Chloride 121 H (98-107) mmol/L BUN 64 H (9-20) mg/dL Creatinine 1.37 H (0.66-1.25) mg/dL Glucose 176 H (74-99) mg/dL POC Glucose (mg/dL) 127 H (75-99) mg/dL Crossmatch 02/13/20 02/13/20 Range/Units 09:00 11:50 WBC 17.6 H (3.8-10.6) k/uL RBC 3.31 L (4.30-5.90) m/uL Hgb 9.9 L (13.0-17.5) gm/dL Hct 29.9 L (39.0-53.0) % RDW 16.7 H (11.5-15.5) % Sodium (137-145) mmol/L Chloride (98-107) mmol/L BUN (9-20) mg/dL Creatinine (0.66-1.25) mg/dL Glucose (74-99) mg/dL POC Glucose (mg/dL) 253 H (75-99) mg/dL Crossmatch Microbiology - Last 24 Hours (Table) 02/11/20 10:53 Gram Stain - Preliminary Pleural Fluid Body Fluid Culture - Preliminary Chest x-ray: report reviewed CT Scan - head: report reviewed MRI - head: report reviewed Assessment and Plan Plan: Assessment and Recommendation: Normocytic Anemia: - Chronic with multifactorial causes of Iron deficiency and chronic inflammation Malignant PLeural Effusions: -Status Post Thoracentesis on 02/08 and 02/10 - Pulmonology is following New Diagnosis of Metastatic Adenocarcinoma of the lung: - With current renal function further CT scans will not be helpful as he is already known to have a metastatic lung cancer picture, will further evaluate as outpatient with PET Scan - He is currently not a candidate for systemic treatment with his performance status, if this was to improve, we could re-evaluate at outpatient - Will sent path for NGS and PDL1 in the event systemic therapy can be offered Acute on Chronic Respiratory Failure Acute CVA with Right Hemiplegia Acute Renal Insufficiency: - Nephrology following. Physician Attest: I have completed the full history and physical and agree with above dictation by Zohra Garcia, dictated as the scribe.
[2020-02-13 18:48] LABS: Anisocytosis Slight; HCT 28.2 % (39.0-53.0); HGB 8.9 gm/dL (13.0-17.5); Hypochromasia Slight; MCH 29.1 pg (25.0-35.0); MCHC 31.6 g/dL (31.0-37.0); MCV 92.1 fL (80.0-100.0); Mean Platelet Volume 9.5; Platelet Count 217 k/uL (150-450); Poikilocytosis Slight; RBC 3.06 m/uL (4.30-5.90); RDW 16.7 % (11.5-15.5); WBC 20.2 k/uL (3.8-10.6)
[2020-02-13] MEDS: SODIUM FERRIC GLUCONAT-SUCROSE 125 MG in SODIUM CHLORIDE 0.9% 100 ML IVPB SCH (18:49)
[2020-02-13 20:00] LABS: Glucose,Whole Blood 333 mg/dL (75-99)
[2020-02-13] MEDS ORDERED: MD COMMUNICATION TO PHARMACY 1 EACH MISC PO PRN (22:24)
[2020-02-13] MEDS ORDERED: ACETAMINOPHEN IV (For NPO) 1,000 MG in EMPTY BAG 1 BAG IVPB PRN (22:27)
[2020-02-13] MEDS ORDERED: ACETAMINOPHEN SUPPOSITORY 650 MG SUPP RECTAL PRN (22:30)
[2020-02-13 23:25] LABS: Folate, Serum 21.4 ng/mL
[2020-02-14 00:17] LABS: Ferritin 3878.6 ng/mL (22.0-322.0)
[2020-02-14 05:41] LABS: Glucose,Whole Blood 163 mg/dL (75-99)
[2020-02-14] MEDS: INSULIN ASPART (NovoLOG) 100 UNIT/ML VIAL SQ SCH ×4 (05:46→21:39)
[2020-02-14 06:20] LABS: Anisocytosis Slight; Basophils % (A) 0 %; Eosinophils # (A) 0.1 k/uL (0-0.7); Eosinophils % (A) 0 %; HCT 24.3 % (39.0-53.0); HGB 7.8 gm/dL (13.0-17.5); Hypochromasia Slight; Lymphocytes # (A) 0.7 k/uL (1.0-4.8); Lymphocytes % (A) 4 %; MCH 29.3 pg (25.0-35.0); MCHC 32.1 g/dL (31.0-37.0); MCV 91.2 fL (80.0-100.0); Mean Platelet Volume 10.2; Monocytes # (A) 1.2 k/uL (0-1.0); Monocytes % (A) 6 %; Neutrophils # (A) 17.3 k/uL (1.3-7.7); Neutrophils % (A) 89 %; Platelet Count 199 k/uL (150-450); Poikilocytosis Moderate; RBC 2.67 m/uL (4.30-5.90); RDW 17.1 % (11.5-15.5); WBC 19.5 k/uL (3.8-10.6)
[2020-02-14 06:29] LABS: Calcium 8.5 mg/dL (8.4-10.2); Potassium 4.3 mmol/L (3.5-5.1)
--- NOTE | 2020-02-14 07:47 | XR ---
EXAMINATION TYPE: XR chest 1V portable DATE OF EXAM: 02/14/2020 HISTORY: effusion. REFERENCE: Previous study dated 02/13/2020. FINDINGS: Left pleural drain remains in place. There is a continuing large left-sided effusion. There is worsening left-sided airspace disease. The right lung is clear. Heart size is obscured. IMPRESSION: CONTINUING LARGE LEFT EFFUSION WELL LEFT UPPER LOBE AIRSPACE DISEASE.
[2020-02-14] MEDS: MULTIVITAMINS, THERA 1 EACH TAB PO SCH (07:56)
[2020-02-14] MEDS: ATORVASTATIN 40 MG TAB PO SCH (07:56)
[2020-02-14] MEDS: SENNOSIDES-DOCUSATE SODIUM 1 EACH TAB PO SCH (07:56)
[2020-02-14] MEDS: PANTOPRAZOLE 40 MG/10 ML VIAL IVP SCH ×2 (08:41→21:38)
[2020-02-14] MEDS: METOPROLOL TARTRATE 5 MG/5 ML VIAL IVP SCH ×2 (08:41→21:29)
[2020-02-14] MEDS: DEXTROSE 5% IN WATER 1,000 ML IV SCH (10:28)
--- NOTE | 2020-02-14 11:21 | P.PN ---
Subjective Progress Note Date: 02/14/20 Principal diagnosis: Right-sided weakness, acute CVA, left pleural effusion, anemia 84-year-old white male patient of Dr. Mcgrath, who was recently seen by us in consultation during his previous admission on 02/06/2020 for shortness of breath and new onset of left-sided pleural effusion. Medical history includes COPD with chronic [id number] smoking history, CAD with previous intervention and stenting, peripheral vascular disease, carotid artery stenosis with previous left endarterectomy, right kidney disease stage III at baseline, chronic anemia, history of bladder cancer, hypertension, hyperlipidemia, diabetes mellitus type 2. Patient underwent left sided thoracentesis by Dr. Conway on 02/06/2020 with removal of 1.5 L of dark yellowish pleural effusion, and pleural fluid analysis revealed exudative fluid, pleural fluid cytology is still pending, blood fluid cultures were negative. Patient was discharged home on all 02/07/2020. On 02/09/2020 patient had acute onset of right upper extremity weakness at 1105, his symptoms started around 5 PM on 02/08/2020. Brain CT without contrast showed at least a couple areas of focal cortical hypodensity in the left parieto-occipital junction and posterior left parietal lobe compatible with acute infarcts, and it was suspected that the duration was greater than 6 hours judging by the degree of hypodensity. No midline shift or acute intracranial hemorrhage was noted. Echocardiogram showed preserved EF of 55-60% trace mitral regurg and trace tricuspid regurg. Carotid Doppler ultrasound showed a moderate 50-69% stenosis of the proximal right ICA. From pulmonary perspective patient denies any worsening dyspnea, chest x-ray showed increasing moderate to large left pleural effusion with adjacent atelectasis and/or consolidation. And we were consulted in regards to left-sided pleural effusion. Ultrasound the chest was completed showing 13.4 cm fluid pocket on the left, but clinically patient appears to be in no acute respiratory distress, he is currently on 4 L of oxygen with a pulse ox of 96-100%. On 02/12/2020 patient seen in follow-up on selective care unit, yesterday he underwent left-sided thoracentesis by Dr. Schneider with removal of 800 mL of grossly bloody fluid. The fluid was sent for analysis, cytology and cultures, cytology is pending, pleural fluid analysis showed exudative fluid, and pleural fluid Frantz stain showed no organisms, a is afebrile, he received 2 units of packed red blood cells yesterday, and today his hemoglobin is 6.2, patient in addition to hemothorax also was having bowel movements the day before yesterday with blood in them. Plavix and aspirin have been placed on hold. GI service is following. Today he is seen resting in bed, he is on 2 L of oxygen and the pulse ox 98%, does not seem to be in any acute distress, still has right-sided weakness, neurology is following, his been afebrile. Respirations are nonlabored, lung sounds reveal diminished breath sounds on the left, today's chest x-ray shows worsening moderate left pleural effusion, the possibility of reaccumulation of bloody pleural effusion. On 02/13/2020 the patient was seen in follow-up with Dr. Hall. He is sitting up in bed and appears to be comfortable. Remains afebrile. Heart rate 80s to low 100s. Blood pressure stable. Oxygen saturation 100% on 3 L nasal cannula. Left-sided pigtail catheter present with approximate 300 mL of thick bloody drainage in the last 24 hours. Left pleural fluid Gram stain preliminarily negative, cultures pending. Cytology from thoracentesis demonstrates bloody pleural fluid with occasional atypical epithelioid cells similar to those seen in prior left thoracentesis diagnosed as metastatic pulmonary adenocarcinoma. Chest x-ray this morning demonstrates mild cardiomegaly, chronic emphysematous changes with persistent diffuse left lung edema, probable persistent small left basilar pleural fluid collection. White blood cell count 17.6, hemoglobin 9.9 after 2 units packed red blood cells transfused yesterday, sodium 150, BUN 64, creatinine 1.37. The patient is seen today 02/14/2020 in follow-up on the regular medical floor. He is awake. Minimally responsive. Maintaining O2 saturation in the mid 90s on room air. Currently afebrile. Hemodynamically stable. He is status post 3 units of packed red blood cells this admission. Today's hemoglobin is 7.8. Pleural fluid cultures are pending. His x-ray continues to show large left pleural effusion as well as worsening left upper lobe airspace disease. White count 19.5. Hemoglobin 7.8. Platelets 199. Sodium 151. Potassium 4.3. Creatinine 1.37. Objective - Vital Signs Vital signs: Vital Signs Temp 98.3 F 02/14/20 10:08 Pulse 92 02/14/20 10:08 Resp 16 02/14/20 10:08 BP 136/75 02/14/20 10:08 Pulse Ox 95 02/14/20 10:08 Intake & Output 02/13/20 02/14/20 02/14/20 18:59 06:59 18:59 Intake Total 960 Output Total 660 725 Balance 300 -725 Weight 77 kg 77.1 kg Intake: Oral 960 Output: Chest Tube Drainage 60 50 Pleural Catheter Left 60 50 Posterior Chest Urine 600 675 Straight 200 Other: Voiding Method Indwelling Catheter Indwelling Catheter Indwelling Catheter # Bowel Movements 2 1 - Exam GENERAL EXAM: Alert, 84-year-old gentleman on room air comfortable in no apparent distress. HEAD: Normocephalic. Slight right-sided facial droop EYES: Normal reaction of pupils, equal size. NOSE: Clear with pink turbinates. THROAT: No erythema or exudates. NECK: No masses, no JVD. CHEST: No chest wall deformity. LUNGS: Equal air entry with crackles and dullness in the left lung. CVS: S1 and S2 normal with no audible murmur, regular rhythm. ABDOMEN: No hepatosplenomegaly, normal bowel sounds, no guarding or rigidity. SPINE: No scoliosis or deformity SKIN: No rashes CENTRAL NERVOUS SYSTEM: Tone is normal in all 4 extremities. EXTREMITIES: Right upper extremity flaccid. There is no peripheral edema. No clubbing, no cyanosis. Peripheral pulses are intact. - Labs CBC & Chem 7: 02/14/20 05:32 02/14/20 05:32 Labs: Abnormal Lab Results - Last 24 Hours (Table) 02/11/20 02/13/20 02/13/20 Range/Units 01:57 09:00 11:50 WBC (3.8-10.6) k/uL RBC (4.30-5.90) m/uL Hgb (13.0-17.5) gm/dL Hct (39.0-53.0) % RDW (11.5-15.5) % Neutrophils # (1.3-7.7) k/uL Lymphocytes # (1.0-4.8) k/uL Monocytes # (0-1.0) k/uL Sodium (137-145) mmol/L Chloride (98-107) mmol/L BUN (9-20) mg/dL Creatinine (0.66-1.25) mg/dL Glucose (74-99) mg/dL POC Glucose (mg/dL) 253 H (75-99) mg/dL Ferritin (22.0-322.0) ng/mL Lactate Dehydrogenase (313-618) U/L Vitamin B12 (200.0-944.0) pg/mL Procalcitonin 0.24 H (0.02-0.09) ng/mL Crossmatch See Detail 02/13/20 02/13/20 02/13/20 Range/Units 16:57 18:28 18:28 WBC 20.2 H (3.8-10.6) k/uL RBC 3.06 L (4.30-5.90) m/uL Hgb 8.9 L (13.0-17.5) gm/dL Hct 28.2 L (39.0-53.0) % RDW 16.7 H (11.5-15.5) % Neutrophils # (1.3-7.7) k/uL Lymphocytes # (1.0-4.8) k/uL Monocytes # (0-1.0) k/uL Sodium (137-145) mmol/L Chloride (98-107) mmol/L BUN (9-20) mg/dL Creatinine (0.66-1.25) mg/dL Glucose (74-99) mg/dL POC Glucose (mg/dL) 134 H (75-99) mg/dL Ferritin 3878.6 H (22.0-322.0) ng/mL Lactate Dehydrogenase 1212 H (313-618) U/L Vitamin B12 1333.0 H (200.0-944.0) pg/mL Procalcitonin (0.02-0.09) ng/mL Crossmatch 02/13/20 02/14/20 02/14/20 Range/Units 19:56 05:32 05:32 WBC 19.5 H (3.8-10.6) k/uL RBC 2.67 L (4.30-5.90) m/uL Hgb 7.8 L (13.0-17.5) gm/dL Hct 24.3 L (39.0-53.0) % RDW 17.1 H (11.5-15.5) % Neutrophils # 17.3 H (1.3-7.7) k/uL Lymphocytes # 0.7 L (1.0-4.8) k/uL Monocytes # 1.2 H (0-1.0) k/uL Sodium 151 H (137-145) mmol/L Chloride 125 H (98-107) mmol/L BUN 54 H (9-20) mg/dL Creatinine 1.37 H (0.66-1.25) mg/dL Glucose 147 H (74-99) mg/dL POC Glucose (mg/dL) 333 H (75-99) mg/dL Ferritin (22.0-322.0) ng/mL Lactate Dehydrogenase (313-618) U/L Vitamin B12 (200.0-944.0) pg/mL Procalcitonin (0.02-0.09) ng/mL Crossmatch 02/14/20 Range/Units 05:35 WBC (3.8-10.6) k/uL RBC (4.30-5.90) m/uL Hgb (13.0-17.5) gm/dL Hct (39.0-53.0) % RDW (11.5-15.5) % Neutrophils # (1.3-7.7) k/uL Lymphocytes # (1.0-4.8) k/uL Monocytes # (0-1.0) k/uL Sodium (137-145) mmol/L Chloride (98-107) mmol/L BUN (9-20) mg/dL Creatinine (0.66-1.25) mg/dL Glucose (74-99) mg/dL POC Glucose (mg/dL) 163 H (75-99) mg/dL Ferritin (22.0-322.0) ng/mL Lactate Dehydrogenase (313-618) U/L Vitamin B12 (200.0-944.0) pg/mL Procalcitonin (0.02-0.09) ng/mL Crossmatch Microbiology - Last 24 Hours (Table) 02/11/20 10:53 Gram Stain - Preliminary Pleural Fluid Body Fluid Culture - Preliminary Assessment and Plan Assessment: #1. Acute anemia multifactorial, likely related to possibility of GI bleeding, and left-sided hemothorax #2. Moderately sized left pleural effusion, with a recent history of left-sided thoracentesis on 02/06/2020 with removal of 1.5 L of pleural fluid cytology is positive for metastatic pulmonary adenocarcinoma, cultures are negative thus far, and fluid was exudative in nature. Patient underwent left-sided thoracentesis on 02/11/[address] Hall would removal of 800 mL of grossly bloody fluid, which was exudative in nature cytology is positive for primary pulmonary adenocarcinoma blood cultures are negative #3. Acute ischemic CVA on 02/09/2020, and patient presented with right upper extremity weakness, initial brain CT showed areas of focal cortical hypodensity in the left parietal occipital junction and posterior left parietal lobe compatible with acute infarct. Brain MRI showed numerous focal areas of increased signal within the left frontal, parietal, parietal occipital and temporal regions compatible with acute ischemic embolic process #4. Left ICA stenosis of 50-69% #5. Chronic anemia, with recent history of a blood positive in stools, status post extra blood cell transfusion #6. History of COPD #7. History of tobacco dependence, currently in remission, carries 85-brnt-tzcy smoking history #8. Coronary artery disease with previous history of coronary intervention and stenting #9. Peripheral vascular disease #10. Carotid artery stenosis with previous history of endarterectomy on the left #11. History of chronic kidney disease stage III at baseline #12. History of bladder cancer #13. Hypertension #14. Hyperlipidemia #15. Diabetes mellitus type 2 #16. Poor overall functional performance based on the above-mentioned multiple comorbidities. Plan: The patient was seen and evaluated by Dr. Hall. Chest x-ray and labs reviewed. Cytology is positive for primary pulmonary adenocarcinoma of the manfred ng. His overall prognosis is quite poor. Not a candidate for systemic chemotherapy.Chest tube remains in place to continuous wall suction for now. Discharge planning in place. Hospice consult has been placed. We'll continue the current treatment plan for now. We'll continue to follow. I, the cosigning physician, performed a history & physical examination of the patient. Lungs sounds with crackles and dullness in the left lung. Maintaining good O2 saturations in the 90s on room air. I discussed the assessment and plan of care with my nurse practitioner, Jacquie Lynch. I attest to the above note as dictated by her.
--- NOTE | 2020-02-14 11:26 | P.PN ---
Subjective Progress Note Date: 02/14/20 Principal diagnosis: Acute left sided stroke, left internal carotid stenosis, left sided pleural effusion, hypernatremia, acute kidney injury, rectal bleed, This is an 84-year-old male patient of Dr. Healy with past medical history of hypertension, hyperlipidemia, diabetes mellitus type 2, coronary artery disease status post stent, left carotid endarterectomy, peripheral vascular disease with bilateral stents, bladder cancer, chronic anemia, tobacco use and dependence using a pipe for 60 years. Patient was recently hospitalized on February 05 for left-sided pleural effusion status post thoracentesis for 1.5 L of fluid by Dr. Conway. Patient was also started on home oxygen for chronic hypoxic respiratory failure. Patient had sudden onset of right upper extremity weakness that it started on the evening of February 07. He went to to bed hoping that the symptoms would go away but woke in the morning and his son was over to visit. Patient's son noted that he had the right upper extremity weakness and called EMS. Patient did have some improvement of his symptoms during transport. He did not have any speech difficulties and no lower extremity weakness. Patient came into [facility] emergency center for evaluation. WBC 14.0 hemoglobin 7.8 platelets 294. PT/PTT normal. Sodium 140 potassium 5.4, BUN 77, creatinine 1.88. Hemoglobin A1c 5.6 on 11/20/2019. B12 358. Folate normal. Liver panel normal. Coronavirus PCR negative on 02/06/2020. Influenza screen negative. Triglycerides 106, cholesterol 100, LDL 52, HDL 27. His initial NIH stroke scale was 1. EKG was a sinus rhythm with incomplete right bundle branch block. According to the ED report, the case was discussed with vascular neurology Dr. Moncada, who felt patient was not a candidate for TPA. Patient was given aspirin and admitted to the cardiac stepdown unit and consul ts requested with neurology and vascular surgery. CAT scan of the brain that revealed couple areas of focal cortical hypodensity left parietal occipital junction and posterior left parietal compatible with acute infarcts. No midline shift. Chest x-ray showed increasing moderate to large pleural effusion on the left with adjacent atelectasis and/or consolidation. CTA of the head revealed [id number] atherosclerotic narrowing throughout the bilateral carotid siphons more so on the left. The left clinoid segment in particular has some artifact throughout, limiting assessment for focal occlusion. The supraclinoid portion of the left ICA opacifies appropriately arguing against focal thrombus. Further clinical correlation recommended. Consider MRA if indicated. Otherwise no large vessel intracranial arterial occlusion or aneurysmal changes were seen. CTA of the neck showed moderate to severe atherosclerotic narrowing left carotid bulb with just under 70% stenosis. Subtotal occlusion vs complete occlusion and reconstitution of the V2 segment right vertebral artery at the C5 6 level. Echocardiogram reveals EF of 55-60%, trace mitral regurgitation, trace tricuspid regurgitation. Carotid ultrasound reveals moderate 50-69% stenosis of the proximal right ICA. 02/10: MRA of the head revealed high-grade stenosis involving the intracranial portion of the left ICA at its cavernous component. MRI of the brain revealed numerous focal areas of increased signal noted within the left frontal, parietal lobe, parietal occipital and temporal regions compatible with acute ischemic embolic process. Case was discussed yesterday with neurology and vascular surgery. Patient was started on baby aspirin and Plavix. Due to history of gastritis/esophagitis, Pepcid increased to twice daily. Patient was seen by Dr. Cabezas. At this time no clear for surgical intervention is planned and patient will follow-up with Dr. Cabezas as an outpatient. Ultrasound of the chest revealed a left pleural effusion pocket size 13.4 cm and marked for possible thoracentesis. Dr. Hall performed thoracentesis today with removal of 1.1 L of bloody fluid. office aide, patient had bloody stools and found to have a drop in hemoglobin to 6.4 and was transfused 1 unit packed RBCs. GI consult has been added and Plavix and aspirin discontinued. Patient also had an increase in white count to 17.1, BUN 91, creatinine 2.41, potassium 5.8. Consult will be added for Dr. Machuca for acute kidney injury. UA and culture added. Patient has been incontinent of urine. Patient is noted to have increasing weakness to the right lower extremity. Discharge plan is to [facility] or [facility]. 02/11: Patient is afebrile, heart rate 98, blood pressure 127/78, pulse ox 95% on 2 L nasal cannula. Repeat hemoglobin this morning is 6.2. One unit of packed RBCs ordered for today. Reviewed iron studies from last admission. Patient will be started on Ferrlecit daily for 2 doses. WBC 16.5, platelet count 247. Sodium 145, potassium 5.0, chloride 115, CO2 20, BUN 91 and creatinine 1.94. Blood sugar running between 94 and 151. Repeat chest x-ray reveals worsening moderate left pleural effusion with concern for reaccumulation of bloody pleural effusion. Patient is scheduled today for pigtail catheter with interventional radiology. Patient is also had some blood in his Cabezas catheter which seems to be clearing. He has underlying history of bladder cancer. Patient states that he is eating okay and denies any difficulty with swallowing. Patient did have a bowel movement yesterday afternoon which did not show any blood. Repeat chest x-rays been ordered for the morning. Discussed CODE STATUS with family and charito ent has been made no CODE STATUS. 02/12: Patient has been afebrile, heart rate 118, blood pressure 131/71, pulse ox 100% on 3 L nasal cannula. Repeat chest x-ray reveals new left basilar pigtail pleural drainage catheter. Background mild cardiomegaly and chronic emphysematous change with persistent diffuse left lung infiltrate and/or edema along the probable persistent small left basilar pleural fluid collection. Pleural fluid cytology reveals metastatic pulmonary and no carcinoma. Consult with Dr. Irene added. Patient has been seen by Dr. Machuca for acute kidney injury secondary to hypotension and hypoperfusion, KAMALJIT inhibitor and IV contrast with plan to continue IV fluids, avoid hypotension and nephrotoxic agents, ultrasound of the kidneys was ordered. Cabezas remains in place and hematuria has cleared. GI is following and have no plan for any endoscopy on this visit. Repeat blood work reveals WBC 17.6, hemoglobin 9.9, platelet count 230. Sodium 150, potassium 4.7, chloride 121, CO2 22, BUN 64 and creatinine 1.37. Blood sugars running between 127 and 253. Patient's IV fluids have been transitioned to D5w. Second dose of Ferrlecit scheduled for today. Patient is status post transfusion of 3 units of packed RBCs total. Anticipate probable discharge to ECF on Sunday. Patient is followed by PT, OT and speech therapy. He is currently on full liquid diet, honey thick liquids with aspiration precautions. 02/13: Patient is medically stable, he is respond is very limited at this point, still mildly hypoxic, pigtail catheter still draining some of the pleural fluid with Kamaljit accumulate and use for comfort management at this point. Awaiting for [facility] probably for Sunday if patient is more stable by then. Continue PTOT and continue supportive care at this point. Objective - Vital Signs Vital signs: Vital Signs Temp 98.3 F 02/14/20 10:08 Pulse 92 02/14/20 10:08 Resp 16 02/14/20 10:08 BP 136/75 02/14/20 10:08 Pulse Ox 95 02/14/20 10:08 Intake & Output 02/13/20 02/14/20 02/14/20 18:59 06:59 18:59 Intake Total 960 Output Total 660 725 200 Balance 300 -725 -200 Weight 77 kg 77.1 kg Intake: Oral 960 Output: Chest Tube Drainage 60 50 Pleural Catheter Left 60 50 Posterior Chest Urine 600 675 200 Straight 200 200 Other: Voiding Method Indwelling Catheter Indwelling Catheter Indwelling Catheter # Bowel Movements 2 1 - Exam Review of Systems Constitutional: Reports weakness, Denies anorexia, Denies chills, Denies fatigue, Denies fever, Denies lethargy, Denies malaise, Denies weight loss Eyes: denies blurred vision, denies pain, denies loss of vision Ears, nose, mouth and throat: Denies dysphagia, Denies headache, Denies nasal congestion, Denies nasal discharge, Denies sore throat, Denies vertigo Cardiovascular: Reports irregular heart beat, Denies chest pain, Denies decreased exercise tolerance, Denies dyspnea on exertion, Denies edema, Denies leg edema, Denies shortness of breath, Denies syncope Respiratory: Denies cough, Denies cough with sputum, Denies dyspnea, Denies hemoptysis, Denies home oxygen, Denies respiratory infections Gastrointestinal: Denies abdominal pain, Denies diarrhea, Denies loss of appetite, Denies nausea, Denies vomiting, reports rectal bleeding Genitourinary: Denies dysuria, Denies urinary retention, reports hematuria Musculoskeletal: Reports muscle weakness, Denies frequent falls, Denies gait dys function, Denies myalgias Integumentary: Denies pruritus, Denies rash, Denies wounds Neurological: Reports weakness right upper and lower extremities, Denies change in mentation, Denies change in speech, Denies confusion, Denies gait dysfunction, Denies numbness, Denies paresthesias, Denies vertigo Psychiatric: Denies anxiety, Denies depression Endocrine: Denies fatigue, Denies weight change Physical Examination Gen: This is an 84-year-old male. Patient is resting in bed appears to be comfortable in no acute distress. HEENT: Head is atraumatic, normocephalic. Pupils equal, round. Sclerae is anicteric. NECK: Supple. No JVD. No lymphadenopathy. No thyromegaly. No carotid bruit. LUNGS: Diminished in the bases. No wheezes or rhonchi. No intercostal retr actions. HEART: Regular rate and rhythm. No murmur. ABDOMEN: Soft. Bowel sounds are present. No masses. No tenderness. Cabezas catheter with clear zack urine EXTREMITIES: No pedal edema. No calf tenderness. NEUROLOGICAL: Patient is awake, alert and oriented to person and place, confused. Weakness in the right upper extremity 0/5. Right lower extremity strength 3/5. - Labs CBC & Chem 7: 02/14/20 05:32 02/14/20 05:32 Labs: Abnormal Lab Results - Last 24 Hours (Table) 02/11/20 02/13/20 02/13/20 Range/Units 01:57 09:00 11:50 WBC (3.8-10.6) k/uL RBC (4.30-5.90) m/uL Hgb (13.0-17.5) gm/dL Hct (39.0-53.0) % RDW (11.5-15.5) % Neutrophils # (1.3-7.7) k/uL Lymphocytes # (1.0-4.8) k/uL Monocytes # (0-1.0) k/uL Sodium (137-145) mmol/L Chloride (98-107) mmol/L BUN (9-20) mg/dL Creatinine (0.66-1.25) mg/dL Glucose (74-99) mg/dL POC Glucose (mg/dL) 253 H (75-99) mg/dL Ferritin (22.0-322.0) ng/mL Lactate Dehydrogenase (313-618) U/L Vitamin B12 (200.0-944.0) pg/mL Procalcitonin 0.24 H (0.02-0.09) ng/mL Crossmatch See Detail 02/13/20 02/13/20 02/13/20 Range/Units 16:57 18:28 18:28 WBC 20.2 H (3.8-10.6) k/uL RBC 3.06 L (4.30-5.90) m/uL Hgb 8.9 L (13.0-17.5) gm/dL Hct 28.2 L (39.0-53.0) % RDW 16.7 H (11.5-15.5) % Neutrophils # (1.3-7.7) k/uL Lymphocytes # (1.0-4.8) k/uL Monocytes # (0-1.0) k/uL Sodium (137-145) mmol/L Chloride (98-107) mmol/L BUN (9-20) mg/dL Creatinine (0.66-1.25) mg/dL Glucose (74-99) mg/dL POC Glucose (mg/dL) 134 H (75-99) mg/dL Ferritin 3878.6 H (22.0-322.0) ng/mL Lactate Dehydrogenase 1212 H (313-618) U/L Vitamin B12 1333.0 H (200.0-944.0) pg/mL Procalcitonin (0.02-0.09) ng/mL Crossmatch 02/13/20 02/14/20 02/14/20 Range/Units 19:56 05:32 05:32 WBC 19.5 H (3.8-10.6) k/uL RBC 2.67 L (4.30-5.90) m/uL Hgb 7.8 L (13.0-17.5) gm/dL Hct 24.3 L (39.0-53.0) % RDW 17.1 H (11.5-15.5) % Neutrophils # 17.3 H (1.3-7.7) k/uL Lymphocytes # 0.7 L (1.0-4.8) k/uL Monocytes # 1.2 H (0-1.0) k/uL Sodium 151 H (137-145) mmol/L Chloride 125 H (98-107) mmol/L BUN 54 H (9-20) mg/dL Creatinine 1.37 H (0.66-1.25) mg/dL Glucose 147 H (74-99) mg/dL POC Glucose (mg/dL) 333 H (75-99) mg/dL Ferritin (22.0-322.0) ng/mL Lactate Dehydrogenase (313-618) U/L Vitamin B12 (200.0-944.0) pg/mL Procalcitonin (0.02-0.09) ng/mL Crossmatch 02/14/20 Range/Units 05:35 WBC (3.8-10.6) k/uL RBC (4.30-5.90) m/uL Hgb (13.0-17.5) gm/dL Hct (39.0-53.0) % RDW (11.5-15.5) % Neutrophils # (1.3-7.7) k/uL Lymphocytes # (1.0-4.8) k/uL Monocytes # (0-1.0) k/uL Sodium (137-145) mmol/L Chloride (98-107) mmol/L BUN (9-20) mg/dL Creatinine (0.66-1.25) mg/dL Glucose (74-99) mg/dL POC Glucose (mg/dL) 163 H (75-99) mg/dL Ferritin (22.0-322.0) ng/mL Lactate Dehydrogenase (313-618) U/L Vitamin B12 (200.0-944.0) pg/mL Procalcitonin (0.02-0.09) ng/mL Crossmatch Microbiology - Last 24 Hours (Table) 02/11/20 10:53 Gram Stain - Preliminary Pleural Fluid Body Fluid Culture - Preliminary Assessment and Plan Plan: 1 acute ischemic stroke still have significant weakness continue Plavix atorvastatin and continue controlled blood pressure. 2 left internal carotid stenosis: Patient was seen vascular no surgical intervention is required this point. 3 left-sided large pleural effusion: Post pigtail catheter placement still having to drain it every few days the patient is a bit more stable at this point. 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 5 acute kidney injury stage III: Seen nephrology blood pressure is under better control and is not on any nephrotoxic agent at this point. 6 type 2 diabetes: Patient remain on NovoLog per sliding scales and is off metformin at this point. 7 hypertension: Was on lisinopril has been held at this point with the acute kidney injury. 8 hyperlipidemia: On atorvastatin 40 mg daily. 9 history of bladder cancer: Has been stable. 10 GI prophylaxis: On Protonix. Discharge planning: Possibly going to assisted living or long-term rehab on Sunday.
[2020-02-14 11:35] LABS: Glucose,Whole Blood 158 mg/dL (75-99)
--- NOTE | 2020-02-14 14:49 | PN ---
PROGRESS NOTE Patient is seen for followup for acute kidney injury and hypernatremia. He was maintained on D5W which seems to have been discontinued. Sodium went up to 151 from 150 yesterday. Currently patient remains with chest tube in place. He denies any significant complaints. Creatinine is down to 1.3 from 2.4 at peak. PHYSICAL EXAMINATION: On examination today, blood pressure is 110/56, heart rate 91 per minute. Patient is afebrile. EXAMINATION OF THE HEART: S1, S2. EXAMINATION OF THE LUNGS: Bilateral breath sounds are heard. ABDOMEN: Soft, nontender. Examination of lower extremities shows no evidence of edema. 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 LABS: Labs show sodium 151, potassium 4.3, chloride 125, BUN 54, creatinine 1.37, hemoglobin 7.8 g/dL. ASSESSMENT: 1. Acute kidney injury, prerenal, currently improving. Patient is maintained on D5W, which I will continue for now. 2. Hypernatremia, maintained on D5W somehow it was discontinued, I will resume but at a lower rate at 50 mL an hour. We will repeat labs in a.m. 3. Left hemothorax, currently with chest tube in place. 4. Left pleural effusion, status post thoracentesis. 5. Right arm weakness secondary to acute cerebrovascular accident, being followed by Neurology. PLAN: Continue with D5W. Repeat labs in a.m. MMODL / IJN: [id number] /
[2020-02-14 16:31] LABS: Glucose,Whole Blood 144 mg/dL (75-99)
[2020-02-14 21:28] LABS: Glucose,Whole Blood 136 mg/dL (75-99)
--- NOTE | 2020-02-14 22:26 | P.PN ---
Subjective Progress Note Date: 02/14/20 Principal diagnosis: Chronic Anemia No signs or symptoms of GI bleeding today. Patient had chest tube placed. Tolerating diet. No abdominal pain, nausea or vomiting. Objective - Vital Signs Vital signs: Vital Signs Temp 98.9 F 02/14/20 14:00 Pulse 101 H 02/14/20 14:00 Resp 16 02/14/20 14:00 BP 138/69 02/14/20 14:00 Pulse Ox 97 02/14/20 14:00 Intake & Output 02/14/20 02/14/20 02/15/20 06:59 18:59 06:59 Intake Total 200 Output Total 725 880 480 Balance -725 -680 -480 Weight 77.1 kg Intake: Intake, IV Titration 200 Amount Dextrose 5% in Water 1, 200 000 ml @ 50 mls/hr IV . Q20H [facility] Rx#:[id number] Output: Chest Tube Drainage 50 80 80 Pleural Catheter Left 50 80 80 Posterior Chest Urine 675 800 400 Straight 200 200 200 Other: Voiding Method Indwelling Catheter Indwelling Catheter # Bowel Movements 1 - Exam On physical examination, patient appears comfortable in no apparent distress. HEAD: Normocephalic, atraumatic. EYES: No scleral icterus. No conjunctival injection. MOUTH: No lesions, tongue midline. NECK: Trachea midline, no gross abnormalities. ABDOMEN: Soft, obese. Bowel sounds are positive. No organomegaly. No guarding or rigidity. EXTREMITIES: No pedal edema. SKIN: No rashes, no jaundice. NEUROLOGIC: Alert and oriented with right-sided weakness noted. - Labs CBC & Chem 7: 02/14/20 05:32 02/14/20 05:32 Labs: Abnormal Lab Results - Last 24 Hours (Table) 02/11/20 02/13/20 02/14/20 Range/Units 01:57 18:28 05:32 WBC 19.5 H (3.8-10.6) k/uL RBC 2.67 L (4.30-5.90) m/uL Hgb 7.8 L (13.0-17.5) gm/dL Hct 24.3 L (39.0-53.0) % RDW 17.1 H (11.5-15.5) % Neutrophils # 17.3 H (1.3-7.7) k/uL Lymphocytes # 0.7 L (1.0-4.8) k/uL Monocytes # 1.2 H (0-1.0) k/uL Sodium (137-145) mmol/L Chloride (98-107) mmol/L BUN (9-20) mg/dL Creatinine (0.66-1.25) mg/dL Glucose (74-99) mg/dL POC Glucose (mg/dL) (75-99) mg/dL Ferritin 3878.6 H (22.0-322.0) ng/mL Vitamin B12 1333.0 H (200.0-944.0) pg/mL Crossmatch See Detail 02/14/20 02/14/20 02/14/20 Range/Units 05:32 05:35 11:33 WBC (3.8-10.6) k/uL RBC (4.30-5.90) m/uL Hgb (13.0-17.5) gm/dL Hct (39.0-53.0) % RDW (11.5-15.5) % Neutrophils # (1.3-7.7) k/uL Lymphocytes # (1.0-4.8) k/uL Monocytes # (0-1.0) k/uL Sodium 151 H (137-145) mmol/L Chloride 125 H (98-107) mmol/L BUN 54 H (9-20) mg/dL Creatinine 1.37 H (0.66-1.25) mg/dL Glucose 147 H (74-99) mg/dL POC Glucose (mg/dL) 163 H 158 H (75-99) mg/dL Ferritin (22.0-322.0) ng/mL Vitamin B12 (200.0-944.0) pg/mL Crossmatch 02/14/20 02/14/20 Range/Units 16:29 21:25 WBC (3.8-10.6) k/uL RBC (4.30-5.90) m/uL Hgb (13.0-17.5) gm/dL Hct (39.0-53.0) % RDW (11.5-15.5) % Neutrophils # (1.3-7.7) k/uL Lymphocytes # (1.0-4.8) k/uL Monocytes # (0-1.0) k/uL Sodium (137-145) mmol/L Chloride (98-107) mmol/L BUN (9-20) mg/dL Creatinine (0.66-1.25) mg/dL Glucose (74-99) mg/dL POC Glucose (mg/dL) 144 H 136 H (75-99) mg/dL Ferritin (22.0-322.0) ng/mL Vitamin B12 (200.0-944.0) pg/mL Crossmatch Microbiology - Last 24 Hours (Table) 02/11/20 10:53 Gram Stain - Preliminary Pleural Fluid Body Fluid Culture - Preliminary Assessment and Plan (1) Normocytic normochromic anemia Narrative/Plan: 84-year-old male with multiple medical comorbidities including chronic normocytic normochromic anemia likely multifactorial secondary to anemia of chronic disease, nutritional deficiencies, cannot rule out a component of bleeding from small bowel angiodysplasias. On current admission patient was found to have a pleural effusion which was described as grossly bloody, currently with chest tube placed. Current Visit: Yes Status: Acute Code(s): D64.9 - ANEMIA, UNSPECIFIED SNOMED Code(s): 06543566 (2) Cerebrovascular accident (CVA) Current Visit: Yes Status: Acute Code(s): I63.9 - CEREBRAL INFARCTION, UNSPECIFIED SNOMED Code(s): 606524389 Plan: Supportive care Okay for diet as tolerated Protonix twice a day Continue to monitor hemoglobin and hematocrit and transfuse as needed Reports from prior endoscopic investigations reviewed No plan for endoscopic evaluation on current admission, patient remains extremely high risk for sedation given multiple comorbidities and recent CVA Continue to hold anticoagulation/antiplatelet agents given concern for possible bleeding from GI tract and from pleural effusion Thank you for allowing us to participate in the care of the patient
[2020-02-15] MEDS: DEXTROSE 5% IN WATER 1,000 ML IV SCH (05:38)
[2020-02-15 07:06] LABS: Anisocytosis Slight; HCT 24.6 % (39.0-53.0); HGB 7.9 gm/dL (13.0-17.5); Hypochromasia Moderate; MCH 29.6 pg (25.0-35.0); MCV 92.7 fL (80.0-100.0); Mean Platelet Volume 9.6; Platelet Count 174 k/uL (150-450); Poikilocytosis Slight; RBC 2.65 m/uL (4.30-5.90); RDW 17.2 % (11.5-15.5); WBC 19.8 k/uL (3.8-10.6)
[2020-02-15 07:18] LABS: Calcium 8.6 mg/dL (8.4-10.2); Potassium 4.5 mmol/L (3.5-5.1)
[2020-02-15 07:51] LABS: Glucose,Whole Blood 176 mg/dL (75-99)
[2020-02-15] MEDS: MULTIVITAMINS, THERA 1 EACH TAB PO SCH (08:43)
[2020-02-15] MEDS: ATORVASTATIN 40 MG TAB PO SCH (08:43)
[2020-02-15] MEDS: SENNOSIDES-DOCUSATE SODIUM 1 EACH TAB PO SCH (08:43)
[2020-02-15] MEDS: PANTOPRAZOLE 40 MG/10 ML VIAL IVP SCH ×2 (08:55→21:19)
[2020-02-15] MEDS: INSULIN ASPART (NovoLOG) 100 UNIT/ML VIAL SQ SCH ×4 (08:56→21:31)
[2020-02-15] MEDS: METOPROLOL TARTRATE 5 MG/5 ML VIAL IVP SCH ×2 (08:56→21:20)
--- NOTE | 2020-02-15 10:37 | P.PN ---
Subjective Progress Note Date: 02/15/20 Principal diagnosis: Acute left sided stroke, left internal carotid stenosis, left sided pleural effusion, hypernatremia, acute kidney injury, rectal bleed, This is an 84-year-old male patient of Dr. Healy with past medical history of hypertension, hyperlipidemia, diabetes mellitus type 2, coronary artery disease status post stent, left carotid endarterectomy, peripheral vascular disease with bilateral stents, bladder cancer, chronic anemia, tobacco use and dependence using a pipe for 60 years. Patient was recently hospitalized on February 05 for left-sided pleural effusion status post thoracentesis for 1.5 L of fluid by Dr. Conway. Patient was also started on home oxygen for chronic hypoxic respiratory failure. Patient had sudden onset of right upper extremity weakness that it started on the evening of February 07. He went to to bed hoping that the symptoms would go away but woke in the morning and his son was over to visit. Patient's son noted that he had the right upper extremity weakness and called EMS. Patient did have some improvement of his symptoms during transport. He did not have any speech difficulties and no lower extremity weakness. Patient came into [facility] emergency center for evaluation. WBC 14.0 hemoglobin 7.8 platelets 294. PT/PTT normal. Sodium 140 potassium 5.4, BUN 77, creatinine 1.88. Hemoglobin A1c 5.6 on 11/20/2019. B12 358. Folate normal. Liver panel normal. Coronavirus PCR negative on 02/06/2020. Influenza screen negative. Triglycerides 106, cholesterol 100, LDL 52, HDL 27. His initial NIH stroke scale was 1. EKG was a sinus rhythm with incomplete right bundle branch block. According to the ED report, the case was discussed with vascular neurology Dr. Moncada, who felt patient was not a candidate for TPA. Patient was given aspirin and admitted to the cardiac stepdown unit and consul ts requested with neurology and vascular surgery. CAT scan of the brain that revealed couple areas of focal cortical hypodensity left parietal occipital junction and posterior left parietal compatible with acute infarcts. No midline shift. Chest x-ray showed increasing moderate to large pleural effusion on the left with adjacent atelectasis and/or consolidation. CTA of the head revealed [id number] atherosclerotic narrowing throughout the bilateral carotid siphons more so on the left. The left clinoid segment in particular has some artifact throughout, limiting assessment for focal occlusion. The supraclinoid portion of the left ICA opacifies appropriately arguing against focal thrombus. Further clinical correlation recommended. Consider MRA if indicated. Otherwise no large vessel intracranial arterial occlusion or aneurysmal changes were seen. CTA of the neck showed moderate to severe atherosclerotic narrowing left carotid bulb with just under 70% stenosis. Subtotal occlusion vs complete occlusion and reconstitution of the V2 segment right vertebral artery at the C5 6 level. Echocardiogram reveals EF of 55-60%, trace mitral regurgitation, trace tricuspid regurgitation. Carotid ultrasound reveals moderate 50-69% stenosis of the proximal right ICA. 02/10: MRA of the head revealed high-grade stenosis involving the intracranial portion of the left ICA at its cavernous component. MRI of the brain revealed numerous focal areas of increased signal noted within the left frontal, parietal lobe, parietal occipital and temporal regions compatible with acute ischemic embolic process. Case was discussed yesterday with neurology and vascular surgery. Patient was started on baby aspirin and Plavix. Due to history of gastritis/esophagitis, Pepcid increased to twice daily. Patient was seen by Dr. Cabezas. At this time no clear for surgical intervention is planned and patient will follow-up with Dr. Cabezas as an outpatient. Ultrasound of the chest revealed a left pleural effusion pocket size 13.4 cm and marked for possible thoracentesis. Dr. Hall performed thoracentesis today with removal of 1.1 L of bloody fluid. disability program navigator, patient had bloody stools and found to have a drop in hemoglobin to 6.4 and was transfused 1 unit packed RBCs. GI consult has been added and Plavix and aspirin discontinued. Patient also had an increase in white count to 17.1, BUN 91, creatinine 2.41, potassium 5.8. Consult will be added for Dr. Machuca for acute kidney injury. UA and culture added. Patient has been incontinent of urine. Patient is noted to have increasing weakness to the right lower extremity. Discharge plan is to [facility] or [facility]. 02/11: Patient is afebrile, heart rate 98, blood pressure 127/78, pulse ox 95% on 2 L nasal cannula. Repeat hemoglobin this morning is 6.2. One unit of packed RBCs ordered for today. Reviewed iron studies from last admission. Patient will be started on Ferrlecit daily for 2 doses. WBC 16.5, platelet count 247. Sodium 145, potassium 5.0, chloride 115, CO2 20, BUN 91 and creatinine 1.94. Blood sugar running between 94 and 151. Repeat chest x-ray reveals worsening moderate left pleural effusion with concern for reaccumulation of bloody pleural effusion. Patient is scheduled today for pigtail catheter with interventional radiology. Patient is also had some blood in his Cabezas catheter which seems to be clearing. He has underlying history of bladder cancer. Patient states that he is eating okay and denies any difficulty with swallowing. Patient did have a bowel movement yesterday afternoon which did not show any blood. Repeat chest x-rays been ordered for the morning. Discussed CODE STATUS with family and charito ent has been made no CODE STATUS. 02/12: Patient has been afebrile, heart rate 118, blood pressure 131/71, pulse ox 100% on 3 L nasal cannula. Repeat chest x-ray reveals new left basilar pigtail pleural drainage catheter. Background mild cardiomegaly and chronic emphysematous change with persistent diffuse left lung infiltrate and/or edema along the probable persistent small left basilar pleural fluid collection. Pleural fluid cytology reveals metastatic pulmonary and no carcinoma. Consult with Dr. Irene added. Patient has been seen by Dr. Machuca for acute kidney injury secondary to hypotension and hypoperfusion, KAMALJIT inhibitor and IV contrast with plan to continue IV fluids, avoid hypotension and nephrotoxic agents, ultrasound of the kidneys was ordered. Cabezas remains in place and hematuria has cleared. GI is following and have no plan for any endoscopy on this visit. Repeat blood work reveals WBC 17.6, hemoglobin 9.9, platelet count 230. Sodium 150, potassium 4.7, chloride 121, CO2 22, BUN 64 and creatinine 1.37. Blood sugars running between 127 and 253. Patient's IV fluids have been transitioned to D5w. Second dose of Ferrlecit scheduled for today. Patient is status post transfusion of 3 units of packed RBCs total. Anticipate probable discharge to [facility] on Sunday. Patient is followed by PT, OT and speech therapy. He is currently on full liquid diet, honey thick liquids with aspiration precautions. 02/13: Patient is medically stable, he is respond is very limited at this point, still mildly hypoxic, pigtail catheter still draining some of the pleural fluid with Kamaljit accumulate and use for comfort management at this point. Awaiting for [facility] probably for Sunday if patient is more stable by then. Continue PTOT and continue supportive care at this point. 02/14: Patient still not doing that well continue to have mild hypoxia still have chest tube in the left sided pigtail catheter draining some, apparently family had made a decision to do hospice care to meet with hospice making all the arrangement for Sunday. Objective - Vital Signs Vital signs: Vital Signs Temp 98.0 F 02/15/20 07:48 Pulse 91 02/15/20 07:48 Resp 15 02/15/20 07:48 BP 128/57 02/15/20 07:48 Pulse Ox 95 02/15/20 07:48 Intake & Output 02/14/20 02/15/20 02/15/20 18:59 06:59 18:59 Intake Total 200 0 Output Total 880 1640 Balance -680 -1640 Intake: Intake, IV Titration 200 Amount Dextrose 5% in Water 1, 200 000 ml @ 50 mls/hr IV . Q20H [facility] Rx#:[id number] Oral 0 Output: Chest Tube Drainage 80 40 Pleural Catheter Left 80 40 Posterior Chest Urine 800 1600 Straight 200 800 Other: Voiding Method Indwelling Catheter Indwelling Catheter - Exam Review of Systems Constitutional: Reports weakness, Denies anorexia, Denies chills, Denies fatigue, Denies fever, Denies lethargy, Denies malaise, Denies weight loss Eyes: denies blurred vision, denies pain, denies loss of vision Ears, nose, mouth and throat: Denies dysphagia, Denies headache, Denies nasal congestion, Denies nasal discharge, Denies sore throat, Denies vertigo Cardiovascular: Reports irregular heart beat, Denies chest pain, Denies decreased exercise tolerance, Denies dyspnea on exertion, Denies edema, Denies leg edema, Denies shortness of breath, Denies syncope Respiratory: Denies cough, Denies cough with sputum, Denies dyspnea, Denies hemoptysis, Denies home oxygen, Denies respiratory infections Gastrointestinal: Denies abdominal pain, Denies diarrhea, Denies loss of appetite, Denies nausea, Denies vomiting, reports rectal bleeding Genitourinary: Denies dysuria, Denies urinary retention, reports hematuria Musculoskeletal: Reports muscle weakness, Denies frequent falls, Denies gait dysfunction, Denies myalgias Integumentary: Denies pruritus, Denies rash, Denies wounds Neurological: Reports weakness right upper and lower extremities, Denies change in mentation, Denies change in speech, Denies confusion, Denies gait dysfunction, Denies numbness, Denies paresthesias, Denies vertigo Psychiatric: Denies anxiety, Denies depression Endocrine: Denies fatigue, Denies weight change Physical Examination Gen: This is an 84-year-old male. Patient is resting in bed appears to be comfortable in no acute distress. HEENT: Head is atraumatic, normocephalic. Pupils equal, round. Sclerae is anicteric. NECK: Supple. No JVD. No lymphadenopathy. No thyromegaly. No carotid bruit. LUNGS: Diminished in the bases. No wheezes or rhonchi. No intercostal retractions. HEART: Regular rate and rhythm. No murmur. ABDOMEN: Soft. Bowel sounds are present. No masses. No tenderness. Cabezas catheter with clear zack urine EXTREMITIES: No pedal edema. No calf tenderness. NEUROLOGICAL: Patient is awake, alert and oriented to person and place, confused. Weakness in the right upper extremity 0/5. Right lower extremity strength 3/5. - Labs CBC & Chem 7: 02/15/20 06:36 02/15/20 06:36 Labs: Abnormal Lab Results - Last 24 Hours (Table) 02/14/20 02/14/20 02/14/20 Range/Units 11:33 16:29 21:25 WBC (3.8-10.6) k/uL RBC (4.30-5.90) m/uL Hgb (13.0-17.5) gm/dL Hct (39.0-53.0) % RDW (11.5-15.5) % Sodium (137-145) mmol/L Chloride (98-107) mmol/L Carbon Dioxide (22-30) mmol/L BUN (9-20) mg/dL Creatinine (0.66-1.25) mg/dL Glucose (74-99) mg/dL POC Glucose (mg/dL) 158 H 144 H 136 H (75-99) mg/dL 02/15/20 02/15/20 02/15/20 Range/Units 06:36 06:36 07:46 WBC 19.8 H (3.8-10.6) k/uL RBC 2.65 L (4.30-5.90) m/uL Hgb 7.9 L (13.0-17.5) gm/dL Hct 24.6 L (39.0-53.0) % RDW 17.2 H (11.5-15.5) % Sodium 152 H (137-145) mmol/L Chloride 125 H (98-107) mmol/L Carbon Dioxide 21 L (22-30) mmol/L BUN 53 H (9-20) mg/dL Creatinine 1.42 H (0.66-1.25) mg/dL Glucose 157 H (74-99) mg/dL POC Glucose (mg/dL) 176 H (75-99) mg/dL Microbiology - Last 24 Hours (Table) 02/11/20 10:53 Gram Stain - Final Pleural Fluid Body Fluid Culture - Final Assessment and Plan Plan: 1 acute ischemic stroke still have significant weakness continue Plavix atorvastatin and continue controlled blood pressure. 2 left internal carotid stenosis: Patient was seen vascular no surgical intervention is required this point. 3 left-sided large pleural effusion: Post pigtail catheter placement still having to drain it every few days the patient is a bit more stable at this point. 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 5 acute kidney injury stage III: Seen nephrology blood pressure is under better control and is not on any nephrotoxic agent at this point. 6 type 2 diabetes: Patient remain on NovoLog per sliding scales and is off metformin at this point. 7 hypertension: Was on lisinopril has been held at this point with the acute kidney injury. 8 hyperlipidemia: On atorvastatin 40 mg daily. 9 history of bladder cancer: Has been stable. 10 GI prophylaxis: On Protonix. Discharge planning: Family they are in contact with hospice and plan for hospice tomorrow. Still have 1 chest tube in the left side which will be pulled out before leaving the hospital and continue O2 and titrated to keep pulse ox above 90 percentile.
--- NOTE | 2020-02-15 11:19 | P.PN ---
Subjective Progress Note Date: 02/15/20 Principal diagnosis: Right-sided weakness, acute CVA, left pleural effusion, anemia 84-year-old white male patient of Dr. Mcgrath, who was recently seen by us in consultation during his previous admission on 02/06/2020 for shortness of breath and new onset of left-sided pleural effusion. Medical history includes COPD with chronic [id number] smoking history, CAD with previous intervention and stenting, peripheral vascular disease, carotid artery stenosis with previous left endarterectomy, right kidney disease stage III at baseline, chronic anemia, history of bladder cancer, hypertension, hyperlipidemia, diabetes mellitus type 2. Patient underwent left sided thoracentesis by Dr. Conway on 02/06/2020 with removal of 1.5 L of dark yellowish pleural effusion, and pleural fluid analysis revealed exudative fluid, pleural fluid cytology is still pending, blood fluid cultures were negative. Patient was discharged home on all 02/07/2020. On 02/09/2020 patient had acute onset of right upper extremity weakness at 1105, his symptoms started around 5 PM on 02/08/2020. Brain CT without contrast showed at least a couple areas of focal cortical hypodensity in the left parieto-occipital junction and posterior left parietal lobe compatible with acute infarcts, and it was suspected that the duration was greater than 6 hours judging by the degree of hypodensity. No midline shift or acute intracranial hemorrhage was noted. Echocardiogram showed preserved EF of 55-60% trace mitral regurg and trace tricuspid regurg. Carotid Doppler ultrasound showed a moderate 50-69% stenosis of the proximal right ICA. From pulmonary perspective patient denies any worsening dyspnea, chest x-ray showed increasing moderate to large left pleural effusion with adjacent atelectasis and/or consolidation. And we were consulted in regards to left-sided pleural effusion. Ultrasound the chest was completed showing 13.4 cm fluid pocket on the left, but clinically patient appears to be in no acute respiratory distress, he is currently on 4 L of oxygen with a pulse ox of 96-100%. On 02/12/2020 patient seen in follow-up on selective care unit, yesterday he underwent left-sided thoracentesis by Dr. Schneider with removal of 800 mL of grossly bloody fluid. The fluid was sent for analysis, cytology and cultures, cytology is pending, pleural fluid analysis showed exudative fluid, and pleural fluid Frantz stain showed no organisms, a is afebrile, he received 2 units of packed red blood cells yesterday, and today his hemoglobin is 6.2, patient in addition to hemothorax also was having bowel movements the day before yesterday with blood in them. Plavix and aspirin have been placed on hold. GI service is following. Today he is seen resting in bed, he is on 2 L of oxygen and the pulse ox 98%, does not seem to be in any acute distress, still has right-sided weakness, neurology is following, his been afebrile. Respirations are nonlabored, lung sounds reveal diminished breath sounds on the left, today's chest x-ray shows worsening moderate left pleural effusion, the possibility of reaccumulation of bloody pleural effusion. On 02/13/2020 the patient was seen in follow-up with Dr. Hall. He is sitting up in bed and appears to be comfortable. Remains afebrile. Heart rate 80s to low 100s. Blood pressure stable. Oxygen saturation 100% on 3 L nasal cannula. Left-sided pigtail catheter present with approximate 300 mL of thick bloody drainage in the last 24 hours. Left pleural fluid Gram stain preliminarily negative, cultures pending. Cytology from thoracentesis demonstrates bloody pleural fluid with occasional atypical epithelioid cells similar to those seen in prior left thoracentesis diagnosed as metastatic pulmonary adenocarcinoma. Chest x-ray this morning demonstrates mild cardiomegaly, chronic emphysematous changes with persistent diffuse left lung edema, probable persistent small left basilar pleural fluid collection. White blood cell count 17.6, hemoglobin 9.9 after 2 units packed red blood cells transfused yesterday, sodium 150, BUN 64, creatinine 1.37. The patient is seen today 02/14/2020 in follow-up on the regular medical floor. He is awake. Minimally responsive. Maintaining O2 saturation in the mid 90s on room air. Currently afebrile. Hemodynamically stable. He is status post 3 units of packed red blood cells this admission. Today's hemoglobin is 7.8. Pleural fluid cultures are pending. His x-ray continues to show large left pleural effusion as well as worsening left upper lobe airspace disease. White count 19.5. Hemoglobin 7.8. Platelets 199. Sodium 151. Potassium 4.3. Creatinine 1.37. The patient is seen today 02/15/2020 in follow-up on the regular medical floor. Remains minimally responsive. He is maintaining O2 saturations in the mid 90s on room air. He has been afebrile. He is hemodynamically stable. White count 19.8. Hemoglobin 7.9. Platelets 174. Sodium 152. Potassium 4.5. Chloride 125. Bicarb 21. Creatinine 1.42. Glucose 157. He remains on D5W at 50 MLS per hour. Objective - Vital Signs Vital signs: Vital Signs Temp 98.0 F 02/15/20 07:48 Pulse 91 02/15/20 07:48 Resp 15 02/15/20 07:48 BP 128/57 02/15/20 07:48 Pulse Ox 95 02/15/20 07:48 Intake & Output 02/14/20 02/15/20 02/15/20 18:59 06:59 18:59 Intake Total 200 0 Output Total 880 1640 Balance -680 -1640 Intake: Intake, IV Titration 200 Amount Dextrose 5% in Water 1, 200 000 ml @ 50 mls/hr IV . Q20H [facility] Rx#:[id number] Oral 0 Output: Chest Tube Drainage 80 40 Pleural Catheter Left 80 40 Posterior Chest Urine 800 1600 Straight 200 800 Other: Voiding Method Indwelling Catheter Indwelling Catheter - Exam GENERAL EXAM: Alert, 84-year-old gentleman, minimally responsive, on room air comfortable in no apparent distress. HEAD: Normocephalic. Slight right-sided facial droop EYES: Normal reaction of pupils, equal size. NOSE: Clear with pink turbinates. THROAT: No erythema or exudates. NECK: No masses, no JVD. CHEST: No chest wall deformity. LUNGS: Equal air entry with crackles and dullness in the left lung. CVS: S1 and S2 normal with no audible murmur, regular rhythm. ABDOMEN: No hepatosplenomegaly, normal bowel sounds, no guarding or rigidity. SPINE: No scoliosis or deformity SKIN: No rashes CENTRAL NERVOUS SYSTEM: Tone is normal in all 4 extremities. EXTREMITIES: Right upper extremity flaccid. There is no peripheral edema. No clubbing, no cyanosis. Peripheral pulses are intact. - Labs CBC & Chem 7: 02/15/20 06:36 02/15/20 06:36 Labs: Abnormal Lab Results - Last 24 Hours (Table) 02/14/20 02/14/20 02/14/20 Range/Units 11:33 16:29 21:25 WBC (3.8-10.6) k/uL RBC (4.30-5.90) m/uL Hgb (13.0-17.5) gm/dL Hct (39.0-53.0) % RDW (11.5-15.5) % Sodium (137-145) mmol/L Chloride (98-107) mmol/L Carbon Dioxide (22-30) mmol/L BUN (9-20) mg/dL Creatinine (0.66-1.25) mg/dL Glucose (74-99) mg/dL POC Glucose (mg/dL) 158 H 144 H 136 H (75-99) mg/dL 02/15/20 02/15/20 02/15/20 Range/Units 06:36 06:36 07:46 WBC 19.8 H (3.8-10.6) k/uL RBC 2.65 L (4.30-5.90) m/uL Hgb 7.9 L (13.0-17.5) gm/dL Hct 24.6 L (39.0-53.0) % RDW 17.2 H (11.5-15.5) % Sodium 152 H (137-145) mmol/L Chloride 125 H (98-107) mmol/L Carbon Dioxide 21 L (22-30) mmol/L BUN 53 H (9-20) mg/dL Creatinine 1.42 H (0.66-1.25) mg/dL Glucose 157 H (74-99) mg/dL POC Glucose (mg/dL) 176 H (75-99) mg/dL Microbiology - Last 24 Hours (Table) 02/11/20 10:53 Gram Stain - Final Pleural Fluid Body Fluid Culture - Final Assessment and Plan Assessment: #1. Acute anemia multifactorial, likely related to possibility of GI bleeding, and left-sided hemothorax. Status post 3 units packed red blood cells this admission. Current hemoglobin 7.9 #2. Moderately sized left pleural effusion, with a recent history of left-sided thoracentesis on 02/06/2020 with removal of 1.5 L of pleural fluid cytology is positive for metastatic pulmonary adenocarcinoma. Patient underwent left-sided thoracentesis on 02/11/[address] Hall would removal of 800 mL of grossly bloody fluid, which is positive for primary pulmonary adenocarcinoma #3. Acute ischemic CVA on 02/09/2020, and patient presented with right upper extremity weakness, initial brain CT showed areas of focal cortical hypodensity in the left parietal occipital junction and posterior left parietal lobe compatible with acute infarct. Brain MRI showed numerous focal areas of increased signal within the left frontal, parietal, parietal occipital and temporal regions compatible with acute ischemic embolic process #4. Left ICA stenosis of 50-69% #5. Chronic anemia, with recent history of a blood positive in stools, status post extra blood cell transfusion #6. History of COPD #7. History of tobacco dependence, currently in remission, carries [id number] smoking history #8. Coronary artery disease with previous history of coronary intervention and stenting #9. Peripheral vascular disease #10. Carotid artery stenosis with previous history of endarterectomy on the left #11. History of chronic kidney disease stage III at baseline #12. History of bladder cancer #13. Hypertension #14. Hyperlipidemia #15. Diabetes mellitus type 2 #16. Poor overall functional performance based on the above-mentioned multiple comorbidities. Plan: The patient was seen and evaluated by Dr. Hall. He did speak with the patient's daughter Mercy who is at the bedside. She is aware of the patient's diagnosis and prognosis. She is requesting to take the patient home tomorrow with hospice. We are would recommend interventional radiology removing the pigtail catheter prior to discharge. We'll continue the current treatment plan for now. I, the cosigning physician, performed a history & physical examination of the patient. Lungs sounds with crackles and dullness in the left lung. Maintaining good O2 saturations in the 90s on room air. I discussed the assessment and plan of care with my nurse practitioner, Jacquie Lynch. I attest to the above note as dictated by her.
[2020-02-15 12:26] LABS: Glucose,Whole Blood 166 mg/dL (75-99)
--- NOTE | 2020-02-15 14:56 | PN ---
PROGRESS NOTE Patient is seen for followup for acute kidney injury and hypernatremia. He has a left hemothorax with left chest tube in the patient is also maintained on D5W for a short period of time. This was restarted yesterday. His sodium is actually increased to 152. No significant complaints today. PHYSICAL EXAMINATION: On examination, blood pressure is 128/57, heart rate 91 per minute. He is afebrile. Examination of the heart S1, S2. Examination of the lungs, bilateral breath sounds are heard. Left chest tube has been present. Abdomen is soft nontender. Exam of lower extremities shows no evidence of edema. LAB: Show sodium 152, potassium 4.5, chloride 125, BUN 53, creatinine 1.42, hemoglobin 7.9 g/dL. ASSESSMENT: 1. Acute kidney injury secondary to hypotension and hypoperfusion and IV contrast with an element of contrast nephropathy, currently improving. 2. Hypernatremia associated with free water deficit. Increase D5W to 100 mL an hour. 3. Left pleural effusion, status post thoracentesis and left hemothorax status post chest tube. 4. Anemia secondary to bleeding from the hemothorax. PLAN: Increase D5W to 100 mL an hour. Repeat labs in a.m. MMODL / IJN: [id number] /
[2020-02-15 16:42] LABS: Glucose,Whole Blood 200 mg/dL (75-99)
[2020-02-15 20:51] LABS: Glucose,Whole Blood 174 mg/dL (75-99)
[2020-02-16] MEDS: DEXTROSE 5% IN WATER 1,000 ML IV SCH (03:47)
[2020-02-16 04:59] VITALS: BP 133/75; PULSE 105; TEMP 97.8
[2020-02-16 07:07] LABS: Glucose,Whole Blood 143 mg/dL (75-99)
[2020-02-16] MEDS: INSULIN ASPART (NovoLOG) 100 UNIT/ML VIAL SQ SCH (07:26)
[2020-02-16 08:00] LABS: Calcium 8.5 mg/dL (8.4-10.2); Potassium 4.5 mmol/L (3.5-5.1)
[2020-02-16 08:06] LABS: Anisocytosis Slight; HCT 23.6 % (39.0-53.0); HGB 7.2 gm/dL (13.0-17.5); Hypochromasia Moderate; MCH 29.5 pg (25.0-35.0); MCHC 30.7 g/dL (31.0-37.0); MCV 96.3 fL (80.0-100.0); Macrocytosis Slight; Mean Platelet Volume 10.4; Platelet Count 159 k/uL (150-450); Poikilocytosis Slight; RBC 2.45 m/uL (4.30-5.90); RDW 17.8 % (11.5-15.5); WBC 22.9 k/uL (3.8-10.6)
--- NOTE | 2020-02-16 08:08 | P.DS ---
Providers Date of admission: 02/09/20 15:55 Expected date of discharge: 02/16/20 Attending physician: Vicki Mcgrath Consults: 02/09/20 15:53 Consult Physician Urgent Consulting Provider: Vern Alfonso Consult Reason/Comments: carotid disease, acute cva Do you want consulting provider notified?: Yes Consult Physician Urgent Consulting Provider: Eh Baeza Consult Reason/Comments: acute cva Do you want consulting provider notified?: Yes 02/10/20 11:42 Consult Physician Routine Consulting Provider: Darrius Pedraza Consult Reason/Comments: pleural effusion Do you want consulting provider notified?: Yes 02/11/20 09:42 Consult Physician Routine Consulting Provider: Stephy Machuca Consult Reason/Comments: zelda Do you want consulting provider notified?: Yes 02/13/20 11:41 Consult Physician Routine Consulting Provider: Braydon Irene Consult Reason/Comments: metastatic adenocarcinoma lung Do you want consulting provider notified?: Yes Primary care physician: [facility] Course: This is an 84-year-old male patient of Dr. Healy with past medical history of hypertension, hyperlipidemia, diabetes mellitus type 2, coronary artery disease status post stent, left carotid endarterectomy, peripheral vascular disease with bilateral stents, bladder cancer, chronic anemia, tobacco use and dependence using a pipe for 60 years. Patient was recently hospitalized on February 05 for left-sided pleural effusion status post thoracentesis for 1.5 L of fluid by Dr. Conway. Patient was also started on home oxygen for chronic hypoxic respiratory failure. Patient had sudden onset of right upper extremity weakness that it started on the evening of February 07. He went to to bed hoping that the symptoms would go away but woke in the morning and his son was over to visit. Patient's son noted that he had the right upper extremity weakness and called EMS. Patient did have some improvement of his symptoms during transport. He did not have any speech difficulties and no lower extremity weakness. Patient came into [facility] emergency center for evaluation. WBC 14.0 hemoglobin 7.8 platelets 294. PT/PTT normal. Sodium 140 potassium 5.4, BUN 77, creatinine 1.88. Hemoglobin A1c 5.6 on 11/20/2019. B12 358. Folate normal. Liver panel normal. Coronavirus PCR negative on 02/06/2020. Influenza screen negative. Triglycerides 106, cholesterol 100, LDL 52, HDL 27. His initial NIH stroke scale was 1. EKG was a sinus rhythm with incomplete right bundle branch block. According to the ED report, the case was discussed with vascular neurology Dr. Moncada, who felt patient was not a candidate for TPA. Patient was given aspirin and admitted to the cardiac stepdown unit and consults requested with neurology and vascular surgery. CAT scan of the brain that revealed couple areas of focal cortical hypodensity left parietal occipital junction and posterior left parietal compatible with acute infarcts. No midline shift. Chest x-ray showed increasing moderate to large pleural effusion on the left with adjacent atelectasis and/or consolidation. CTA of the head revealed [id number] atherosclerotic narrowing throughout the bilateral carotid siphons more so on the left. The left clinoid segment in particular has some artifact throughout, limiting assessment for focal o cclusion. The supraclinoid portion of the left ICA opacifies appropriately arguing against focal thrombus. Further clinical correlation recommended. Consider MRA if indicated. Otherwise no large vessel intracranial arterial occlusion or aneurysmal changes were seen. CTA of the neck showed moderate to severe atherosclerotic narrowing left carotid bulb with just under 70% stenosis. Subtotal occlusion vs complete occlusion and reconstitution of the V2 segment right vertebral artery at the C5 6 level. Echocardiogram reveals EF of 55-60%, trace mitral regurgitation, trace tricuspid regurgitation. Carotid ultrasound reveals moderate 50-69% stenosis of the proximal right ICA. 02/10: MRA of the head revealed high-grade stenosis involving the intracranial portion of the left ICA at its cavernous component. MRI of the brain revealed numerous focal areas of increased signal noted within the left frontal, parietal lobe, parietal occipital and temporal regions compatible with acute ischemic embolic process. Case was discussed yesterday with neurology and vascular surgery. Patient was started on baby aspirin and Plavix. Due to history of gastritis/esophagitis, Pepcid increased to twice daily. Patient was seen by Dr. Cabezas. At this time no clear for surgical intervention is planned and patient will follow-up with Dr. Cabezas as an outpatient. Ultrasound of the chest revealed a left pleural effusion pocket size 13.4 cm and marked for possible thoracent esis. Dr. aHll performed thoracentesis today with removal of 1.1 L of bloody fluid. pediatric speech therapist, patient had bloody stools and found to have a drop in hemoglobin to 6.4 and was transfused 1 unit packed RBCs. GI consult has been added and Plavix and aspirin discontinued. Patient also had an increase in white count to 17.1, BUN 91, creatinine 2.41, potassium 5.8. Consult will be added for Dr. Machuca for acute kidney injury. UA and culture added. Patient has been incontinent of urine. Patient is noted to have increasing weakness to the right lower extremity. Discharge plan is to [facility] or [facility]. 02/11: Patient is afebrile, heart rate 98, blood pressure 127/78, pulse ox 95% on 2 L nasal cannula. Repeat hemoglobin this morning is 6.2. One unit of packed RBCs ordered for today. Reviewed iron studies from last admission. Patient will be started on Ferrlecit daily for 2 doses. WBC 16.5, platelet count 247. Sodium 145, potassium 5.0, chloride 115, CO2 20, BUN 91 and creatinine 1.94. Blood sugar running between 94 and 151. Repeat chest x-ray reveals worsening moderate left pleural effusion with concern for reaccumulation of bloody pleural effusion. Patient is scheduled today for pigtail catheter with interventional radiology. Patient is also had some blood in his Cabezas catheter which seems to be clearing. He has underlying history of bladder cancer. Patient states that he is eating okay and denies any difficulty with swallowing. Patient did have a bowel movement yesterday afternoon which did not show any blood. Repeat chest x-rays been ordered for the morning. Discussed CODE STATUS with family and patient has been made no CODE STATUS. 02/12: Patient has been afebrile, heart rate 118, blood pressure 131/71, pulse ox 100% on 3 L nasal cannula. Repeat chest x-ray reveals new left basilar pigtail pleural drainage catheter. Background mild cardiomegaly and chronic emphysematous change with persistent diffuse left lung infiltrate and/or edema along the probable persistent small left basilar pleural fluid collection. Pleural fluid cytology reveals metastatic pulmonary and no carcinoma. Consult with Dr. Irene added. Patient has been seen by Dr. Machuca for acute kidney injury secondary to hypotension and hypoperfusion, KAMALJIT inhibitor and IV contrast with plan to continue IV fluids, avoid hypotension and nephrotoxic agents, ultrasound of the kidneys was ordered. Cabezas remains in place and hematuria has cleared. GI is following and have no plan for any endoscopy on this visit. Repeat blood work reveals WBC 17.6, hemoglobin 9.9, platelet count 230. Sodium 150, potassium 4.7, chloride 121, CO2 22, BUN 64 and creatinine 1.37. Blood sugars running between 127 and 253. Patient's IV fluids have been transitioned to D5w. Second dose of Ferrlecit scheduled for today. Patient is status post transfusion of 3 units of packed RBCs total. Anticipate probable [facility]. Patient is followed by PT, OT and speech therapy. He is currently on full liquid diet, honey thick liquids with aspiration precautions. 02/13: Patient is medically stable, he is respond is very limited at this point, still mildly hypoxic, pigtail catheter still draining some of the pleural fluid with Kamaljit accumulate and use for comfort management at this point. Awaiting for [facility] probably for Sunday if patient is more stable by then. Continue P TOT and continue supportive care at this point. 02/14: Patient still not doing that well continue to have mild hypoxia still have chest tube in the left sided pigtail catheter draining some, apparently family had made a decision to do hospice care to meet with hospice making all the arrangement for Sunday. 02/15: Patient has been afebrile, heart rate 105, respiratory rate 24, blood pressure 133/75, pulse ox 95% on room air. Repeat blood work reveals WBC 22.9, hemoglobin 7.2, platelets 159. Sodium 152, potassium 4.5, chloride 123, CO2 24, BUN 15 and creatinine 1.63. Blood sugars running between 137 200. Patient is going to be discharged home with hospice care today. Interventional radiology will remove pigtail chest tube. Patient will be discharged home once all arrangements are completed. Discharge diagnoses: 1. Acute ischemic stroke left MCA/OWEN and MCA GEOLOGICAL AIDE. 2. Left internal carotid artery stenosis. 3. 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 4. Left-sided pleural effusion recurrence status post thoracentesis for 1.5 L on February 05. Status post thoracentesis with bloody return. 5. Left-sided hemothorax status post thoracentesis with removal of 800 ML's of grossly bloody fluid. Pigtail catheter placed. 6. 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 7. Acute kidney injury with chronic kidney disease stage III. 8. Rectal bleeding with acute blood loss anemia from GI source and also hemothorax contributing to blood loss. Status post transfusion of 3 units packed RBC. 9. Hypernatremia. 10. Diabetes mellitus type 2. Hemoglobin A1c 6.1. 11. Hypertension. 12. Hyperlipidemia. 13. Peripheral vascular disease. 14. History of bladder cancer, stable. 15. Tobacco use and dependence. Discharge plan: Home with [facility] Impression and plan of care have been directed as dictated by the signing ph ysician. Maritza Jett nurse practitioner acting as scribe for signing physician. Patient Condition at Discharge: Good Plan - Discharge Summary Discharge Rx Participant: No New Discharge Prescriptions: New LORazepam ORAL CONC [Ativan Intensol] 2 mg PO Q4HR PRN #30 ml PRN Reason: Anxiety Atropine Ophth Soln 1% 5Ml [Isopto Atropine 1% 5Ml] 2 drops PO Q4HR PRN #1 bottle PRN Reason: Secretions MORPHINE ORAL GEM CONC 20mg/mL [Roxanol Oral Soln Conc 20MG/ML] 5 mg PO Q4H PRN #30 ml PRN Reason: Pain Acetaminophen Suppository [Tylenol Suppository] 650 mg RECTAL Q6H PRN supp PRN Reason: PAIN OR FEVER Continue Multivitamins, Thera [Multivitamin (formulary)] 1 tab PO DAILY Discontinued Atorvastatin [Lipitor] 10 mg PO DAILY Aspirin [Adult Low Dose Aspirin EC] 81 mg PO DAILY Furosemide [Lasix] 20 mg PO BID metFORMIN HCL [Glucophage] 500 mg PO DAILY Lisinopril [Prinivil] 20 mg PO DAILY Acetaminophen [Tylenol] 500 mg PO Q4H PRN PRN Reason: Pain Discharge Medication List Multivitamins, Thera [Multivitamin (formulary)] 1 tab PO DAILY 10/23/16 [History] Acetaminophen Suppository [Tylenol Suppository] 650 mg RECTAL Q6H PRN supp 02/16/20 [Rx] Atropine Ophth Soln 1% 5Ml [Isopto Atropine 1% 5Ml] 2 drops PO Q4HR PRN #1 bottle 02/16/20 [Rx] LORazepam ORAL CONC [Ativan Intensol] 2 mg PO Q4HR PRN #30 ml 02/16/20 [Rx] MORPHINE ORAL GEM CONC 20mg/mL [Roxanol Oral Soln Conc 20MG/ML] 5 mg PO Q4H PRN #30 ml 04/13/20 [Rx] Follow up Appointment(s)/Referral(s): Markie Healy MD [Primary Care Provider] - 1 Week (Please call office to set up hospital follow up appointment) Activity/Diet/Wound Care/Special Instructions: pts son [phone] Cristi vs Derick
[2020-02-16] MEDS: PANTOPRAZOLE 40 MG/10 ML VIAL IVP SCH (08:53)
[2020-02-16] MEDS: METOPROLOL TARTRATE 5 MG/5 ML VIAL IVP SCH (08:53)
[2020-02-16] MEDS: MULTIVITAMINS, THERA 1 EACH TAB PO SCH (08:53)
[2020-02-16] MEDS: ATORVASTATIN 40 MG TAB PO SCH (08:53)
[2020-02-16] MEDS: SENNOSIDES-DOCUSATE SODIUM 1 EACH TAB PO SCH (08:54)
[2020-02-16] MEDS ORDERED: METOPROLOL TARTRATE 12.5 MG TAB PO SCH (09:00)
--- NOTE | 2020-02-16 09:37 | P.PN ---
Subjective Patient is seen in follow-up for acute kidney injury on chronic kidney disease. Creatinine 1.63 today. Patient is quite lethargic. Doesn't respond much to verbal commands. Vital signs are stable. General: The patient appeared well nourished and normally developed. HEENT: Head exam is unremarkable. Neck is without jugular venous distension. LUNGS: Lungs are clear to auscultation and percussion. Breath sounds decreased. Chest tube noted. HEART: Rate and Rhythm are regular. First and second heart sounds normal. No murmurs, rubs or gallops. ABDOMEN: Nontender. EXTREMITITES: No clubbing, cyanosis, or edema. Objective - Vital Signs Vital signs: Vital Signs Temp 97.8 F 02/16/20 04:45 Pulse 105 H 02/16/20 04:45 Resp 24 02/16/20 04:45 BP 133/75 02/16/20 04:45 Pulse Ox 95 02/16/20 04:45 Intake & Output 02/15/20 02/16/20 02/16/20 18:59 06:59 18:59 Intake Total 400 Output Total 550 530 Balance -150 -530 Intake: Intake, IV Titration 400 Amount Dextrose 5% in Water 1, 400 000 ml @ 100 mls/hr IV . Q10H [facility] Rx#:[id number] Output: Chest Tube Drainage 130 Pleural Catheter Left 130 Posterior Chest Urine 550 400 Other: Voiding Method Indwelling Catheter # Bowel Movements 0 - Labs CBC & Chem 7: 02/16/20 06:14 02/16/20 06:14 Labs: Abnormal Lab Results - Last 24 Hours (Table) 02/15/20 02/15/20 02/15/20 Range/Units 12:16 16:41 20:50 WBC (3.8-10.6) k/uL RBC (4.30-5.90) m/uL Hgb (13.0-17.5) gm/dL Hct (39.0-53.0) % MCHC (31.0-37.0) g/dL RDW (11.5-15.5) % Sodium (137-145) mmol/L Chloride (98-107) mmol/L BUN (9-20) mg/dL Creatinine (0.66-1.25) mg/dL Glucose (74-99) mg/dL POC Glucose (mg/dL) 166 H 200 H 174 H (75-99) mg/dL 02/16/20 02/16/20 02/16/20 Range/Units 06:14 06:14 07:05 WBC 22.9 H (3.8-10.6) k/uL RBC 2.45 L (4.30-5.90) m/uL Hgb 7.2 L (13.0-17.5) gm/dL Hct 23.6 L (39.0-53.0) % MCHC 30.7 L (31.0-37.0) g/dL RDW 17.8 H (11.5-15.5) % Sodium 152 H (137-145) mmol/L Chloride 123 H (98-107) mmol/L BUN 59 H (9-20) mg/dL Creatinine 1.63 H (0.66-1.25) mg/dL Glucose 137 H (74-99) mg/dL POC Glucose (mg/dL) 143 H (75-99) mg/dL Microbiology - Last 24 Hours (Table) 02/11/20 10:53 Gram Stain - Final Pleural Fluid Body Fluid Culture - Final Assessment and Plan Plan: Assessment: 1. Acute kidney injury secondary to ATN secondary to hypotension and contrast- induced acute kidney injury. Creatinine 1.63 today. 2. Hypernatremia secondary to lack of oral water intake. 3. Left pleural effusion with hemothorax status post chest tube placement. 4. Anemia secondary to hemothorax status post blood transfusion. Plan: Patient did not receive IV fluids last night due to malfunctioning IV line. Patient will be going home on hospice today.
[2020-02-16 10:55] VITALS: RESP 20
--- NOTE | 2020-02-16 11:46 | P.PN ---
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 Q10H [facility] Rx#:[id number] Output: Chest Tube Drainage 130 Pleural Catheter Left 130 Posterior Chest Urine 550 400 Other: Voiding Method Indwelling Catheter Indwelling Catheter # Bowel Movements 0 - Constitutional General appearance: Present: average body habitus, cooperative, no acute distress - EENT Eyes: Present: anicteric sclerae, EOMI - Respiratory Details: Left lung diminished, right lung clear to auscultation, patient is likely having difficulty managing secretions as his cough is extraordinarily congested sounding. - Cardiovascular Heart sounds: normal: S1, S2 - Peripheral edema leg Peripheral Edema: bilateral: None - Gastrointestinal General gastrointestinal: Present: normal bowel sounds, soft - Musculoskeletal Musculoskeletal: Present: generalized weakness - Psychiatric Psychiatric Comment(s): Alert, nonverbal, follows basic commands - Labs CBC & Chem 7: 02/16/20 06:14 02/16/20 06:14 Labs: Abnormal Lab Results - Last 24 Hours (Table) 02/15/20 02/15/20 02/15/20 Range/Units 12:16 16:41 20:50 WBC (3.8-10.6) k/uL RBC (4.30-5.90) m/uL Hgb (13.0-17.5) gm/dL Hct (39.0-53.0) % MCHC (31.0-37.0) g/dL RDW (11.5-15.5) % Sodium (137-145) mmol/L Chloride (98-107) mmol/L BUN (9-20) mg/dL Creatinine (0.66-1.25) mg/dL Glucose (74-99) mg/dL POC Glucose (mg/dL) 166 H 200 H 174 H (75-99) mg/dL 02/16/20 02/16/20 02/16/20 Range/Units 06:14 06:14 07:05 WBC 22.9 H (3.8-10.6) k/uL RBC 2.45 L (4.30-5.90) m/uL Hgb 7.2 L (13.0-17.5) gm/dL Hct 23.6 L (39.0-53.0) % MCHC 30.7 L (31.0-37.0) g/dL RDW 17.8 H (11.5-15.5) % Sodium 152 H (137-145) mmol/L Chloride 123 H (98-107) mmol/L BUN 59 H (9-20) mg/dL Creatinine 1.63 H (0.66-1.25) mg/dL Glucose 137 H (74-99) mg/dL POC Glucose (mg/dL) 143 H (75-99) mg/dL Microbiology - Last 24 Hours (Table) 02/11/20 10:53 Gram Stain - Final Pleural Fluid Body Fluid Culture - Final Assessment and Plan (1) Metastatic non-small cell lung cancer Narrative/Plan: After meeting with the patient, discussed case with nursing, Pulmonary was ent ering the room to evaluate patient, and did chart review, patient is being discharged home with hospice. This is very reasonable in his situation. Current Visit: Yes Status: Acute Priority: High Code(s): C34.90 - MALIGNANT NEOPLASM OF UNSP PART OF UNSP BRONCHUS OR LUNG SNOMED Code(s): 013336645 (2) Normocytic normochromic anemia Narrative/Plan: Anemia of inflammation as patient's ferritin is significantly elevated. Likely also a degree of chronic kidney disease. Patient's hemoglobin is low but in a safe range not requiring transfusion. Current Visit: Yes Status: Acute Priority: High Code(s): D64.9 - ANEMIA, UNSPECIFIED SNOMED Code(s): 78704905 (3) Neutrophilic leukocytosis Narrative/Plan: Slowly increasing. Patient has multiple comorbidities as well as malignancy that can be contributing to this. No further workup or intervention, patient is going to be discharged to the care of his family and support of hospice. Current Visit: Yes Status: Acute Priority: High Code(s): D72.9 - DISORDER OF WHITE BLOOD CELLS, UNSPECIFIED SNOMED Code(s): 660066471
--- NOTE | 2020-02-16 12:48 | P.PN ---
Subjective Progress Note Date: 02/16/20 Principal diagnosis: Right-sided weakness, acute CVA, left pleural effusion, anemia 84-year-old white male patient of Dr. Mcgrath, who was recently seen by us in consultation during his previous admission on 02/06/2020 for shortness of breath and new onset of left-sided pleural effusion. Medical history includes COPD with chronic [id number] smoking history, CAD with previous intervention and stenting, peripheral vascular disease, carotid artery stenosis with previous left endarterectomy, right kidney disease stage III at baseline, chronic anemia, history of bladder cancer, hypertension, hyperlipidemia, diabetes mellitus type 2. Patient underwent left sided thoracentesis by Dr. Conway on 02/06/2020 with removal of 1.5 L of dark yellowish pleural effusion, and pleural fluid analysis revealed exudative fluid, pleural fluid cytology is still pending, blood fluid cultures were negative. Patient was discharged home on all 02/07/2020. On 02/09/2020 patient had acute onset of right upper extremity weakness at 1105, his symptoms started around 5 PM on 02/08/2020. Brain CT without contrast showed at least a couple areas of focal cortical hypodensity in the left parieto-occipital junction and posterior left parietal lobe compatible with acute infarcts, and it was suspected that the duration was greater than 6 hours judging by the degree of hypodensity. No midline shift or acute intracranial hemorrhage was noted. Echocardiogram showed preserved EF of 55-60% trace mitral regurg and trace tricuspid regurg. Carotid Doppler ultrasound showed a moderate 50-69% stenosis of the proximal right ICA. From pulmonary perspective patient denies any worsening dyspnea, chest x-ray showed increasing moderate to large left pleural effusion with adjacent atelectasis and/or consolidation. And we were consulted in regards to left-sided pleural effusion. Ultrasound the chest was completed showing 13.4 cm fluid pocket on the left, but clinically patient appears to be in no acute respiratory distress, he is currently on 4 L of oxygen with a pulse ox of 96-100%. On 02/12/2020 patient seen in follow-up on selective care unit, yesterday he underwent left-sided thoracentesis by Dr. Schneider with removal of 800 mL of grossly bloody fluid. The fluid was sent for analysis, cytology and cultures, cytology is pending, pleural fluid analysis showed exudative fluid, and pleural fluid Frantz stain showed no organisms, a is afebrile, he received 2 units of packed red blood cells yesterday, and today his hemoglobin is 6.2, patient in addition to hemothorax also was having bowel movements the day before yesterday with blood in them. Plavix and aspirin have been placed on hold. GI service is following. Today he is seen resting in bed, he is on 2 L of oxygen and the pulse ox 98%, does not seem to be in any acute distress, still has right-sided weakness, neurology is following, his been afebrile. Respirations are nonlabored, lung sounds reveal diminished breath sounds on the left, today's chest x-ray shows worsening moderate left pleural effusion, the possibility of reaccumulation of bloody pleural effusion. On 02/16/2020 patient seen in follow-up on general medical floor, his left-sided pigtail chest tube has been removed by interventional radiology, he remains minimally responsive. His vital signs are stable, her pulse ox is 95%, patient was diagnosed with metastatic pulmonary adenocarcinoma based on the cytology of the pleural fluid. Family decided to proceed with hospice enrollment and transfer the patient home and hospice care. Objective - Vital Signs Vital signs: Vital Signs Temp 97.8 F 02/16/20 04:45 Pulse 105 H 02/16/20 04:45 Resp 20 02/16/20 08:00 BP 133/75 02/16/20 04:45 Pulse Ox 95 02/16/20 04:45 Intake & Output 02/15/20 02/16/20 02/16/20 18:59 06:59 18:59 Intake Total 400 Output Total 550 530 Balance -150 -530 Weight 77.1 kg Intake: Intake, IV Titration 400 Amount Dextrose 5% in Water 1, 400 000 ml @ 100 mls/hr IV . Q10H [facility] Rx#:[id number] Output: Chest Tube Drainage 130 Pleural Catheter Left 130 Posterior Chest Urine 550 400 Other: Voiding Method Indwelling Catheter Indwelling Catheter # Bowel Movements 0 - Exam GENERAL EXAM: 84-year-old white male, normally responsive currently on room air with a pulse ox of 95%, comfortable in no apparent distress. HEAD: Normocephalic/atraumatic. EYES: Normal reaction of pupils, equal size. Conjunctiva pink, sclera white. NOSE: Clear with pink turbinates. THROAT: No erythema or exudates. NECK: No masses, no JVD, no thyroid enlargement, no adenopathy. CHEST: No chest wall deformity. Symmetrical expansion. LUNGS: with no crackles, wheeze, rhonchi or dullness. Diminished breath sounds at the left base CVS: Regular rate and rhythm, normal S1 and S2, no gallops, no murmurs, no rubs ABDOMEN: Soft, nontender. No hepatosplenomegaly, normal bowel sounds, no guarding or rigidity. EXTREMITIES: No clubbing, no edema, no cyanosis, 2+ pulses and upper and lower extremities. MUSCULOSKELETAL: Muscle strength and tone normal. SPINE: No scoliosis or deformity SKIN: No rashes CENTRAL NERVOUS SYSTEM: Lethargic. Right upper arm weakness - Labs CBC & Chem 7: 02/16/20 06:14 02/16/20 06:14 Labs: Abnormal Lab Results - Last 24 Hours (Table) 02/15/20 02/15/20 02/16/20 Range/Units 16:41 20:50 06:14 WBC (3.8-10.6) k/uL RBC (4.30-5.90) m/uL Hgb (13.0-17.5) gm/dL Hct (39.0-53.0) % MCHC (31.0-37.0) g/dL RDW (11.5-15.5) % Sodium 152 H (137-145) mmol/L Chloride 123 H (98-107) mmol/L BUN 59 H (9-20) mg/dL Creatinine 1.63 H (0.66-1.25) mg/dL Glucose 137 H (74-99) mg/dL POC Glucose (mg/dL) 200 H 174 H (75-99) mg/dL 02/16/20 02/16/20 Range/Units 06:14 07:05 WBC 22.9 H (3.8-10.6) k/uL RBC 2.45 L (4.30-5.90) m/uL Hgb 7.2 L (13.0-17.5) gm/dL Hct 23.6 L (39.0-53.0) % MCHC 30.7 L (31.0-37.0) g/dL RDW 17.8 H (11.5-15.5) % Sodium (137-145) mmol/L Chloride (98-107) mmol/L BUN (9-20) mg/dL Creatinine (0.66-1.25) mg/dL Glucose (74-99) mg/dL POC Glucose (mg/dL) 143 H (75-99) mg/dL Microbiology - Last 24 Hours (Table) 02/11/20 10:53 Gram Stain - Final Pleural Fluid Body Fluid Culture - Final Assessment and Plan Plan: Assessment: #1. Metastatic adenocarcinoma of the lung, newly diagnosed, based on the pleural fluid cytology #2. Acute anemia multifactorial, likely related to possibility of GI bleeding, and left-sided hemothorax, status post left-sided thoracentesis with evacuation of 800 mL of grossly bloody fluid on all 02/11/2020 #3. Moderately sized left pleural effusion, with a recent history of left-sided thoracentesis on 02/06/2020 with removal of 1.5 L of pleural fluid cytology is pending, cultures are negative thus far, and fluid was exudative in nature. Patient underwent left-sided thoracentesis on 02/11/[address] Schneider would removal of 800 mL of grossly bloody fluid, which was exudative in nature cytology is pending, blood cultures are negative #4. Acute ischemic CVA on 02/09/2020, and patient presented with right upper extremity weakness, initial brain CT showed areas of focal cortical hypodensity in the left parietal occipital junction and posterior left parietal lobe compatible with acute infarct. Brain MRI showed numerous focal areas of increased signal within the left frontal, parietal, parietal occipital and temporal regions compatible with acute ischemic embolic process #5. Left ICA stenosis of 50-69% #6. Chronic anemia, with recent history of a blood positive in stools #7. History of COPD #8. History of tobacco dependence, currently in remission, carries [id number] smoking history #9. Coronary artery disease with previous history of coronary intervention and stenting #10. Peripheral vascular disease #11. Carotid artery stenosis with previous history of endarterectomy on the left #12. History of chronic kidney disease stage III at baseline #13. History of bladder cancer #14. Hypertension #15. Hyperlipidemia #16. Diabetes mellitus type 2 Plan: Patient's family made a decision to proceed with hospice enrollment in transfer the patient home with the hospice care, left-sided pigtail chest tube has been removed by interventional radiology. I performed a history & physical examination of the patient and discussed their management with my nurse practitioner, Christine Landry. I reviewed the nurse practitioner's note and agree with the documented findings and plan of care. Lung sounds are positive for diminished breath sounds. The findings and the impression was discussed with the patient. I attest to the documentation by the nurse practitioner. Time with Patient: Less than 30
== END 2020-02-16 12:01 | disposition hospice, home (50) | DRG 64 ==
LOC: EC 11:05 → 3SCARD 15:55 → 6NMEDSUR 02-14 09:48
PROVIDERS: ADMIT Family Medicine; ATTEND Family Medicine
PROC: 0W9B3ZZ Drainage of Left Pleural Cavity, Percutaneous Approach (ICD-10-PCS; principal; 2020-02-11)
PROC: 30233N1 Transfusion of Nonautologous Red Blood Cells into Peripheral Vein, Percutaneous Approach (ICD-10-PCS; 2020-02-11)
PROC: 0W9B30Z Drainage of Left Pleural Cavity with Drainage Device, Percutaneous Approach (ICD-10-PCS; 2020-02-12)
DX: I63.412 Cerebral infarction due to embolism of left middle cerebral artery (principal); G92 Toxic encephalopathy; N17.0 Acute kidney failure with tubular necrosis; J94.2 Hemothorax; G81.91 Hemiplegia, unspecified affecting right dominant side; J91.0 Malignant pleural effusion; E87.0 Hyperosmolality and hypernatremia; C34.91 Malignant neoplasm of unspecified part of right bronchus or lung; D62 Acute posthemorrhagic anemia; J96.11 Chronic respiratory failure with hypoxia; I63.432 Cerebral infarction due to embolism of left posterior cerebral artery; Z51.5 Encounter for palliative care; Z66 Do not resuscitate; E11.51 Type 2 diabetes mellitus with diabetic peripheral angiopathy without gangrene; R40.2363 Coma scale, best motor response, obeys commands, at hospital admission; R40.2143 Coma scale, eyes open, spontaneous, at hospital admission; R40.2253 Coma scale, best verbal response, oriented, at hospital admission; E78.5 Hyperlipidemia, unspecified; E11.22 Type 2 diabetes mellitus with diabetic chronic kidney disease; I12.9 Hypertensive chronic kidney disease with stage 1 through stage 4 chronic kidney disease, or unspecified chronic kidney disease; I25.10 Atherosclerotic heart disease of native coronary artery without angina pectoris; I65.23 Occlusion and stenosis of bilateral carotid arteries; I45.10 Unspecified right bundle-branch block; J44.9 Chronic obstructive pulmonary disease, unspecified; N18.3 Chronic kidney disease, stage 3 (moderate); R29.701 NIHSS score 1; T50.8X5A Adverse effect of diagnostic agents, initial encounter; F17.200 Nicotine dependence, unspecified, uncomplicated; K29.70 Gastritis, unspecified, without bleeding; Z60.2 Problems related to living alone; Z79.899 Other long term (current) drug therapy; Z79.4 Long term (current) use of insulin; Z79.82 Long term (current) use of aspirin; Z86.73 Personal history of transient ischemic attack (TIA), and cerebral infarction without residual deficits; Z83.3 Family history of diabetes mellitus; Z95.5 Presence of coronary angioplasty implant and graft; Z85.51 Personal history of malignant neoplasm of bladder; Z90.49 Acquired absence of other specified parts of digestive tract; Z90.89 Acquired absence of other organs; Z98.42 Cataract extraction status, left eye; Z98.41 Cataract extraction status, right eye; Z98.890 Other specified postprocedural states; Z80.8 Family history of malignant neoplasm of other organs or systems
CPT/HCPCS: 32551; 36415; 70450; 70496; 70498; 70544; 70551; 71045; 71046; 76604; 77012; 80048; 80053; 80061; 81001; 82550; 82553; 82607; 82728; 82746; 82945; 83036; 83615; 83921; 84145; 84157; 84484; 85025; 85027; 85610; 85730; 86850; 86900; 86901; 86920; 87070; 87102; 87116; 87205; 87206; 87252; 87496; 87498; 87529; 87634; 87798; 88108; 88305; 89050; 93005; 93306; 93880; 99291